=== PATIENT | female | born 1955 | race Caucasian/White ===

== ENCOUNTER 2017-04-30 12:33 | Day surgery (SDC) | payer OTHER ==
[~2017-04-30] VITALS: Ht 160 cm; Wt 57.6 kg
[~2017-04-30 12:33] MED LIST: ABAT250V; ACET325 PO; ALBU.083IS IH; ALBU90OI INH; ALBU90OI6 INH; ALBU90OI61; ALBU90OI61 INH; ALLO100; ALLO100 PO; ASPIRIN-ACETAM1 EACH PO; AZIT250 PO; B-1100 MG PO; BENZ100A PO; CHLO25 PO; CHOLESTEROL MED; CLON.1 PO; COLC.6 PO; CYAN100 PO; CYCL10; CYCL10 PO; Colace100 MG PO; Crutch1 EACH UD; DIPATR PO; ESTR2; ESTR2 PO; Estradiol0.5 MG PO; FENO160 PO; FERR325 PO; FLUSAL2505; FLUSAL2505 INH; FLUSAL5005 IH; FOLI1 PO; GABA300; GABA300 PO; HYDACE5 PO; HYDCHL25; HYDCHL25 PO; HYDR-86 PO; HYDROXYZINE PO; Hydrochlorothia25 MG PO; Hydroxyzine HCl50 MG; LEVO750 PO; LISI20; LISI20 PO; LISI5 PO; LITH300C PO; LORA1 PO; LOVA40 PO; LOVAZA; Lovastatin20 MG; METO25ER PO; METO50 PO; METR500 PO; NICO14TP TOP; NICO7; Norco 5-325 Ta1 EACH PO; OMEP20ER; OMEP20ER PO; OXYACE5T PO; PANT20 PO; PRED10 PO; PRED20 PO; PROM25 PO; Prednisone20 MG PO; Prilosec Otc20 MG PO; QUET100 PO; QUET200 PO; QUET300 PO; SENN187 PO; SULTRIDS PO; Seroquel Xr400 MG; Seroquel400 MG PO; THIA100 PO; TIOT18; TIOT18 INH; TRIA80TC; Therapeutic M1 EAC4 PO; VENL150ER PO; VENL25 PO; VENL75ER; VENL75ER PO; Ventolin Soln3 ML INH; Zithromax250 MG PO; Zofran Odt4 MG SL; Zofran8 MG PO; [UNRECOGNIZED DRUG - OTHER] PO; [UNRECOGNIZED DRUG - REMARK]
[2017-11-09] MEDS ORDERED: SPIRIVA RESPIMAT4 G1 INH (11:55)
[2017-11-09] MEDS ORDERED: Flovent 110 MCG12 GM INH (11:55)
[2017-11-09] MEDS ORDERED: ALBU90OI6 INH (11:55)
[2017-11-09] MEDS ORDERED: CHLO25B PO (11:55)
[2018-01-02] MEDS ORDERED: Ventolin5 MG/1 ML NEB (10:22)
[2018-01-02] MEDS ORDERED: Hydrocodone-Ap1 EA23 PO (10:22)
[2018-01-02] MEDS ORDERED: Roxicodone5 MG PO (10:23)
[2018-02-05] MEDS ORDERED: BISA10S PR (12:29)
[2018-02-05] MEDS ORDERED: DOCU100 PO (12:29)
[2018-02-05] MEDS ORDERED: FENT50TP TOP (12:30)
[2018-02-05] MEDS ORDERED: Omeprazole20 M1 PO (12:30)
== END 2017-04-30 22:58 | disposition home or self-care (01) ==
LOC: ORSCMMR 12:33 → ORD 15:30 → ORSCMMR 22:58
PROVIDERS: Orthopaedic Surgery
PROC: 0SPF04Z Removal of Internal Fixation Device from Right Ankle Joint, Open Approach (ICD-10-PCS; principal; 2017-04-30 15:30)
DX: T84.9XXA Unspecified complication of internal orthopedic prosthetic device, implant and graft, initial encounter (principal); I10 Essential (primary) hypertension; Z86.73 Personal history of transient ischemic attack (TIA), and cerebral infarction without residual deficits; F17.210 Nicotine dependence, cigarettes, uncomplicated; Z79.899 Other long term (current) drug therapy
CPT/HCPCS: 82947; J0171; J0690; J1100; J1885; J2250; J2405; J3010; J7120

== ENCOUNTER 2017-06-16 16:26 | Inpatient (IN) | payer OTHER ==
[~2017-06-16] VITALS: Ht 160 cm; Wt 69.1 kg
[2017-06-16 17:17] LABS: BASOPHILS ABSOLUTE AUTO 0.04 K/mm3 (0.00-0.23); BASOPHILS PERCENT AUTO 1 % (0-2); EOSINOPHILS ABSOLUTE AUTO 0.06 K/mm3 (0.00-0.68); EOSINOPHILS PERCENT AUTO 1 % (0-6); Hematocrit 39.7 % (33.0-51.0); Hemoglobin 14.2 g/dL (11.5-16.0); IMMATURE GRAN ABSOLUTE AUTO 0.05 K/mm3 (0.00-0.10); IMMATURE GRAN PERCENT AUTO 1 % (0-1); LYMPHOCYTES ABSOLUTE AUTO 1.67 K/mm3 (0.84-5.20); LYMPHOCYTES PERCENT AUTO 20 % (21-46); MONOCYTES ABSOLUTE AUTO 0.96 K/mm3 (0.16-1.47); MONOCYTES PERCENT AUTO 12 % (4-13); Mean Corpuscular HGB 32.7 pg (26.0-34.0); Mean Corpuscular HGB Conc 35.8 g/dL (31.5-36.5); Mean Corpuscular Volume 92 fL (80-100); Mean Platelet Volume 9.2 fL (9.1-12.4); NEUTROPHILS ABSOLUTE AUTO 5.52 K/mm3 (1.96-9.15); NEUTROPHILS PERCENT AUTO 67 % (41-73); Platelet Count 273 K/mm3 (150-400); RDW Coefficient Variation 12.8 % (11.7-14.2); RDW Standard Deviation 42.9 fL (35.1-46.3); Red Blood Cell Count 4.34 M/mm3 (3.80-5.20)
[2017-06-16 17:39] LABS: Alanine Aminotransfer (ALT/SGP 35 U/L (12-78); Albumin, Blood 4.1 g/dL (3.4-5.0); Albumin/Globulin Ratio 0.9 (0.8-1.8); Alk Phos 170 U/L (50-136); Anion Gap 10 mmol/L (6-16); Aspartate Aminotrans (AST/SGOT 49 U/L (12-37); Bilirubin, Total 0.7 mg/dL (0.1-1.0); Blood Urea Nitrogen 9 mg/dL (8-24); Bun/Creatinine Ratio 14.2 (12.0-20.0); CO2, Blood 27 mmol/L (21-32); Calcium, Blood 9.2 mg/dL (8.5-10.1); Chloride, Blood 79 mmol/L (98-108); Creatinine, Blood 0.63 mg/dL (0.40-1.00); Globulin, Blood 4.7 g/dL (2.2-4.0); Glomerular Filtration Rate >60 (60-); Glucose, Blood 102 mg/dL (70-99); Potassium, Blood 3.7 mmol/L (3.5-5.5); Sodium, Blood 116 mmol/L (136-145); Total Protein, Blood 8.8 g/dL (6.4-8.2)
[2017-06-17 00:02] LABS: Anion Gap 10 mmol/L (6-16); Blood Urea Nitrogen 7 mg/dL (8-24); Bun/Creatinine Ratio 11.9 (12.0-20.0); CO2, Blood 27 mmol/L (21-32); Calcium, Blood 8.2 mg/dL (8.5-10.1); Chloride, Blood 90 mmol/L (98-108); Creatinine, Blood 0.59 mg/dL (0.40-1.00); Glomerular Filtration Rate >60 (60-); Glucose, Blood 93 mg/dL (70-99); Potassium, Blood 2.7 mmol/L (3.5-5.5)
[2017-06-17 00:04] LABS: Sodium, Blood 127 mmol/L (136-145)
[2017-06-17 05:45] LABS: Anion Gap 8 mmol/L (6-16); Blood Urea Nitrogen 8 mg/dL (8-24); Bun/Creatinine Ratio 11.3 (12.0-20.0); CO2, Blood 26 mmol/L (21-32); Calcium, Blood 8.4 mg/dL (8.5-10.1); Chloride, Blood 95 mmol/L (98-108); Creatinine, Blood 0.71 mg/dL (0.40-1.00); Glomerular Filtration Rate >60 (60-); Glucose, Blood 84 mg/dL (70-99); Potassium, Blood 3.5 mmol/L (3.5-5.5); Sodium, Blood 129 mmol/L (136-145)
[2017-06-17] MEDS ORDERED: VENL75ER PO (10:54)
[2017-06-17 16:21] LABS: Anion Gap 5 mmol/L (6-16); Blood Urea Nitrogen 10 mg/dL (8-24); Bun/Creatinine Ratio 16.5 (12.0-20.0); CO2, Blood 24 mmol/L (21-32); Calcium, Blood 8.4 mg/dL (8.5-10.1); Chloride, Blood 105 mmol/L (98-108); Creatinine, Blood 0.61 mg/dL (0.40-1.00); Glomerular Filtration Rate >60 (60-); Glucose, Blood 101 mg/dL (70-99); Potassium, Blood 4.8 mmol/L (3.5-5.5); Sodium, Blood 134 mmol/L (136-145)
[2017-06-18 05:55] LABS: Anion Gap 5 mmol/L (6-16); Blood Urea Nitrogen 11 mg/dL (8-24); Bun/Creatinine Ratio 21.4 (12.0-20.0); CO2, Blood 27 mmol/L (21-32); Chloride, Blood 108 mmol/L (98-108); Creatinine, Blood 0.51 mg/dL (0.40-1.00); Glomerular Filtration Rate >60 (60-); Glucose, Blood 105 mg/dL (70-99); Potassium, Blood 4.5 mmol/L (3.5-5.5); Sodium, Blood 140 mmol/L (136-145)
== END 2017-06-18 13:47 | disposition home or self-care (01) | DRG 641 ==
LOC: ER 16:26 → MEDS 19:12
PROVIDERS: Emergency Medicine; Internal Medicine
DX: E87.1 Hypo-osmolality and hyponatremia (principal); I10 Essential (primary) hypertension; K52.89 Other specified noninfective gastroenteritis and colitis; F32.9 Major depressive disorder, single episode, unspecified; G89.4 Chronic pain syndrome; M10.9 Gout, unspecified; F17.210 Nicotine dependence, cigarettes, uncomplicated; Z88.0 Allergy status to penicillin; Z91.040 Latex allergy status; Z87.11 Personal history of peptic ulcer disease; Z86.010 Personal history of colon polyps
CPT/HCPCS: 36415; 80048; 80053; 82947; 83690; 83935; 84300; 85025; 96361; 96374; 96375; 99285; G0480; J0780; J1200; J1650; J2405; J3480; J7030

== ENCOUNTER 2017-09-08 16:29 | Emergency (ER) | payer OTHER ==
[~2017-09-08] VITALS: Ht 160 cm; Wt 59.0 kg
[2017-09-08 16:41] LABS: BASOPHILS ABSOLUTE AUTO 0.09 K/mm3 (0.00-0.23); BASOPHILS PERCENT AUTO 2 % (0-2); EOSINOPHILS ABSOLUTE AUTO 0.21 K/mm3 (0.00-0.68); EOSINOPHILS PERCENT AUTO 4 % (0-6); Hematocrit 39.2 % (33.0-51.0); Hemoglobin 13.4 g/dL (11.5-16.0); IMMATURE GRAN ABSOLUTE AUTO 0.04 K/mm3 (0.00-0.10); IMMATURE GRAN PERCENT AUTO 1 % (0-1); LYMPHOCYTES ABSOLUTE AUTO 2.36 K/mm3 (0.84-5.20); LYMPHOCYTES PERCENT AUTO 43 % (21-46); MONOCYTES ABSOLUTE AUTO 0.72 K/mm3 (0.16-1.47); MONOCYTES PERCENT AUTO 13 % (4-13); Mean Corpuscular HGB 32.7 pg (26.0-34.0); Mean Corpuscular HGB Conc 34.2 g/dL (31.5-36.5); Mean Corpuscular Volume 96 fL (80-100); Mean Platelet Volume 8.5 fL (9.1-12.4); NEUTROPHILS ABSOLUTE AUTO 2.03 K/mm3 (1.96-9.15); NEUTROPHILS PERCENT AUTO 37 % (41-73); Platelet Count 230 K/mm3 (150-400); RDW Coefficient Variation 14.5 % (11.7-14.2); RDW Standard Deviation 50.3 fL (35.1-46.3); White Blood Cell Count 5.45 K/mm3 (4.00-11.30)
[2017-09-08 17:05] LABS: Alanine Aminotransfer (ALT/SGP 87 U/L (12-78); Albumin/Globulin Ratio 0.9 (0.8-1.8); Alk Phos 156 U/L (50-136); Anion Gap 12 mmol/L (6-16); Aspartate Aminotrans (AST/SGOT 98 U/L (12-37); Bilirubin, Total 0.4 mg/dL (0.1-1.0); Blood Urea Nitrogen 8 mg/dL (8-24); Bun/Creatinine Ratio 16.3 (12.0-20.0); CO2, Blood 24 mmol/L (21-32); Calcium, Blood 8.7 mg/dL (8.5-10.1); Chloride, Blood 93 mmol/L (98-108); Creatinine, Blood 0.49 mg/dL (0.40-1.00); Globulin, Blood 4.3 g/dL (2.2-4.0); Glomerular Filtration Rate >60 (60-); Glucose, Blood 108 mg/dL (70-99); Potassium, Blood 4.2 mmol/L (3.5-5.5); Sodium, Blood 129 mmol/L (136-145); Total Protein, Blood 8.3 g/dL (6.4-8.2)
[2017-09-08 17:49] LABS: Source, Urine Clean Catch
[2017-09-08 17:53] LABS: Appearance, Urine Clear (Clear); Bilirubin, Urine Neg (Neg); Blood, Urine Neg (Neg); Color, Urine Yellow (P-Yellow); Glucose Qualitative, Urine Neg (Neg); Ketones, Urine Neg (Neg); Leukocyte Esterase, Urine Neg (Neg); Nitrite, Urine Neg (Neg); Protein, Urine Neg (Neg); Urobilinogen, Urine NORM (Normal)
[2017-09-08] MEDS ORDERED: METO10 PO (21:58)
== END 2017-09-08 22:02 | disposition home or self-care (01) ==
LOC: ER 16:29
DX: K91.1 Postgastric surgery syndromes (principal); F31.9 Bipolar disorder, unspecified; J44.9 Chronic obstructive pulmonary disease, unspecified; F17.210 Nicotine dependence, cigarettes, uncomplicated; I10 Essential (primary) hypertension; Z88.0 Allergy status to penicillin; Z91.040 Latex allergy status; Z79.899 Other long term (current) drug therapy
CPT/HCPCS: 74177; 76705; 80053; 81003; 85025; 93005; 93010; 96361; 96374; 96375; 99284-25; J1885; J2765; J7030; Q9967

== ENCOUNTER → 2017-10-31 | Outpatient (CLI) | payer OTHER ==
[~2017-10-31] MED LIST changes: +METO10 PO
== END | disposition home or self-care (01) ==
LOC: LAB EV 16:23 → LAB SHORT 16:23
DX: M25.571 Pain in right ankle and joints of right foot (principal)
CPT/HCPCS: 87070; 87205

== ENCOUNTER 2017-11-09 11:29 | Day surgery (SDC) | payer OTHER ==
[~2017-11-09] VITALS: Ht 160 cm; Wt 57.8 kg
[2017-11-09] MEDS ORDERED: CHLO25B (11:55)
[2017-11-09] MEDS ORDERED: Flovent 110 MCG12 GM (11:55)
[2017-11-09] MEDS ORDERED: ALBU90OI6 (11:55)
[2017-11-09] MEDS ORDERED: SPIRIVA RESPIMAT4 G1 (11:55)
== END 2017-11-09 17:18 | disposition home or self-care (01) ==
LOC: ORSCSDS 11:29
PROVIDERS: Podiatrist Foot & Ankle Surgery
PROC: 0QBJ0ZZ Excision of Right Fibula, Open Approach (ICD-10-PCS; principal; 2017-11-09 13:00)
PROC: 0QBG0ZZ Excision of Right Tibia, Open Approach (ICD-10-PCS; principal; 2017-11-09 13:00)
PROC: 0QPG04Z Removal of Internal Fixation Device from Right Tibia, Open Approach (ICD-10-PCS; principal; 2017-11-09 13:00)
PROC: 0QBN0ZZ Excision of Right Metatarsal, Open Approach (ICD-10-PCS; principal; 2017-11-09 13:00)
DX: M86.171 Other acute osteomyelitis, right ankle and foot (principal); I10 Essential (primary) hypertension; J44.9 Chronic obstructive pulmonary disease, unspecified; F17.210 Nicotine dependence, cigarettes, uncomplicated; K21.9 Gastro-esophageal reflux disease without esophagitis; E11.9 Type 2 diabetes mellitus without complications; Z86.73 Personal history of transient ischemic attack (TIA), and cerebral infarction without residual deficits; Z79.899 Other long term (current) drug therapy
CPT/HCPCS: 87071; 87075; 87205; C1713; J1100; J2250; J2405; J3010; J3370; J7120

== ENCOUNTER 2017-11-15 19:55 | Emergency (ER) | payer OTHER ==
[~2017-11-15] VITALS: Ht 160 cm; Wt 59.0 kg
[~2017-11-15 19:55] MED LIST changes: +ALBU90OI6; +CHLO25B; +Flovent 110 MCG12 GM; +SPIRIVA RESPIMAT4 G1
[2017-11-15 21:00] LABS: BASOPHILS ABSOLUTE AUTO 0.03 K/mm3 (0.00-0.23); BASOPHILS PERCENT AUTO 0 % (0-2); EOSINOPHILS ABSOLUTE AUTO 0.09 K/mm3 (0.00-0.68); EOSINOPHILS PERCENT AUTO 1 % (0-6); Hematocrit 44.6 % (33.0-51.0); IMMATURE GRAN ABSOLUTE AUTO 0.02 K/mm3 (0.00-0.10); IMMATURE GRAN PERCENT AUTO 0 % (0-1); LYMPHOCYTES PERCENT AUTO 19 % (21-46); MONOCYTES ABSOLUTE AUTO 0.69 K/mm3 (0.16-1.47); MONOCYTES PERCENT AUTO 9 % (4-13); Mean Corpuscular HGB Conc 33.6 g/dL (31.5-36.5); Mean Platelet Volume 8.7 fL (9.1-12.4); NEUTROPHILS ABSOLUTE AUTO 5.54 K/mm3 (1.96-9.15); NEUTROPHILS PERCENT AUTO 70 % (41-73); Platelet Count 510 K/mm3 (150-400); RDW Coefficient Variation 13.8 % (11.7-14.2); RDW Standard Deviation 50.1 fL (35.1-46.3); Red Blood Cell Count 4.55 M/mm3 (3.80-5.20); White Blood Cell Count 7.87 K/mm3 (4.00-11.30)
[2017-11-15 21:01] LABS: Mean Corpuscular Volume 98 fL (80-100)
[2017-11-15 21:25] LABS: Alanine Aminotransfer (ALT/SGP 32 U/L (12-78); Albumin, Blood 4.5 g/dL (3.4-5.0); Albumin/Globulin Ratio 0.8 (0.8-1.8); Alk Phos 162 U/L (50-136); Anion Gap 9 mmol/L (6-16); Aspartate Aminotrans (AST/SGOT 22 U/L (12-37); Bilirubin, Total 0.6 mg/dL (0.1-1.0); Blood Urea Nitrogen 12 mg/dL (8-24); CO2, Blood 28 mmol/L (21-32); Calcium, Blood 10.3 mg/dL (8.5-10.1); Chloride, Blood 94 mmol/L (98-108); Creatinine, Blood 0.52 mg/dL (0.40-1.00); Globulin, Blood 5.3 g/dL (2.2-4.0); Glomerular Filtration Rate >60 (60-); Glucose, Blood 137 mg/dL (70-99); Potassium, Blood 3.4 mmol/L (3.5-5.5); Sodium, Blood 131 mmol/L (136-145); Total Protein, Blood 9.8 g/dL (6.4-8.2)
[2017-11-15 22:33] LABS: Source, Urine Clean Catch
[2017-11-15 22:42] LABS: Blood, Urine 1+ (Neg); Glucose Qualitative, Urine Neg (Neg); Ketones, Urine 2+ (Neg); Leukocyte Esterase, Urine 1+ (Neg); Nitrite, Urine Neg (Neg); Protein, Urine 2+ (Neg); Urobilinogen, Urine 1+ (Normal)
[2017-11-15 22:56] LABS: Appearance, Urine Clear (Clear); Bilirubin, Urine 1+ (Neg); Color, Urine Yellow (P-Yellow)
[2017-11-15 22:57] LABS: Red Blood Cells, Urine 0-2 /hpf (0-2); White Blood Cells, Urine 0-2 /hpf (0-5)
[2017-11-15 22:58] LABS: Mucus Mod (0-Heavy)
[2017-11-15 22:59] LABS: Bacteria Few /hpf; Squamous Epithelial Cells Mod /hpf (Few)
== END 2017-11-15 23:22 | disposition home or self-care (01) ==
LOC: ER 19:55
PROVIDERS: Emergency Medicine
DX: K52.9 Noninfective gastroenteritis and colitis, unspecified (principal); F31.9 Bipolar disorder, unspecified; I10 Essential (primary) hypertension; E78.5 Hyperlipidemia, unspecified; J44.9 Chronic obstructive pulmonary disease, unspecified; F17.210 Nicotine dependence, cigarettes, uncomplicated; Z88.0 Allergy status to penicillin; Z91.040 Latex allergy status; Z79.899 Other long term (current) drug therapy
CPT/HCPCS: 36415; 80053; 81001; 83690; 85025; 96361; 96374; 99284-25; J1885; J7030

== ENCOUNTER 2017-12-28 00:51 | Day surgery (SDC) | payer OTHER ==
[~2017-12-28 00:51] MED LIST changes: -ALBU90OI6; -CHLO25B; +CHLO25B PO; -Flovent 110 MCG12 GM; +Flovent 110 MCG12 GM INH; -SPIRIVA RESPIMAT4 G1; +SPIRIVA RESPIMAT4 G1 INH
[2018-01-02] MEDS ORDERED: Hydrocodone-Ap1 EA23 PO (10:22)
[2018-01-02] MEDS ORDERED: Ventolin5 MG/1 ML NEB (10:22)
[2018-01-02] MEDS ORDERED: Roxicodone5 MG PO (10:23)
== END 2017-12-28 23:05 | disposition home or self-care (01) ==
LOC: WOUND 00:51
DX: Z48.00 Encounter for change or removal of nonsurgical wound dressing (principal); L97.318 Non-pressure chronic ulcer of right ankle with other specified severity; M86.9 Osteomyelitis, unspecified; Z72.0 Tobacco use
CPT/HCPCS: G0463

== ENCOUNTER 2018-02-13 11:04 | Inpatient (IN) | payer OTHER ==
[~2018-02-13] VITALS: Ht 160 cm; Wt 59.0 kg
[~2018-02-13 11:04] MED LIST changes: +BISA10S PR; +DOCU100 PO; +FENT50TP TOP; +Hydrocodone-Ap1 EA23 PO; +Omeprazole20 M1 PO; +Roxicodone5 MG PO; +Ventolin5 MG/1 ML NEB
[2018-02-13 11:36] LABS: BASOPHILS ABSOLUTE AUTO 0.06 K/mm3 (0.00-0.23); BASOPHILS PERCENT AUTO 1 % (0-2); EOSINOPHILS ABSOLUTE AUTO 0.32 K/mm3 (0.00-0.68); EOSINOPHILS PERCENT AUTO 3 % (0-6); Hematocrit 29.9 % (33.0-51.0); IMMATURE GRAN ABSOLUTE AUTO 0.03 K/mm3 (0.00-0.10); IMMATURE GRAN PERCENT AUTO 0 % (0-1); LYMPHOCYTES ABSOLUTE AUTO 1.28 K/mm3 (0.84-5.20); LYMPHOCYTES PERCENT AUTO 14 % (21-46); MONOCYTES ABSOLUTE AUTO 0.64 K/mm3 (0.16-1.47); MONOCYTES PERCENT AUTO 7 % (4-13); Mean Corpuscular HGB 29.1 pg (26.0-34.0); Mean Corpuscular HGB Conc 30.1 g/dL (31.5-36.5); Mean Corpuscular Volume 97 fL (80-100); Mean Platelet Volume 8.6 fL (9.1-12.4); NEUTROPHILS ABSOLUTE AUTO 7.13 K/mm3 (1.96-9.15); NEUTROPHILS PERCENT AUTO 75 % (41-73); Platelet Count 691 K/mm3 (150-400); RDW Coefficient Variation 15.4 % (11.7-14.2); RDW Standard Deviation 54.4 fL (35.1-46.3); Red Blood Cell Count 3.09 M/mm3 (3.80-5.20); White Blood Cell Count 9.46 K/mm3 (4.00-11.30)
[2018-02-13 11:55] LABS: Alanine Aminotransfer (ALT/SGP 18 U/L (12-78); Albumin, Blood 2.8 g/dL (3.4-5.0); Albumin/Globulin Ratio 0.6 (0.8-1.8); Alk Phos 128 U/L (50-136); Anion Gap 9 mmol/L (6-16); Aspartate Aminotrans (AST/SGOT 12 U/L (12-37); Bilirubin, Total 0.2 mg/dL (0.1-1.0); Blood Urea Nitrogen 13 mg/dL (8-24); Bun/Creatinine Ratio 25.8 (12.0-20.0); CO2, Blood 23 mmol/L (21-32); Calcium, Blood 8.6 mg/dL (8.5-10.1); Chloride, Blood 101 mmol/L (98-108); Globulin, Blood 4.5 g/dL (2.2-4.0); Glomerular Filtration Rate >60 (60-); Glucose, Blood 131 mg/dL (70-99); Potassium, Blood 4.3 mmol/L (3.5-5.5); Sodium, Blood 133 mmol/L (136-145); Total Protein, Blood 7.3 g/dL (6.4-8.2)
--- NOTE | 2018-02-13 17:35 | NUR ---
PT ADMITTED TO ROOM 209 FROM ED VIA W/C APPROX 1450- VSS- R BKA WRAPPED IN KERLEX DRESSING- NO SHADOWING. PAIN 09/04- MEDICATED. STARTED IVF AND GIVEN FLUIDS TO DRINK. DOESN'T WANT TO EAT, BUT REQ BEEF BROTH.
--- NOTE | 2018-02-13 17:37 | NUR ---
SUMMARY- DR RILEY CALLED AND WANTS TO MAKE SURE PT DOESN'T RECEIVE ABX BEFORE CX OBTAINED TOMORROW. PT'S PAIN CONTROLLED WITH 2 LORTAB AND FENT PATCH. TOLERATING PO FLUIDS ALTHOUGH DECREASED APPETITE. STATES LAST BM 3 DAYS AGO, PT STATES SHE TOOK A LAXATIVE THIS AM. VSS. WILL REPORT TO SERENE SPANN.
--- NOTE | 2018-02-13 18:39 | NUR ---
R BKA DRESSING FELL OFF, MOD AMOUNT OF SERO-SANG DRAINAGE. GENNARO INTACT, INC WELL APPROX. AREA WARM TO TOUCH, SIGNAL MECHANIC 3 SEC. MOD SWELLING. APPLIED VASALINE GAUZE AND 4X4'S, ABD PAD AND KERLEX. PT UP TO BSC SBA, VOIDING. TOLERATED ALL OF DINNER.
--- NOTE | 2018-02-14 04:34 | NUR ---
PT HAD NO ACUTE CHANGES T/O NIGHT; VSS. DRESSING TO LLE INTACT W/NO SIG DRNG NOTED. PAIN MGD PER EMAR W/REP RELIEF. PT NEEDING EDUCATION R/T FENTANYL PATCH; PT REQ TO HAVE NEW PATCH PLACED X2 THIS SHIFT. PT RECEPTIVE TO INFO, ALTHOUGH DOES ASK AGAIN LATER. PT NPO POST MIDNIGHT FOR PLAN FOR OR TODAY. PT UP OOB W/1 ASSIST, PT IS USING CALL LIGHT FOR ASSISTANCE, BED ALARM ON FOR SAFETY. WILL CONT TO MONITOR UNTIL REP GIVEN TO ONCOMING RN.
[2018-02-14 05:49] LABS: BASOPHILS ABSOLUTE AUTO 0.04 K/mm3 (0.00-0.23); BASOPHILS PERCENT AUTO 1 % (0-2); EOSINOPHILS ABSOLUTE AUTO 0.33 K/mm3 (0.00-0.68); EOSINOPHILS PERCENT AUTO 6 % (0-6); Hematocrit 27.2 % (33.0-51.0); Hemoglobin 8.6 g/dL (11.5-16.0); IMMATURE GRAN ABSOLUTE AUTO 0.04 K/mm3 (0.00-0.10); IMMATURE GRAN PERCENT AUTO 1 % (0-1); LYMPHOCYTES ABSOLUTE AUTO 1.84 K/mm3 (0.84-5.20); LYMPHOCYTES PERCENT AUTO 35 % (21-46); MONOCYTES ABSOLUTE AUTO 0.49 K/mm3 (0.16-1.47); MONOCYTES PERCENT AUTO 9 % (4-13); Mean Corpuscular HGB 29.7 pg (26.0-34.0); Mean Corpuscular HGB Conc 31.6 g/dL (31.5-36.5); Mean Corpuscular Volume 94 fL (80-100); Mean Platelet Volume 8.6 fL (9.1-12.4); NEUTROPHILS ABSOLUTE AUTO 2.56 K/mm3 (1.96-9.15); NEUTROPHILS PERCENT AUTO 48 % (41-73); Platelet Count 585 K/mm3 (150-400); RDW Coefficient Variation 15.1 % (11.7-14.2); RDW Standard Deviation 51.9 fL (35.1-46.3)
[2018-02-14 06:03] LABS: Anion Gap 8 mmol/L (6-16); Blood Urea Nitrogen 11 mg/dL (8-24); Bun/Creatinine Ratio 21.2 (12.0-20.0); CO2, Blood 28 mmol/L (21-32); Calcium, Blood 8.8 mg/dL (8.5-10.1); Chloride, Blood 103 mmol/L (98-108); Creatinine, Blood 0.52 mg/dL (0.40-1.00); Glomerular Filtration Rate >60 (60-); Glucose, Blood 124 mg/dL (70-99); Sodium, Blood 139 mmol/L (136-145)
--- NOTE | 2018-02-14 07:15 | NUR ---
REPORT AND WALKING ROUNDS WITH RN. ASSUMED PT CARE. PT APPEARS TO BE SLEEPING. NADN. RESP EVEN AND NON LABORED. PLAN FOR PT TO HAVE I&D OF WOUND TODAY.
--- NOTE | 2018-02-14 07:30 | NUR ---
pt has 18g to right ac not right wrist. flushes well. dressing intact.
--- NOTE | 2018-02-14 08:53 | NUR ---
PT MEDICATED FOR C/O PAIN. PT HAS NO OTHER COMPLAINTS.
--- NOTE | 2018-02-14 10:50 | NUR ---
DR DYER TO ROOM FOR EVAL. PT SLEEPING. CHAPO.
--- NOTE | 2018-02-14 12:22 | NUR ---
PT SITTING IN BED. FAMILY AT BEDSIDE. AWAITING OR TEAM.
--- NOTE | 2018-02-14 13:58 | NUR ---
SURGICAL STAFF TO ROOM TO UPDATE PT. PLAN TO GO TO OR AROUND 1930. PT IRRITATED. PLAN TO DRESS PT DOWN.
--- NOTE | 2018-02-14 15:49 | NUR ---
pt showered with assistance from family. gown changed. pt back to bed. dressing to iv changed. pt brushing hair.
--- NOTE | 2018-02-14 16:15 | NUR ---
dr mast to room.
--- NOTE | 2018-02-14 16:20 | NUR ---
new dressing placed to right bka.
--- NOTE | 2018-02-14 21:41 | NUR ---
PT TURNED BED ALARM OFF AND TOOK SELF TO BEDSIDE COMODE. THIS REMNANT SORTER REMINDED PT TO USE CALL LIGHT AND WAIT FOR STAFF TO PREVENT FALLS.
--- NOTE | 2018-02-15 07:45 | NUR ---
SUMMARY PT PENDING OR TODAY. NPO SLEEPING AT SHIFT CHANGE.
--- NOTE | 2018-02-15 10:49 | NUR ---
CLAIRIFIED IMPLANT TO L CHEST WALL WITH [facility] IS A "LINQ" LOOP RECORDER.
--- NOTE | 2018-02-15 11:31 | NUR ---
BROUGHT TO UNIT FROM SURGICAL FLOOR ADMISSION TO UNIT STARTED. VSS
--- NOTE | 2018-02-15 11:31 | NUR ---
PT SELF TRANSFERED FROM BED TO [facility] FOR DAY SURGERY. PT VOIDED 15 MIN PRIOR TO TRANSFER. SURG CHECKLIST COMPLETED.
--- NOTE | 2018-02-15 12:40 | NUR ---
PT RETURNED TO ROOM VIA [facility] W/O SURGERY. DAY ACID MIXER REPORTS A DELAY IN THE O.R. PT IS R/S TO THIS AFTERNOON.
--- NOTE | 2018-02-15 13:09 | NUR ---
TO ROOM; HE CHANGED DRESSING. SILVANA FROM DAY SURG IS HERE TO PICKUP PT FOR THE OR.
--- NOTE | 2018-02-15 13:17 | NUR ---
BETTINA HAD BEEN TAKEN BACK TO ROOM NOW BACK IN SDS PREPPING FOR SURGERY. VSS
--- NOTE | 2018-02-15 14:56 | NUR ---
FROM OR TO PACU VSS PATIENT WAKING UP FEELING GROGGY. PLACED ON 02 2 LITERS TO MAINTAIN SAT OVER 90%
--- NOTE | 2018-02-15 18:45 | NUR ---
SHIFT SUMMARY: PT IS A&O X 4. VSS. SHE WAS ON 2L O2 VIA NC TO MAINTAIN SATS >90 POST OP. SHE IS NOW ON 0.5L O2. DENIES SOB. PT REPORTS PAIN IN MANANGED WITH 2 PO NORCO. WOUND VAC HAS GOOD SEAL WITH LESS THAN 20CC OF SANGUINEOUS DRAINAGE IN CANISTER. SHE IS EATING, DRINKING AND VOIDING WELL. SHE IS ABLE TO SELF TRANSFER WITH SBA FROM BED TO BSC. NS WITH KCL NOT STARTED; WAITING FOR MED FROM PHARMACY. WILL PASS TO NEXT RN AND CTM UNTIL REPORT GIVEN.
[2018-02-16 04:32] LABS: BASOPHILS ABSOLUTE AUTO 0.04 K/mm3 (0.00-0.23); BASOPHILS PERCENT AUTO 1 % (0-2); EOSINOPHILS ABSOLUTE AUTO 0.04 K/mm3 (0.00-0.68); EOSINOPHILS PERCENT AUTO 1 % (0-6); Hematocrit 25.4 % (33.0-51.0); Hemoglobin 7.6 g/dL (11.5-16.0); IMMATURE GRAN ABSOLUTE AUTO 0.03 K/mm3 (0.00-0.10); IMMATURE GRAN PERCENT AUTO 1 % (0-1); LYMPHOCYTES ABSOLUTE AUTO 1.45 K/mm3 (0.84-5.20); LYMPHOCYTES PERCENT AUTO 27 % (21-46); MONOCYTES ABSOLUTE AUTO 0.32 K/mm3 (0.16-1.47); MONOCYTES PERCENT AUTO 6 % (4-13); Mean Corpuscular HGB 28.9 pg (26.0-34.0); Mean Corpuscular HGB Conc 29.9 g/dL (31.5-36.5); Mean Platelet Volume 8.7 fL (9.1-12.4); NEUTROPHILS PERCENT AUTO 66 % (41-73); Platelet Count 542 K/mm3 (150-400); RDW Standard Deviation 52.9 fL (35.1-46.3); Red Blood Cell Count 2.63 M/mm3 (3.80-5.20); White Blood Cell Count 5.48 K/mm3 (4.00-11.30)
[2018-02-16 04:40] LABS: Mean Corpuscular Volume 97 fL (80-100)
[2018-02-16 04:52] LABS: Anion Gap 9 mmol/L (6-16); Blood Urea Nitrogen 18 mg/dL (8-24); Bun/Creatinine Ratio 31.5 (12.0-20.0); CO2, Blood 25 mmol/L (21-32); Calcium, Blood 8.4 mg/dL (8.5-10.1); Chloride, Blood 103 mmol/L (98-108); Creatinine, Blood 0.57 mg/dL (0.40-1.00); Glomerular Filtration Rate >60 (60-); Glucose, Blood 152 mg/dL (70-99); Potassium, Blood 3.6 mmol/L (3.5-5.5); Sodium, Blood 137 mmol/L (136-145)
--- NOTE | 2018-02-16 08:29 | NUR ---
SUMMARY PT WITH NEW IV SITE X 2. PAIN MEDS EFFECTIVE. NO ACUTE CHANGES.
--- NOTE | 2018-02-16 10:39 | NUR ---
The pt has been cheerful, pleasantly conversant this morning. States that her abdomen is hurting now after bearing down so hard to have a bowel movement this morning. States she had a firm stool followed by diarrhea after taking some prune juice mixed with butter. She states that the right stump has been painful, as well, since having the debridement done yesterday with what she described as a "water pic" tool. It is connected to the wound vac, and has an moriah wrap ove that as well. Fentanyl patch which was scheduled for 2 pm this afternoon was given 4 hours early as she said that her pain was worse. Also gave her neurontin, as scheduled, which for her NPO status yesterday had not been administered in the morning nor early afternoon. at this time she is sitting up in the large recliner, and appears to be fairly comfortable.
--- NOTE | 2018-02-16 10:44 | NUR ---
Lisinopril was held due to her low blood pressure, which is despite the fact that lisinopril was not administered yesterday when the pt was NPO.
--- NOTE | 2018-02-16 15:07 | NUR ---
IV SITE VERIFIED.
--- NOTE | 2018-02-16 18:17 | NUR ---
SUMMARY The pt states she has better pain control this evening, and that she is happy with how she is feeling. Good appetite, bowel movements loose but slowing down in frequency. Voiding without difficulty. Wound vac to right stump, covered in moriah bandage. 125 mm suction, with black foam visible on the medial side of the wound. Incision to the lateral side of the foam is visible under the wound vac dressing. This was applied yesterday, and orders are to change the dressing MW.
[2018-02-17 02:17] LABS: BASOPHILS ABSOLUTE AUTO 0.05 K/mm3 (0.00-0.23); BASOPHILS PERCENT AUTO 1 % (0-2); EOSINOPHILS ABSOLUTE AUTO 0.35 K/mm3 (0.00-0.68); EOSINOPHILS PERCENT AUTO 6 % (0-6); Hematocrit 25.4 % (33.0-51.0); Hemoglobin 7.6 g/dL (11.5-16.0); IMMATURE GRAN PERCENT AUTO 0 % (0-1); LYMPHOCYTES ABSOLUTE AUTO 2.17 K/mm3 (0.84-5.20); LYMPHOCYTES PERCENT AUTO 39 % (21-46); MONOCYTES ABSOLUTE AUTO 0.47 K/mm3 (0.16-1.47); MONOCYTES PERCENT AUTO 8 % (4-13); Mean Corpuscular HGB 29.1 pg (26.0-34.0); Mean Corpuscular HGB Conc 29.9 g/dL (31.5-36.5); Mean Corpuscular Volume 97 fL (80-100); Mean Platelet Volume 8.7 fL (9.1-12.4); NEUTROPHILS ABSOLUTE AUTO 2.54 K/mm3 (1.96-9.15); NEUTROPHILS PERCENT AUTO 46 % (41-73); Platelet Count 479 K/mm3 (150-400); RDW Standard Deviation 53.9 fL (35.1-46.3); Red Blood Cell Count 2.61 M/mm3 (3.80-5.20); White Blood Cell Count 5.58 K/mm3 (4.00-11.30)
[2018-02-17 02:33] LABS: Vancomycin, Trough 14.3 ug/mL (5.0-10.0)
--- NOTE | 2018-02-17 05:14 | NUR ---
SHIFT SUMMARY: PT APPEARS TO BE RESTING COMFORTABLY THROUGHOUT SHIFT. PAIN MANAGED WITH NORCO PER EMAR. SBA TO BEDSIDE COMMODE. VOIDING WELL. PASSING GAS AND STOOL. FLUIDS AND ABX RUNNING. VANCO TROUGH REVIEWED. PLAN TO CONTINUE SAME VANCO DOSE. BOYFRIEND AT BEDSIDE. NO CONCERNS AT THIS TIME.
--- NOTE | 2018-02-17 19:48 | NUR ---
SUMMARY NO ACUTE CHANGES THROUGH THE DAY. PAIN MANAGED WITH PO NORCO. PT IS TOLERATING REGULAR DIET. PT HAD A SHOWER, LINEN CHANGED. WOUND VAC DRSG REPLACED BY CHARGE NURSE. REPORT GIVEN TO NIGHT RN
--- NOTE | 2018-02-18 04:41 | NUR ---
SHIFT SUMMARY: NO ACUTE CHANGES THIS SHIFT. PAIN MANAGED WITH NORCO Q4. UP TO BSC INDEPENDENTLY. FLUIDS RUNNING. TREASURE PO DIET. VOIDING WELL. PLAN IS TO CONTINUE ABX THERAPY. NO CONCERNS AT THIS TIME. CALL LIGHT WITHIN REACH.
--- NOTE | 2018-02-18 08:00 | NUR ---
pt sleeping wakes to verbal stimuli pt moriah wrap off placed a large stump sock over her amp instead loose vs tight pt tired wants to go back to sleep
[2018-02-18 14:54] LABS: Creatinine, Blood 0.74 mg/dL (0.40-1.00); Vancomycin, Trough 18.5 ug/mL (5.0-10.0)
--- NOTE | 2018-02-18 14:58 | NUR ---
pt unhooked her wound vac to go for a walk told pt she cannot unhook her wound vac hooked it back up to sx pt has to walk with staff also talked with dr jose luis brown re discharge and she stated pt needs to go to snf with 2 weeks iv abx therapy called for powerglide placement also discussed with pt
--- NOTE | 2018-02-18 17:07 | NUR ---
ASSUMED CARE OF PATIENT AT 1530. PATIENT W/O C/O. IV ABX INFUSING PER ORDER. NO ACUTE CHANGES.
--- NOTE | 2018-02-19 06:32 | NUR ---
SHIFT SUMMARY PT IS POD 4 I&D W/ WOUND VAC PLACEMENT TO RIGHT BKA STUMP. PT RUNNING IV ABX PER ORDERS. POWERGLIDE PLACED LAST NIGHT FOR FREQUENT BLOWING IVS, FLUSHES EASILY, NO COMPLAINTS OF SITE PAIN. PT IS UP TO BSC W/ FWW AND SBA. MEDICATING FOR PAIN PER EMAR. NO LEAKS NOTED FROM WOUND VAC. PLAN IS FOR SNF FOR WOUND CARE AND AX WHEN BED AVAILABLE. WILL CTM UNTIL PASS TO NEXT SHIFT.
--- NOTE | 2018-02-19 07:55 | NUR ---
pt awake sitting up in bed s/o at bedside pt stated that she had a bm yesterday req i hold the colace again today will also hold the b/p med pt denies dizziness
--- NOTE | 2018-02-19 10:16 | NUR ---
PO PAIN MEDS GIVEN WITH CRACKERS
--- NOTE | 2018-02-19 11:16 | NUR ---
PT OOB IN WITH WOUND VAC WITH S/O IN [facility]
--- NOTE | 2018-02-19 11:54 | NUR ---
PT BACK TO ROOM REQ SOME TEA AND ICE WATER
--- NOTE | 2018-02-19 13:54 | NUR ---
pain meds given pt stated her shoulders have also been hurting also placed a new fent patch
--- NOTE | 2018-02-19 15:54 | NUR ---
PT VISITING WITH FRIENDS MEDS GIVEN SCHED
--- NOTE | 2018-02-19 17:42 | NUR ---
PT EATING DINNER EARLIER WENT OUT INTO HALLWAY GOT SWEATY PARTIAL BED BATH
--- NOTE | 2018-02-20 06:26 | NUR ---
SUMMARY NO ACUTE CHANGES THROUGH THE NIGHT. PT HAS SLEPT WITH NO PROBLEMS. WOUND VAC REMAINS IN IN PLACE, SUCTION INTACT. PAIN MANAGED WITH PO MEDICATION. SIGNIFICANT OTHER AT BEDSIDE. BREATHING TXT PRN. CALL LIGHT IN REACH
[2018-02-20 14:41] LABS: Vancomycin, Trough 17.6 ug/mL (5.0-10.0)
== END 2018-02-20 17:45 | DRG 502 ==
LOC: ER 11:04 → SURS 11:05
PROVIDERS: Emergency Medicine; Internal Medicine; Orthopaedic Surgery; ADMIT Internal Medicine
PROC: 0QDG0ZZ Extraction of Right Tibia, Open Approach (ICD-10-PCS; principal; 2018-02-15 12:30)
DX: T87.81 Dehiscence of amputation stump (principal); T87.43 Infection of amputation stump, right lower extremity; B95.2 Enterococcus as the cause of diseases classified elsewhere; B95.7 Other staphylococcus as the cause of diseases classified elsewhere; J44.9 Chronic obstructive pulmonary disease, unspecified; D63.8 Anemia in other chronic diseases classified elsewhere; I10 Essential (primary) hypertension; F32.9 Major depressive disorder, single episode, unspecified; F10.10 Alcohol abuse, uncomplicated; R29.6 Repeated falls; Z89.511 Acquired absence of right leg below knee; Z91.81 History of falling; W19.XXXA Unspecified fall, initial encounter; Y93.9 Activity, unspecified; Y92.9 Unspecified place or not applicable; Z88.0 Allergy status to penicillin; Z88.5 Allergy status to narcotic agent; Z91.040 Latex allergy status; Z79.899 Other long term (current) drug therapy; Z28.20 Immunization not carried out because of patient decision for unspecified reason
CPT/HCPCS: 36415; 80048; 80053; 80202; 82565; 85025; 87070; 87075; 87077; 87186; 87205; 94640; 94760; 96361; 97116; 97161; 97165; 99284; C1751; G0378; G8978; G8979; G8980; G8987; G8988; G8989; J0690; J1100; J1650; J1885; J2405; J3010; J3370; J3480; J7120

== ENCOUNTER 2018-03-08 00:05 | Inpatient (IN) | payer OTHER ==
[~2018-03-08] VITALS: Ht 160 cm; Wt 56.2 kg
[2018-03-08 00:31] LABS: BASOPHILS ABSOLUTE AUTO 0.03 K/mm3 (0.00-0.23); BASOPHILS PERCENT AUTO 0 % (0-2); EOSINOPHILS ABSOLUTE AUTO 1.04 K/mm3 (0.00-0.68); EOSINOPHILS PERCENT AUTO 10 % (0-6); Hematocrit 23.3 % (33.0-51.0); Hemoglobin 6.9 g/dL (11.5-16.0); IMMATURE GRAN ABSOLUTE AUTO 0.04 K/mm3 (0.00-0.10); IMMATURE GRAN PERCENT AUTO 0 % (0-1); LYMPHOCYTES ABSOLUTE AUTO 1.89 K/mm3 (0.84-5.20); LYMPHOCYTES PERCENT AUTO 18 % (21-46); MONOCYTES ABSOLUTE AUTO 0.73 K/mm3 (0.16-1.47); MONOCYTES PERCENT AUTO 7 % (4-13); Mean Corpuscular HGB 26.4 pg (26.0-34.0); Mean Corpuscular HGB Conc 29.6 g/dL (31.5-36.5); Mean Corpuscular Volume 89 fL (80-100); Mean Platelet Volume 9.1 fL (9.1-12.4); NEUTROPHILS ABSOLUTE AUTO 6.85 K/mm3 (1.96-9.15); NEUTROPHILS PERCENT AUTO 65 % (41-73); Platelet Count 453 K/mm3 (150-400); RDW Coefficient Variation 16.5 % (11.7-14.2); RDW Standard Deviation 54.3 fL (35.1-46.3); Red Blood Cell Count 2.61 M/mm3 (3.80-5.20); White Blood Cell Count 10.58 K/mm3 (4.00-11.30)
[2018-03-08 00:49] LABS: Alanine Aminotransfer (ALT/SGP 80 U/L (12-78); Albumin, Blood 3.5 g/dL (3.4-5.0); Albumin/Globulin Ratio 0.8 (0.8-1.8); Alk Phos 314 U/L (50-136); Anion Gap 6 mmol/L (6-16); Aspartate Aminotrans (AST/SGOT 78 U/L (12-37); Bilirubin, Total 0.2 mg/dL (0.1-1.0); Blood Urea Nitrogen 25 mg/dL (8-24); Bun/Creatinine Ratio 25.8 (12.0-20.0); CO2, Blood 24 mmol/L (21-32); Calcium, Blood 8.3 mg/dL (8.5-10.1); Chloride, Blood 99 mmol/L (98-108); Creatinine, Blood 0.97 mg/dL (0.40-1.00); Globulin, Blood 4.2 g/dL (2.2-4.0); Glomerular Filtration Rate >60 (60-); Glucose, Blood 109 mg/dL (70-99); Potassium, Blood 4.6 mmol/L (3.5-5.5); Sodium, Blood 129 mmol/L (136-145); Total Protein, Blood 7.7 g/dL (6.4-8.2)
[2018-03-08 00:50] LABS: Ethanol (Alcohol), Blood, Med <3 mg/dL
--- NOTE | 2018-03-08 05:15 | NUR ---
SHIFT SUMMARY: PT IS ALERT AND ORIENTED WITH MINOR CONFUSION. PT IS CALM AND COOPERATIVE WITH CARE. PT CALLS APPROPRIATELY. PT IS A ONE PERSON ASSIST TO THE BSC. MESSAGE LEFT FOR DR. WILLIAM ON OFFICE ANSWERING MACHINE FOR SURGERY CONSULTATION. PT REPORTS RLE PAIN, GAVE PRN FENTANYL. WOUND CULTURED AND SENT TO LAB. 1ST UNIT OF BLOOD TRANSFUSING, PT TOLERATING WELL. PT RESTING IN BED. WILL REPORT TO DAY NURSE.
[2018-03-08 06:34] LABS: U Amphetamine Screen Not Detected; U Barbituate Screen Not Detected; U Benzodiazapine Screen Not Detected; U Buprenorphine Screen Not Detected; U Cannabinoids Screen Not Detected; U Cocaine Screen Not Detected; U Methadone Screen Not Detected; U Methamphetamine Screen Not Detected; U Opiates Screen DETECTED; U Oxycodone Screen Not Detected; U Phencyclidine Screen Not Detected; U Propoxyphene Screen Not Detected
[2018-03-08 09:02] LABS: Percent Saturation 33.7 % (15.0-50.0)
[2018-03-08 14:31] LABS: BASOPHILS ABSOLUTE AUTO 0.03 K/mm3 (0.00-0.23); BASOPHILS PERCENT AUTO 0 % (0-2); EOSINOPHILS PERCENT AUTO 7 % (0-6); Hematocrit 35.3 % (33.0-51.0); Hemoglobin 11.1 g/dL (11.5-16.0); IMMATURE GRAN ABSOLUTE AUTO 0.02 K/mm3 (0.00-0.10); IMMATURE GRAN PERCENT AUTO 0 % (0-1); LYMPHOCYTES ABSOLUTE AUTO 0.91 K/mm3 (0.84-5.20); LYMPHOCYTES PERCENT AUTO 10 % (21-46); MONOCYTES ABSOLUTE AUTO 0.64 K/mm3 (0.16-1.47); MONOCYTES PERCENT AUTO 7 % (4-13); Mean Corpuscular HGB 27.7 pg (26.0-34.0); Mean Corpuscular HGB Conc 31.4 g/dL (31.5-36.5); Mean Corpuscular Volume 88 fL (80-100); Mean Platelet Volume 9.1 fL (9.1-12.4); NEUTROPHILS ABSOLUTE AUTO 7.12 K/mm3 (1.96-9.15); NEUTROPHILS PERCENT AUTO 76 % (41-73); Platelet Count 393 K/mm3 (150-400); RDW Coefficient Variation 15.5 % (11.7-14.2); RDW Standard Deviation 50.1 fL (35.1-46.3); Red Blood Cell Count 4.01 M/mm3 (3.80-5.20); White Blood Cell Count 9.42 K/mm3 (4.00-11.30)
--- NOTE | 2018-03-08 14:50 | NUR ---
History, Chart, Medications and Allergies reviewed before start of procedure. Lungs clear T/O to Auscultation. Patient confirms NPO status and agrees with scheduled surgery.
--- NOTE | 2018-03-08 14:52 | NUR ---
LEFT WRIST IV DC'D INACT DUE TO INFILTATED WHILE ASSESSING PATENCY.
[2018-03-08 15:02] LABS: Alanine Aminotransfer (ALT/SGP 63 U/L (12-78); Albumin, Blood 3.4 g/dL (3.4-5.0); Albumin/Globulin Ratio 0.8 (0.8-1.8); Alk Phos 312 U/L (50-136); Anion Gap 6 mmol/L (6-16); Aspartate Aminotrans (AST/SGOT 52 U/L (12-37); Blood Urea Nitrogen 12 mg/dL (8-24); Bun/Creatinine Ratio 25.8 (12.0-20.0); CO2, Blood 26 mmol/L (21-32); Calcium, Blood 8.7 mg/dL (8.5-10.1); Chloride, Blood 103 mmol/L (98-108); Creatinine, Blood 0.47 mg/dL (0.40-1.00); Globulin, Blood 4.1 g/dL (2.2-4.0); Glomerular Filtration Rate >60 (60-); Glucose, Blood 124 mg/dL (70-99); Potassium, Blood 4.3 mmol/L (3.5-5.5); Sodium, Blood 135 mmol/L (136-145); Total Protein, Blood 7.5 g/dL (6.4-8.2)
--- NOTE | 2018-03-08 15:39 | NUR ---
PT OUT TO DAY SURG. BED CHANGE PERFORMED. NEW SHEETS, BLANKET, ROOM STRAIGHTENED ETC,
--- NOTE | 2018-03-08 16:27 | NUR ---
SHIFT SUMMARY PATIENT PLEASANT. AWAITING SURGERY, PATIENT TAKEN TO SURGERY AT [address] RILEY TO DO DEBRIDEMENT OF WOUND VAC SITE THAT DEHISCED. PATIENT WOUND WAS WRAPPED THIS AM, THE DRESSING CAME OFF. WOUND WAS REWRAPPED TO AVOID INFECTION. PATIENT PULLED THE OLD WOUND VAC OFF. SHE WAS STANDBY ASSIST TO THE BEDSIDE COMMODE. PAIN MANAGED WITH TYLENOL FOR HER HEADACHE AND SLEEP. SHE DENIED ANY SHORTNESS OF BREATH. DID DESAT WITHOUT OXYGEN. PATIENT WAS ON 2.5L TODAY VIA NC TO KEEP SATS ABOVE 95%
--- NOTE | 2018-03-08 18:05 | NUR ---
PT OUT SINCE 1440 TO PROCEDURE. STILL NOT IN ROOM
[2018-03-09 05:20] LABS: BASOPHILS ABSOLUTE AUTO 0.03 K/mm3 (0.00-0.23); BASOPHILS PERCENT AUTO 0 % (0-2); EOSINOPHILS ABSOLUTE AUTO 0.06 K/mm3 (0.00-0.68); EOSINOPHILS PERCENT AUTO 1 % (0-6); Hematocrit 28.8 % (33.0-51.0); Hemoglobin 8.7 g/dL (11.5-16.0); IMMATURE GRAN ABSOLUTE AUTO 0.03 K/mm3 (0.00-0.10); IMMATURE GRAN PERCENT AUTO 0 % (0-1); LYMPHOCYTES ABSOLUTE AUTO 1.27 K/mm3 (0.84-5.20); LYMPHOCYTES PERCENT AUTO 18 % (21-46); MONOCYTES ABSOLUTE AUTO 0.62 K/mm3 (0.16-1.47); MONOCYTES PERCENT AUTO 9 % (4-13); Mean Corpuscular HGB 27.3 pg (26.0-34.0); Mean Corpuscular HGB Conc 30.2 g/dL (31.5-36.5); Mean Corpuscular Volume 90 fL (80-100); Mean Platelet Volume 9.3 fL (9.1-12.4); NEUTROPHILS ABSOLUTE AUTO 4.88 K/mm3 (1.96-9.15); NEUTROPHILS PERCENT AUTO 71 % (41-73); Platelet Count 365 K/mm3 (150-400); RDW Coefficient Variation 15.8 % (11.7-14.2); RDW Standard Deviation 52.3 fL (35.1-46.3); Red Blood Cell Count 3.19 M/mm3 (3.80-5.20); White Blood Cell Count 6.89 K/mm3 (4.00-11.30)
[2018-03-09 05:47] LABS: Anion Gap 7 mmol/L (6-16); Blood Urea Nitrogen 10 mg/dL (8-24); Bun/Creatinine Ratio 18.9 (12.0-20.0); CO2, Blood 26 mmol/L (21-32); Calcium, Blood 8.6 mg/dL (8.5-10.1); Chloride, Blood 105 mmol/L (98-108); Creatinine, Blood 0.53 mg/dL (0.40-1.00); Glomerular Filtration Rate >60 (60-); Glucose, Blood 110 mg/dL (70-99); Potassium, Blood 4.2 mmol/L (3.5-5.5); Sodium, Blood 138 mmol/L (136-145)
[2018-03-09 05:48] LABS: Vancomycin, Trough 10.6 ug/mL (5.0-10.0)
--- NOTE | 2018-03-09 06:24 | NUR ---
SHIFT SUMMARY NO ACUTE CHANGES. PATIENT MEDICATED SEVERAL TIMES DURING SHIFT FOR PAIN IN RIGHT STUMP. WOUND VAC IN PLACE. BOYFRIEND STAYED WITH PATIENT. PATIENT ABLE TO SLEEP FOR MOST OF SHIFT. CALL LIGHT IN REACH, WILL CONTINUE TO MONITOR.
[2018-03-09] MEDS ORDERED: Keflex250 MG PO (15:46)
--- NOTE | 2018-03-09 17:06 | NUR ---
SPOKE WITH DR. GONZALES WHO FEELS THAT PATIENT IS SAFE TO GO HOME FROM MEDICAL STANDPOINT. WAS WAITING FOR ORTHO TO ROUND ON THE PATIENT. ORTHO HAD NOT SEEN THE PATIENT SINCE THEIR SURGERY YESTERDAY. PATIENT ACCORDING TO CHRISTIAN WAS READY AND WILLING TO GO HOME. PATIENT WHEN SPOKEN TO WAS WANTING TO GO HOME. PHYSICAL THERAPY HAD ASSESSED THE PATIENT TODAY. UNDER PHYSICAL THERAPY THE RECOMMENDATION WAS FOR THE PATIENT TO GO HOME AND RESUME HOME HEALTH WITH A FRONT WHEEL WALKER AND WOUND VAC CHANGES. PATIENT HAD A WOUND VAC PORTABLE AT HOME. PATIENT IS PLEASANT AND KNOWS THAT SHE NEEDS TO SLOW DOWN. PATIENT HAS APPOINTMENT WITH DR. APARICIO OFFICE ON SUNDAY AT 1000. PATIENT IS AWAITING FRIEND TO COME GET HER SO SHE CAN GO HOME. PATIENTS FRIEND HAS A RIDE HOME FOR THEM. DR. GONZALES HAS GIVEN THE PATIENT A PAPER SCRIPT FOR A FRONT WHEEL WALKER, SHE HAS A PAPER SCRIPT FOR PAIN MEDICATIONS, AND A PAPER SCRIPT FOR A BEDSIDE COMMODE ALL THE EQUIPMENT THE PATIENT EXPRESSED THAT SHE FELT SHE NEEDED TO BE SAFE AT HOME. NO ACUTE CONCERNS FROM THE PATIENT. SPOKE WITH DR. RILEY IN THE 1400 HOUR WHO DISAGREED WITH THE PATIENT GOING HOME. DR. RILEY IS WORRIED THAT THE PATIENT MAY FALL AT HOME AGAIN, ALTHOUGH THE PATIENT HAS BEEN STANDBY ASSIST SINCE SHE HAS BEEN IN THE HOSPITAL. HE STATES THIS IS NOT THE FIRST FALL THAT SHE HAS HAD SINCE IT HAPPENED. SPOKE WITH NURSING TOOL DESIGN DRAFTSPERSON GENNARO ESPINAL WHO HAS PONDERED THE SITUATION. THE PATIENT IS ADMITTED TO THE HOSPITALIST. THE PATIENT IS SAFE TO GO HOME PER DR. GONZALES'S STANDARDS AND HAS BEEN DISHARGED.
== END 2018-03-09 16:58 | disposition home or self-care (01) | DRG 475 ==
LOC: ER 00:05 → MEDS 01:43 → ENPENDDIS 03-09 12:00 → MEDS 03-09 16:58
PROVIDERS: Anesthesiology; Emergency Medicine; Orthopaedic Surgery; ADMIT Family Medicine
PROC: 0Y6H0Z1 Detachment at Right Lower Leg, High, Open Approach (ICD-10-PCS; principal; 2018-03-08 15:30)
DX: T87.81 Dehiscence of amputation stump (principal); E87.1 Hypo-osmolality and hyponatremia; D64.9 Anemia, unspecified; J44.9 Chronic obstructive pulmonary disease, unspecified; R79.89 Other specified abnormal findings of blood chemistry; I10 Essential (primary) hypertension; F17.210 Nicotine dependence, cigarettes, uncomplicated; M10.9 Gout, unspecified; D47.3 Essential (hemorrhagic) thrombocythemia; W18.11XA Fall from or off toilet without subsequent striking against object, initial encounter; Z28.20 Immunization not carried out because of patient decision for unspecified reason; Z88.0 Allergy status to penicillin; Z88.5 Allergy status to narcotic agent; Z88.6 Allergy status to analgesic agent; Z91.040 Latex allergy status; Z79.899 Other long term (current) drug therapy; Z91.81 History of falling; Y93.89 Activity, other specified; Y92.003 Bedroom of unspecified non-institutional (private) residence as the place of occurrence of the external cause
CPT/HCPCS: 36415; 36430; 73560-RT; 80048; 80053; 80202; 82607; 82728; 82746; 83540; 83550; 85025; 86850; 86900; 86901; 86923; 87070; 87071; 87075; 87077; 87186; 87205; 88305; 88311; 93005; 93010; 96365; 96375; 97110; 97116; 97162; 99284-25; G0480; J0690; J1100; J1650; J1885; J2270; J2405; J3010; J3370; J7030; J7120; P9016

== ENCOUNTER 2018-03-15 10:01 | Inpatient (IN) | payer OTHER ==
[~2018-03-15] VITALS: Ht 160 cm; Wt 56.7 kg
[~2018-03-15 10:01] MED LIST changes: +Keflex250 MG PO
[2018-03-15 11:09] LABS: BASOPHILS ABSOLUTE AUTO 0.07 K/mm3 (0.00-0.23); BASOPHILS PERCENT AUTO 1 % (0-2); EOSINOPHILS ABSOLUTE AUTO 0.78 K/mm3 (0.00-0.68); EOSINOPHILS PERCENT AUTO 10 % (0-6); Hematocrit 32.1 % (33.0-51.0); Hemoglobin 9.6 g/dL (11.5-16.0); IMMATURE GRAN ABSOLUTE AUTO 0.04 K/mm3 (0.00-0.10); IMMATURE GRAN PERCENT AUTO 1 % (0-1); LYMPHOCYTES ABSOLUTE AUTO 1.62 K/mm3 (0.84-5.20); LYMPHOCYTES PERCENT AUTO 21 % (21-46); MONOCYTES ABSOLUTE AUTO 0.52 K/mm3 (0.16-1.47); MONOCYTES PERCENT AUTO 7 % (4-13); Mean Corpuscular HGB Conc 29.9 g/dL (31.5-36.5); Mean Corpuscular Volume 90 fL (80-100); Mean Platelet Volume 9.1 fL (9.1-12.4); NEUTROPHILS ABSOLUTE AUTO 4.65 K/mm3 (1.96-9.15); NEUTROPHILS PERCENT AUTO 61 % (41-73); Platelet Count 459 K/mm3 (150-400); RDW Coefficient Variation 16.9 % (11.7-14.2); RDW Standard Deviation 56.1 fL (35.1-46.3); Red Blood Cell Count 3.56 M/mm3 (3.80-5.20); White Blood Cell Count 7.68 K/mm3 (4.00-11.30)
[2018-03-15 11:31] LABS: Alanine Aminotransfer (ALT/SGP 385 U/L (12-78); Albumin, Blood 3.3 g/dL (3.4-5.0); Albumin/Globulin Ratio 0.8 (0.8-1.8); Alk Phos 572 U/L (50-136); Anion Gap 8 mmol/L (6-16); Aspartate Aminotrans (AST/SGOT 257 U/L (12-37); Bilirubin, Total 0.8 mg/dL (0.1-1.0); Blood Urea Nitrogen 7 mg/dL (8-24); Bun/Creatinine Ratio 13.2 (12.0-20.0); CO2, Blood 24 mmol/L (21-32); Calcium, Blood 8.4 mg/dL (8.5-10.1); Chloride, Blood 100 mmol/L (98-108); Creatinine, Blood 0.53 mg/dL (0.40-1.00); Globulin, Blood 4.1 g/dL (2.2-4.0); Glomerular Filtration Rate >60 (60-); Glucose, Blood 162 mg/dL (70-99); Potassium, Blood 3.8 mmol/L (3.5-5.5); Sodium, Blood 132 mmol/L (136-145); Total Protein, Blood 7.4 g/dL (6.4-8.2)
--- NOTE | 2018-03-15 19:12 | NUR ---
PT ADMITTED TO ROOM. CONSULTS CALLED IN. SPOKE TO DR RILEY, CONSULT FOR DR MARTÍNEZ GIVEN AND CALLED BY ME TO CELL PHONE. PT HERE FOR WOUND IV MEDS. WOUND TORN DOWN AND PASSED TO ROLL INSPECTOR TO REPLACE. NEW PIX TAKEN. GRZEGORZ RN TO CALL IN VAC REQUEST PAPER. BED IN LOW POSITION, CALL LITE IN REACH, CALLS APPROP
[2018-03-16 05:02] LABS: Hematocrit 29.1 % (33.0-51.0); Hemoglobin 8.8 g/dL (11.5-16.0); Mean Corpuscular HGB 27.3 pg (26.0-34.0); Mean Corpuscular HGB Conc 30.2 g/dL (31.5-36.5); Mean Corpuscular Volume 90 fL (80-100); Platelet Count 421 K/mm3 (150-400); RDW Standard Deviation 56.3 fL (35.1-46.3); Red Blood Cell Count 3.22 M/mm3 (3.80-5.20); White Blood Cell Count 5.73 K/mm3 (4.00-11.30)
[2018-03-16 05:26] LABS: Alanine Aminotransfer (ALT/SGP 280 U/L (12-78); Albumin, Blood 2.8 g/dL (3.4-5.0); Albumin/Globulin Ratio 0.8 (0.8-1.8); Alk Phos 489 U/L (50-136); Anion Gap 7 mmol/L (6-16); Aspartate Aminotrans (AST/SGOT 162 U/L (12-37); Bilirubin, Total 1.1 mg/dL (0.1-1.0); Blood Urea Nitrogen 8 mg/dL (8-24); Bun/Creatinine Ratio 11.6 (12.0-20.0); CO2, Blood 26 mmol/L (21-32); Calcium, Blood 8.2 mg/dL (8.5-10.1); Chloride, Blood 104 mmol/L (98-108); Creatinine, Blood 0.69 mg/dL (0.40-1.00); Globulin, Blood 3.6 g/dL (2.2-4.0); Glomerular Filtration Rate >60 (60-); Glucose, Blood 85 mg/dL (70-99); Potassium, Blood 4.5 mmol/L (3.5-5.5); Sodium, Blood 137 mmol/L (136-145); Total Protein, Blood 6.4 g/dL (6.4-8.2)
--- NOTE | 2018-03-16 06:11 | NUR ---
SHIFT SUMMARY: WOUND VAC PLACED EARLIER IN SHIFT BY DIRECTOR SOCIAL SERVICE. PATENT, SEAL TIGHT. SMALL AMOUNT OF SS DRAINAGE. PT C/O PAIN TO R STUMP, NOT WELL MANAGED BY PRN NORCO 5MG. CBG @ 162, NO COVERAGE INDICATED. PT A&O, COOPERATIVE AND PLEASANT c CARE. INDEPENDENT IN ROOM. ROOM AIR, NO TELE. WILL CONT TO MONITOR AND PROVIDE CARE UNTIL PRESUMED BY ONCOMING RN.
--- NOTE | 2018-03-16 09:15 | NUR ---
DR NJTRATE IN TO SEE PT.
--- NOTE | 2018-03-16 16:20 | NUR ---
PT AFTERNOON BP OF 86/51, PT DOES REPORT MILD LIGHTHEADEDNESS WITH GETTING UP. PT DID RECEIVE LISINOPRIL 20MG THIS AM WHICH IS A HOME DOSE BUT PT REPORTS SHE DOES NOT TYPICALLY TAKE ALL THE TIME. DR NJTRATE NOTIFIED, ORDERS RECEIVED FOR 1L BOLUS, STAT CBC AND LACTIC AND DECREASE LISINOPRIL TO 2.5MG DAILY. WILL CONT TO MONITOR.
[2018-03-16 16:50] LABS: BASOPHILS ABSOLUTE AUTO 0.06 K/mm3 (0.00-0.23); BASOPHILS PERCENT AUTO 1 % (0-2); EOSINOPHILS ABSOLUTE AUTO 0.92 K/mm3 (0.00-0.68); EOSINOPHILS PERCENT AUTO 12 % (0-6); Hematocrit 32.5 % (33.0-51.0); Hemoglobin 9.6 g/dL (11.5-16.0); IMMATURE GRAN ABSOLUTE AUTO 0.07 K/mm3 (0.00-0.10); IMMATURE GRAN PERCENT AUTO 1 % (0-1); LYMPHOCYTES ABSOLUTE AUTO 2.13 K/mm3 (0.84-5.20); LYMPHOCYTES PERCENT AUTO 27 % (21-46); MONOCYTES ABSOLUTE AUTO 0.56 K/mm3 (0.16-1.47); MONOCYTES PERCENT AUTO 7 % (4-13); Mean Corpuscular HGB 27.4 pg (26.0-34.0); Mean Corpuscular HGB Conc 29.5 g/dL (31.5-36.5); Mean Platelet Volume 9.4 fL (9.1-12.4); NEUTROPHILS ABSOLUTE AUTO 4.16 K/mm3 (1.96-9.15); NEUTROPHILS PERCENT AUTO 53 % (41-73); Platelet Count 391 K/mm3 (150-400); RDW Standard Deviation 57.4 fL (35.1-46.3); Red Blood Cell Count 3.51 M/mm3 (3.80-5.20)
[2018-03-16 16:51] LABS: Mean Corpuscular Volume 93 fL (80-100)
--- NOTE | 2018-03-16 17:02 | NUR ---
SHIFT SUMMARY- PT A/OX4, INDEP UP TO BSC. PT SLEEPY THIS AM BUT WOULD WAKE UP FOR STAFF, MUCH MORE AWAKE THIS AFTERNOON, PT STATES SHE DID NOT SLEEP WELL LAST NIGHT. PT MEDICATED X1 FOR PAIN TO RIGHT STUMP, FENTANYL PATCH IN PLACE. RIGHT BKA WITH WOUND VAC IN PLACE. BP 89/48 THIS AFTERNOON, 1L NS BOLUS GIVEN AND LISINOPRIL DECREASED TO 2.5MG DAILY. NO OTHER ACUTE CHANGES THIS SHIFT.
--- NOTE | 2018-03-17 04:19 | NUR ---
SHIFT SUMMARY PT IS A 62 Y/O F, ADMITTED FOR A WOUND IN HER AMPUTATION SITE. SHE IS A&O X 4. SHE HAS A WOUND VAC ON HER R BKA SITE. SHE REPORTED PAIN IN THAT SITE, AND WAS MEDICATED BY DAY SHIFT AT THE BEGINNING OF THE SHIFT. SHE DENIED ANY ACUTE NAUSEA OR SOB. PT'S BP WAS LOW DURING EVENING VITALS, AT 98/58. ALL OTHER VITALS STABLE. NO OTHER ACUTE CHANGES IN PT CONDITION NOTED DURING THE NIGHT. REPORT GIVEN TO ZANA SCHUMACHER.
--- NOTE | 2018-03-17 07:10 | NUR ---
ASSUMED CARE OF PT TOOK OVER CARE OF PT AROUND 0445 FROM GUS Garza RN. PT REPORTED 8/10 PAIN IN R. BKA, MEDICATED 1X W/NORCO PER ORDERS. NO FURTHER CHANGES SINCE ASSUMING CARE.
[2018-03-17 08:03] LABS: Hematocrit 30.7 % (33.0-51.0); Hemoglobin 8.9 g/dL (11.5-16.0); Mean Corpuscular HGB 27.2 pg (26.0-34.0); Mean Corpuscular Volume 94 fL (80-100); Mean Platelet Volume 8.9 fL (9.1-12.4); Platelet Count 425 K/mm3 (150-400); RDW Coefficient Variation 17.1 % (11.7-14.2); RDW Standard Deviation 59.1 fL (35.1-46.3); Red Blood Cell Count 3.27 M/mm3 (3.80-5.20); White Blood Cell Count 6.35 K/mm3 (4.00-11.30)
[2018-03-17 08:23] LABS: Alanine Aminotransfer (ALT/SGP 210 U/L (12-78); Albumin/Globulin Ratio 0.8 (0.8-1.8); Alk Phos 484 U/L (50-136); Anion Gap 7 mmol/L (6-16); Aspartate Aminotrans (AST/SGOT 66 U/L (12-37); Bilirubin, Total 0.5 mg/dL (0.1-1.0); Blood Urea Nitrogen 10 mg/dL (8-24); CO2, Blood 26 mmol/L (21-32); Calcium, Blood 8.4 mg/dL (8.5-10.1); Chloride, Blood 105 mmol/L (98-108); Creatinine, Blood 0.59 mg/dL (0.40-1.00); Glomerular Filtration Rate >60 (60-); Glucose, Blood 105 mg/dL (70-99); Potassium, Blood 4.7 mmol/L (3.5-5.5); Sodium, Blood 138 mmol/L (136-145); Tobramycin, Random 0.4 ug/mL
--- NOTE | 2018-03-17 18:27 | NUR ---
SHIFT SUMMARY DISCUSSED WITH PT SHE IS NOT TO SMOKE WHILE WEARING A NICOTINE PATCH. PATCH REMOVED AFTER RETURNING FROM OUTSIDE AND FINDING OUT PT HAD BEEN OUT TO SMOKE. WOUND VAC ON R STUMP INTACT AND FUNCTIONING WNL TODAY. SHOWER TAKEN.
[2018-03-18 05:13] LABS: Hematocrit 30.1 % (33.0-51.0); Hemoglobin 9.1 g/dL (11.5-16.0); Mean Corpuscular HGB 27.2 pg (26.0-34.0); Mean Corpuscular HGB Conc 30.2 g/dL (31.5-36.5); Mean Platelet Volume 9.4 fL (9.1-12.4); Platelet Count 430 K/mm3 (150-400); RDW Coefficient Variation 17.3 % (11.7-14.2); RDW Standard Deviation 57.7 fL (35.1-46.3); Red Blood Cell Count 3.34 M/mm3 (3.80-5.20); White Blood Cell Count 7.17 K/mm3 (4.00-11.30)
[2018-03-18 05:16] LABS: Mean Corpuscular Volume 90 fL (80-100)
[2018-03-18 05:50] LABS: Anion Gap 9 mmol/L (6-16); Blood Urea Nitrogen 8 mg/dL (8-24); Bun/Creatinine Ratio 14.5 (12.0-20.0); CO2, Blood 26 mmol/L (21-32); Calcium, Blood 8.8 mg/dL (8.5-10.1); Chloride, Blood 105 mmol/L (98-108); Creatinine, Blood 0.55 mg/dL (0.40-1.00); Glomerular Filtration Rate >60 (60-); Glucose, Blood 102 mg/dL (70-99); Potassium, Blood 4.2 mmol/L (3.5-5.5); Sodium, Blood 140 mmol/L (136-145)
--- NOTE | 2018-03-18 06:35 | NUR ---
SHIFT SUMMARY PT IS 62 Y/O F, ADMITTED FOR AN INFECTION IN HER RLE AMPUTATION SITE. SHE HAS A WOUND VAC ON THAT RLE. SHE REPORTED PAIN, BTWEEN A 7-10, AND WAS MEDICATED X 1 WITH PRN NORCO. SHE DENIED ANY ACUTE NAUSEA OR SOB. PT WENT OUTSIDE SEVERAL TIMES TO SMOKE. VITAL SIGNS REMAINED STABLE DURING THE NIGHT. NO OTHER ACUTE CHANGES IN PT CONDITION NOTED. WILL CONTINUE TO MONITOR AND TREAT PER EMAR.
--- NOTE | 2018-03-18 10:50 | NUR ---
DR. ROSEMARY RILEY CALLED TO CHECK IN ON PT. REQUESTED THAT PT HAVE WOUND VAC DRESSING CHANGE. STATED HE WAS OKAY WITH SENDING PT HOME IF DR. MARTÍNEZ FELT THE SAME. WILL CONTINUE TO MONITOR.
--- NOTE | 2018-03-18 17:17 | NUR ---
SHIFT SUMMARY WOUND VAC CHANGED THIS SHIFT. NEW MEASUREMENTS THE SAME BEFORE. DR. MARTÍNEZ SAW PT THIS AFTERNOON. PICC LINE ORDERED AND BEING PLACED NOW. PT POSSIBLY DISCHARGING TO SNF FOR IV ANTIOBIOTIC TREATMENT. DR. NJTRATE AWARE OF L ANKLE SWELLING & PAIN. GOUT SUSPECTED IN THE ANKLE. NO OTHER CHANGES TO ASSESSMENT AT THIS TIME. VSS. PT ALERT & AWARE OF PLAN OF CARE. WILL CONTINUE TO MONITOR UNTIL TURNOVER IS COMPLETE. PT HAS NEEDED PAIN MEDS 2X THIS SHIFT AND HAS BEEN OUTSIDE TO SMOKE SEVERAL TIMES.
--- NOTE | 2018-03-19 07:23 | NUR ---
a+o, out to smoke frequently, self transfers to , room air, saline locked, requesting pain medication as allowed, walking rounds completed with day shift, call light in reach
[2018-03-19 08:43] LABS: BASOPHILS ABSOLUTE AUTO 0.03 K/mm3 (0.00-0.23); BASOPHILS PERCENT AUTO 1 % (0-2); EOSINOPHILS ABSOLUTE AUTO 0.46 K/mm3 (0.00-0.68); EOSINOPHILS PERCENT AUTO 7 % (0-6); Hematocrit 28.7 % (33.0-51.0); Hemoglobin 8.3 g/dL (11.5-16.0); IMMATURE GRAN ABSOLUTE AUTO 0.02 K/mm3 (0.00-0.10); IMMATURE GRAN PERCENT AUTO 0 % (0-1); LYMPHOCYTES PERCENT AUTO 28 % (21-46); MONOCYTES ABSOLUTE AUTO 0.36 K/mm3 (0.16-1.47); MONOCYTES PERCENT AUTO 6 % (4-13); Mean Corpuscular HGB 27.7 pg (26.0-34.0); Mean Corpuscular HGB Conc 28.9 g/dL (31.5-36.5); Mean Platelet Volume 9.4 fL (9.1-12.4); NEUTROPHILS ABSOLUTE AUTO 3.85 K/mm3 (1.96-9.15); NEUTROPHILS PERCENT AUTO 59 % (41-73); Platelet Count 360 K/mm3 (150-400); RDW Coefficient Variation 17.4 % (11.7-14.2); RDW Standard Deviation 61.5 fL (35.1-46.3); White Blood Cell Count 6.52 K/mm3 (4.00-11.30)
[2018-03-19 08:44] LABS: Mean Corpuscular Volume 96 fL (80-100)
--- NOTE | 2018-03-19 14:20 | NUR ---
This student nurse was given verbal permission by the patient to care for them on 03/20/18.
--- NOTE | 2018-03-19 19:35 | NUR ---
PT. HAS BEEN OUT TO SMOKE SEVERAL TIMES TODAY. DR. HARRELL WAS TO ROOM 5 TIMES AND PT. WAS GONE OUTSIDE EACH TIME. PT. JUST RETURNED TO ROOM SAID SHE WASN'T SMOKING JUST GETTING SOME FRESH AIR. PT. REEKED OF KEVIN. RASH AND ITCHING ON ARMS AND LLE IS NOT QUELLED WITH THE BENADRYL PER PT. SOME ANTIBIOTICS WERE DC'D AND NEW ONE STARTED.
--- NOTE | 2018-03-20 07:23 | NUR ---
wound vac retaped, call light in reach, room air, saline locked, walking rounds completed with day staff
[2018-03-20 08:38] LABS: BASOPHILS PERCENT AUTO 0 % (0-2); EOSINOPHILS ABSOLUTE AUTO 0.29 K/mm3 (0.00-0.68); EOSINOPHILS PERCENT AUTO 4 % (0-6); Hematocrit 27.7 % (33.0-51.0); Hemoglobin 8.3 g/dL (11.5-16.0); IMMATURE GRAN ABSOLUTE AUTO 0.03 K/mm3 (0.00-0.10); IMMATURE GRAN PERCENT AUTO 0 % (0-1); LYMPHOCYTES ABSOLUTE AUTO 1.18 K/mm3 (0.84-5.20); LYMPHOCYTES PERCENT AUTO 16 % (21-46); MONOCYTES ABSOLUTE AUTO 0.18 K/mm3 (0.16-1.47); MONOCYTES PERCENT AUTO 2 % (4-13); Mean Corpuscular HGB 27.4 pg (26.0-34.0); Mean Platelet Volume 9.2 fL (9.1-12.4); NEUTROPHILS ABSOLUTE AUTO 5.85 K/mm3 (1.96-9.15); NEUTROPHILS PERCENT AUTO 78 % (41-73); Platelet Count 369 K/mm3 (150-400); RDW Coefficient Variation 17.6 % (11.7-14.2); RDW Standard Deviation 59.2 fL (35.1-46.3); Red Blood Cell Count 3.03 M/mm3 (3.80-5.20); White Blood Cell Count 7.53 K/mm3 (4.00-11.30)
[2018-03-20 08:41] LABS: Mean Corpuscular Volume 91 fL (80-100)
[2018-03-20 09:09] LABS: Tobramycin, Trough 0.7 ug/mL (0.0-1.9)
[2018-03-20 09:11] LABS: Albumin, Blood 2.4 g/dL (3.4-5.0); Anion Gap 6 mmol/L (6-16); Blood Urea Nitrogen 14 mg/dL (8-24); Bun/Creatinine Ratio 22.2 (12.0-20.0); CO2, Blood 24 mmol/L (21-32); Calcium, Blood 8.2 mg/dL (8.5-10.1); Chloride, Blood 107 mmol/L (98-108); Creatinine, Blood 0.63 mg/dL (0.40-1.00); Glomerular Filtration Rate >60 (60-); Glucose, Blood 111 mg/dL (70-99); Phosphorus, Blood 5.2 mg/dL (2.5-4.9); Potassium, Blood 4.6 mmol/L (3.5-5.5); Sodium, Blood 137 mmol/L (136-145)
[2018-03-20 12:41] LABS: Alanine Aminotransfer (ALT/SGP 64 U/L (12-78); Albumin, Blood 2.5 g/dL (3.4-5.0); Albumin/Globulin Ratio 0.7 (0.8-1.8); Alk Phos 258 U/L (50-136); Anion Gap 7 mmol/L (6-16); Aspartate Aminotrans (AST/SGOT 28 U/L (12-37); Bilirubin, Total 0.5 mg/dL (0.1-1.0); Blood Urea Nitrogen 14 mg/dL (8-24); Bun/Creatinine Ratio 21.6 (12.0-20.0); CO2, Blood 23 mmol/L (21-32); Calcium, Blood 8.1 mg/dL (8.5-10.1); Chloride, Blood 110 mmol/L (98-108); Creatinine, Blood 0.65 mg/dL (0.40-1.00); Globulin, Blood 3.5 g/dL (2.2-4.0); Glomerular Filtration Rate >60 (60-); Glucose, Blood 111 mg/dL (70-99); Potassium, Blood 4.8 mmol/L (3.5-5.5); Sodium, Blood 140 mmol/L (136-145)
--- NOTE | 2018-03-20 18:49 | NUR ---
PT. VERY LETHARGIC TODAY AND CONFUSED AT TIMES. VERY UNSTABLE ON FEET SO LET PT. KNOW SHE COULD NOT GO OUT TO SMOKE DUE TO HER LETHARGY AND UNSTEADINESS ON FEET. PT. WOULD ALSO FALL ASLEEP WHILE SITTING UP, ALMOST FELL OFF BED ONCE. WAS NOTIFIED AND ALL PAIN MEDS AND BENADRYL TO BE HELD R/T LETHARGY. CMP AND TOX SCREEN ORDERED PER PHYSICIAN. BOTH HAVE BEEN COMPLETED AT THIS TIME. PT. STARTED BECOMING MORE ALERT THIS EVENING AFTER FENTANYL PATCH REMOVED PER DR. HARRELL.
[2018-03-20 19:24] LABS: U Amphetamine Screen Not Detected; U Barbituate Screen Not Detected; U Benzodiazapine Screen Not Detected; U Buprenorphine Screen Not Detected; U Cannabinoids Screen Not Detected; U Cocaine Screen Not Detected; U Methadone Screen Not Detected; U Methamphetamine Screen Not Detected; U Opiates Screen DETECTED; U Oxycodone Screen Not Detected; U Phencyclidine Screen Not Detected; U Propoxyphene Screen Not Detected
[2018-03-21 05:14] LABS: BASOPHILS PERCENT AUTO 0 % (0-2); EOSINOPHILS ABSOLUTE AUTO 0.04 K/mm3 (0.00-0.68); EOSINOPHILS PERCENT AUTO 1 % (0-6); Hematocrit 24.8 % (33.0-51.0); Hemoglobin 7.2 g/dL (11.5-16.0); Mean Corpuscular HGB 26.6 pg (26.0-34.0); Mean Corpuscular Volume 92 fL (80-100); Mean Platelet Volume 9.1 fL (9.1-12.4); Platelet Count 306 K/mm3 (150-400); RDW Standard Deviation 59.6 fL (35.1-46.3); Red Blood Cell Count 2.71 M/mm3 (3.80-5.20); White Blood Cell Count 8.33 K/mm3 (4.00-11.30)
[2018-03-21 05:15] LABS: IMMATURE GRAN ABSOLUTE AUTO 0.03 K/mm3 (0.00-0.10); IMMATURE GRAN PERCENT AUTO 0 % (0-1); LYMPHOCYTES ABSOLUTE AUTO 1.55 K/mm3 (0.84-5.20); LYMPHOCYTES PERCENT AUTO 19 % (21-46); MONOCYTES ABSOLUTE AUTO 0.18 K/mm3 (0.16-1.47); MONOCYTES PERCENT AUTO 2 % (4-13); NEUTROPHILS ABSOLUTE AUTO 6.53 K/mm3 (1.96-9.15); NEUTROPHILS PERCENT AUTO 78 % (41-73)
--- NOTE | 2018-03-21 05:23 | NUR ---
Rn summary: Patient is alert and oriented. Seemed very animated and moving around in bed at beginning of shift. After evening meds has slept most of the night. Wound vac is intact to right BKA. Pt has been medicated x1 for pain with good relief. Powerglide to left upper arm draws blood well. Pt continues to have significant swelling to [place] upper arms and hands, 3-4 plus in her hands. No edema noted in lower extremities. Pt has had no c/o itching. Plan is to DC to SNF for 4 wks of antibiotic therapy. Pt with call light at bedside. Continues to sleep but arouses easily.
[2018-03-21 05:39] LABS: Alanine Aminotransfer (ALT/SGP 44 U/L (12-78); Albumin, Blood 2.4 g/dL (3.4-5.0); Albumin/Globulin Ratio 0.6 (0.8-1.8); Alk Phos 210 U/L (50-136); Anion Gap 8 mmol/L (6-16); Aspartate Aminotrans (AST/SGOT 10 U/L (12-37); Bilirubin, Total 0.3 mg/dL (0.1-1.0); Blood Urea Nitrogen 14 mg/dL (8-24); Bun/Creatinine Ratio 25.4 (12.0-20.0); CO2, Blood 23 mmol/L (21-32); Chloride, Blood 113 mmol/L (98-108); Creatinine, Blood 0.55 mg/dL (0.40-1.00); Globulin, Blood 3.7 g/dL (2.2-4.0); Glomerular Filtration Rate >60 (60-); Glucose, Blood 166 mg/dL (70-99); Potassium, Blood 3.9 mmol/L (3.5-5.5); Sodium, Blood 144 mmol/L (136-145); Total Protein, Blood 6.1 g/dL (6.4-8.2)
[2018-03-21 05:43] LABS: BAND PERCENT MAN 4 % (0-8); BASOPHILS PERCENT MAN 0 % (0-2); EOSINOPHILS ABSOLUTE MAN 0.08 K/mm3 (0.00-0.68); EOSINOPHILS PERCENT MAN 1 % (0-6); LYMPHOCYTES ABSOLUTE MAN 1.24 K/mm3 (0.84-5.20); LYMPHOCYTES PERCENT MAN 15 % (21-46); MONOCYTES PERCENT MAN 0 % (4-13); NEUTROPHILS ABSOLUTE MAN 6.99 K/mm3 (1.96-9.15); SEG NEUTROPHILS PERCENT MAN 80 % (41-73); TOTAL CELLS COUNTED 100
[2018-03-21] MEDS ORDERED: Lisinopril2.5 MG (15:19)
[2018-03-21] MEDS ORDERED: HYDR1TAB94 (15:19)
[2018-03-21] MEDS ORDERED: Omeprazole20 M1 (15:21)
[2018-03-21] MEDS ORDERED: ALBU90OI INH (15:22)
[2018-03-21] MEDS ORDERED: ACET325 (15:26)
[2018-03-21] MEDS ORDERED: Vitamin C100 M1 (15:27)
[2018-03-21] MEDS ORDERED: Ferrous Sulfat325 M2 (15:31)
[2018-03-21] MEDS ORDERED: FENT50TP (15:35)
[2018-03-21] MEDS ORDERED: LINE600 PO (15:36)
[2018-03-21] MEDS ORDERED: Humalog100 UNIT/1 (15:37)
[2018-03-21] MEDS ORDERED: METO10SY (15:40)
[2018-03-21] MEDS ORDERED: ONDA4ODT (15:41)
[2018-03-21] MEDS ORDERED: NICO21TP (15:41)
[2018-03-21] MEDS ORDERED: AZTREONAM2 GM (15:43)
[2018-03-21] MEDS ORDERED: PRED10 (15:46)
[2018-03-21] MEDS ORDERED: Nebcin40 MG/ML IV (15:48)
[2018-03-21] MEDS ORDERED: TRAZ50 (15:50)
--- NOTE | 2018-03-21 16:59 | NUR ---
DISCHARGE SUMMARY PATIENT A&O X4. DISCHARGED TO [facility]. WOUND VAC TO R BKA REMOVED AND A WET TO DRY DRESSING WAS PLACED. ALL BELONGINGS SENT WITH PATIENT. POWERGLIDE IN LEFT UPPER ARM IN PLACE. ESCORTED OUT BY WHEELCHAIR WITH [facility].
--- NOTE | 2018-03-21 17:20 | NUR ---
1400 MEDICATIONS CHARTED ON LATE BECAUSE I WAS KICKED OUT OF THE COMPUTER AND HAD TO WAIT FOR IT TO UNLOCK ME. ORIGINALLY HAD SCANNED AND CHARTED THE MEDICATIONS AND THEY DID NOT DOCUMENT AND THE COMPUTER WOULD NOT LET ME BACK IN.
[2018-03-29 07:51] LABS: 6-ACETYLMORPHINE Negative (.); CODEINE Negative (.); DIHYDROCODEINE Negative (.); HYDROCODONE 2.3 ng/mL (.); HYDROMORPHONE Negative (.); MORPHINE Negative (.); OPIATE CONFIRMATION Positive (.); OXYCODONE Negative (.); OXYCODONES CONFIRMATION Negative (.); OXYMORPHONE Negative (.)
== END 2018-03-21 15:56 | DRG 540 ==
LOC: ER 10:01 → MEDS 15:00 → ENPENDDIS 03-21 14:33 → MEDS 03-21 15:56
PROVIDERS: Emergency Medicine; ADMIT Family Medicine
PROC: 05HY33Z Insertion of Infusion Device into Upper Vein, Percutaneous Approach (ICD-10-PCS; principal; 2018-03-18)
DX: M86.8X6 Other osteomyelitis, lower leg (principal); T87.43 Infection of amputation stump, right lower extremity; E87.1 Hypo-osmolality and hyponatremia; B96.5 Pseudomonas (aeruginosa) (mallei) (pseudomallei) as the cause of diseases classified elsewhere; B95.2 Enterococcus as the cause of diseases classified elsewhere; Z16.21 Resistance to vancomycin; I10 Essential (primary) hypertension; J44.9 Chronic obstructive pulmonary disease, unspecified; F17.210 Nicotine dependence, cigarettes, uncomplicated; D63.8 Anemia in other chronic diseases classified elsewhere; R79.89 Other specified abnormal findings of blood chemistry; M1A.9XX0 Chronic gout, unspecified, without tophus (tophi); L27.1 Localized skin eruption due to drugs and medicaments taken internally; T36.1X5A Adverse effect of cephalosporins and other beta-lactam antibiotics, initial encounter; Y92.239 Unspecified place in hospital as the place of occurrence of the external cause; F32.9 Major depressive disorder, single episode, unspecified; Z88.0 Allergy status to penicillin; Z98.1 Arthrodesis status; Z90.49 Acquired absence of other specified parts of digestive tract; Z79.899 Other long term (current) drug therapy; Z28.20 Immunization not carried out because of patient decision for unspecified reason
CPT/HCPCS: 36415; 36569; 73700; 80048; 80053; 80069; 80200; 82947; 83036; 83605; 84550; 85025; 85027; 85651; 86140; 87040; 94640; 94760; 96365; 97110; 97161; 97165; 97530; 97535; 99285-25; C1751; J0713; J1580; J1650; J3260; J7030; J7050

== ENCOUNTER 2018-04-04 22:14 | Emergency (ER) | payer OTHER ==
[~2018-04-04] VITALS: Ht 160 cm; Wt 57.1 kg
[~2018-04-04 22:14] MED LIST changes: +ACET325; +AZTREONAM2 GM; +FENT50TP; +Ferrous Sulfat325 M2; +HYDR1TAB94; +Humalog100 UNIT/1; +LINE600 PO; +Lisinopril2.5 MG; +METO10SY; +NICO21TP; +Nebcin40 MG/ML IV; +ONDA4ODT; +Omeprazole20 M1; +PRED10; +TRAZ50; +Vitamin C100 M1
[2018-04-04] MEDS ORDERED: METF500C PO (22:54)
[2018-04-04] MEDS ORDERED: IBUP600 PO (23:57)
== END 2018-04-05 02:00 | disposition home or self-care (01) ==
LOC: ER 22:14
DX: S60.221A Contusion of right hand, initial encounter (principal); S70.01XA Contusion of right hip, initial encounter; F31.9 Bipolar disorder, unspecified; I10 Essential (primary) hypertension; E78.5 Hyperlipidemia, unspecified; J44.9 Chronic obstructive pulmonary disease, unspecified; E11.9 Type 2 diabetes mellitus without complications; F17.210 Nicotine dependence, cigarettes, uncomplicated; Z88.0 Allergy status to penicillin; Z91.040 Latex allergy status; Z88.5 Allergy status to narcotic agent; Z79.899 Other long term (current) drug therapy; Z79.4 Long term (current) use of insulin; Z79.52 Long term (current) use of systemic steroids; Z79.51 Long term (current) use of inhaled steroids; W18.30XA Fall on same level, unspecified, initial encounter
CPT/HCPCS: 72170; 73130; 96374; 99283-25; J1885

== ENCOUNTER 2018-04-26 12:33 | Emergency (ER) | payer OTHER ==
[~2018-04-26] VITALS: Ht 160 cm; Wt 59.0 kg
[~2018-04-26 12:33] MED LIST changes: +IBUP600 PO; +METF500C PO
== END 2018-04-26 14:40 | disposition home or self-care (01) ==
LOC: ER 12:33
DX: Z48.01 Encounter for change or removal of surgical wound dressing (principal); Z88.0 Allergy status to penicillin; Z91.040 Latex allergy status; Z88.5 Allergy status to narcotic agent; Z79.899 Other long term (current) drug therapy; Z79.84 Long term (current) use of oral hypoglycemic drugs; Z79.4 Long term (current) use of insulin; F31.9 Bipolar disorder, unspecified; I10 Essential (primary) hypertension; E78.5 Hyperlipidemia, unspecified; J44.9 Chronic obstructive pulmonary disease, unspecified; E11.9 Type 2 diabetes mellitus without complications; F17.210 Nicotine dependence, cigarettes, uncomplicated
CPT/HCPCS: 99282

== ENCOUNTER 2018-05-22 13:04 | Emergency (ER) | payer OTHER ==
[~2018-05-22] VITALS: Ht 160 cm; Wt 52.2 kg
== END 2018-05-22 16:42 | disposition home or self-care (01) ==
LOC: ER 13:04
DX: T87.81 Dehiscence of amputation stump (principal); E11.69 Type 2 diabetes mellitus with other specified complication; F31.9 Bipolar disorder, unspecified; E78.5 Hyperlipidemia, unspecified; I10 Essential (primary) hypertension; J44.9 Chronic obstructive pulmonary disease, unspecified; M10.9 Gout, unspecified; M86.9 Osteomyelitis, unspecified; K91.1 Postgastric surgery syndromes; F17.210 Nicotine dependence, cigarettes, uncomplicated; Z88.0 Allergy status to penicillin; Z88.5 Allergy status to narcotic agent; Z91.040 Latex allergy status; Z79.84 Long term (current) use of oral hypoglycemic drugs; Z79.899 Other long term (current) drug therapy; Z79.4 Long term (current) use of insulin
CPT/HCPCS: 73562-RT; 99283-25; A9270-GY

== ENCOUNTER 2018-05-24 23:01 | Observation (INO) | payer OTHER ==
[~2018-05-24] VITALS: Ht 160 cm; Wt 52.2 kg
[2018-05-24 23:40] LABS: Chloride (POC) 95 mmol/L (98-108); Creatinine (POC) 1.1 mg/dL (0.6-1.0); Glucose (ISTAT POC) 103 mg/dL (70-99); Hemoglobin (POC) 13.3 g/dL (12.0-16.0); Potassium (POC) 4.7 mmol/L (3.5-5.5); Sodium (POC) 129 mmol/L (135-148); Total CO2 (POC) 23 mmol/L (21-32)
[2018-05-24 23:42] LABS: Source, Urine Catheter
[2018-05-24 23:49] LABS: Bilirubin, Urine Neg (Neg); Blood, Urine Neg (Neg); Glucose Qualitative, Urine Neg (Neg); Ketones, Urine Neg (Neg); Leukocyte Esterase, Urine Neg (Neg); Nitrite, Urine Neg (Neg); Protein, Urine Neg (Neg); Urobilinogen, Urine NORM (Normal)
[2018-05-24 23:59] LABS: BASOPHILS ABSOLUTE AUTO 0.06 K/mm3 (0.00-0.23); BASOPHILS PERCENT AUTO 1 % (0-2); EOSINOPHILS ABSOLUTE AUTO 0.26 K/mm3 (0.00-0.68); EOSINOPHILS PERCENT AUTO 4 % (0-6); Hematocrit 39.7 % (33.0-51.0); Hemoglobin 12.2 g/dL (11.5-16.0); IMMATURE GRAN ABSOLUTE AUTO 0.01 K/mm3 (0.00-0.10); IMMATURE GRAN PERCENT AUTO 0 % (0-1); LYMPHOCYTES ABSOLUTE AUTO 2.95 K/mm3 (0.84-5.20); LYMPHOCYTES PERCENT AUTO 42 % (21-46); MONOCYTES ABSOLUTE AUTO 0.42 K/mm3 (0.16-1.47); MONOCYTES PERCENT AUTO 6 % (4-13); Mean Corpuscular HGB 28.4 pg (26.0-34.0); Mean Corpuscular HGB Conc 30.7 g/dL (31.5-36.5); Mean Corpuscular Volume 93 fL (80-100); Mean Platelet Volume 8.7 fL (9.1-12.4); NEUTROPHILS ABSOLUTE AUTO 3.37 K/mm3 (1.96-9.15); NEUTROPHILS PERCENT AUTO 48 % (41-73); Platelet Count 355 K/mm3 (150-400); RDW Coefficient Variation 17.9 % (11.7-14.2); RDW Standard Deviation 61.9 fL (35.1-46.3); Red Blood Cell Count 4.29 M/mm3 (3.80-5.20); White Blood Cell Count 7.07 K/mm3 (4.00-11.30)
[2018-05-25 00:01] LABS: International Normalized Ratio 0.97; Prothrombin Time Results 10.3 Sec (9.7-11.5)
[2018-05-25 00:04] LABS: Appearance, Urine Clear (Clear); Color, Urine Yellow (P-Yellow); U Amphetamine Screen Not Detected; U Barbituate Screen Not Detected; U Benzodiazapine Screen Not Detected; U Buprenorphine Screen Not Detected; U Cannabinoids Screen Not Detected; U Cocaine Screen Not Detected; U Methadone Screen Not Detected; U Methamphetamine Screen Not Detected; U Opiates Screen DETECTED; U Oxycodone Screen Not Detected; U Phencyclidine Screen Not Detected; U Propoxyphene Screen Not Detected
[2018-05-25 00:18] LABS: Alanine Aminotransfer (ALT/SGP 12 U/L (12-78); Albumin, Blood 3.3 g/dL (3.4-5.0); Albumin/Globulin Ratio 0.8 (0.8-1.8); Alk Phos 123 U/L (50-136); Anion Gap 11 mmol/L (6-16); Aspartate Aminotrans (AST/SGOT 15 U/L (12-37); Bilirubin, Total <0.1 mg/dL (0.1-1.0); Blood Urea Nitrogen 19 mg/dL (8-24); Bun/Creatinine Ratio 26.5 (12.0-20.0); CO2, Blood 20 mmol/L (21-32); Calcium, Blood 8.2 mg/dL (8.5-10.1); Chloride, Blood 98 mmol/L (98-108); Creatinine, Blood 0.72 mg/dL (0.40-1.00); Glomerular Filtration Rate >60 (60-); Glucose, Blood 101 mg/dL (70-99); Potassium, Blood 4.9 mmol/L (3.5-5.5); Sodium, Blood 129 mmol/L (136-145); Total Protein, Blood 7.3 g/dL (6.4-8.2)
[2018-05-25 00:19] LABS: Ethanol (Alcohol), Blood, Med 290 mg/dL
== END 2018-05-25 09:03 | disposition home or self-care (01) ==
LOC: ER 23:01 → EOR 23:02
PROVIDERS: ADMIT Emergency Medicine
DX: R41.82 Altered mental status, unspecified (principal); F10.129 Alcohol abuse with intoxication, unspecified; E11.9 Type 2 diabetes mellitus without complications; F17.210 Nicotine dependence, cigarettes, uncomplicated; Z51.81 Encounter for therapeutic drug level monitoring; Z88.0 Allergy status to penicillin; Z91.040 Latex allergy status; Z88.5 Allergy status to narcotic agent; Z79.899 Other long term (current) drug therapy; Z79.4 Long term (current) use of insulin; Y90.8 Blood alcohol level of 240 mg/100 ml or more
CPT/HCPCS: 36415; 70450; 71045; 80047; 80053; 81003; 85014; 85025; 85610; 85730; 93005; 93010; G0480; J2310; J7030; P9612

== ENCOUNTER 2018-08-18 04:36 | Inpatient (IN) | payer OTHER ==
[~2018-08-18] VITALS: Ht 162.6 cm; Wt 52.8 kg
[~2018-08-18 04:36] MED LIST changes: +GABA100 PO; -Lisinopril2.5 MG; +Lisinopril2.5 MG PO; -ONDA4ODT; +ONDA4ODT SL; -Omeprazole20 M1; -TRAZ50; +TRAZ50 PO
[2018-08-18 05:16] LABS: BASOPHILS ABSOLUTE AUTO 0.01 K/mm3 (0.00-0.23); BASOPHILS PERCENT AUTO 0 % (0-2); LYMPHOCYTES ABSOLUTE AUTO 1.45 K/mm3 (0.84-5.20); LYMPHOCYTES PERCENT AUTO 10 % (21-46); MONOCYTES ABSOLUTE AUTO 1.06 K/mm3 (0.16-1.47); MONOCYTES PERCENT AUTO 8 % (4-13); Mean Corpuscular Volume 88 fL (80-100); Mean Platelet Volume 8.5 fL (9.1-12.4); Platelet Count 312 K/mm3 (150-400); RDW Standard Deviation 42.2 fL (35.1-46.3); Red Blood Cell Count 3.41 M/mm3 (3.80-5.20); White Blood Cell Count 14.08 K/mm3 (4.00-11.30)
[2018-08-18 05:26] LABS: EOSINOPHILS ABSOLUTE AUTO 0.17 K/mm3 (0.00-0.68); EOSINOPHILS PERCENT AUTO 1 % (0-6); Hemoglobin 11.5 g/dL (11.5-16.0); IMMATURE GRAN ABSOLUTE AUTO 0.14 K/mm3 (0.00-0.10); IMMATURE GRAN PERCENT AUTO 1 % (0-1); Mean Corpuscular HGB 33.7 pg (26.0-34.0); NEUTROPHILS ABSOLUTE AUTO 11.25 K/mm3 (1.96-9.15); NEUTROPHILS PERCENT AUTO 80 % (41-73)
[2018-08-18 05:47] LABS: Source, Urine Catheter
[2018-08-18 05:49] LABS: Bilirubin, Urine Neg (Neg); Blood, Urine 5+ (Neg); Glucose Qualitative, Urine Neg (Neg); Ketones, Urine Neg (Neg); Leukocyte Esterase, Urine Neg (Neg); Nitrite, Urine Neg (Neg); Protein, Urine 2+ (Neg); Specific Gravity, Urine 1.015 (1.003-1.022); Urobilinogen, Urine NORM (Normal)
[2018-08-18 06:10] LABS: Alanine Aminotransfer (ALT/SGP 37 U/L (12-78); Albumin, Blood 3.9 g/dL (3.4-5.0); Albumin/Globulin Ratio 1.2 (0.8-1.8); Alk Phos 128 U/L (50-136); Anion Gap 12 mmol/L (6-16); Aspartate Aminotrans (AST/SGOT 126 U/L (12-37); Bilirubin, Total 0.9 mg/dL (0.1-1.0); Blood Urea Nitrogen 4 mg/dL (8-24); Bun/Creatinine Ratio 11.7 (12.0-20.0); CO2, Blood 26 mmol/L (21-32); Calcium, Blood 8.3 mg/dL (8.5-10.1); Chloride, Blood 58 mmol/L (98-108); Creatinine, Blood 0.34 mg/dL (0.40-1.00); Globulin, Blood 3.3 g/dL (2.2-4.0); Glomerular Filtration Rate >60 (60-); Glucose, Blood 148 mg/dL (70-99); Potassium, Blood 2.8 mmol/L (3.5-5.5); Sodium, Blood 96 mmol/L (136-145); Total Protein, Blood 7.2 g/dL (6.4-8.2)
[2018-08-18 06:17] LABS: Appearance, Urine Clear (Clear); Color, Urine Pale Yellow (P-Yellow)
[2018-08-18 06:19] LABS: Squamous Epithelial Cells Not Seen /hpf (Few)
[2018-08-18 06:20] LABS: Bacteria Not Seen /hpf; Red Blood Cells, Urine 0-2 /hpf (0-2); White Blood Cells, Urine Not Seen /hpf (0-5)
[2018-08-18 06:26] LABS: Mean Corpuscular HGB Conc 38.3 g/dL (31.5-36.5)
[2018-08-18 06:34] LABS: U Amphetamine Screen Not Detected; U Barbituate Screen Not Detected; U Benzodiazapine Screen Not Detected; U Buprenorphine Screen Not Detected; U Cannabinoids Screen Not Detected; U Cocaine Screen Not Detected; U Methadone Screen Not Detected; U Methamphetamine Screen Not Detected; U Opiates Screen Not Detected; U Oxycodone Screen Not Detected; U Phencyclidine Screen Not Detected; U Propoxyphene Screen Not Detected
[2018-08-18 06:41] LABS: PCO2 Arterial 28.3 mmHg (35-45); PO2 Arterial 97.9 mmHg (80-100)
--- NOTE | 2018-08-18 09:00 | NUR ---
INITIAL ASSESSMENT PATIENT ARRIVED TO UNIT AT 0840 THIS AM FROM ER. PATIENT RESPONDING TO VERBAL STIMULI. LETHARGIC. CALM, WITHDRAWN. ONLY ORIENTED TO SELF AND SIGNIFICANT OTHER. PATIENT SLOW TO RESPOND AND SOMETIMES DOES NOT ANSWER QUESTIONS AT ALL. PUPILS 7+ IN SIZE. R PUPIL NONREACTIVE, L PUPIL REACTS BRISKLY TO LIGHT. FINE TREMORS NOTED IN BUES. GROSS MOVEMENTS OF ALL EXTREMITIES NOTED. PATIENT CONTINUES TO FLEX BUES, CLENCHING FISTS. PATIENT AFEBRILE. PATIENT DENIES PAIN. CNVI OF ZERO. PATIENT SATTING 90% AND GREATER ON RA. LUNGS CLEAR THROUGHOUT. PATIENT HAS OCCASIONAL, MOIST, NONPRODUCTIVE COUGH. PATIENT IN ST, HR LOW 100S. SBP IN THE 170S. ABDOMEN SOFT, NONDISTENDED, TENDER TO PALPATION, WITH HYPOACTIVE BS. SIGNIFICANT OTHER STATES THAT PATIENT LAST HAD BM YESTERDAY AND THAT IT WAS DIARRHEA. PATIENT NPO AT THIS TIME. BAE INSERTED IN ER PATIENT INCONTINENT. BAE DRAINING YELLOW COLORED URINE. SKIN DRY. NAILS CLUBBED. PERINEAL AREA REDDENED. BRUISES TO L HIP AND BUES. SCAR NOTED TO MIDLINE ABDOMEN. WOUND VAC TO R BKA. SIGNIFICANT OTHER REPORTS THAT WOUND VAC DRESSING CHANGED M, W, F BY HOME HEALTH. 3% SODIUM CHLORIDE INFUSING AT 30 MLS/ HOUR- STARTED IN ER. PATIENT GIVEN 20 MEQ IV POTASSIUM IN ER. PATIENT ORIENTED TO ROOM AND UNIT. BED LOW, CALL LIGHT IN REACH, BED ALARM ON. WILL CONTINUE TO MONITOR PATIENT FREQUENTLY THROUGHOUT SHIFT.
--- NOTE | 2018-08-18 09:30 | NUR ---
CALLED AND SPOKE TO DR. CAIN. UPDATED ON PATIENT STATUS, INFORMED OF HX OF DIABETES, HIGH BP- SBP 180S TO LOW 200S, OF LOW POTASSIUM OF 2.8 IN ER AND THAT FINISHED 20 MEQ KCL. ORDERS RECEIVED. ALSO RECEIVED ORDERS FOR BMPS Q2H TO MONITOR ELECTROLYTES.
[2018-08-18 10:39] LABS: Anion Gap 10 mmol/L (6-16); Blood Urea Nitrogen 5 mg/dL (8-24); Bun/Creatinine Ratio 13.9 (12.0-20.0); CO2, Blood 28 mmol/L (21-32); Calcium, Blood 8.3 mg/dL (8.5-10.1); Chloride, Blood 62 mmol/L (98-108); Creatinine, Blood 0.36 mg/dL (0.40-1.00); Glomerular Filtration Rate >60 (60-); Glucose, Blood 140 mg/dL (70-99); Potassium, Blood 2.8 mmol/L (3.5-5.5); Sodium, Blood 100 mmol/L (136-145)
--- NOTE | 2018-08-18 10:47 | NUR ---
DR. CAIN CALLED AND INFORMED OF POTASSIUM OF 2.8, DESPITE THE 20 MEQ OF KCL GIVEN, AND SODIUM LEVEL OF 100. ALSO INFORMED THAT PATIENT'S SIGNIFICANT OTHER REPORTED THAT HOME HEALTH WAS SUPPOSED TO CHANGE PATIENT'S WOUND VAC TODAY. ORDERS RECEIVED.
--- NOTE | 2018-08-18 11:50 | NUR ---
PATIENT HAS BEEN RESTING IN BED, SLEEPING ON AND OFF. NO SIGNS OF PAIN. PATIENT AFEBRILE. PATIENT REMAINS SATTING WELL ON RA. PATIENT REMAINS IN ST, HR IN THE LOW 100S. SBP IN THE 170S. DR. CAIN INFORMED AND SAID HE WILL BE IN SHORTLY TO SEE PATIENT. PATIENT NOW ORIENTED TO SELF, SIGNIFICANT OTHER AND THAT SHE IS IN THE HOSPITAL. PUPILS 7+ BILATERALLY AND BOTH NOW BRISKLY REACT TO LIGHT. COUGH, SWALLOW, AND GAG INTACT. BLOOD SUGAR OF 152. NO OTHER ACUTE CHANGES TO NOTE ON AT THIS TIME. WILL CONTINUE TO MONITOR.
--- NOTE | 2018-08-18 12:31 | NUR ---
DR. CAIN HERE TO SEE PATIENT AT THIS TIME.
--- NOTE | 2018-08-18 12:35 | NUR ---
DR. CAIN FINISHED SEEING PATIENT. STATED THAT BPS ARE OKAY FOR NOW. STATED TO INFORM HIM IF SBP OVER 180 X 3. WILL CONTINUE TO MONITOR.
[2018-08-18 13:07] LABS: Anion Gap 10 mmol/L (6-16); Blood Urea Nitrogen 4 mg/dL (8-24); Bun/Creatinine Ratio 10.2 (12.0-20.0); CO2, Blood 28 mmol/L (21-32); Calcium, Blood 8.5 mg/dL (8.5-10.1); Chloride, Blood 65 mmol/L (98-108); Creatinine, Blood 0.39 mg/dL (0.40-1.00); Glomerular Filtration Rate >60 (60-); Glucose, Blood 124 mg/dL (70-99); Potassium, Blood 3.3 mmol/L (3.5-5.5); Sodium, Blood 103 mmol/L (136-145)
[2018-08-18 16:37] LABS: Anion Gap 10 mmol/L (6-16); Blood Urea Nitrogen 3 mg/dL (8-24); Bun/Creatinine Ratio 7.9 (12.0-20.0); CO2, Blood 27 mmol/L (21-32); Calcium, Blood 8.5 mg/dL (8.5-10.1); Chloride, Blood 70 mmol/L (98-108); Creatinine, Blood 0.38 mg/dL (0.40-1.00); Glomerular Filtration Rate >60 (60-); Glucose, Blood 113 mg/dL (70-99); Potassium, Blood 3.3 mmol/L (3.5-5.5); Sodium, Blood 107 mmol/L (136-145)
--- NOTE | 2018-08-18 16:53 | NUR ---
CALLED AND SPOKE TO DR. CAIN CONCERNING PATIENT'S SODIUM LEVEL. INFORMED THAT SODIUM HAS INCREASED BY 11 MMOL THUS FAR. ORDERS RECEIVED TO STOP 3% SODIUM CHLORIDE AND BEGIN NS AT 75 MLS/ HOUR AT THIS TIME. WILL CONTINUE TO MONITOR.
[2018-08-18] MEDS ORDERED: CHLO25B PO (17:52)
[2018-08-18] MEDS ORDERED: IBUP800 PO (17:56)
[2018-08-18] MEDS ORDERED: ZINC220 PO (17:59)
[2018-08-18] MEDS ORDERED: ONE DAILY WOME1 EAC2 PO (17:59)
--- NOTE | 2018-08-18 18:28 | NUR ---
SHIFT SUMMARY PATIENT REMAINS SLEEPING ON AND OFF. PATIENT REMAINS LETHARGIC. PATIENT REMAINS RESPONDING TO VERBAL STIMULI. PATIENT ALERT TO SELF AND FAMILY AT BEGINNING OF SHIFT. PATIENT BECAME AWARE OF PLACE THROUGHOUT SHIFT. PATIENT REMAINS SLOW TO RESPOND. PATIENT HAS REMAINED AFEBRILE. PATIENT HAS HAD NO COMPLAINTS OR SIGNS OF PAIN. PATIENT HAS REMAINED SATTING 90% AND GREATER ON RA. PATIENT CONTINUES TO HAVE OCCASIONAL, MOIST, NONPRODUCTIVE COUGH. PATIENT HAS BEEN SR TO ST, HR 80S TO LOW 100S. SBP 130S TO LOW 200S. PRN ENALAPRIL GIVEN X 3. DR. CAIN STATED TO CONTINUE GIVING PRN ENALAPRIL FOR SBP OVER 160 BUT HIGH IS OKAY UNLESS OVER 180 X 3 TIMES. PATIENT DID NOT HAVE BM THIS SHIFT. SIGNIFICANT OTHER REPORTED THAT PATIENT HAD BEEN HAVING DIARRHEA YESTERDAY. PATIENT HAS REMAINED NPO. PATIENT GIVEN PRN ZOFRAN OT FOR NAUSEA AND DRY HEAVING. BAE HAS BEEN DRAINING ADEQUATE AMOUNT OF YELLOW URINE. NO CHANGE TO SKIN. 3% SODIUM CHLORIDE STOPPED AROUND 1700 AND NS STARTED AT 75 MLS/ HOUR SODIUM HAD INCREASED 11 MMOL SINCE 3% SODIUM CHLORIDE INFUSION STARTED. 40 MEQ KCL INFUSED SINCE CAME TO HOSPITAL FOR LOW POTASSIUM LEVELS. PATIENT RECEIVED COMPLETE BED BATH THIS SHIFT. ADMISSION DATA REMAINS INCOMPLETE PER PATIENT'S CONFUSION. SOME MEDS WERE RECONCILED FROM WHAT SIGNIFICANT OTHER BROUGHT IN- ALL OTHERS WILL HAVE TO BE RECONCILED WHEN PHARMACY OPEN SUNDAY. PATIENT HAS NO SIGNS OF PAIN OR DISCOMFORT AT THIS TIME. BED LOW, CALL LIGHT IN REACH, BED ALARM ON. WILL BE GIVING REPORT TO ONCOMING CHILLER TENDER NURSE SHORTLY.
--- NOTE | 2018-08-18 19:15 | NUR ---
PATIENT AWAKE ATTEMPTING TO GET OUT OF BED TO GO TO THE BATHROOM, DENIES NEED FOR BM. PATIENT ABLE TO REMEMBER BEING IN THE HOSPITAL, MONTH AND YEAR. MAEW BUT WEAK. BAE REMAINS IN PLACE DRAINING CLEAR YELLOW URINE. LUNG SOUND WITH EXPIRATORY WHEEZES, STRONG MOIST COUGH. 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 BED ALARM REMAINS ON DUE TO PATIENT FORGETFULNESS AND FALL RISK
[2018-08-18 19:35] LABS: Anion Gap 12 mmol/L (6-16); Blood Urea Nitrogen 3 mg/dL (8-24); Bun/Creatinine Ratio 8.3 (12.0-20.0); CO2, Blood 25 mmol/L (21-32); Calcium, Blood 8.5 mg/dL (8.5-10.1); Chloride, Blood 72 mmol/L (98-108); Creatinine, Blood 0.36 mg/dL (0.40-1.00); Glomerular Filtration Rate >60 (60-); Glucose, Blood 114 mg/dL (70-99); Potassium, Blood 2.9 mmol/L (3.5-5.5); Sodium, Blood 109 mmol/L (136-145)
--- NOTE | 2018-08-18 19:52 | NUR ---
SPOKE WITH DOCTOR CAIN REGARDING LABS AND UPDATE ON PATIENT. CONTINUE NS AT 75/HR, KCL 40MEQ IV, AND CONTINUE Q2HR BMP'S
[2018-08-18 20:48] LABS: Anion Gap 9 mmol/L (6-16); Blood Urea Nitrogen 4 mg/dL (8-24); Bun/Creatinine Ratio 9.5 (12.0-20.0); CO2, Blood 27 mmol/L (21-32); Calcium, Blood 8.4 mg/dL (8.5-10.1); Chloride, Blood 74 mmol/L (98-108); Creatinine, Blood 0.42 mg/dL (0.40-1.00); Glomerular Filtration Rate >60 (60-); Glucose, Blood 110 mg/dL (70-99); Potassium, Blood 2.7 mmol/L (3.5-5.5); Sodium, Blood 110 mmol/L (136-145)
[2018-08-18 22:36] LABS: Anion Gap 8 mmol/L (6-16); Blood Urea Nitrogen 4 mg/dL (8-24); Bun/Creatinine Ratio 9.3 (12.0-20.0); CO2, Blood 27 mmol/L (21-32); Calcium, Blood 8.4 mg/dL (8.5-10.1); Chloride, Blood 78 mmol/L (98-108); Creatinine, Blood 0.43 mg/dL (0.40-1.00); Glomerular Filtration Rate >60 (60-); Glucose, Blood 106 mg/dL (70-99); Potassium, Blood 3.3 mmol/L (3.5-5.5); Sodium, Blood 113 mmol/L (136-145)
[2018-08-19 00:44] LABS: Anion Gap 7 mmol/L (6-16); Blood Urea Nitrogen 4 mg/dL (8-24); Bun/Creatinine Ratio 9.2 (12.0-20.0); CO2, Blood 26 mmol/L (21-32); Calcium, Blood 8.4 mg/dL (8.5-10.1); Chloride, Blood 81 mmol/L (98-108); Creatinine, Blood 0.43 mg/dL (0.40-1.00); Glomerular Filtration Rate >60 (60-); Glucose, Blood 108 mg/dL (70-99); Potassium, Blood 3.8 mmol/L (3.5-5.5); Sodium, Blood 114 mmol/L (136-145)
[2018-08-19 02:42] LABS: Anion Gap 7 mmol/L (6-16); Blood Urea Nitrogen 4 mg/dL (8-24); Bun/Creatinine Ratio 9.1 (12.0-20.0); CO2, Blood 26 mmol/L (21-32); Calcium, Blood 8.6 mg/dL (8.5-10.1); Chloride, Blood 84 mmol/L (98-108); Creatinine, Blood 0.44 mg/dL (0.40-1.00); Glomerular Filtration Rate >60 (60-); Glucose, Blood 109 mg/dL (70-99); Potassium, Blood 3.5 mmol/L (3.5-5.5); Sodium, Blood 117 mmol/L (136-145)
[2018-08-19 04:17] LABS: BASOPHILS ABSOLUTE AUTO 0.02 K/mm3 (0.00-0.23); BASOPHILS PERCENT AUTO 0 % (0-2); EOSINOPHILS ABSOLUTE AUTO 0.02 K/mm3 (0.00-0.68); EOSINOPHILS PERCENT AUTO 0 % (0-6); Hematocrit 30.8 % (33.0-51.0); Hemoglobin 11.4 g/dL (11.5-16.0); IMMATURE GRAN ABSOLUTE AUTO 0.05 K/mm3 (0.00-0.10); IMMATURE GRAN PERCENT AUTO 1 % (0-1); LYMPHOCYTES ABSOLUTE AUTO 1.19 K/mm3 (0.84-5.20); LYMPHOCYTES PERCENT AUTO 15 % (21-46); MONOCYTES ABSOLUTE AUTO 0.81 K/mm3 (0.16-1.47); MONOCYTES PERCENT AUTO 11 % (4-13); Mean Corpuscular HGB 33.8 pg (26.0-34.0); Mean Platelet Volume 8.9 fL (9.1-12.4); NEUTROPHILS ABSOLUTE AUTO 5.62 K/mm3 (1.96-9.15); NEUTROPHILS PERCENT AUTO 73 % (41-73); Platelet Count 302 K/mm3 (150-400); RDW Coefficient Variation 13.4 % (11.7-14.2); RDW Standard Deviation 44.4 fL (35.1-46.3); Red Blood Cell Count 3.37 M/mm3 (3.80-5.20); White Blood Cell Count 7.71 K/mm3 (4.00-11.30)
[2018-08-19 04:21] LABS: Mean Corpuscular Volume 91 fL (80-100)
[2018-08-19 04:37] LABS: Magnesium, Blood 1.8 mg/dL (1.6-2.4)
[2018-08-19 04:39] LABS: Anion Gap 7 mmol/L (6-16); Blood Urea Nitrogen 4 mg/dL (8-24); Bun/Creatinine Ratio 8.7 (12.0-20.0); CO2, Blood 26 mmol/L (21-32); Calcium, Blood 9.1 mg/dL (8.5-10.1); Chloride, Blood 84 mmol/L (98-108); Creatinine, Blood 0.46 mg/dL (0.40-1.00); Glomerular Filtration Rate >60 (60-); Glucose, Blood 113 mg/dL (70-99); Potassium, Blood 3.4 mmol/L (3.5-5.5); Sodium, Blood 117 mmol/L (136-145)
--- NOTE | 2018-08-19 05:34 | NUR ---
SUMMARY PATIENT SLEEPING OFF AND ON T/O THE NIGHT, AWAKENS EASILY TO SLIGHT STIMULI. SPEECH IS NOW CLEAR AND PATIENT A&O X3. ASSISTING WITH REPOSITIONING IN BED AND AT TIMES REPOSITIONING SELF IN BED FOR COMFORT. CONTINUING TO MONITOR BMP Q2HR TO MONITOR LOW NA+ LEVELS. WOUND VAC REMAINS INTACT TO RIGHT BKA WOUND, PLAN FOR DRESSING CHANGE TODAY WITH ATC. NO C/O NAUSEA T/O NIGHT AND NO STOOLS DURING THE NIGHT.
[2018-08-19 06:19] LABS: Blood Urea Nitrogen 4 mg/dL (8-24); Bun/Creatinine Ratio 8.3 (12.0-20.0); CO2, Blood 25 mmol/L (21-32); Chloride, Blood 86 mmol/L (98-108); Creatinine, Blood 0.48 mg/dL (0.40-1.00); Glomerular Filtration Rate >60 (60-); Glucose, Blood 115 mg/dL (70-99); Potassium, Blood 3.4 mmol/L (3.5-5.5)
[2018-08-19 06:20] LABS: Anion Gap 7 mmol/L (6-16); Sodium, Blood 118 mmol/L (136-145)
[2018-08-19 08:22] LABS: Anion Gap 8 mmol/L (6-16); Blood Urea Nitrogen 5 mg/dL (8-24); Bun/Creatinine Ratio 11.4 (12.0-20.0); CO2, Blood 26 mmol/L (21-32); Calcium, Blood 8.7 mg/dL (8.5-10.1); Chloride, Blood 87 mmol/L (98-108); Creatinine, Blood 0.44 mg/dL (0.40-1.00); Glomerular Filtration Rate >60 (60-); Glucose, Blood 117 mg/dL (70-99); Potassium, Blood 3.2 mmol/L (3.5-5.5); Sodium, Blood 121 mmol/L (136-145)
--- NOTE | 2018-08-19 11:03 | NUR ---
0730: CARE ASSUMED, ASSESSMENT COMPLETE. PT DROWSY, WAKES AND IS ORIENTED AND APPROPRIATE, THEN QUICKLY GOES BACK TO SLEEP. VSS, WOUND VAC TO RIGHT BKA IN PLACE WITH GOOD SUCTION, NO AIR LEAK NOTED, NO DRAINAGE NOTED IN WOUND VAC CHAMBER. NO EDEMA TO LE'S, NO S/SX INFECTION NOTED TO R BKA STUMP. DR. CAIN AT BEDSIDE TO ASSESS, AWARE OF LAB RESULTS. NEW ORDERS RECEIVED. 0800: BLOOD SPECIMEN SENT TO LAB. PT SLEEPING. 0930: PT MEDICATED WITH TYLENOL FOR RIGHT BKA PAIN, PT FALLS BACK ASLEEP QUICKLY AFTER CARES ARE COMPLETE. 1100: PT SITTING UP IN BED AWAKE, STATES SHE IS HUNGRY. SNACK GIVEN AT THIS TIME, PT INFORMED LUNCH IS COMING SOON. 300ML WATER AT BEDSIDE, FLUID RESTRICTION EXPLAINED TO PT. VSS, PT DENIES OTHER NEEDS.
[2018-08-19 11:58] LABS: Anion Gap 7 mmol/L (6-16); Blood Urea Nitrogen 6 mg/dL (8-24); Bun/Creatinine Ratio 11.8 (12.0-20.0); CO2, Blood 27 mmol/L (21-32); Calcium, Blood 8.9 mg/dL (8.5-10.1); Chloride, Blood 87 mmol/L (98-108); Creatinine, Blood 0.51 mg/dL (0.40-1.00); Glomerular Filtration Rate >60 (60-); Glucose, Blood 186 mg/dL (70-99); Sodium, Blood 121 mmol/L (136-145)
--- NOTE | 2018-08-19 12:30 | NUR ---
1200: REASSESSMENT COMPLETED, VSS, NO CHANGES NOTED. PT REMAINS DROWSY, WAKES EASILY WHEN SPOKEN TO, THEN FALLS BACK ASLEEP. PT REPOSITIONED SELF WITH VERBAL CUES, ANSWERS QUESTIONS APPROPRIATELY AND FOLLOWS DIRECTIONS BUT IS IRRITABLE. QUICKLY FALLS BACK ASLEEP AFTER CARES COMPLETED. SCDS ON, ATTENDS DRY.
--- NOTE | 2018-08-19 12:39 | NUR ---
PT SITTING UP IN BED WATCHING TV, VSS, LS DIM BUT CLEAR, NO WHEEZES NOTED, OCCASIONAL LOOSE COUGH, PT SWALLOWS SPUTUM. A&O, AK[place], FORGETFUL AT TIMES BUT APPROPRIATE. WOUND VAC IN PLACE, DRSG REMAINS INTACT WITH GOOD SEAL, NO DRAINAGE NOTED IN VAC CANISTER. WOUND VAC SETTINGS CHECKED, CONTINUOUS VAC ON. PT REFUSING ORAL AND AM CARES, LUNCH TRAY GIVEN.
--- NOTE | 2018-08-19 14:18 | NUR ---
PT SITTING IN BED WATCHING TV, ALERT AND ORIENTED, DENIES C/O. POTASSIUM ADMINISTERED PER ORDERS, PT TOLERATED LUNCH WITHOUT DIFFIUCLTY, DENIES N/V AT THIS TIME. VSS.
[2018-08-19 16:19] LABS: Anion Gap 9 mmol/L (6-16); Blood Urea Nitrogen 8 mg/dL (8-24); Bun/Creatinine Ratio 9.7 (12.0-20.0); CO2, Blood 23 mmol/L (21-32); Calcium, Blood 7.9 mg/dL (8.5-10.1); Chloride, Blood 96 mmol/L (98-108); Creatinine, Blood 0.83 mg/dL (0.40-1.00); Glomerular Filtration Rate >60 (60-); Glucose, Blood 100 mg/dL (70-99); Sodium, Blood 128 mmol/L (136-145)
--- NOTE | 2018-08-19 16:19 | NUR ---
[facility] initial visit: Tavia feels like she is getting better and was very open to prayer/spiritual support. She was not super talkative, but verbalized appreciaiton for visit. No family/friends present. I will remain available.
--- NOTE | 2018-08-19 16:44 | NUR ---
1600: PT ASSISTED WITH BED BATH, CATH CARE AND ORAL CARE COMPLETED, PT TOLERATED ACTIVITY WELL BUT STATES SHE IS TIRED AFTER. VSS, LS CLEAR, PT ORIENTED X4, APPROPRIATE. LINENS CHANGED, PT NOW WATCHING TV AND RESTING QUIETLY WITH NO C/O.
--- NOTE | 2018-08-19 17:17 | NUR ---
WOUND VAC DRESSING CHANGED AT THIS TIME. WOUND TO END OF RIGHT BKA MEASURES 3CM WIDTH X 0.5CM HEIGHT, NO DRAINAGE OR FOUL ODOR NOTED. CULTURE OBTAINED, WOUND VAC SUCTION ON. PT TOLERATED PROCEDURE WELL, DENIES NEEDS AT THIS TIME.
--- NOTE | 2018-08-19 17:40 | NUR ---
REPORT GIVEN TO RAMYA RN IN PCU. PT SITTING UP IN BED EATING DINNER, DENIES C/O. VSS, SAFESET REMOVED AT THIS TIME.
--- NOTE | 2018-08-19 18:21 | NUR ---
PT TOLERATED DINNER WELL, NO C/O PAIN OR NAUSEA AT THIS TIME, REMAINS ALERT AND ORIENTED, VSS. TOTAL FLUID INTAKE 475 SO FAR THIS SHIFT. PT TO PCU 3 AT THIS TIME VIA WC WITH PERSONAL BELONGINGS AND MEDICATIONS, TRANSFERRED FROM BED TO WC WITH SBA WITHOUT DIFFICULTY.
--- NOTE | 2018-08-19 18:25 | NUR ---
ASSUMED CARE. ASSUMED CARE OF PT APROX 1820. PT WAS TRANSFER FROM ICU. PT WAS ABLE TO SELF TRANSFER FROM W/C TO HER BED. PT'S WOUND VAC IN IN PLACE, WITH GOOD SUCTION. PT IS ABLE TO MAKE NEEDS KNOWN, IS A&O AND USE CALL LIGHT APROPPRIATELY. CALL LIGHT IN REACH, WILL CONTINUE TO MONITOR UNTIL REPORT IS GIVEN TO ONCOMING RN.
[2018-08-19 21:05] LABS: Anion Gap 7 mmol/L (6-16); Blood Urea Nitrogen 12 mg/dL (8-24); Bun/Creatinine Ratio 12.2 (12.0-20.0); CO2, Blood 24 mmol/L (21-32); Calcium, Blood 8.9 mg/dL (8.5-10.1); Chloride, Blood 95 mmol/L (98-108); Creatinine, Blood 0.98 mg/dL (0.40-1.00); Glomerular Filtration Rate >60 (60-); Glucose, Blood 96 mg/dL (70-99); Potassium, Blood 3.2 mmol/L (3.5-5.5); Sodium, Blood 126 mmol/L (136-145)
[2018-08-20 00:01] LABS: Anion Gap 9 mmol/L (6-16); Blood Urea Nitrogen 13 mg/dL (8-24); Bun/Creatinine Ratio 16.1 (12.0-20.0); CO2, Blood 23 mmol/L (21-32); Calcium, Blood 8.8 mg/dL (8.5-10.1); Chloride, Blood 94 mmol/L (98-108); Creatinine, Blood 0.81 mg/dL (0.40-1.00); Glomerular Filtration Rate >60 (60-); Glucose, Blood 126 mg/dL (70-99); Potassium, Blood 3.4 mmol/L (3.5-5.5); Sodium, Blood 126 mmol/L (136-145)
[2018-08-20 04:36] LABS: Anion Gap 7 mmol/L (6-16); Blood Urea Nitrogen 19 mg/dL (8-24); Bun/Creatinine Ratio 21.9 (12.0-20.0); CO2, Blood 23 mmol/L (21-32); Calcium, Blood 8.6 mg/dL (8.5-10.1); Chloride, Blood 99 mmol/L (98-108); Creatinine, Blood 0.87 mg/dL (0.40-1.00); Glomerular Filtration Rate >60 (60-); Glucose, Blood 148 mg/dL (70-99); Sodium, Blood 129 mmol/L (136-145)
--- NOTE | 2018-08-20 05:59 | NUR ---
SHIFT SUMMARY PT HAS REMAINED AOX4 THROUGHOUT SHIFT. PLEASANT AND COOPERATIVE WITH CARE. PT WITH ONE EPISODE OF HYPOTENSION THIS AM THAT WAS ASYMPTOMATIC, ALL OTHER VSS. O2 SATS >90% THROUGHOUT THE NIGHT ON RA. PT AMBULATES WITH STANDBY ASSIST TO BEDSIDE COMMODE WITH PIVOT TURN WITH MINIMAL DIFFICULTY. PT REPORTING PAIN TO AMPUTATION SITE AND TO R ELBOW THAT DECREASES SLIGHTLY WITH ORDERED MEDICATIONS. BAE CATHETER DISCONTINUED THIS AM, PT UTILIZING BEDSIDE COMMODE FOR URINATION. PT RESTED VERY LITTLE THROUGHOUT THE NIGHT WITH NOTED RESTLESSNESS AND REPORTED ANXIETY. NO OTHER CHANGES NOTED FROM INITIAL ASSESSMENT. WILL CONTINUE TO MONITOR AND REPORT TO ONCOMING SHIFT RN. BED IN LOW POSITION, CALL LIGHT IN REACH.
[2018-08-20] MEDS ORDERED: Micro-K10 MEQ PO (14:57)
== END 2018-08-20 16:20 | disposition home or self-care (01) | DRG 643 ==
LOC: ER 04:36 → ICUW 07:23 → PCU 07:23 → ICUE 08:35 → PCU 08-19 18:20
PROVIDERS: Emergency Medicine; ADMIT Internal Medicine
DX: E22.2 Syndrome of inappropriate secretion of antidiuretic hormone (principal); G92 Toxic encephalopathy; E11.9 Type 2 diabetes mellitus without complications; J44.9 Chronic obstructive pulmonary disease, unspecified; M10.9 Gout, unspecified; F31.9 Bipolar disorder, unspecified; E78.5 Hyperlipidemia, unspecified; F17.210 Nicotine dependence, cigarettes, uncomplicated; E87.6 Hypokalemia; E86.0 Dehydration; Z89.511 Acquired absence of right leg below knee; E87.8 Other disorders of electrolyte and fluid balance, not elsewhere classified; Z79.4 Long term (current) use of insulin
CPT/HCPCS: 36415; 36556; 36600; 51702; 70450; 71045; 80048; 80053; 81001; 82803; 82947; 83605; 83735; 83930; 83935; 84300; 85025; 87040; 87081; 93005; 93010; 93291; 99285-25; A9270; A9270-GY; C1751; G0480; J1650; J1815; J2405; J3480; J7030; P9612

== ENCOUNTER 2018-08-29 22:51 | Emergency (ER) | payer OTHER ==
[~2018-08-29] VITALS: Ht 160 cm; Wt 54.0 kg
[~2018-08-29 22:51] MED LIST changes: +IBUP800 PO; +Micro-K10 MEQ PO; +ONE DAILY WOME1 EAC2 PO; +ZINC220 PO
[2018-08-30 01:28] LABS: BASOPHILS ABSOLUTE AUTO 0.05 K/mm3 (0.00-0.23); BASOPHILS PERCENT AUTO 1 % (0-2); EOSINOPHILS ABSOLUTE AUTO 0.18 K/mm3 (0.00-0.68); EOSINOPHILS PERCENT AUTO 2 % (0-6); Hematocrit 36.2 % (33.0-51.0); Hemoglobin 11.5 g/dL (11.5-16.0); IMMATURE GRAN ABSOLUTE AUTO 0.05 K/mm3 (0.00-0.10); IMMATURE GRAN PERCENT AUTO 1 % (0-1); LYMPHOCYTES ABSOLUTE AUTO 1.53 K/mm3 (0.84-5.20); LYMPHOCYTES PERCENT AUTO 16 % (21-46); MONOCYTES ABSOLUTE AUTO 0.45 K/mm3 (0.16-1.47); MONOCYTES PERCENT AUTO 5 % (4-13); Mean Corpuscular HGB 34.5 pg (26.0-34.0); Mean Corpuscular HGB Conc 31.8 g/dL (31.5-36.5); Mean Platelet Volume 8.2 fL (9.1-12.4); NEUTROPHILS ABSOLUTE AUTO 7.11 K/mm3 (1.96-9.15); NEUTROPHILS PERCENT AUTO 76 % (41-73); Platelet Count 430 K/mm3 (150-400); RDW Coefficient Variation 15.1 % (11.7-14.2); RDW Standard Deviation 60.7 fL (35.1-46.3); Red Blood Cell Count 3.33 M/mm3 (3.80-5.20); White Blood Cell Count 9.37 K/mm3 (4.00-11.30)
[2018-08-30 01:29] LABS: Mean Corpuscular Volume 109 fL (80-100)
[2018-08-30 01:44] LABS: Alanine Aminotransfer (ALT/SGP 23 U/L (12-78); Albumin, Blood 4.1 g/dL (3.4-5.0); Alk Phos 111 U/L (50-136); Anion Gap 4 mmol/L (6-16); Aspartate Aminotrans (AST/SGOT 12 U/L (12-37); Bilirubin, Total 0.2 mg/dL (0.1-1.0); Blood Urea Nitrogen 16 mg/dL (8-24); Bun/Creatinine Ratio 21.8 (12.0-20.0); CO2, Blood 25 mmol/L (21-32); Calcium, Blood 9.4 mg/dL (8.5-10.1); Chloride, Blood 106 mmol/L (98-108); Creatinine, Blood 0.73 mg/dL (0.40-1.00); Globulin, Blood 4.3 g/dL (2.2-4.0); Glomerular Filtration Rate >60 (60-); Glucose, Blood 127 mg/dL (70-99); Potassium, Blood 4.6 mmol/L (3.5-5.5); Sodium, Blood 135 mmol/L (136-145); Total Protein, Blood 8.4 g/dL (6.4-8.2)
== END 2018-08-30 03:31 | disposition home or self-care (01) ==
LOC: ER 22:51
PROVIDERS: Physician Assistant
DX: R53.81 Other malaise (principal); E11.9 Type 2 diabetes mellitus without complications; J44.9 Chronic obstructive pulmonary disease, unspecified; I10 Essential (primary) hypertension; D64.9 Anemia, unspecified; M10.9 Gout, unspecified; M19.90 Unspecified osteoarthritis, unspecified site; F31.9 Bipolar disorder, unspecified; F17.210 Nicotine dependence, cigarettes, uncomplicated; Z88.0 Allergy status to penicillin; Z91.040 Latex allergy status; Z88.5 Allergy status to narcotic agent; Z88.8 Allergy status to other drugs, medicaments and biological substances; Z88.6 Allergy status to analgesic agent; Z79.899 Other long term (current) drug therapy; Z79.84 Long term (current) use of oral hypoglycemic drugs
CPT/HCPCS: 36415; 80053; 82947; 85025; 93005; 93010; 99283-25

== ENCOUNTER 2018-11-22 07:44 | Day surgery (SDC) | payer OTHER | END 2018-11-22 23:10 | disposition home or self-care (01) | LOC: WOUND 07:44 | DX: E11.622 Type 2 diabetes mellitus with other skin ulcer (principal); L97.811 Non-pressure chronic ulcer of other part of right lower leg limited to breakdown of skin; E78.5 Hyperlipidemia, unspecified; I10 Essential (primary) hypertension; J44.9 Chronic obstructive pulmonary disease, unspecified; Z88.5 Allergy status to narcotic agent; Z91.040 Latex allergy status; Z72.0 Tobacco use; Z89.511 Acquired absence of right leg below knee | CPT/HCPCS: G0463 ==

== ENCOUNTER 2018-12-06 00:15 | Day surgery (SDC) | payer OTHER | END 2018-12-06 23:51 | disposition home or self-care (01) | LOC: WOUND | DX: S81.801A Unspecified open wound, right lower leg, initial encounter (principal); I10 Essential (primary) hypertension; E11.9 Type 2 diabetes mellitus without complications; F17.200 Nicotine dependence, unspecified, uncomplicated; Z89.511 Acquired absence of right leg below knee; W19.XXXA Unspecified fall, initial encounter; Y92.009 Unspecified place in unspecified non-institutional (private) residence as the place of occurrence of the external cause | CPT/HCPCS: G0463 ==

== ENCOUNTER 2018-12-12 08:15 | Day surgery (SDC) | payer OTHER | END 2018-12-12 23:39 | disposition home or self-care (01) | LOC: WOUND 08:15 | DX: S81.801D Unspecified open wound, right lower leg, subsequent encounter (principal); I10 Essential (primary) hypertension; E11.9 Type 2 diabetes mellitus without complications; F17.200 Nicotine dependence, unspecified, uncomplicated; Z89.511 Acquired absence of right leg below knee; W19.XXXD Unspecified fall, subsequent encounter | CPT/HCPCS: G0463 ==

== ENCOUNTER 2019-07-08 23:12 | Emergency (ER) | payer OTHER ==
[~2019-07-08] VITALS: Ht 160 cm; Wt 52.2 kg
[2019-07-08 23:36] LABS: BASOPHILS ABSOLUTE AUTO 0.09 K/mm3 (0.00-0.23); BASOPHILS PERCENT AUTO 1 % (0-2); EOSINOPHILS PERCENT AUTO 1 % (0-6); Hematocrit 38.9 % (33.0-51.0); IMMATURE GRAN ABSOLUTE AUTO 0.03 K/mm3 (0.00-0.10); IMMATURE GRAN PERCENT AUTO 0 % (0-1); LYMPHOCYTES ABSOLUTE AUTO 3.85 K/mm3 (0.84-5.20); LYMPHOCYTES PERCENT AUTO 53 % (21-46); MONOCYTES ABSOLUTE AUTO 0.58 K/mm3 (0.16-1.47); MONOCYTES PERCENT AUTO 8 % (4-13); Mean Corpuscular HGB 33.2 pg (26.0-34.0); Mean Corpuscular HGB Conc 33.4 g/dL (31.5-36.5); Mean Corpuscular Volume 100 fL (80-100); Mean Platelet Volume 9.3 fL (9.1-12.4); NEUTROPHILS ABSOLUTE AUTO 2.58 K/mm3 (1.96-9.15); NEUTROPHILS PERCENT AUTO 36 % (41-73); Platelet Count 222 K/mm3 (150-400); RDW Coefficient Variation 13.3 % (11.7-14.2); RDW Standard Deviation 48.2 fL (35.1-46.3); Red Blood Cell Count 3.91 M/mm3 (3.80-5.20); White Blood Cell Count 7.23 K/mm3 (4.00-11.30)
[2019-07-08 23:46] LABS: PCO2 Arterial 37.6 mmHg (35-45); PO2 Arterial 80.8 mmHg (80-100); pH Blood Arterial 7.34 (7.35-7.45)
[2019-07-08 23:55] LABS: Alanine Aminotransfer (ALT/SGP 36 U/L (12-78); Albumin, Blood 4.1 g/dL (3.4-5.0); Alk Phos 149 U/L (50-136); Anion Gap 15 mmol/L (6-16); Aspartate Aminotrans (AST/SGOT 56 U/L (12-37); Bilirubin, Total 0.3 mg/dL (0.1-1.0); Blood Urea Nitrogen 5 mg/dL (8-24); Bun/Creatinine Ratio 10.1 (12.0-20.0); CO2, Blood 17 mmol/L (21-32); Calcium, Blood 8.4 mg/dL (8.5-10.1); Chloride, Blood 104 mmol/L (98-108); Globulin, Blood 4.2 g/dL (2.2-4.0); Glomerular Filtration Rate >60 (60-); Glucose, Blood 107 mg/dL (70-99); Potassium, Blood 3.5 mmol/L (3.5-5.5); Sodium, Blood 136 mmol/L (136-145); Total Protein, Blood 8.3 g/dL (6.4-8.2); Troponin I <0.015 ng/mL (0.000-0.040)
[2019-07-09] MEDS ORDERED: Prednisone20 MG PO (00:29)
== END 2019-07-09 00:52 | disposition home or self-care (01) ==
LOC: ER 23:12
PROVIDERS: Emergency Medicine
DX: J44.1 Chronic obstructive pulmonary disease with (acute) exacerbation (principal); D64.9 Anemia, unspecified; I10 Essential (primary) hypertension; E11.9 Type 2 diabetes mellitus without complications; F31.9 Bipolar disorder, unspecified; E78.5 Hyperlipidemia, unspecified; F17.210 Nicotine dependence, cigarettes, uncomplicated; Z88.0 Allergy status to penicillin; Z91.040 Latex allergy status; Z88.6 Allergy status to analgesic agent; Z88.5 Allergy status to narcotic agent; Z88.8 Allergy status to other drugs, medicaments and biological substances; Z79.899 Other long term (current) drug therapy; Z79.51 Long term (current) use of inhaled steroids
CPT/HCPCS: 36600; 71045; 80053; 82803; 84484; 85025; 93005; 93010; 94644; 99285-25

== ENCOUNTER 2019-12-25 19:17 | Emergency (ER) | payer OTHER ==
[~2019-12-25] VITALS: Ht 160 cm; Wt 54.4 kg
== END 2019-12-26 00:40 | disposition home or self-care (01) ==
LOC: ER 19:17
DX: S62.324A Displaced fracture of shaft of fourth metacarpal bone, right hand, initial encounter for closed fracture (principal); I10 Essential (primary) hypertension; J44.9 Chronic obstructive pulmonary disease, unspecified; E11.9 Type 2 diabetes mellitus without complications; Z88.0 Allergy status to penicillin; Z88.6 Allergy status to analgesic agent; Z88.5 Allergy status to narcotic agent; Z79.52 Long term (current) use of systemic steroids; Z86.73 Personal history of transient ischemic attack (TIA), and cerebral infarction without residual deficits; Z91.040 Latex allergy status; Z79.899 Other long term (current) drug therapy; W01.0XXA Fall on same level from slipping, tripping and stumbling without subsequent striking against object, initial encounter
CPT/HCPCS: 29125; 73130; 96372-59; 99283-25; J3010

== ENCOUNTER 2019-12-29 11:53 | Emergency (ER) | payer OTHER ==
[~2019-12-29] VITALS: Ht 160 cm; Wt 54.4 kg
[2019-12-29] MEDS ORDERED: TRAM50 PO (16:06)
== END 2019-12-29 16:37 | disposition home or self-care (01) ==
LOC: ER 11:53
DX: S62.305A Unspecified fracture of fourth metacarpal bone, left hand, initial encounter for closed fracture (principal); I10 Essential (primary) hypertension; J44.9 Chronic obstructive pulmonary disease, unspecified; E11.9 Type 2 diabetes mellitus without complications; F31.9 Bipolar disorder, unspecified; E78.5 Hyperlipidemia, unspecified; F17.210 Nicotine dependence, cigarettes, uncomplicated; Z88.0 Allergy status to penicillin; Z88.5 Allergy status to narcotic agent; Z88.6 Allergy status to analgesic agent; Z79.899 Other long term (current) drug therapy; Z91.040 Latex allergy status; Z86.73 Personal history of transient ischemic attack (TIA), and cerebral infarction without residual deficits; X58.XXXA Exposure to other specified factors, initial encounter
CPT/HCPCS: 99282

== ENCOUNTER 2020-01-05 21:35 | Emergency (ER) | payer OTHER ==
[~2020-01-05] VITALS: Ht 160 cm; Wt 54.4 kg
[~2020-01-05 21:35] MED LIST changes: +TRAM50 PO
[2020-01-05] MEDS ORDERED: METF500 PO (21:50)
[2020-01-05 22:30] LABS: BASOPHILS ABSOLUTE AUTO 0.07 K/mm3 (0.00-0.23); BASOPHILS PERCENT AUTO 2 % (0-2); EOSINOPHILS ABSOLUTE AUTO 0.18 K/mm3 (0.00-0.68); EOSINOPHILS PERCENT AUTO 4 % (0-6); Hematocrit 34.2 % (33.0-51.0); IMMATURE GRAN ABSOLUTE AUTO 0.02 K/mm3 (0.00-0.10); IMMATURE GRAN PERCENT AUTO 1 % (0-1); LYMPHOCYTES ABSOLUTE AUTO 1.74 K/mm3 (0.84-5.20); LYMPHOCYTES PERCENT AUTO 39 % (21-46); MONOCYTES ABSOLUTE AUTO 0.34 K/mm3 (0.16-1.47); MONOCYTES PERCENT AUTO 8 % (4-13); Mean Corpuscular HGB 33.2 pg (26.0-34.0); Mean Corpuscular HGB Conc 32.2 g/dL (31.5-36.5); Mean Corpuscular Volume 103 fL (80-100); Mean Platelet Volume 8.9 fL (9.1-12.4); NEUTROPHILS ABSOLUTE AUTO 2.09 K/mm3 (1.96-9.15); NEUTROPHILS PERCENT AUTO 47 % (41-73); Platelet Count 190 K/mm3 (150-400); RDW Coefficient Variation 14.3 % (11.7-14.2); RDW Standard Deviation 54.6 fL (35.1-46.3); Red Blood Cell Count 3.31 M/mm3 (3.80-5.20); White Blood Cell Count 4.44 K/mm3 (4.00-11.30)
[2020-01-05 22:48] LABS: Alanine Aminotransfer (ALT/SGP 19 U/L (12-78); Albumin, Blood 3.2 g/dL (3.4-5.0); Alk Phos 100 U/L (50-136); Anion Gap 11 mmol/L (6-16); Aspartate Aminotrans (AST/SGOT 21 U/L (12-37); Bilirubin, Total 0.2 mg/dL (0.1-1.0); Blood Urea Nitrogen 8 mg/dL (8-24); Bun/Creatinine Ratio 11.5 (12.0-20.0); CO2, Blood 21 mmol/L (21-32); Chloride, Blood 112 mmol/L (98-108); Ethanol (Alcohol), Blood, Med 231 mg/dL; Globulin, Blood 3.2 g/dL (2.2-4.0); Glomerular Filtration Rate >60 (60-); Glucose, Blood 94 mg/dL (70-99); Sodium, Blood 144 mmol/L (136-145); Total Protein, Blood 6.4 g/dL (6.4-8.2)
[2020-01-05 23:19] LABS: Source, Urine Clean Catch
[2020-01-05 23:25] LABS: Appearance, Urine Clear (Clear); Bilirubin, Urine Neg (Neg); Blood, Urine Neg (Neg); Color, Urine Yellow (P-Yellow); Glucose Qualitative, Urine Neg (Neg); Ketones, Urine Neg (Neg); Leukocyte Esterase, Urine Neg (Neg); Nitrite, Urine Neg (Neg); Protein, Urine Neg (Neg); Urobilinogen, Urine NORM (Normal)
[2020-01-05 23:36] LABS: U Amphetamine Screen Not Detected; U Barbituate Screen Not Detected; U Benzodiazapine Screen Not Detected; U Buprenorphine Screen Not Detected; U Cannabinoids Screen Not Detected; U Cocaine Screen Not Detected; U Methadone Screen Not Detected; U Methamphetamine Screen Not Detected; U Opiates Screen Not Detected; U Oxycodone Screen Not Detected; U Phencyclidine Screen Not Detected; U Propoxyphene Screen Not Detected
== END 2020-01-06 00:20 | disposition home or self-care (01) ==
LOC: ER 21:35
PROVIDERS: Emergency Medicine
DX: F10.129 Alcohol abuse with intoxication, unspecified (principal); I10 Essential (primary) hypertension; J44.9 Chronic obstructive pulmonary disease, unspecified; E11.9 Type 2 diabetes mellitus without complications; F31.9 Bipolar disorder, unspecified; E78.5 Hyperlipidemia, unspecified; F17.210 Nicotine dependence, cigarettes, uncomplicated; Z88.0 Allergy status to penicillin; Z91.040 Latex allergy status; Z88.6 Allergy status to analgesic agent; Z88.5 Allergy status to narcotic agent; Z79.52 Long term (current) use of systemic steroids; Z79.899 Other long term (current) drug therapy; Z86.73 Personal history of transient ischemic attack (TIA), and cerebral infarction without residual deficits
CPT/HCPCS: 36415; 71045; 80053; 81003; 82140; 85025; 96360; 96361; 99284-25; G0480; J7030

== ENCOUNTER 2020-03-13 00:15 | Emergency (ER) | payer OTHER ==
[~2020-03-13] VITALS: Ht 162.6 cm; Wt 54.4 kg
[~2020-03-13 00:15] MED LIST changes: -Lisinopril2.5 MG PO; +METF500 PO
[2020-03-14] MEDS ORDERED: ONDA4ODT MM (13:09)
== END 2020-03-13 03:30 | disposition home or self-care (01) ==
LOC: ER 00:15
DX: R51.9 Headache, unspecified (principal); J44.9 Chronic obstructive pulmonary disease, unspecified; I10 Essential (primary) hypertension; E11.9 Type 2 diabetes mellitus without complications; E78.5 Hyperlipidemia, unspecified; F17.210 Nicotine dependence, cigarettes, uncomplicated; Z79.899 Other long term (current) drug therapy; Z79.84 Long term (current) use of oral hypoglycemic drugs; Z88.0 Allergy status to penicillin; Z91.040 Latex allergy status; Z88.6 Allergy status to analgesic agent; Z88.5 Allergy status to narcotic agent; Z86.73 Personal history of transient ischemic attack (TIA), and cerebral infarction without residual deficits
CPT/HCPCS: 96374; 96375; 99285-25; J0780; J1200; J1885

== ENCOUNTER 2020-03-14 09:19 | Emergency (ER) | payer OTHER ==
[~2020-03-14] VITALS: Ht 160 cm; Wt 52.2 kg
[2020-03-14 09:57] LABS: BASOPHILS ABSOLUTE AUTO 0.02 K/mm3 (0.00-0.23); BASOPHILS PERCENT AUTO 0 % (0-2); EOSINOPHILS PERCENT AUTO 0 % (0-6); Hematocrit 46.7 % (33.0-51.0); Hemoglobin 15.4 g/dL (11.5-16.0); IMMATURE GRAN ABSOLUTE AUTO 0.01 K/mm3 (0.00-0.10); IMMATURE GRAN PERCENT AUTO 0 % (0-1); LYMPHOCYTES ABSOLUTE AUTO 0.61 K/mm3 (0.84-5.20); LYMPHOCYTES PERCENT AUTO 11 % (21-46); MONOCYTES ABSOLUTE AUTO 0.71 K/mm3 (0.16-1.47); MONOCYTES PERCENT AUTO 13 % (4-13); Mean Corpuscular HGB 34.6 pg (26.0-34.0); Mean Corpuscular Volume 105 fL (80-100); Mean Platelet Volume 9.4 fL (9.1-12.4); NEUTROPHILS ABSOLUTE AUTO 4.03 K/mm3 (1.96-9.15); NEUTROPHILS PERCENT AUTO 75 % (41-73); Platelet Count 167 K/mm3 (150-400); RDW Coefficient Variation 13.4 % (11.7-14.2); Red Blood Cell Count 4.45 M/mm3 (3.80-5.20); White Blood Cell Count 5.38 K/mm3 (4.00-11.30)
[2020-03-14 10:07] LABS: Alanine Aminotransfer (ALT/SGP 46 U/L (12-78); Albumin, Blood 4.3 g/dL (3.4-5.0); Albumin/Globulin Ratio 0.9 (0.8-1.8); Alk Phos 143 U/L (50-136); Anion Gap 16 mmol/L (6-16); Aspartate Aminotrans (AST/SGOT 36 U/L (12-37); Bilirubin, Total 0.9 mg/dL (0.1-1.0); Blood Urea Nitrogen 10 mg/dL (8-24); CO2, Blood 17 mmol/L (21-32); Calcium, Blood 9.7 mg/dL (8.5-10.1); Chloride, Blood 95 mmol/L (98-108); Creatinine, Blood 0.48 mg/dL (0.40-1.00); Globulin, Blood 4.8 g/dL (2.2-4.0); Glomerular Filtration Rate >60 (60-); Glucose, Blood 204 mg/dL (70-99); Potassium, Blood 3.3 mmol/L (3.5-5.5); Sodium, Blood 128 mmol/L (136-145); Total Protein, Blood 9.1 g/dL (6.4-8.2)
[2020-03-14 11:39] LABS: Influenza A, PCR Negative (NEGATIVE); Influenza B, PCR Negative (NEGATIVE); Resp Syncytial Virus, PCR Negative (NEGATIVE); SARS-Cov-2 (COVID-19) PCR, MMC Negative (NEGATIVE)
[2020-03-14] MEDS ORDERED: ONDA4ODT MM (13:09)
[2020-03-14 13:42] LABS: Source, Urine Clean Catch
[2020-03-14 13:47] LABS: Appearance, Urine Clear (Clear); Bilirubin, Urine Neg (Neg); Blood, Urine 2+ (Neg); Color, Urine Yellow (P-Yellow); Glucose Qualitative, Urine Neg (Neg); Ketones, Urine 2+ (Neg); Leukocyte Esterase, Urine Neg (Neg); Nitrite, Urine Neg (Neg); Protein, Urine 3+ (Neg); Urobilinogen, Urine NORM (Normal)
[2020-03-14 14:20] LABS: Bacteria Not Seen /hpf; Red Blood Cells, Urine Not Seen /hpf (0-2); Squamous Epithelial Cells Mod /hpf (Few); White Blood Cells, Urine Not Seen /hpf (0-5)
== END 2020-03-14 13:52 | disposition home or self-care (01) ==
LOC: ER 09:19
PROVIDERS: Emergency Medicine
DX: G43.909 Migraine, unspecified, not intractable, without status migrainosus (principal); E87.6 Hypokalemia; E87.1 Hypo-osmolality and hyponatremia; J44.9 Chronic obstructive pulmonary disease, unspecified; E11.9 Type 2 diabetes mellitus without complications; F17.210 Nicotine dependence, cigarettes, uncomplicated; Z20.822 Contact with and (suspected) exposure to COVID-19; Z79.84 Long term (current) use of oral hypoglycemic drugs; Z79.899 Other long term (current) drug therapy; Z88.0 Allergy status to penicillin; Z91.040 Latex allergy status; Z88.6 Allergy status to analgesic agent; Z88.5 Allergy status to narcotic agent; Z86.73 Personal history of transient ischemic attack (TIA), and cerebral infarction without residual deficits
CPT/HCPCS: 0241U; 36415; 70450; 80053; 81001; 83690; 83735; 85025; 96361; 96374; 96375; 99285-25; A9270; J0780; J1200; J1885; J2765; J3010; J7030

== ENCOUNTER 2020-06-08 10:56 | Inpatient (IN) | payer OTHER ==
[~2020-06-08] VITALS: Ht 160 cm; Wt 52.2 kg
[~2020-06-08 10:56] MED LIST changes: +ONDA4ODT MM
[2020-06-08 11:26] LABS: BASOPHILS ABSOLUTE AUTO 0.06 K/mm3 (0.00-0.23); BASOPHILS PERCENT AUTO 1 % (0-2); EOSINOPHILS ABSOLUTE AUTO 0.01 K/mm3 (0.00-0.68); EOSINOPHILS PERCENT AUTO 0 % (0-6); Hematocrit 42.5 % (33.0-51.0); Hemoglobin 15.2 g/dL (11.5-16.0); IMMATURE GRAN ABSOLUTE AUTO 0.05 K/mm3 (0.00-0.10); IMMATURE GRAN PERCENT AUTO 1 % (0-1); LYMPHOCYTES PERCENT AUTO 5 % (21-46); MONOCYTES ABSOLUTE AUTO 0.37 K/mm3 (0.16-1.47); MONOCYTES PERCENT AUTO 4 % (4-13); Mean Corpuscular HGB 35.1 pg (26.0-34.0); Mean Corpuscular HGB Conc 35.8 g/dL (31.5-36.5); Mean Corpuscular Volume 98 fL (80-100); Mean Platelet Volume 9.5 fL (9.1-12.4); NEUTROPHILS ABSOLUTE AUTO 7.87 K/mm3 (1.96-9.15); NEUTROPHILS PERCENT AUTO 90 % (41-73); Platelet Count 176 K/mm3 (150-400); RDW Coefficient Variation 12.7 % (11.7-14.2); RDW Standard Deviation 46.1 fL (35.1-46.3); Red Blood Cell Count 4.33 M/mm3 (3.80-5.20); White Blood Cell Count 8.76 K/mm3 (4.00-11.30)
[2020-06-08 11:59] LABS: Alanine Aminotransfer (ALT/SGP 68 U/L (12-78); Albumin, Blood 4.2 g/dL (3.4-5.0); Albumin/Globulin Ratio 0.9 (0.8-1.8); Alk Phos 178 U/L (50-136); Anion Gap 12 mmol/L (6-16); Aspartate Aminotrans (AST/SGOT 94 U/L (12-37); Blood Urea Nitrogen 5 mg/dL (8-24); Bun/Creatinine Ratio 10.8 (12.0-20.0); CO2, Blood 24 mmol/L (21-32); Calcium, Blood 9.2 mg/dL (8.5-10.1); Chloride, Blood 88 mmol/L (98-108); Creatinine, Blood 0.46 mg/dL (0.40-1.00); Globulin, Blood 4.8 g/dL (2.2-4.0); Glomerular Filtration Rate >60 (60-); Glucose, Blood 191 mg/dL (70-99); Potassium, Blood 3.9 mmol/L (3.5-5.5); Sodium, Blood 124 mmol/L (136-145); Troponin I <0.015 ng/mL (0.000-0.040)
[2020-06-08 14:53] LABS: Influenza A, PCR NEGATIVE (NEGATIVE); Influenza B, PCR NEGATIVE (NEGATIVE); Resp Syncytial Virus, PCR NEGATIVE (NEGATIVE); SARS-Cov-2 (COVID-19) PCR, MMC NEGATIVE (NEGATIVE)
[2020-06-08 15:29] LABS: Triglycerides 89 mg/dL (30-160)
--- NOTE | 2020-06-08 17:06 | NUR ---
PT ARRIVED TO ROOM 358 FROM ER VIA W/C. SHE IS ABLE TO STAND AND PIVOT TRANSFER TO BED. ORIENTED TO ROOM AND CALL SYSTEM. SHE IS ASKING FOR CRACKERS AT THIS TIME, BUT IS NPO X ICE CHIPS AND SIPS. BED IN LOWEST POSITION AND CALL DANIEL IN REACH. WILL MONITOR
[2020-06-08 19:19] LABS: Source, Urine Clean Catch
[2020-06-08 19:26] LABS: Appearance, Urine Clear (Clear); Bilirubin, Urine Neg (Neg); Blood, Urine 1+ (Neg); Color, Urine Yellow (P-Yellow); Glucose Qualitative, Urine Neg (Neg); Ketones, Urine Neg (Neg); Leukocyte Esterase, Urine Neg (Neg); Nitrite, Urine Neg (Neg); Protein, Urine Neg (Neg); Urobilinogen, Urine NORM (Normal); pH, Urine 6.5 (5.0-8.0)
[2020-06-08 19:38] LABS: Bacteria Rare /hpf; Squamous Epithelial Cells Few /hpf (Few); White Blood Cells, Urine 0-2 /hpf (0-5)
[2020-06-09 05:19] LABS: BASOPHILS ABSOLUTE AUTO 0.04 K/mm3 (0.00-0.23); BASOPHILS PERCENT AUTO 1 % (0-2); EOSINOPHILS ABSOLUTE AUTO 0.08 K/mm3 (0.00-0.68); EOSINOPHILS PERCENT AUTO 1 % (0-6); Hematocrit 37.9 % (33.0-51.0); IMMATURE GRAN ABSOLUTE AUTO 0.03 K/mm3 (0.00-0.10); IMMATURE GRAN PERCENT AUTO 1 % (0-1); LYMPHOCYTES ABSOLUTE AUTO 1.03 K/mm3 (0.84-5.20); LYMPHOCYTES PERCENT AUTO 18 % (21-46); MONOCYTES ABSOLUTE AUTO 0.64 K/mm3 (0.16-1.47); MONOCYTES PERCENT AUTO 11 % (4-13); Mean Corpuscular HGB 34.3 pg (26.0-34.0); Mean Corpuscular HGB Conc 34.3 g/dL (31.5-36.5); Mean Corpuscular Volume 100 fL (80-100); Mean Platelet Volume 9.7 fL (9.1-12.4); NEUTROPHILS ABSOLUTE AUTO 3.98 K/mm3 (1.96-9.15); NEUTROPHILS PERCENT AUTO 69 % (41-73); Platelet Count 145 K/mm3 (150-400); RDW Coefficient Variation 12.7 % (11.7-14.2); RDW Standard Deviation 47.5 fL (35.1-46.3); Red Blood Cell Count 3.79 M/mm3 (3.80-5.20)
[2020-06-09 05:41] LABS: Alanine Aminotransfer (ALT/SGP 50 U/L (12-78); Albumin, Blood 3.3 g/dL (3.4-5.0); Albumin/Globulin Ratio 0.8 (0.8-1.8); Alk Phos 133 U/L (50-136); Anion Gap 10 mmol/L (6-16); Aspartate Aminotrans (AST/SGOT 54 U/L (12-37); Bilirubin, Total 0.6 mg/dL (0.1-1.0); Blood Urea Nitrogen 6 mg/dL (8-24); Bun/Creatinine Ratio 9.2 (12.0-20.0); CO2, Blood 24 mmol/L (21-32); Calcium, Blood 8.3 mg/dL (8.5-10.1); Chloride, Blood 96 mmol/L (98-108); Creatinine, Blood 0.65 mg/dL (0.40-1.00); Globulin, Blood 3.9 g/dL (2.2-4.0); Glomerular Filtration Rate >60 (60-); Glucose, Blood 86 mg/dL (70-99); Magnesium, Blood 1.7 mg/dL (1.6-2.4); Potassium, Blood 3.1 mmol/L (3.5-5.5); Sodium, Blood 130 mmol/L (136-145); Total Protein, Blood 7.2 g/dL (6.4-8.2)
--- NOTE | 2020-06-09 07:34 | NUR ---
SHIFT SUMMARY AOX4. BP ELEVATED LAST NIGHT @168/103, GAVE HYDRALAZINE PER ORDERS & BP DECREASED TO 148/87 WHEN RECHECKED & BP WNL THIS AM. REPORTS 10/05 ABD PAIN MEDICATED 2X c 50MCG FENTANYL. ABD TENDER, FIRM. REPORTS NAUSEA, MEDICATED 1X c ZOFRAN NO EMESIS. TOLERATING WATER & ICE CHIPS. PT ASKING ABOUT ADVANCING DIET, INFORMED ONCOMING NURSE. CALL LIGHT IN REACH & PT ABLE TO MAKE NEEDS KNOWN.
--- NOTE | 2020-06-09 18:33 | NUR ---
SHIFT SUMMARY PT UP TO BSC WITH 1 PERSON ASSIST. REQUESTING FOOD THIS MORNING WITH MD IN TO SEE PT. ADVANCED TO FULL LIQUID DIET. DID RECEIVE BEEF AND CHICKEN BROTH WELL JELLO WELL. HAD INCREASED PAIN THIS AFTERNOON THAT NORCO MILDLY HELPED AND NAUSEA THAT CAME AND SELF RESOLVED. HAD SAID STOMACH FELT BETTER UNTIL SHE DRANK BEEF BROTH AND FELT SHE MAY HAVE HAD TOO MUCH. NO FURTHER ISSUES WITH PAIN/NAUSEA BUT HAS HAD DIARRHEA SEVERAL TIMES. REPORTS HAVING A HOARSE VOICE FOR 1 WEEK. DIARRHEA STARTED YESTERDAY PRIOR TO COMING TO HOSPITAL.
--- NOTE | 2020-06-10 04:34 | NUR ---
SHIFT SUMMARY: A/OX4. COMMUNICATES NEEDS. MED X 1 FOR ABD PAIN W/ GOOD RESULTS. PT FREQUENTLY REQUESTING PO LIQUIDS. TREASURE WELL. DENIES NAUSEA. IMODIUM GIVEN X 1 FOR DIARRHEA. MAINTENANCE IV FLUIDS INFUSING PER ORDERS. NO ACUTE OVERNIGHT EVENTS. WCTM.
[2020-06-10 04:38] LABS: BASOPHILS ABSOLUTE AUTO 0.05 K/mm3 (0.00-0.23); BASOPHILS PERCENT AUTO 1 % (0-2); EOSINOPHILS ABSOLUTE AUTO 0.15 K/mm3 (0.00-0.68); EOSINOPHILS PERCENT AUTO 3 % (0-6); Hematocrit 33.8 % (33.0-51.0); Hemoglobin 11.2 g/dL (11.5-16.0); IMMATURE GRAN ABSOLUTE AUTO 0.03 K/mm3 (0.00-0.10); IMMATURE GRAN PERCENT AUTO 1 % (0-1); LYMPHOCYTES ABSOLUTE AUTO 1.52 K/mm3 (0.84-5.20); LYMPHOCYTES PERCENT AUTO 33 % (21-46); MONOCYTES ABSOLUTE AUTO 0.58 K/mm3 (0.16-1.47); MONOCYTES PERCENT AUTO 13 % (4-13); Mean Corpuscular HGB 34.5 pg (26.0-34.0); Mean Corpuscular HGB Conc 33.1 g/dL (31.5-36.5); Mean Corpuscular Volume 104 fL (80-100); Mean Platelet Volume 9.7 fL (9.1-12.4); NEUTROPHILS ABSOLUTE AUTO 2.24 K/mm3 (1.96-9.15); NEUTROPHILS PERCENT AUTO 49 % (41-73); Platelet Count 137 K/mm3 (150-400); Red Blood Cell Count 3.25 M/mm3 (3.80-5.20); White Blood Cell Count 4.57 K/mm3 (4.00-11.30)
[2020-06-10 05:13] LABS: Alanine Aminotransfer (ALT/SGP 46 U/L (12-78); Albumin/Globulin Ratio 0.9 (0.8-1.8); Alk Phos 104 U/L (50-136); Anion Gap 5 mmol/L (6-16); Aspartate Aminotrans (AST/SGOT 42 U/L (12-37); Bilirubin, Total 0.3 mg/dL (0.1-1.0); Blood Urea Nitrogen 7 mg/dL (8-24); Bun/Creatinine Ratio 10.8 (12.0-20.0); CO2, Blood 20 mmol/L (21-32); Calcium, Blood 8.5 mg/dL (8.5-10.1); Chloride, Blood 110 mmol/L (98-108); Creatinine, Blood 0.65 mg/dL (0.40-1.00); Globulin, Blood 3.2 g/dL (2.2-4.0); Glomerular Filtration Rate >60 (60-); Glucose, Blood 90 mg/dL (70-99); Potassium, Blood 4.9 mmol/L (3.5-5.5); Sodium, Blood 135 mmol/L (136-145); Total Protein, Blood 6.2 g/dL (6.4-8.2)
--- NOTE | 2020-06-10 18:36 | NUR ---
SHIFT SUMMARY PT DECIDED SHE WENT TOO FAST IN ADVANCING HER DIET AND CHOSE TO ONLY TAKE WATER AND ICE CHIPS SINCE LUNCH. HAS CONTINUED TO HAVE DIARRHEA DESPITE IMODIUM. MD AWARE. IV FLUIDS CONTINUE. S.O. AT BEDSIDE THIS AFTERNOON. PT REPORTED WANTING TO GO SMOKE. EXPLAINED NEW POLICY OF NO SMOKING ON PROPERTY. OFFERED A NICOTINE PATCH WHICH SHE ACCEPTED. WILL CONTINUE TO MONITER FOR PAIN AND NAUSEA.
[2020-06-11 05:16] LABS: Hematocrit 35.5 % (33.0-51.0); Hemoglobin 11.6 g/dL (11.5-16.0); Mean Corpuscular HGB 34.3 pg (26.0-34.0); Mean Corpuscular HGB Conc 32.7 g/dL (31.5-36.5); Mean Corpuscular Volume 105 fL (80-100); Mean Platelet Volume 9.7 fL (9.1-12.4); Platelet Count 166 K/mm3 (150-400); RDW Coefficient Variation 12.9 % (11.7-14.2); RDW Standard Deviation 49.8 fL (35.1-46.3); Red Blood Cell Count 3.38 M/mm3 (3.80-5.20); White Blood Cell Count 4.34 K/mm3 (4.00-11.30)
--- NOTE | 2020-06-11 05:23 | NUR ---
SHIFT SUMMARY: PT REMAINS ON ICE CHIPS AND SIPS OF WATER ALL NIGHT DUE TO INCREASED ABD PAIN YESTERDAY. REPORTS ABD PAIN MUCH IMPROVED THIS AM AND IS REQUESTING FULL LIQUID SNACKS AT THIS TIME. INSTRUCTED PT TO WAIT UNTIL BREAKFAST TIME. IMODIUM ADMINISTERED X 2. PT REPORTS LESS FREQUENT DIARRHEA OVERNIGHT. NO NAUSEA THIS AM. WCTM.
[2020-06-11 05:48] LABS: Anion Gap 9 mmol/L (6-16); Blood Urea Nitrogen 4 mg/dL (8-24); Bun/Creatinine Ratio 6.5 (12.0-20.0); CO2, Blood 20 mmol/L (21-32); Calcium, Blood 8.6 mg/dL (8.5-10.1); Chloride, Blood 107 mmol/L (98-108); Creatinine, Blood 0.61 mg/dL (0.40-1.00); Glomerular Filtration Rate >60 (60-); Glucose, Blood 89 mg/dL (70-99); Sodium, Blood 136 mmol/L (136-145)
--- NOTE | 2020-06-11 17:11 | NUR ---
Met with 64 year old female today who was pleasant and cooperative with care. She was admitted with abdominal pain that was diagnosed as appendicitin She reports a long hx of diabetes and COPD. She made the decision to quit smoking this week, and has been using a nicotine patch since arriving at the hospital. She states she is feeling better than a long time, and she's excited to return home tomorrow. She doesn't appear to have any immediate needs to address at this time.
--- NOTE | 2020-06-11 19:40 | NUR ---
SHIFT SUMMARY NO ACUTE CHANGES THIS SHIFT. PT TOLERATED LOW FAT DIET WELL AND ONLY HAD ONE INSTANCE OF DIARRHEA. C/O OF PAIN X2 THIS SHIFT AND WAS TREATED PER EMR. MEDICATED FOR HIGH BP X1 THIS SHIFT. VS CURRENTLY STABLE. REPORT GIVEN TO SERENE SPANN.
[2020-06-12 05:23] LABS: Alanine Aminotransfer (ALT/SGP 31 U/L (12-78); Albumin, Blood 2.7 g/dL (3.4-5.0); Albumin/Globulin Ratio 0.9 (0.8-1.8); Alk Phos 82 U/L (50-136); Anion Gap 7 mmol/L (6-16); Aspartate Aminotrans (AST/SGOT 14 U/L (12-37); Bilirubin, Total 0.3 mg/dL (0.1-1.0); Blood Urea Nitrogen 11 mg/dL (8-24); Bun/Creatinine Ratio 16.1 (12.0-20.0); CO2, Blood 21 mmol/L (21-32); Calcium, Blood 8.4 mg/dL (8.5-10.1); Chloride, Blood 111 mmol/L (98-108); Creatinine, Blood 0.68 mg/dL (0.40-1.00); Globulin, Blood 3.1 g/dL (2.2-4.0); Glomerular Filtration Rate >60 (60-); Glucose, Blood 111 mg/dL (70-99); Potassium, Blood 4.2 mmol/L (3.5-5.5); Sodium, Blood 139 mmol/L (136-145); Total Protein, Blood 5.8 g/dL (6.4-8.2)
--- NOTE | 2020-06-12 05:57 | NUR ---
SHIUFT SUMMARY: NO ACUTE CHANGES. VSS, TOLERATING DIET WELL, NO NAUSEA. NO LOOSE STOOLS THIS SHIFT. ABD. PAIN IS WELL CONTROLED WITH NORCO X1. IVF INFUSING PER MAR.
[2020-06-12] MEDS ORDERED: HYDR1TAB94 PO (11:50)
[2020-06-12] MEDS ORDERED: VENL37.5ER PO (11:51)
--- NOTE | 2020-06-12 14:05 | NUR ---
PT AOX4 AND COOPERATIVE OF CARE. PT DISCHARGED AT 1345 WITH [facility] TO TRANSPORT. ALL PAPERWORK REVIEWED AND EDUCATIONAL MATERIAL SENT WITH PT. NO DISTRESS NOTED AND PERSONAL BELONINGS COLLECTED AN TAKEN WITH PT. PT ESCORTED TO N ENTRANCE IMMEDIATELY. [facility] LEFT BEFORE PT WAS ABLE TO GET THERE AND [facility] [employer] HAD TO GET ANOTHER [facility] TO COME BY.
== END 2020-06-12 13:31 | disposition home or self-care (01) | DRG 439 ==
LOC: ER 10:56 → MEDS 14:44 → ICUW 14:44 → MEDS 16:52
PROVIDERS: Emergency Medicine; Internal Medicine; Nurse Practitioner Acute Care; ADMIT Internal Medicine
DX: K85.90 Acute pancreatitis without necrosis or infection, unspecified (principal); E87.1 Hypo-osmolality and hyponatremia; Z20.822 Contact with and (suspected) exposure to COVID-19; J44.9 Chronic obstructive pulmonary disease, unspecified; I10 Essential (primary) hypertension; E11.9 Type 2 diabetes mellitus without complications; Z89.511 Acquired absence of right leg below knee; Z88.0 Allergy status to penicillin; Z88.5 Allergy status to narcotic agent; Z91.040 Latex allergy status; Z88.6 Allergy status to analgesic agent; Z79.899 Other long term (current) drug therapy; Z86.73 Personal history of transient ischemic attack (TIA), and cerebral infarction without residual deficits; Z90.49 Acquired absence of other specified parts of digestive tract; F31.9 Bipolar disorder, unspecified; Z90.710 Acquired absence of both cervix and uterus; Z90.721 Acquired absence of ovaries, unilateral; Z98.890 Other specified postprocedural states; Z98.51 Tubal ligation status; Z79.84 Long term (current) use of oral hypoglycemic drugs; F17.210 Nicotine dependence, cigarettes, uncomplicated; D64.9 Anemia, unspecified
CPT/HCPCS: 0241U; 36415; 71045; 76705; 80048; 80053; 81001; 82947; 83615; 83690; 83735; 84478; 84484; 85025; 85027; 93005; 93010; 94640; 94760; 94762; 96374; 96375; 99285-25; A9270; A9270-GY; J0360; J1200; J1650; J2270; J2405; J3010; J3480; J7030

== ENCOUNTER 2020-07-06 19:27 | Inpatient (IN) | payer OTHER ==
[~2020-07-06] VITALS: Ht 160 cm; Wt 54.1 kg
[~2020-07-06 19:27] MED LIST changes: +HYDR1TAB94 PO; +VENL37.5ER PO
[2020-07-06 20:09] LABS: BASOPHILS ABSOLUTE AUTO 0.07 K/mm3 (0.00-0.23); BASOPHILS PERCENT AUTO 1 % (0-2); EOSINOPHILS ABSOLUTE AUTO 0.03 K/mm3 (0.00-0.68); EOSINOPHILS PERCENT AUTO 0 % (0-6); Hematocrit 39.9 % (33.0-51.0); Hemoglobin 13.3 g/dL (11.5-16.0); IMMATURE GRAN ABSOLUTE AUTO 0.03 K/mm3 (0.00-0.10); IMMATURE GRAN PERCENT AUTO 0 % (0-1); LYMPHOCYTES PERCENT AUTO 8 % (21-46); MONOCYTES ABSOLUTE AUTO 0.59 K/mm3 (0.16-1.47); MONOCYTES PERCENT AUTO 7 % (4-13); Mean Corpuscular HGB 33.6 pg (26.0-34.0); Mean Corpuscular HGB Conc 33.3 g/dL (31.5-36.5); Mean Corpuscular Volume 101 fL (80-100); Mean Platelet Volume 9.5 fL (9.1-12.4); NEUTROPHILS ABSOLUTE AUTO 6.66 K/mm3 (1.96-9.15); NEUTROPHILS PERCENT AUTO 83 % (41-73); Platelet Count 160 K/mm3 (150-400); RDW Coefficient Variation 13.5 % (11.7-14.2); RDW Standard Deviation 50.5 fL (35.1-46.3); Red Blood Cell Count 3.96 M/mm3 (3.80-5.20); White Blood Cell Count 7.98 K/mm3 (4.00-11.30)
[2020-07-06 20:38] LABS: Alanine Aminotransfer (ALT/SGP 66 U/L (12-78); Albumin/Globulin Ratio 0.9 (0.8-1.8); Alk Phos 159 U/L (50-136); Anion Gap 10 mmol/L (6-16); Aspartate Aminotrans (AST/SGOT 109 U/L (12-37); Bilirubin, Total 1.1 mg/dL (0.1-1.0); Blood Urea Nitrogen 9 mg/dL (8-24); Bun/Creatinine Ratio 15.9 (12.0-20.0); CO2, Blood 22 mmol/L (21-32); Calcium, Blood 9.1 mg/dL (8.5-10.1); Chloride, Blood 98 mmol/L (98-108); Creatinine, Blood 0.57 mg/dL (0.40-1.00); Globulin, Blood 4.5 g/dL (2.2-4.0); Glomerular Filtration Rate >60 (60-); Glucose, Blood 157 mg/dL (70-99); Magnesium, Blood 1.9 mg/dL (1.6-2.4); Potassium, Blood 4.3 mmol/L (3.5-5.5); Sodium, Blood 130 mmol/L (136-145); Total Protein, Blood 8.5 g/dL (6.4-8.2)
[2020-07-07 05:39] LABS: CPK Creatine Kinase 464 U/L (26-193)
[2020-07-07 07:31] LABS: Troponin I <0.015 ng/mL (0.000-0.040)
--- NOTE | 2020-07-07 08:45 | NUR ---
RECEIVED PT FROM ER VIA [facility]. PT IS AWAKE AND ALERT, BUT UNAWARE OF THE DATE. SEEMS AWARE OF SURROUNDINGS, FOLLOWING [id number] BKA. DX-HYPERTENSIVE EMERGENCY, PANCREATITIS. PT REPORTS THAT SHE DRANK HER LAST"QUART" OF BEER FOUR DAYS AGO. PT HAS AN ABRASION ABOVE HER LEFT EYE, AND MULTIPLE BRUISED SCATTERED THROUGH OUT HER BODY. PT STATES THAT SHE HAS BEEN FALLING AT HOME. PT ASKED IF SHE FELT SAFE AT HOME AND SHE STATES "YES." PHOTO TAKEN OF ABRASION AND BRUISES. PT ANXIOUS AND ASKING FOR ICE CHIPS, THEN BEGAN VOMITING-SMALL AMOUNT OF [place] LIQUID. PT MADE NPO-DR. RAMOS UPDATED. CIWA PROTOCOL INITIATED, PT MED WITH ATIVAN 1 MG IVPX1-SEE EMAR. ABDOMEN IS DISTENDED AND SEMIFRIRM-HYPOACTIVE BT'S. PT REPORTS 9/10 ABDOMINAL PAIN. LUNGS COARSE THROUGH OUT-PT HAS HX-OF COPD-STATES THAT SHE IS NOT O2 DEPENDENT AND IS A CURRENT EVERY DAY SMOKER. MAINTAINS SATS>90% ON R/A. OCCASIONAL, MOIST, NONPRODUCTIVE COUGH NOTED. #16 FR BAE PLACED AND U/A SENT PER INSERTION PROTOCO.-PT TOLERATED WELL. URINE NOTED TO BED CLOUDY YELLOW. PROTONIX DRIP INITIATED. PT ABLE TO GIVE VERBAL CONSENT FOR BOTH BLOOD PRODUCTS AND FOR HER SPOUSE BOAZ TO HAVE HER MEDICAL INFORMATION. PT UNABLE TO ASSIST WITH ADMIT HISTORY SHE FELL ASLEEP ONCE THE ATIVAN TOOK EFFECT. WILL USE MEDICAL RECORDS TO COMPLETE.
--- NOTE | 2020-07-07 09:08 | NUR ---
UPDATE TO DR. RAMOS, ORDERS FOR ATIVAN
[2020-07-07 09:37] LABS: Source, Urine Catheter
[2020-07-07 09:44] LABS: Appearance, Urine Hazy (Clear); Bilirubin, Urine Neg (Neg); Blood, Urine 1+ (Neg); Color, Urine Yellow (P-Yellow); Glucose Qualitative, Urine Neg (Neg); Ketones, Urine 2+ (Neg); Leukocyte Esterase, Urine Neg (Neg); Nitrite, Urine Neg (Neg); Protein, Urine 2+ (Neg); Urobilinogen, Urine NORM (Normal); pH, Urine 6.5 (5.0-8.0)
[2020-07-07 10:01] LABS: Amorphous Heavy (0-Heavy); Bacteria Few /hpf; Red Blood Cells, Urine 0-2 /hpf (0-2); Squamous Epithelial Cells Many /hpf (Few); White Blood Cells, Urine 0-2 /hpf (0-5)
--- NOTE | 2020-07-07 11:18 | NUR ---
PT SLEEPS MAINLY WHEN NOT DISTURBED. CIWA 9.SBP TRENDING 160'S. HR 100'S SINUS TACHYCARDIA. SATS>90% ON RA. NPO CBG 139- NO COVERAGE REQUIRED.
--- NOTE | 2020-07-07 14:00 | NUR ---
CIWA-15 TAB ALARM SOUNDING AND PT ATTEMPTING TO GET OOB. PT REPORTS 8/10 ABDOMINAL PAIN AND INTERMITTENT NAUSEA. MED WITH FENTANYL 25 MCG IVP X1 AND ZOFRAN 4 MG IPVX1 FOR PAIN AND NAUSEA. PT ABLE TO TAKE LIBRIUM AND ATIVAN PO WITH A SIP OF WATER WITHOUT SIGNS OF ASPIRATION.-FOR CIWA 15.
--- NOTE | 2020-07-07 14:41 | NUR ---
CIWA 5. PT SLEEPING WHEN NOT DISTURBED. MAINTAINS SATS>90% ON RA.
--- NOTE | 2020-07-07 15:51 | NUR ---
DREWWA 9-PT REPORTS CONTINUED NAUSEA. MED WITH PHENERGAN 12,5 MG IVP X 1 SEE EMAR.
--- NOTE | 2020-07-07 17:43 | NUR ---
ALISHA 14-MED WITH ATIVAN 1 MG IVP X1 SEE EMAR. PT CONTINUES TO REPORT INTERMITTENT NAUSEA. REMAINS NPO. CBG 164-COVERAGE HELD DUE TO NAUSEA, NPO STATUS-SEE EMAR.
--- NOTE | 2020-07-07 18:04 | NUR ---
TAB ALARM SOUNDED. PT ATTEMPTING TO GET OOB. REPORTS NAUSEA, BUT NO EMESIS. CIWA 18. PT MED WITH ATIVAN 1 MG IVP X 1-SEE EMAR.
--- NOTE | 2020-07-07 18:34 | NUR ---
PT REPORTS 9/10 ABDOMINAL PAIN-MED WITH FENTANYL 25 MCG IVP X 1-SEE EMAR.
--- NOTE | 2020-07-07 19:00 | NUR ---
PT APPEARS TO BE SLEEPING. REPORT GIVEN TO ZANA QUINTANILLA.
--- NOTE | 2020-07-07 19:30 | NUR ---
ASSUMED CARE RECEIVED BEDSIDE REPORT FROM ZANA LEE; PT A&O X 2-3; VSS; DENIES CHEST PAIN; O2 SATS >93 ON RA; STATES SHE HAS HEADACHE, NUMBNESS & NAUSEA; TREMULOUS; PROTONIX GTT AND NS INFUSING; CALL LIGHT IN REACH; BED IN LOWEST POSITION W/ TAB ALARM FOR SAFETY.
--- NOTE | 2020-07-07 20:40 | NUR ---
ANSWERED PHONE CALL FROM BOAZ WHOM WANTED TO SPEAK W/ PT; PT STATED SHE DID NOT FEEL LIKE TALKING AT THIS TIME; BOAZ UPDATED
[2020-07-08 03:51] LABS: BASOPHILS ABSOLUTE AUTO 0.02 K/mm3 (0.00-0.23); BASOPHILS PERCENT AUTO 0 % (0-2); EOSINOPHILS ABSOLUTE AUTO 0.03 K/mm3 (0.00-0.68); EOSINOPHILS PERCENT AUTO 0 % (0-6); Hematocrit 32.2 % (33.0-51.0); Hemoglobin 10.7 g/dL (11.5-16.0); IMMATURE GRAN ABSOLUTE AUTO 0.02 K/mm3 (0.00-0.10); IMMATURE GRAN PERCENT AUTO 0 % (0-1); LYMPHOCYTES ABSOLUTE AUTO 0.56 K/mm3 (0.84-5.20); LYMPHOCYTES PERCENT AUTO 8 % (21-46); MONOCYTES ABSOLUTE AUTO 0.34 K/mm3 (0.16-1.47); MONOCYTES PERCENT AUTO 5 % (4-13); Mean Corpuscular HGB 34.1 pg (26.0-34.0); Mean Corpuscular HGB Conc 33.2 g/dL (31.5-36.5); Mean Corpuscular Volume 103 fL (80-100); Mean Platelet Volume 9.4 fL (9.1-12.4); NEUTROPHILS ABSOLUTE AUTO 6.52 K/mm3 (1.96-9.15); NEUTROPHILS PERCENT AUTO 87 % (41-73); Platelet Count 106 K/mm3 (150-400); RDW Coefficient Variation 13.8 % (11.7-14.2); RDW Standard Deviation 51.9 fL (35.1-46.3); Red Blood Cell Count 3.14 M/mm3 (3.80-5.20); White Blood Cell Count 7.49 K/mm3 (4.00-11.30)
[2020-07-08 04:13] LABS: Alanine Aminotransfer (ALT/SGP 37 U/L (12-78); Albumin, Blood 3.1 g/dL (3.4-5.0); Albumin/Globulin Ratio 0.9 (0.8-1.8); Alk Phos 107 U/L (50-136); Anion Gap 6 mmol/L (6-16); Aspartate Aminotrans (AST/SGOT 34 U/L (12-37); Bilirubin, Total 0.8 mg/dL (0.1-1.0); Blood Urea Nitrogen 5 mg/dL (8-24); Bun/Creatinine Ratio 7.2 (12.0-20.0); CO2, Blood 26 mmol/L (21-32); Calcium, Blood 8.2 mg/dL (8.5-10.1); Chloride, Blood 105 mmol/L (98-108); Creatinine, Blood 0.69 mg/dL (0.40-1.00); Globulin, Blood 3.3 g/dL (2.2-4.0); Glomerular Filtration Rate >60 (60-); Glucose, Blood 112 mg/dL (70-99); Potassium, Blood 3.3 mmol/L (3.5-5.5); Sodium, Blood 137 mmol/L (136-145); Total Protein, Blood 6.4 g/dL (6.4-8.2)
--- NOTE | 2020-07-08 05:52 | NUR ---
SHIFT SUMMARY PT A&O X 2-3; DENIES CHEST PAIN; VSS; CIWA 11-18; ABLE TO STATE BIRTHDATE, PLACE AND MONTH; UNABLE TO REPORT YEAR AND OTHER ORIENTING QUESTIONS; STATES SEVERE HEADACHE, NUMBNESS, TACTILE DISTURBANCES, NAUSEDA, HEAD "FUZZY", ETC. FIGETY IN BED, REPOSITIONS SELF FREQUENTLY; MEDICATED PER EMAR; PROTONIX GTT & NS CONTINUES PER EMAR; BAE PATENT & DRAINING DK. SPENCER; O2 SATS >93 ON RA; TAB ALARM ON FOR SAFETY; CALL LIGHT IN REACH; BED IN LOWEST POSITION; WILL CONTINUE TO MONITOR CLOSELY UNTIL HAND OFF TO DAY SHIFT RN.
--- NOTE | 2020-07-08 06:32 | NUR ---
PT BECOMING INCREASINGLY IMPULSIVE; SPO2 REPLACED X2; ATTEMPTING TO GET OOB; TAB ALARM IN PLACE; PT NEEDING REORIENTATION
--- NOTE | 2020-07-08 07:22 | NUR ---
CIWA 24-ATIVAN 2 MG IVP X 1 GIVEN WITH LITTLE EFFECT. PT ATTEMPTING TO GET OOB AND PULLING ON LINES AND TUBES. SOFT WRIST RESTRAINTS INITIATED FOR PT SAFETY. TEMP 99.2-ECG SHOWS SR TO ST WITH RATE 80-100'S. SBP TRENDING 140'S. PRECEDEX DRIP INITIATED-SEE FLOWSHEET AND EMAR. LUNGS DIMINISHED WITH FEW COARSE RHONCHI SCATTERED T/O-SATS>90% ON RA. PT CONTINUES TO REPORT NAUSEA. NO EMESIS THIS AM. WILL KEEP NPO. PT REPORTS PAIN TO BAE CATHETER-DARK, YELLOW URINE WITH A FEW CLOTS-PT HAD BEEN PULLING ON BAE TUBING.
--- NOTE | 2020-07-08 08:15 | NUR ---
PT REMAINS VERY RESTLESS AND AGITATED. PULLING ON WRIST RESTRAINTS AND LICKING HER LEG/THRASHING IN BED-WITH PRECEDEX DRIP @0.7 MCG/KG/MIN. EXTENDED DWELL IV PLACED TO RIGHT UPPER ARM IT REQUIRED PT TIGHT ARM TO BE HELD BY CAROLYNE GUEVARA SHE IS UNABLE TO FOLLOW COMMANDS.
--- NOTE | 2020-07-08 09:00 | NUR ---
PT CONTINUES TO BE RESTLESS AND AGITATED. PT CRYING OUT. PT REPORTS 8/10 ABDOMINAL PAIN AND NAUSEA. MED WITH FENTANYL 25 MCG IVP X 1 FOR PAIN AND PHENERGAN 12.5 MG IVP X 1 FOR NAUSEA. PRECEDEX DRIP CONTINUES @ 0.7 MCG/KG/MIN.
--- NOTE | 2020-07-08 09:58 | NUR ---
PT RESTING QUIETLY WHEN NOT DISTURBED. SBP 80'S, BUT MAP 64-TITRATED PRECEDEX DOWN TO 0.5 MCG/KG/MIN.
--- NOTE | 2020-07-08 10:30 | NUR ---
CIWA 32. PT RESTLESS, AGITATED, PULLING ON RESTRAINTS. PRECEDEX DRIP INCREASED TO 0.7 MCG/KG/MIN AND PT MED WITH ATIVAN 2 MG IVP X 1 BY ZANA BORDEN-SEE EMAR.
--- NOTE | 2020-07-08 11:25 | NUR ---
RESTING QUIETLY WHEN NOT DISTURBED. PT GIVEN BED BATH, SHAMPOO, AND LINEN CHANGE COMPLETED. PT VERY AGITATED, PULLING ON LINES AND TUBES-UNABLE TO REDIRECT OF REORIENT. PRECEDEX DRIP CONTINUES @ 0.7 MCG/KG/MIN. PT POSITIONED TO COMFORT ON RIGHT SIDE-WARM BLANKETS PLACED AND PT SEEMED TO DRIFT OFF TO SLEEP.
--- NOTE | 2020-07-08 14:55 | NUR ---
ALISHA 31-PT MED WITH ATIVAN 2 MG IVP X1. PT S/O ARDEN IN FOR VERY BRIEF VISIT. UPDATED TO CURRENT STATUS AND PLAN OF CARE.
--- NOTE | 2020-07-08 15:04 | NUR ---
DR. LANIER UPDATED TO CIWA, CURRENT VS, AND STATUS. ORDERS GIVEN FOR LR [address] LNAIER AND DR. RAMOS TO COME SEE PT AGAIN THIS AFTERNOON.
--- NOTE | 2020-07-08 15:45 | NUR ---
PT SLEEPING WHEN NOT DISTURBED. SPO2 DOWN TO 87% ON R/A. O2 PLACED VIA NASAL CANULA AT 2 LITERS TO KEEP SATS>90%
--- NOTE | 2020-07-08 16:45 | NUR ---
CIWA 30 WITH PRECEDEX @ 0.7 MCG/KG/MIN. PT SLEEPS INTERMITTENTLY [place] NOT DISTURBED, THEN AWAKENS VERY ABRUPTLY AND BEGINS THRASHING IN BED/PULLING ON RESTRAINTS. PT REPORTS 8/10 ABDOMINAL PAIN. MED WITH FENTANYL 25 MCG IVP X 1 FOR PAIN AND ATIVAN 2 MG IVP X 1 FOR CIWA 30. MAINTAINS SATS>90% ON 2 LITERS NASAL CANULA.
--- NOTE | 2020-07-08 18:23 | NUR ---
CIWA 31-PRECEDEX CONTINUES @ 0.7 MCG/KG/MIN. MED WITH ATIVAN 2 MG IVP X 1.
--- NOTE | 2020-07-08 19:00 | NUR ---
CIWA 6. PT APPEARS TO BE SLEEPING. NO NOTED DISTRESS AT THIS TIME-WILL REPORT TO ONCOMING SHIFT.
--- NOTE | 2020-07-08 20:00 | NUR ---
ASSUMED CARE OF PT AT 1915. REPORT RECEIVED AT BEDSIDE. PT PRESENTS IN BED - SLEEPING AT THE TIME. PT ON PRECEDEX AT 0.7 MCG'S WILL ALLOW PT TO REST SOME AND ASSESS SHORTLY. WILL REVIEW CHART AND PLAN OF CARE FOR THIS PT.
--- NOTE | 2020-07-08 23:00 | NUR ---
PT HAS BEEN MEDICATED WITH ATIVAN FOR INCREASING RESTLESSNESS AND INCREASING CIWA SCORE. THIS DOES HELP PT. LIBRIUM GIVEN PO. PT ABLE TO SWALLOW PILL WITHOUT ISSUES.
--- NOTE | 2020-07-09 06:30 | NUR ---
PT CONTINUES ON PRECEDEX UNCHANGED THROUGHOUT NIGHT. HAVE MECIATED PT WITH FENTANLY 25 MCG'S FOR VERBAL COMPLAINT OF HER BACK HURTING. HIS AFFECTIVE. PT REMAINS UNAWARE OF WHERE SHE IS AT THIS TIME. CALLS OUT FOR "BOAZ" AT TIMES. WILL CONTINUE TO MONITOR PT, AND WILL REPORT OFF TO ONCOMING RN.
[2020-07-09 07:25] LABS: Anion Gap 7 mmol/L (6-16); Blood Urea Nitrogen 3 mg/dL (8-24); Bun/Creatinine Ratio 5.3 (12.0-20.0); CO2, Blood 21 mmol/L (21-32); Calcium, Blood 7.6 mg/dL (8.5-10.1); Chloride, Blood 107 mmol/L (98-108); Creatinine, Blood 0.57 mg/dL (0.40-1.00); Glomerular Filtration Rate >60 (60-); Glucose, Blood 97 mg/dL (70-99); Potassium, Blood 2.9 mmol/L (3.5-5.5); Sodium, Blood 135 mmol/L (136-145)
--- NOTE | 2020-07-09 08:44 | NUR ---
AM NOTE.... ASSUMED CARE OF PT AT 0700. PT IS A&O TO SELF, PLACE AND FOLLOWING DIRECTIONS. CWIA CURRENTLY AT AT 6, PRECEDEX GTT RUNNING AT 0.7MCG/KG/HR. PT IS IN NSR IN THE 70'S-80'S, BP IS VERY LABILE WITH SBPS 130'S-170'S, IT WAS NOTED BY THIS RN THAT PT'S BP INCREASES TO THE 160'S-170'S WHEN SHE WAKES UP AND IS AGITATED OR ANXIOUS BUT THEN GOES DOWN TO THE 130'S-140'S WHILE SLEEPING. NO SWELLING OR EDEMA NOTED. PT IS C/O OF CHEST PAIN WITH INSPRIATION AND ANY TOUCHING OF HER CHEST, PT HAS A VERY LARGE HEMATOMA NOTED (PICS IN THE CHART.) FROM FREQUENT FALLS AT HOME PER THE PT. PT WAS ON 2L NC AT 100%, THIS WAS REMOVED AND PT'S O2 SATS ARE CURRENTLY >92%. L/S CLEAR IN THE UPPER LOBES DIM IN THE LOWER LOBES. BT PRESENT AND HYPOACTIVE,ABD HAS SOME DISTENTION AND IS VERY TENDER TO PALP. PT IS ALSO C/O OF 6/10 ABD PAIN, PT NOT MEDICATED FOR PAIN D/T THE FACT SHE FALLS BACK ASLEEP QUICKLY. PT'S K+ WAS 2.9, MAG 1.[address] RAMOS NOTIFIED. PT'S BAE IS PATENT AND DRAINING DARK YELLOW URINE WITH SMALL CLOTS/RED SEDIMENT NOTED. CALL LIGHT IN REACH, SWB RESTRAINTS IN PLACE D/T HER PULLING ON HER BAE AND IV LINES. WILL CONTINUE TO MONITOR.
[2020-07-09 15:59] LABS: Potassium, Blood 3.4 mmol/L (3.5-5.5)
[2020-07-09 16:00] LABS: Phosphorus, Blood 4.7 mg/dL (2.5-4.9)
--- NOTE | 2020-07-09 18:57 | NUR ---
SHIFT SUMMARY... NO ACUTE NEGATIVE CHANGES NOTED THIS SHIFT. PT'S BP CONTINUES TO BE LABILE. PT IS ON PRECEDEX AT 0.5MCG/KG/HR WITH CWIAS 6-9. PT HAS BEEN MEDICATED FOR PAIN SEVERAL TIMES THIS SHIFT PER EMAR. PT'S BAE IS PATENT AND DRAINING YELLOW URINE TO GRAVITY. PT HAS NOT HAD A BM THIS SHIFT. PT IS ABLE TO STATE HER NAME/ THAT SHE IS IN [facility] AND [place] OR. PT'S S.O. CAME TO VISIT THIS AFTERNOON PT DID NOT BECOME AGITATED OR UPSET WHILE HE WAS HERE, HOWEVER SHE WAS FARILY SLEEPY D/T THE PRECEDEX GTT.PT CONTINUES TO BE ON RA WITH O2 SATS >90%. ORAL CARE HAS BEEN DONE Q4 AND PRN. CALL LIGHT IN REACH WILL CONTINUE TO MONITOR UNTIL REPORT IS GIVEN TO ONCOMING RN.
--- NOTE | 2020-07-09 20:00 | NUR ---
ASSUMED CARE OF PT AT 1915. REPORT RECEIVED AT BEDSIDE. PT PRESENTS IN BED. ALERT AND IS ABLE TO STATE SHE IS IN [place] AT THE HOSPITAL WITH SOME PROMTING. PRECEDEX DRIP AT 0.7 MCG'S PER KG/HOUR. PT CONTINUES WITH S/S ALCOHOL WITHDRAWALS. SEE CIWA SCORING FLOWSHEET FOR DETAILS. WILL MEDICATE APPROPRIATE FOR DT'S. WILL REVIEW CHART AND PLAN OF CARE FOR THIS PT.
[2020-07-10 04:19] LABS: Hematocrit 29.9 % (33.0-51.0); Hemoglobin 9.9 g/dL (11.5-16.0); Mean Corpuscular HGB 34.1 pg (26.0-34.0); Mean Corpuscular HGB Conc 33.1 g/dL (31.5-36.5); Mean Corpuscular Volume 103 fL (80-100); Mean Platelet Volume 9.6 fL (9.1-12.4); Platelet Count 111 K/mm3 (150-400); RDW Coefficient Variation 13.3 % (11.7-14.2); RDW Standard Deviation 50.8 fL (35.1-46.3)
[2020-07-10 04:36] LABS: Anion Gap 6 mmol/L (6-16); Blood Urea Nitrogen 2 mg/dL (8-24); Bun/Creatinine Ratio 3.5 (12.0-20.0); CO2, Blood 20 mmol/L (21-32); Calcium, Blood 7.3 mg/dL (8.5-10.1); Chloride, Blood 109 mmol/L (98-108); Creatinine, Blood 0.57 mg/dL (0.40-1.00); Glomerular Filtration Rate >60 (60-); Glucose, Blood 100 mg/dL (70-99); Potassium, Blood 3.1 mmol/L (3.5-5.5); Sodium, Blood 135 mmol/L (136-145)
--- NOTE | 2020-07-10 06:45 | NUR ---
PT HAS BEEN MEDICATED WITH ATIVAN AND FENTANYL NEEDED THIS SHIFT. CIWA SCORES HAVE BEEN IMPROVING. HAS BEEN SOMEWHAT MORE CLEAR THIS NIGHT VERSUS PREVIOUS SHIFTS. PT'S POTASSIUM LEVEL CALLED TO DR HEAD. ORDER RECEIVED. WILL CONTINUE TO MONITOR PT, AND WILL REPORT OFF TO ONCOMING RN.
--- NOTE | 2020-07-10 07:30 | NUR ---
PT AWAKENS TO SOUNDS, CRIES OUT FOR TUMMY PAIN. PRECEDEX @ 0.7MCG/KG/HR, NS @ 125ML/HR, POTASSIUM @ 10MEQ/HR TO GHANSHYAM PG, PANTOPROZOLE @ 10ML/HR TO THE LEFT UPPER ARM. WRISTS IN SOFT RESTRAINTS SHE FORGETS WHERE SHE IS AND PULLS AT LINES/CORDS/TUBES. BAE TO GRAVITY DRAINAGE. HR 70'S, BP 160'S/80-90'S.
--- NOTE | 2020-07-10 08:30 | NUR ---
FRANCK CRYING OUT, SHE SAYS, "I DON'T WANT TO THROW UP", MEDICATED WITH PHENERGAN.
--- NOTE | 2020-07-10 09:30 | NUR ---
FRANCK APPROPRIATE RIGHT NOW, ANSWERING QUESTIONS, DENIES ANY HALLUCINATIONS, AUDIO/VISUAL. LETS ME GIVE HER A PARTIAL BATH, BOOST HER IN THE BED. SHE CONTINUES TO SAY HER BELLY HURTS, ASKING FOR SODA CRACKERS, WRIST RESTRAINTS OFF FOR A TIME WHILE BEING APPROPRIATE. HER WHEEZE HAS BECOME AUDIBLE, SEEMS LABORED, QUESTIONED IF SHE WOULD LIKE RELAXING MEDICINE, SHE AGREED. ALSO ASKED FOR R/T TO DO BREATHING TREATMENT. SHE DIDN'T LIKE THE MASK, SHE STARTED PULLING AT IT, REMINDED TO NOT PULL AT THINGS. CONTINUES TO SAY BELLY HURTS.
--- NOTE | 2020-07-10 10:23 | NUR ---
I MEDICATED FRANCK ABOUT 25 MINUTES AGO WITH FENTANYL PER APR FOR HER C/O PAIN. SHE IS CURRENTLY SLEEPING, BREATHING EASY, HEART RATE STABLE,
--- NOTE | 2020-07-10 11:25 | NUR ---
FRANCK WAS UNSETTLED, SHE HAD ASKED FOR THE TV ON, BUT IT SEEMED TO ONLY INCREASE HER AGITATION. THE TV IS TURNED OFF AND SHE HAS BEEN ABLE TO SETTLE DOWN NICELY.
--- NOTE | 2020-07-10 13:19 | NUR ---
FRANCK CONTINUES TO CLEAR HER MENTAL FOG, SHE IS TOLERATING THE TITRATION OF THE PRECEDEX DOWN. WE ARE NOW AT 0.3MG/KG/HR. SHE FELT REALLY NAUSEATED, ALMOST GAGGING, MEDICATED WITH ONDANSETRON PER APR. NOW RESTING.
--- NOTE | 2020-07-10 16:05 | NUR ---
BOAZ, PT'S S/O WAS JUST HERE VISITING, HE WAS ABLE TO HAVE SOME CONVERSATION WITH FRANCK. IT ENCOURAGED HIM AND HE REMARKED HOW WELL SHE IS DOING AND THAT SHE IS DEFINITELY BETTER THAN YESTERDAY. SHE IS NOW RESTING, CONTINUES WITH RESTRAINTS OFF AT THIS TIME.
--- NOTE | 2020-07-10 20:00 | NUR ---
ASSUMED CARE OF PT AT 1915. REPORT RECEIVED AT BEDSIDE. PT PRESENT IN BED. PRECEDEX AT 0.2 MCG'S/KG/HOUR. PT HAS BEEN NOTED TO BE OBSERVED REMOVING HER BLOOD PRESSURE CUFF, AND AT ONE TIME WAS PICKING AT POWER GLIDE DRESSING. PT REMINDED NOT TO DO THIS. IS ABLE TO HOLD CONVERSATION. HAVE NOTED MENTATION HAS IMPROVED SOME FROM PREVIOUS NIGHT. HAVE MEDICATE PT WITH 25 MCG FENTANYL FOR COMPLAINT OF ABDOMINAL PAIN, AND 2 MG LORAZEPAM. GOOD RESULTS NOTED. HAVE INCREASED PRECEDEX DRIP TO .04 MCG'S. WILL TITRATE DOWN ABLE. WILL REVIEW CHART AND PLAN OF CARE FOR THIS PT.
--- NOTE | 2020-07-10 22:03 | NUR ---
REPORT GIVEN TO ZANA TAYLOR.
[2020-07-11 05:14] LABS: BASOPHILS ABSOLUTE AUTO 0.02 K/mm3 (0.00-0.23); BASOPHILS PERCENT AUTO 0 % (0-2); EOSINOPHILS ABSOLUTE AUTO 0.11 K/mm3 (0.00-0.68); EOSINOPHILS PERCENT AUTO 2 % (0-6); Hematocrit 29.4 % (33.0-51.0); IMMATURE GRAN ABSOLUTE AUTO 0.02 K/mm3 (0.00-0.10); IMMATURE GRAN PERCENT AUTO 0 % (0-1); LYMPHOCYTES ABSOLUTE AUTO 0.69 K/mm3 (0.84-5.20); LYMPHOCYTES PERCENT AUTO 10 % (21-46); MONOCYTES ABSOLUTE AUTO 0.62 K/mm3 (0.16-1.47); MONOCYTES PERCENT AUTO 9 % (4-13); Mean Corpuscular HGB 34.8 pg (26.0-34.0); Mean Corpuscular Volume 102 fL (80-100); Mean Platelet Volume 9.6 fL (9.1-12.4); NEUTROPHILS ABSOLUTE AUTO 5.28 K/mm3 (1.96-9.15); NEUTROPHILS PERCENT AUTO 78 % (41-73); Platelet Count 145 K/mm3 (150-400); RDW Coefficient Variation 13.7 % (11.7-14.2); RDW Standard Deviation 51.8 fL (35.1-46.3); Red Blood Cell Count 2.87 M/mm3 (3.80-5.20); White Blood Cell Count 6.74 K/mm3 (4.00-11.30)
[2020-07-11 05:27] LABS: Anion Gap 7 mmol/L (6-16); Blood Urea Nitrogen 3 mg/dL (8-24); Bun/Creatinine Ratio 4.9 (12.0-20.0); CO2, Blood 21 mmol/L (21-32); Calcium, Blood 7.7 mg/dL (8.5-10.1); Chloride, Blood 111 mmol/L (98-108); Creatinine, Blood 0.62 mg/dL (0.40-1.00); Glomerular Filtration Rate >60 (60-); Glucose, Blood 95 mg/dL (70-99); Potassium, Blood 3.5 mmol/L (3.5-5.5); Sodium, Blood 139 mmol/L (136-145)
--- NOTE | 2020-07-11 07:15 | NUR ---
PT NOTED TO HAVE HEART RATE IN 150'S. SINUS TACHYCARDIA. PT WAS RESTLESS. GAVE ADDITIONAL 25 MCG'S FENTANYL. 500 ML NORMAL SALINE BOLUS, AND DOSE OF 2 MG ATIVAN. THIS DOES BRING HEART RATE LESS THAN 150. PT NOTED TO BE VERY WARM TO TOUGH. 102.2. SUBSEQUENT TEMP NOTED AT 103.[address] HEAD AND ORDERS HAVE BEEN RECEIVED. AFTER 5 MG METOPROLOL GIVEN HEART RATE DECREASES TO 100-110. BLOOD PRESSURES TO WNL. BLOOD CULTURES TO BE DRAWN. THIS CARE DONE IN ASSISTANCE TO ZANA TAYLOR.
--- NOTE | 2020-07-11 07:28 | NUR ---
END OF SHIFT SUMAMRY: PATIENT A/O TO SELF/PLACE AND SOMETIMES TIME. PATIENT HAS NOT PULLED AT LINES/TUBES AND HAS ONLY TAKEN BP CUFF OFF A COUPLE TIMES. PATIENT IS VERY REDIRECTABLE AND COOPERATIVE. NSR ON MONITOR OVERNIGHT AND BP WAS STABLE BUT HIGH IN 150S MOST OF EVENING. THIS MORNING, I HAD TROUBLE GETTING A BP READING ON HER FOR A LONG PERIOD OF TIME AFTER ATTEMTPING BOTH ARMS AND LEGS. A MANUAL BP WAS OBTAINED AND READING SBP IN 190S. AT SAME TIME, PATIENT GOT AGITATED AND WAS GIVEN 25 OF FENTANYL AND 2MG ATIVAN FOR CONTINUED BELLY PAIN. PATIENT STATED THE PAIN HASN'T GOTTEN WORSE AND HAS BEEN THE SAME SINCE ADMISSION. PATIENT HR SLOWLY BEGAN TO CLIMB FROM 120-150S AND THE HIGHEST AT 155. HOSPITALIST WAS CALLED FOR BP AND HR. 5MG METOPROLOL WAS GIVEN X1 AND RESPONDED WELL. AN ADDITIONAL DOSE OF 25 FENTANYL WAS GIVEN FOR PAIN/ANXIETY WELL ANOTHER 2MG OF ATIVAN AT THE TIME DUE A NO ANSWER FROM HOSPITALIST. . PATIENT HAD TROUBLE GETTINGS WORDS OUT AT THE SAME TIME DURING THIS ALL. SHE COULD NOT GET HER FULL NAME OUT SO ASSESSED NEURO STATUS FOR ANY STROKE S/S. PATIENT OKAY AND NO NO SIGNS OF STROKE/PE. PATIENT NOW BACK TO HER BASELINE VITALS BUT STILL COMPLAINING OF PAIN. PATIENT TEMP HAS CLIMBED AND IS 102. CULTURES ORDERED WELL A SUPPOSTORY TYLENOL
--- NOTE | 2020-07-11 07:44 | NUR ---
[facility] RECEVIED REPORT FROM ZANA MILLER. PT IS LYING IN BED IN A SEMI- POSITION WITH ARMS AROUND ABDOMEN. SHE IS ALERT AND ORIENTED TO SELF, PLACE, FAMILY, AND IS ANSWERING SOME QUESTIONS WITH ONE-TWO WORD REPLIES. C/O OF PAIN IN HER ABD, 9/10, UNABLE TO DESCRIBE IT, OR ELLABORATE; AND C/O OF BEING COLD - DESPITE TEMPERATURE AT 100.2. PER NOC REPORT TEMP HAD BEEN HIGH 103F; TEMP HAS COME DOWN CONSIDERABLY, THE RECTAL TYLENOL IS BEING HELD FOR THE MOMENT, TO SEE HOW SHE TRENDS - WILL FOLLOW UP WITH. SHE DENIES NAUSEA. BLOOD CULTURES WERE SENT AROUND 15 MINUTES AGO. CURRENT GTTPs: PRECEDEX 0.4 MCG/KG/HR, NS 125 ML/HR AND PROTONIX 10 ML/HR. CIWA IS INSIGNIFICANT AT THIS POINT, NO AGITATION, HALLUCINATIONS, ETC.. (SEE CIWA SCORE IN INTERVENTIONS). BED LOW AND LOCKED. CALL LIGHT WITHIN REACH.
--- NOTE | 2020-07-11 11:35 | NUR ---
UPDATE PT RECEIVED 1 MG OF IV DILAUDID FOR 9/10 PAIN, AND PT FELL ASLEEP SHORTLY AFTER. SHE HAS MAINTAINED A RR OF 10-20 DEPENDING ON IF WOKEN UP. WHILE ASLEEP PT OCCASSIONALLY DE-SATs INTO THE 86-90% RANGE, 2L NC PLACED ON PT AND SHE RECOVERED QUICKLY, SPO2 94%+. PT HAS BEEN OFF PRECEDEX GTTP. VSS. BED LOW AND LOCKED. CALL LIGHT WITHIN REACH.
--- NOTE | 2020-07-11 13:15 | NUR ---
UPDATE PT IS SLEEPY, AND NOT SEEMING TO WANT TO RESPOND VERBALLY TO QUESTIONS/COMMANDS, BUT IS FOLLOWING DIRECTIONS APPROPRIATELY AND HAS BEEN AWAKE SITTING UP, WHILE INTERMITTENTLY FALLING ASLEEP. PLAN IS TO DO BEDSIDE SWALLOW EVAL WHEN PT MORE AWAKE SO SHE CAN START EATING AND TAKING MEDS PO. CIWA IS < 8. PT NODDED HEAD "YES" WHEN ASKED "ARE YOU FEELING BETTER?". BED LOW AND LOCKED.
--- NOTE | 2020-07-11 18:12 | NUR ---
UPDATE- PT BECAME TACHYCARDIC (130-150s) , HYPERTENSIVE (SBP 190s) AND TACHYPNEIC (24-28). PT NOT SPEAKING MUCH, BUT CAN NOD AND SHAKE HEAD TO SIMPLE QUESTIONS. PT HAS HAD GREYISH SKIN TO BEGIN WITH BUT WAS MOTTLED IN HER LEGS AND CHEST. CAP REFIL < 3s X 4 EXTREMITIES, WARM TO TOUCH SKIN, TEMP 99.0-100.2, AND PT HAS HAD ADEQUATE URINE OUTPUT. PT CONDITION SIMILAR TO WHAT OCCURRED EARLY AM JUST PRIOR TO SHIFT PER NOC RN REPORT. DUE TO DETERIORATING CONDTION DR. LANIER AND DR. RAMOS ORDERED: ABX, 500cc BOLUS, 5 MG LOPRESSOR IV, AND A STAT CT. PT JUST CAME BACK FROM CT SCAN WITH NO COMPLICATIONS, BUT ALSO NO CHANGE IN VITALS. 5 MG OF LOPRESSOR IS BEING GIVE NOW (WILL MONITOR HR). BED LOW AND LOCKED.
--- NOTE | 2020-07-11 18:51 | NUR ---
UPDATE-CODE PT STARTED HOLDING HER BREATH, AND GRUNTING - NOT ADEQUATELY VENTILATING AT ALL. RESPIRATORY CODE CALLED, AND PT WAS INTUBATED. PT REMAINED HYPERTENSIVE AND TACHYCARDIC, PROPOFOL AND PRECEDEX STARTED. ESA CONSULTED. REPORTED OFF TO ZANA VASQUEZ.
--- NOTE | 2020-07-11 19:00 | NUR ---
REPORT RECEIVED AT BEDSIDE- PT JUST INTUBATED FOR RESPIRATORY CODE. ON VENT A/C V/C RATE 18/ TV 350 / PEEP 5 / 30%. GTTS- PROPOFOL @ 25, PRECEDEX @ 0.4. PT UNRESPONSIVE. MD AT BEDSIDE. BAE IN PLACE- YELLOW OUTPUT DRAINING. NG IN PLACE- PLACED TO LIS- LIGHT ALVARADO OUTPUT. CONTINUE ASSESSMENTS AND CARE.
[2020-07-11 19:04] LABS: BASOPHILS ABSOLUTE AUTO 0.01 K/mm3 (0.00-0.23); BASOPHILS PERCENT AUTO 0 % (0-2); Hematocrit 31.4 % (33.0-51.0); Hemoglobin 10.9 g/dL (11.5-16.0); Mean Corpuscular HGB 34.7 pg (26.0-34.0); Mean Corpuscular HGB Conc 34.7 g/dL (31.5-36.5); Mean Corpuscular Volume 100 fL (80-100); Mean Platelet Volume 9.3 fL (9.1-12.4); Platelet Count 148 K/mm3 (150-400); RDW Coefficient Variation 13.9 % (11.7-14.2); Red Blood Cell Count 3.14 M/mm3 (3.80-5.20); White Blood Cell Count 2.43 K/mm3 (4.00-11.30)
[2020-07-11 19:21] LABS: Alanine Aminotransfer (ALT/SGP 28 U/L (12-78); Albumin, Blood 2.6 g/dL (3.4-5.0); Albumin/Globulin Ratio 0.7 (0.8-1.8); Alk Phos 113 U/L (50-136); Anion Gap 9 mmol/L (6-16); Aspartate Aminotrans (AST/SGOT 26 U/L (12-37); Bilirubin, Total 0.8 mg/dL (0.1-1.0); Blood Urea Nitrogen 3 mg/dL (8-24); Bun/Creatinine Ratio 5.4 (12.0-20.0); CO2, Blood 20 mmol/L (21-32); Calcium, Blood 7.7 mg/dL (8.5-10.1); Chloride, Blood 110 mmol/L (98-108); Creatinine, Blood 0.56 mg/dL (0.40-1.00); Globulin, Blood 3.6 g/dL (2.2-4.0); Glomerular Filtration Rate >60 (60-); Glucose, Blood 134 mg/dL (70-99); Magnesium, Blood 1.3 mg/dL (1.6-2.4); Potassium, Blood 2.9 mmol/L (3.5-5.5); Sodium, Blood 139 mmol/L (136-145); Total Protein, Blood 6.2 g/dL (6.4-8.2)
--- NOTE | 2020-07-11 19:50 | NUR ---
MD AT BEDSIDE- PT UNRESPONSIVE, NO COUGH NO GAG-REMAINS ON VENT. PRECEDEX STOPPED NOW. DECREASED PROPOFOL GTT- PER MD ORDER TO ASSESS PT RESPONSE.
[2020-07-11 20:07] LABS: PCO2 Arterial 31.1 mmHg (35-45); PO2 Arterial 68.1 mmHg (80-100)
[2020-07-11 20:07] LABS: EOSINOPHILS ABSOLUTE AUTO 0.01 K/mm3 (0.00-0.68); EOSINOPHILS PERCENT AUTO 0 % (0-6); IMMATURE GRAN PERCENT AUTO 0 % (0-1); LYMPHOCYTES ABSOLUTE AUTO 0.12 K/mm3 (0.84-5.20); LYMPHOCYTES PERCENT AUTO 5 % (21-46); MONOCYTES ABSOLUTE AUTO 0.01 K/mm3 (0.16-1.47); MONOCYTES PERCENT AUTO 0 % (4-13); NEUTROPHILS ABSOLUTE AUTO 2.28 K/mm3 (1.96-9.15); NEUTROPHILS PERCENT AUTO 94 % (41-73)
--- NOTE | 2020-07-11 20:40 | NUR ---
ASSESS PT WITH COUGH AND GAG WITH SXN: MOD AMTS ALVARADO /WHITE SECREATION AND LRG AMTS CLEAR SECREATION FORM ORAL WITH GAG. PROPOFOL CONTINUED AT 15 MCG/KG/MIN. PRECEDEX REMIANS OFF. REPLACING ELECTROLYTES PER ORDERES.
--- NOTE | 2020-07-11 21:01 | NUR ---
ME NOTOFIED LOW BP. ORDERED 500ML NS BOLUS.
[2020-07-11 21:06] LABS: Source, Urine Catheter
[2020-07-11 21:10] LABS: Appearance, Urine Cloudy (Clear); Bilirubin, Urine Neg (Neg); Blood, Urine 4+ (Neg); Color, Urine Yellow (P-Yellow); Glucose Qualitative, Urine Neg (Neg); Ketones, Urine Neg (Neg); Leukocyte Esterase, Urine 3+ (Neg); Nitrite, Urine Neg (Neg); Protein, Urine 3+ (Neg); Specific Gravity, Urine 1.005 (1.003-1.022); Urobilinogen, Urine 2+ (Normal)
[2020-07-11 21:21] LABS: White Blood Cells, Urine TNTC /hpf (0-5)
[2020-07-11 21:22] LABS: Bacteria Many /hpf; Mucus Light (0-Heavy); Squamous Epithelial Cells Not Seen /hpf (Few)
[2020-07-11 22:00] LABS: SARS-Cov-2 (COVID-19) PCR, MMC NEGATIVE (NEGATIVE)
--- NOTE | 2020-07-11 22:15 | NUR ---
DR. BONILLA AT BEDSIDE PLACING CENTRAL LINE.
--- NOTE | 2020-07-11 23:35 | NUR ---
ASSESS PT COUGHING, SETTING OFF VENT ALARMS, PEAK PRESSURS ALARMING, PT HEAD OFF BED, MOVING AROUND. INCREASE SEDATION. CONTINE TO ASSESS.
--- NOTE | 2020-07-12 00:03 | NUR ---
ASSESS PT WAKES, OPENS EYES TO VOICE, DOES NOT FOLLOW COMMANDS BUT DOES ERICKSON. HAS A COUGH AND GAG. BS: CLEAR BILAT UPPER LOBES, DECREASED BILTA BASES. SXN: LRG ANDS SECREATIONS FROM ORAL AIRWAY/CLEAR THICK. SXN: MOD AMTS FROM ET-TUBE, ALVARADO/WHITE/THIN. FULL BED CHANGE DONE. NO BATH ANS WAITING TO GO TO CT SCAN AT THIS TIME DUE TO UNSTABLE BP'S. HEDIS NURSE AWARE. CONTINUE ASSESSMENT AND DRIPS AJUSTED AND CHARTED ON FLOWSHEET.
--- NOTE | 2020-07-12 00:33 | NUR ---
MD NOTIFIED BY SERVICE LINE BUS CLEANER, PT HAS BEEN DIFFICULT TO GET BP PRESSURES ON, ATTEMPT SEVERAL LOCATIONS, IF LOWERING SEDATION, PT WAKES AND IS AGGITATED, ERICKSON, DOES NOT FOLLOW DIRECTION. DR. BONILLA TO BEDSIDE FOR A-LINE PLACEMENT.
--- NOTE | 2020-07-12 01:01 | NUR ---
MD NOTIFIED DR. BONILLA AT BEDSIDE PLACING A-LINE FOR ACCURATE BP'S. LEVO STARTED PER MD ORDERS.
--- NOTE | 2020-07-12 01:30 | NUR ---
A-LINE PLACEMENT COMPLETED
[2020-07-12 03:42] LABS: BASOPHILS ABSOLUTE AUTO 0.05 K/mm3 (0.00-0.23); BASOPHILS PERCENT AUTO 0 % (0-2); EOSINOPHILS ABSOLUTE AUTO 0.01 K/mm3 (0.00-0.68); EOSINOPHILS PERCENT AUTO 0 % (0-6); Hematocrit 27.6 % (33.0-51.0); Hemoglobin 9.3 g/dL (11.5-16.0); IMMATURE GRAN ABSOLUTE AUTO 0.39 K/mm3 (0.00-0.10); IMMATURE GRAN PERCENT AUTO 2 % (0-1); LYMPHOCYTES ABSOLUTE AUTO 1.22 K/mm3 (0.84-5.20); LYMPHOCYTES PERCENT AUTO 7 % (21-46); MONOCYTES ABSOLUTE AUTO 1.82 K/mm3 (0.16-1.47); MONOCYTES PERCENT AUTO 10 % (4-13); Mean Corpuscular HGB 34.6 pg (26.0-34.0); Mean Corpuscular HGB Conc 33.7 g/dL (31.5-36.5); Mean Corpuscular Volume 103 fL (80-100); NEUTROPHILS ABSOLUTE AUTO 15.14 K/mm3 (1.96-9.15); NEUTROPHILS PERCENT AUTO 81 % (41-73); Platelet Count 152 K/mm3 (150-400); RDW Coefficient Variation 14.4 % (11.7-14.2); RDW Standard Deviation 53.7 fL (35.1-46.3); Red Blood Cell Count 2.69 M/mm3 (3.80-5.20); White Blood Cell Count 18.63 K/mm3 (4.00-11.30)
[2020-07-12 04:00] LABS: Alanine Aminotransfer (ALT/SGP 34 U/L (12-78); Albumin, Blood 1.9 g/dL (3.4-5.0); Albumin/Globulin Ratio 0.7 (0.8-1.8); Alk Phos 103 U/L (50-136); Anion Gap 8 mmol/L (6-16); Aspartate Aminotrans (AST/SGOT 54 U/L (12-37); BAND PERCENT MAN 14 % (0-8); BASOPHILS PERCENT MAN 0 % (0-2); Blood Urea Nitrogen 4 mg/dL (8-24); Bun/Creatinine Ratio 6.6 (12.0-20.0); CO2, Blood 17 mmol/L (21-32); Calcium, Blood 6.9 mg/dL (8.5-10.1); Chloride, Blood 115 mmol/L (98-108); EOSINOPHILS PERCENT MAN 0 % (0-6); Globulin, Blood 2.8 g/dL (2.2-4.0); Glomerular Filtration Rate >60 (60-); Glucose, Blood 139 mg/dL (70-99); LYMPHOCYTES ABSOLUTE MAN 0.93 K/mm3 (0.84-5.20); LYMPHOCYTES PERCENT MAN 5 % (21-46); METAMYELOCYTE ABSOLUTE MAN 0.18 K/mm3 (0.00-0.00); METAMYELOCYTE PERCENT MAN 1 % (0-0); MONOCYTES ABSOLUTE MAN 0.55 K/mm3 (0.16-1.47); MONOCYTES PERCENT MAN 3 % (4-13); Magnesium, Blood 1.9 mg/dL (1.6-2.4); NEUTROPHILS ABSOLUTE MAN 16.95 K/mm3 (1.96-9.15); Potassium, Blood 3.8 mmol/L (3.5-5.5); SEG NEUTROPHILS PERCENT MAN 77 % (41-73); Sodium, Blood 140 mmol/L (136-145); TOTAL CELLS COUNTED 100; Total Protein, Blood 4.7 g/dL (6.4-8.2)
--- NOTE | 2020-07-12 04:53 | NUR ---
PT TO CT ON VENT NO ISSUES CT DONE
--- NOTE | 2020-07-12 06:09 | NUR ---
END OF SHIFT NOTE OVERNIGHT PT ON VENT, NO VENT CHANGES, BS REMAIN CLEAR EQUAL BILAT, DECREASED BASES. SXN: LRG AMTS ORAL SECREATIONS AND MOD AMTS FROM ET-TUBE. PT HAS A COUGH AND GAG, ERICKSON-NOT TO COMMAND, WAKES, OPEN EYES TO VOICE WITH LIGHT SEDATION, BUT REMAINS ON PROPOFOL WITH PRN FENT PUSHES. OG TO LIS, SMALL AMT OF LIGHT BROWN OUTPUT, ABD SLIGHTLY DISTENDED WITH NO CHANGE THIS SHIFT, BT REMAINS HYPO TO NO BT ALL QUADS. NO BM THIS SHIFT. BAE IN PLACE WITH DARK YELLOW OUTPUT. HEAD CT DONE-SEE RESULTS.GTTS: FRANCES WEANED OFF, PRECEDEX OFF. CONTINUE NS @ 125ML/HR, LEVOPHED @ 10 MCG/MIN AND PROPOFOL @ 15MCG/KG/MIN. VITALS NOTED IN FLOWSHEET. CONTINUE CARE & ASSESSMENTS TILL ONGOING SHIFT REPORT OFF.
--- NOTE | 2020-07-12 06:21 | NUR ---
ATTEMPT TO WEAN PROPOFOL FROM 20 TO 15, PT WAKES, OPEN EYES, STARTS COUGHING, LIFTS HEAD, DOES NOT FOLLOW COMMANDS, COUTINUES TO COUGH, ERICKSON, INCREASED RR 35, RETURN PROPOFOL TO 20 FOR COMFORT & SAFETY.
--- NOTE | 2020-07-12 06:43 | NUR ---
DR. HEAD STOP BY PT BEDSIDE, ASSESS A-LINE. A-LINE IS POSITIONAL.
--- NOTE | 2020-07-12 08:15 | NUR ---
ASSESSMENT- PT SEDATED WTIH PROPOFOL GTT-AWAKENS TO NAME, OPENS EYES. ORALLY INTUBATED, TUBE SECURE. TOLERATING VENT SETTINGS. LUNGS CLEAR. APICAL REGULAR, SBP STABLE VIA RIGHT FEMORAL ARTERIAL LINE. RIGHT BKA, POPLITEAL PULSE INTACT. RIJ CENTRAL LINE DI WITH NS AT 125 CC/HR. ABDOMEN SOFT WITH ONLY FEW BOWEL SOUNDS. OGT WITH SCANT YELLOW DRAINAGE. UO VIA BAE. RIGHT AND LEFT UPPER ARMS WITH POWER GLIDES DI. REPOSITIONED.
--- NOTE | 2020-07-12 09:46 | NUR ---
UPDATE- BATH BEING DONE, REPOSITIONED. BP IMPROVED. LEVOPHED OFF. DR. DSOUZA HERE-UPDATED. DR. RAMOS UPDATED
--- NOTE | 2020-07-12 12:01 | NUR ---
DR. DSOUZA HERE-UDPATED. LOVENOX STARTED, SCDS ON LEFT LEG. RIGHT FEMORAL ARTERIAL LINE DI, POSITIONAL. DECREASING PROPOFOL.
--- NOTE | 2020-07-12 12:51 | NUR ---
ATTEMPT TO DECREASE PROPOFOL TO 15 MCG/KG/MIN, COUGHING FREQUENTLY, RESP RATE 30'S TACHYPNEIC. INCREASED BACK TO 25 THEN DOWN TO 20 MCG/KG/MIN WITH IMPROVEMENT. BP STABLE. LEVOPHED OFF
--- NOTE | 2020-07-12 14:45 | NUR ---
REMAINS OFF LEVOPHED. RESTLESS, PULLING AT LINES. REPOSITIONED. RX FOR PAIN WITH IMPROVEMENT. ABLE TO RESPOND TO NAME, ERICKSON SPONTANEOUSLY.
--- NOTE | 2020-07-12 18:00 | NUR ---
PT ABLE TO OPEN EYES TO NAME. RESTLESS, INCREASED RESP RATE, RX WITH FENTANYL WITH IMPROVEMENT. TOLERATING VENT. SBP 130'S VIA ARTERIAL LINE. SCANT STOOL-LINEN CHANGED. RIJ CENTRAL, R FEMORAL DELIA AND POWER GLIDES X 2 INTACT. UO ADEQUATE VIA BAE. BILATERAL WRIST RESTRAINTS FOR SAFETY, DOES REACH FOR TUBES, EXTUBATION RISK.
--- NOTE | 2020-07-12 19:32 | NUR ---
CARE ASSUMED PT AWAKE, ERICKSON, NOT FOLLOWING COMMANDS, OPENS EYES SPONT. ON VENT A/C V/C 18/350/30%/5. LRG AMTS ORAL SECREATIONS SXN. BS: COURSE UPPER AND EQUAL. POSITIVE COUGH & GAG. GTTS: PROPOFOL @ 30 MCG/KG/MIN, NS KVO. TF VITAL HIGH PROTEIN RUNNING @ 25ML/HR WITH 30 ML Q4 FLUSH. RESIDUALS 20ML. BT HYPOACTIVE. VITALS STABLE AT TIHS TIME-SEE FLOWSHEET. CONTINUE ASSESSMENT AND CARE.
--- NOTE | 2020-07-12 20:26 | NUR ---
SEDATION PT IS ST 100-110, INCREASED AGGITATION, MOVING AROUND, COUGHING, ALARMING VENT. INCREASED SEDATION, REPOSITION PT. CONTINUE TO ASSESS.
--- NOTE | 2020-07-12 23:47 | NUR ---
ASSESS PT GETS SHAKY ALL OVER-JOURNALISM PROFESSOR TO BEDSIDE-DISCUSSED IF SEIZURE ACTIVITY OR PAIN CAUSING ST, SHAKES, INCREASED A-LINE PRESSURES. POSITIVE OPENING EYES, GRIMICING, TENSE MUSCLES. FENT PUSH GIVEN PER APR. SHAKING STOPPED. HR ST. PT APPEARS MORE RELAXED. BS: COURSE BILAT UPPER LOBES, DECREASED BASES. SCANT SECREATIONS WITH GOOD STRONG COUGH. MOD AMTS OF ORAL SECREATIONS CONTINUE. WHEN SXN ET-TUBE, UNABLE TO PASS CATH FULLY, ? ET-TUBE PLACEMENT, RT NOTIFIED. CXR -TUBE CURRENTLY 25 AT TEETH. CONTINUE ASSESSMENTS AND CARE.
--- NOTE | 2020-07-13 00:48 | NUR ---
ASSESS PT WITH SHAKES-INCREASED RR30-40, VENT ALARMING. REPOSITION PT, SXN-0 SECREATIONS-POSITIVE COUGHING. SXN ORAL FOR SMALL AMT CLEAR SECREATIONS. PT CONTINUES TO SHAKE-SMALL SHIVER LIKE-TEMP 98.7. PT SKIN WARMDRY. A-LINE BP IS INCREASED AND PT ST ON MONITOR. INCREASED PROPOFOL TO 50-REINSURANCE ANALYST AWARE. RR IMPROVED-18. PT APEARS COMFORTABLE, HR 103, BP STABLE. CONTINUE TO ASSESS.
--- NOTE | 2020-07-13 01:14 | NUR ---
CALL PLACED TO DR. HEAD ABOUT INCREASED NEED FOR SEDATION AND PT TREMMORS/SHAKES.
--- NOTE | 2020-07-13 02:01 | NUR ---
FOLLOW UP-MD ORDER ATIVAN FOR TREMORS, GIVEN-CURRENTLY POST ATIVAN-0 TREMORS AT THIS TIME.
[2020-07-13 03:37] LABS: Anion Gap 7 mmol/L (6-16); Blood Urea Nitrogen 6 mg/dL (8-24); Bun/Creatinine Ratio 9.1 (12.0-20.0); CO2, Blood 21 mmol/L (21-32); Calcium, Blood 7.2 mg/dL (8.5-10.1); Chloride, Blood 117 mmol/L (98-108); Creatinine, Blood 0.66 mg/dL (0.40-1.00); Glomerular Filtration Rate >60 (60-); Glucose, Blood 125 mg/dL (70-99); Magnesium, Blood 1.6 mg/dL (1.6-2.4); Phosphorus, Blood 2.2 mg/dL (2.5-4.9); Potassium, Blood 2.7 mmol/L (3.5-5.5); Sodium, Blood 145 mmol/L (136-145)
--- NOTE | 2020-07-13 03:58 | NUR ---
NOTIFIED AM LABS: LOW- K, PHOS, MAG- SEE LABS. DR. HEAD NOTIFIED- ORDERS PLACED.
--- NOTE | 2020-07-13 06:15 | NUR ---
END OF SHIFT PT REMIANS ON VENT, NO CHANGES OVERNIGHT. PROPOFOL @ 50 MCG/KG/MIN. PT GIVEN ATIVAN ONCE FOR TREMORS PER MD ORDER, TREMORS IMPROVED. VITALS NOTED IN FLOWSHHET. CONTINUE ASSESSMENT AND CARE TILL OFF GOING SHIFT CHANGE.
--- NOTE | 2020-07-13 09:57 | NUR ---
AM NOTE... ASSUMED CARE OF PT AT 0700. PT IS INTUBATED AND SEDATED WITH PROPOFOL RUNNING AT 50MCG/KG/MIN. VENT SETTINGS AC/VC: 18/350/5/30% WITH O2 SATS >92%. L/S COARSE IN THE UPPER LOBES CLEAR/DIM IN THE LOWER LOBES. RR 18 EVEN AND UNLABORED. DECREASED ORAL AND TRACHEAL SECRETIONS NOTED FROM NOC SHIFT RN REPORT. ONLY A SMALL AMOUNT OF ORAL AND TRACHEAL SECRETIONS SUCTIONED FOR THIS RN THIS AM. BT PRESENT AND HYPOACTIVE ON ASSESSMENT, ABD HAS MODERATE DISTENTION AND IS SLIGHTLY FIRM TO PALP. PT INTUBATED AND SEDATED UNABLE TO ASSESS FOR PAIN DURING PALPATION. PT HAS DEPENDENT EDEMA NOTED TO BUE. PT IS IN BILATERAL SOFT WRIST RESTRAINTS. PT IS IN NSR/ST ART RAYN SHOWS STABLE BP WITH SBPs 110'S-130'S. ARTLINE HAS MODERATE AMOUNT OF OLD BLOOD NOTED ON THE DRESSING, ARTLINE IS SHOWING DAMPENED WAVE FORM, ARTLINE IS POSTIONAL IN REGARDS TO A GOOD WAVE FORM. CHARGE NURSE NOTIFIED, DR. DSOUZA NOTIFIED ARTLINE TO BE REMOVED. PT'S RIGHT IJ DRESSING IS C/D/I, NO SWELLING BLEEDING OR HEMATOMA NOTED. PT'S BAE PATENT AND DRAINING TO GRAVITY. AT 0930 DR DSOUZA AT THE BEDSIDE, PT'S PROPOFOL DECREASED FROM 50MCG TO 35 MCG AND PT WAS PLACED ON SPONTANEOUS AT 10/5 WITH O2 SATS >92%. PLAN IS TO SEE IF PT CAN BE EXTUBATED TODAY. WILL CONTINUE TO MONITOR.
--- NOTE | 2020-07-13 10:50 | NUR ---
CARE ASSUMED OF PT AT 1030. REPORT TAKEN FROM RAMYA SPANN. UPDATE GIVEN BY DR DSOUZA WELL. NEW ORDERS PLACED PER DR DSOUZA. WILL SLOWLY LIGHTEN SEDATION. PT TOLERATING WEAN W PS 11/30. PT MAY BE EXTUBATED LATER TODAY.
--- NOTE | 2020-07-13 11:03 | NUR ---
PT SEDATED ON PROPOFOL AT 35MCG, DECREASED TO 30MCG. PT GRIMACES W CARE/PAIN, DOES NOT OPEN EYES OR FOLLOW COMMANDS, WILL CONT TO DECREASE PROP DOWN TOLERATED. LUNGS CLEAR, DIM TO BASES. BP STABLE. ART LINE TO BE DC'D PER DR DSOUZA. PT NO LONGER REQUIRES PRESSORS.
--- NOTE | 2020-07-13 18:32 | NUR ---
SHIFT SUMMARY.... NO ACUTE NEGATIVE CHANGES NOTED THIS SHIFT. PT WAS ON PRESSURE SUPPORT FOR MOST OF THE SHIFT UNTIL PT HAD TO BE GIVEN FENTANYL FOR ART LINE REMOVAL AND HER RESPIRATORY RATE DECREASED DOWN TO [address] DSOUZA TO THE ROOM AND PT WAS PLACED BACK ON TO AC/VC AT18/350/5/30%. ART LINE WAS REMOVED WNL, NO SWELLING BLEEDING OR HEMATOMA NOTED. PT'S VS HAVE BEEN STABLE T/O SHIFT. PT'S TUBE FEED HAS BEEN TURNED UP TO GOAL SETTINGS OF 40MLS/HR AND 30MLS FLUSHES OF H2O Q4 HRS. PT DID NOT HAVE A BM THIS SHIFT. PT HAS KPHOS RUNNING PER ORDERS, DR DSOUZA WANTS LABS DRAWN 2 HOURS AFTER THE END OF THIS BAG (SEE NURSE NOTIFY). PT'S BAE IS PATENT AND DRAINING CLEAR YELLOW URINE TO GRAVITY. WILL CONTINUE TO MONITOR UNTIL REPORT IS GIVEN TO ONCOMING RN.
--- NOTE | 2020-07-13 19:15 | NUR ---
CARE ASSUMED PT ON VENT, PST A-LINE REMOVED TODAY. SITE CDI. GTT- PROPOFOL INFUSING @ 35 MCK/KG/MIN. NS @ KVO. TF @ 40. RISIDUALS =0. POSITIVE AIR-BOLUS CHECKED FOR OG PLACEMENT. BS: COURSE AIRATION BILAT, EQUAL. SXN: SCANT SECREATIONS, POSITIVE STRONG COUGH. SXN: MOD ORAL SECREATIONS WITH POSITIVE GAG. PT IN ST 105 ON MONITOR, STRONG PULSES, BP STABLE ON LEFT FA, SATS 100%.POC: REMAINS VENTED AND SEDATED OVERNIGHT, WITH MINIMAL SEDATION NEEDED FOR POSSIABLE EXTUBATION IN AM. CONTINUE ASSESSMENT AND CARE.
--- NOTE | 2020-07-14 01:58 | NUR ---
ASSESS NO CHANGES AT THIS TIME. FOLLOW UP LABS SENT NOW FOR K, MAG, PHOS. CONTIUNE ASSESSMENTS AND CARE.
[2020-07-14 02:09] LABS: BASOPHILS ABSOLUTE AUTO 0.02 K/mm3 (0.00-0.23); BASOPHILS PERCENT AUTO 0 % (0-2); EOSINOPHILS ABSOLUTE AUTO 0.09 K/mm3 (0.00-0.68); EOSINOPHILS PERCENT AUTO 1 % (0-6); Hematocrit 26.3 % (33.0-51.0); Hemoglobin 9.1 g/dL (11.5-16.0); IMMATURE GRAN ABSOLUTE AUTO 0.08 K/mm3 (0.00-0.10); IMMATURE GRAN PERCENT AUTO 1 % (0-1); LYMPHOCYTES ABSOLUTE AUTO 1.28 K/mm3 (0.84-5.20); LYMPHOCYTES PERCENT AUTO 15 % (21-46); MONOCYTES PERCENT AUTO 8 % (4-13); Mean Corpuscular HGB 34.5 pg (26.0-34.0); Mean Corpuscular HGB Conc 34.6 g/dL (31.5-36.5); Mean Corpuscular Volume 100 fL (80-100); Mean Platelet Volume 10.1 fL (9.1-12.4); NEUTROPHILS PERCENT AUTO 75 % (41-73); Platelet Count 224 K/mm3 (150-400); RDW Coefficient Variation 14.5 % (11.7-14.2); RDW Standard Deviation 53.1 fL (35.1-46.3); Red Blood Cell Count 2.64 M/mm3 (3.80-5.20); White Blood Cell Count 8.77 K/mm3 (4.00-11.30)
[2020-07-14 02:25] LABS: Anion Gap 7 mmol/L (6-16); Blood Urea Nitrogen 3 mg/dL (8-24); Bun/Creatinine Ratio 5.4 (12.0-20.0); CO2, Blood 28 mmol/L (21-32); Calcium, Blood 7.3 mg/dL (8.5-10.1); Chloride, Blood 108 mmol/L (98-108); Creatinine, Blood 0.56 mg/dL (0.40-1.00); Glomerular Filtration Rate >60 (60-); Glucose, Blood 148 mg/dL (70-99); Magnesium, Blood 1.4 mg/dL (1.6-2.4); Phosphorus, Blood 4.2 mg/dL (2.5-4.9); Potassium, Blood 2.9 mmol/L (3.5-5.5); Sodium, Blood 143 mmol/L (136-145)
--- NOTE | 2020-07-14 06:45 | NUR ---
NO CHANGES OVER NIGHT-REMAINS ON VENT, PROPOFOL, BAE, TF. ELECTROLYTE PROTOCOL IN PLACE AND REPLACING MAG AND K NOW. RECHECK LABS 4 HRS POST INFUSION PER PROTOCOL. REPORT OFF TO DAY SHIFT RN.
[2020-07-14 11:29] LABS: Anion Gap 2 mmol/L (6-16); Blood Urea Nitrogen 4 mg/dL (8-24); Bun/Creatinine Ratio 7.2 (12.0-20.0); CO2, Blood 27 mmol/L (21-32); Calcium, Blood 7.7 mg/dL (8.5-10.1); Chloride, Blood 112 mmol/L (98-108); Creatinine, Blood 0.55 mg/dL (0.40-1.00); Glomerular Filtration Rate >60 (60-); Glucose, Blood 143 mg/dL (70-99); Sodium, Blood 141 mmol/L (136-145)
--- NOTE | 2020-07-14 11:30 | NUR ---
AM NOTE.... ASSUMED CARE OF PT AT 0700. PT IS INTUBATED AND SEDATED ON THE VENT AT AC: 18/350/5/30% WITH O2 SATS >90%. L/S CLEAR T/O DIM IN THE BASES. THERE IS A NOTED INCREASE IN ORAL AND TRACHEAL SECRETIONS FROM YESTERDAY. PT IS ON PROPFOL AT 20MCG, PT IS RESPONDING TO PAIN AND TRYING TO OPEN HER EYES. PROPOFOL WAS DECREASED DOWN TO 10MCG TO ASSESS THE PT'S MENTAL STATUS. PT'S EYEBROWS SCRUNCH TOGETHER AND PT ATTEMPTS TO DRAW AWAY FROM THE PAINFUL STIMULI. PUPILS ARE 2MM EQUAL, SLUGGISH BUT REACTIVE. BT PRESENT BUT VERY HYPOACTIVE, ABD IS SOFT AND PT DOES NOT DISPLAY ANY PAINFUL INDICATORS DURING PALPATION. PT'S EDEMA HAS DECREASED FROM YESTERDAY 2+ TO 1+/DEPENDENT. PT IS IN NSR/SINUS TACH, BP STABLE. PT'S BAE IS PATENT AND DRAINING TO GRAVITY. AT 0930 DR. DSOUZA AT THE BEDSIDE FOR ASSESSMENT. PROPOFOL IS AT 10MCG, PT IS ABLE TO OPEN HER EYES AND MOVE ALL EXREMITIES IN RESPONSE TO PAIN. PT WAS ABLE TO NOD HER HEAD APPROPRIATELY TO IF SHE WAS IN PAIN, AND ANSWER YES/NO TO WHERE HER PAIN WAS AT, PT C/O OF PAIN TO HER ABD. PT WAS PLACED ON SPONTAINIOUS WITH PRESSURE SUPPORT OF 10/5. PT DID WELL WITH THIS SETTING KEEPING O2 SATS>90%. WILL CONTINUE TO MONITOR.
[2020-07-14 11:35] LABS: Potassium, Blood 5.3 mmol/L (3.5-5.5)
[2020-07-14 17:20] LABS: Base Excess Venous 3.4 mmol/L; Bicarbonate Venous 27.1 mmol/L (24.0-30.0); PO2 Venous 54.6 mmHg (38-42); pH Blood Venous 7.44 (7.34-7.37)
--- NOTE | 2020-07-14 18:53 | NUR ---
SHIFT SUMMARY... PT HAS BEEN ON SPONTAINOUS PRESSURE SUPPORT OF 01/30 WITH PT'S O2 SATS>90%. PT HAS HAD APROX 7 EPISODES OF APNEA T/O THE SHIFT, PT WILL TAKE A BREATH IF GIVEN LOUD VERBAL AND PHYSICAL STIMULI. PT HAS BEEN OFF OF PROPOFOL SINCE 929, PT IS ABLE TO MOVE ALL EXTREMITIES, SHE IS ABLE TO NOD OR SHAKE HER HEAD APPROPRIATELY TO QUESTIONS BUT WILL STILL NOT FOLLOW OR TRACK WITH HER EYES. PT HAS HAD INCREASED ORAL AND TRACHEAL SECRETIONS COMPARED TO YESTERDAY. PT HAD A MED LOOSE STOOL THIS SHIFT. BAE IS PATENT AND DRAINING TO GRAVITY. TUBE FEED RATE WAS CHANGED. CALL LIGHT IN REACH WILL CONTINUE TO MONITOR UNTIL REPORT IS GIVEN TO ONCOMING RN.
--- NOTE | 2020-07-14 19:45 | NUR ---
ASSUMED CARE. BEDSIDE REPORT RECEIVED. PT RESTING QUIETLY IN BED ON VENTILATOR. PT ALERT, ABLE TO NOD YES OR NO TO QUESTIONS. PT NODDED YES TO SOB QUESTION, RT CHANGED VENT TO AC MODE. VENT AC 18/350/5/30%. PT GRIMACING WHEN CHANGING POSITION OF HEAD, NODDED YES TO QUESTION ABOUT PAIN. FENTANYL GIVEN FOR PAIN, 50 MCG, PRECEDEX STARTED FOR COMFORT/SEDATION 0.4 MCG/KG/MIN. PATIENT HAS MULTIPLE BRUISES ON CHEST/TORSO/LEGS, SEE CHART PHOTOS. VITAL SIGNS STABLE, NO OTHER ACUTE NEEDS NOTED AT THIS TIME. SEE SHIFT ASSESSMENT.
--- NOTE | 2020-07-14 21:55 | NUR ---
CALL TO MD CALL TO DR DSOUZA REGARDING RESTARTING LEVOPHED DUE TO HYPOTENSION. PRECEDEX DOWN TO 0.2 MCQ/KG/MIN DUE TO HYPOTENSION.
[2020-07-15 03:54] LABS: BASOPHILS ABSOLUTE AUTO 0.04 K/mm3 (0.00-0.23); BASOPHILS PERCENT AUTO 0 % (0-2); EOSINOPHILS ABSOLUTE AUTO 0.13 K/mm3 (0.00-0.68); EOSINOPHILS PERCENT AUTO 1 % (0-6); Hematocrit 25.6 % (33.0-51.0); Hemoglobin 8.3 g/dL (11.5-16.0); IMMATURE GRAN ABSOLUTE AUTO 0.05 K/mm3 (0.00-0.10); IMMATURE GRAN PERCENT AUTO 1 % (0-1); LYMPHOCYTES ABSOLUTE AUTO 1.55 K/mm3 (0.84-5.20); LYMPHOCYTES PERCENT AUTO 17 % (21-46); MONOCYTES ABSOLUTE AUTO 0.94 K/mm3 (0.16-1.47); MONOCYTES PERCENT AUTO 10 % (4-13); Mean Corpuscular HGB Conc 32.4 g/dL (31.5-36.5); NEUTROPHILS ABSOLUTE AUTO 6.45 K/mm3 (1.96-9.15); NEUTROPHILS PERCENT AUTO 71 % (41-73); Platelet Count 269 K/mm3 (150-400); RDW Coefficient Variation 14.9 % (11.7-14.2); RDW Standard Deviation 57.2 fL (35.1-46.3); Red Blood Cell Count 2.44 M/mm3 (3.80-5.20); White Blood Cell Count 9.16 K/mm3 (4.00-11.30)
[2020-07-15 03:58] LABS: Mean Corpuscular Volume 105 fL (80-100)
[2020-07-15 04:09] LABS: Anion Gap 2 mmol/L (6-16); Blood Urea Nitrogen 5 mg/dL (8-24); Bun/Creatinine Ratio 8.9 (12.0-20.0); CO2, Blood 28 mmol/L (21-32); Calcium, Blood 7.9 mg/dL (8.5-10.1); Chloride, Blood 111 mmol/L (98-108); Creatinine, Blood 0.56 mg/dL (0.40-1.00); Glomerular Filtration Rate >60 (60-); Glucose, Blood 148 mg/dL (70-99); Magnesium, Blood 2.1 mg/dL (1.6-2.4); Phosphorus, Blood 2.9 mg/dL (2.5-4.9); Potassium, Blood 4.5 mmol/L (3.5-5.5); Sodium, Blood 141 mmol/L (136-145)
--- NOTE | 2020-07-15 05:52 | NUR ---
SHIFT SUMMARY. PT RESTED QUIETLY THROUGHOUT SHIFT. ABLE TO NOD YES AND NO TO QUESTIONS. PT CONTINUES ON VENTILATOR, SETTINGS 18/350/5/30%. PRECEDEX RUNNING AT 0.4 MCG/KG/MIN, LEVOPHED AT 4 MCG/MIN, NS AT 10 ML/HR. TUBE FEED INCREASED TO GOAL RATE AT 30 ML/HR, MINIMAL RESIDUALS THROUGHOUT SHIFT. PT GIVEN THREE PRN DOSES OF FENTANYL, 50 MCG EACH, FOR PAIN. BAE CATHETER REMAINS IN PLACE, DRAINING CLEAR, YELLOW URINE. BP DECREASED AFTER SEDATION STARTED, STABLE SINCE LEVOPHED BEGAN. VITALS OTHERWISE STABLE. WILL CONTINUE TO MONITOR AND REPORT OFF TO DAYSHIFT NURSE.
--- NOTE | 2020-07-15 08:02 | NUR ---
ASSUMED CARE RECEIVED REPORT FROM JOCE AND STUDENT RN. PT IS LYING BED, SEDATED (RASS-1) AND INUBATED ON VENT, SETTINGS: AC/VC BUT RT SWITCHED TO SPONTANEOUS MODE 12/5, 30% FIO2. PRECEDEX INFUSING AT 0.4 MCG/KG/HR, AND LEVOPHED AT 4 MCG/MIN. VSS, MAP > 65, SINUS RHYTHM RATE 90s, SPO2 96%, RR 15. TF IS VHP INFUSING AT GOAL 30 ML/HR VIA OG TUBE. BAE PATENT AND DRAINING YELLOW URINE. SCDs IN PLACE. SWB RESTRAINTS SECURED TO PT AND BED.
--- NOTE | 2020-07-15 10:56 | NUR ---
UPDATE PT EXTUBATED AT 1035, TOLERATING 2L NC WELL, SPO2 94%+. PT COUGHING ON COMMAND, AND ON HER OWN, COUGH IS FAIRLY WEAK, BUT GETTING STRONGER. SHE IS ALERT AND ORIENTED X 3, ASKING APPROPRIATE QUESTIONS. TRACKING WELL. VSS. LEVOPHED AND PRECEDEX WERE TURNED OFF. DR. RAMOS IS ORDERING PT AND OT. BEDSIDE SWALLOW WILL BE DONE AFTER PT WORKS ON COUGHING HER SECRETIONS OUT WELL ON HER OWN. WILL CONTINUE TO MONITOR.
--- NOTE | 2020-07-15 18:44 | NUR ---
UPDATE PT IS NOT MOTIVATED TO DO ICENTIVE SPIROMETER OR FLUTTER VALVE, BUT DOES USE THEM IF ENCOURAGED (NEEDS ASSISTANCE). COUGH IS GETTING STRONGER, BUT STILL WEAK; NOT COUGHING ANYTHING UP. PT HAD A BEDSIDE SWALLOW EVAL, BUT BECAUSE OF HER WEAK COUGH - SHE DID NOT PASS. SPEECH THERAPY WAS CONSULTED. PHYS AND OCCUPATIONAL THERAPY ALSO CONSULTED. PT IS ALERT AND ORIENTED, ANSWERING QUESTIONS APPROPRIATELY, BUT IS WHISPERING, NOT SPEAKING MUCH, AND IT IS DIFFICULT TO ASSESS HOW MUCH SHE IS COMPREHENDING. AT END OF SHIFT PT WAS TRYING TO GET OUT OF BED AND REALLY DIDN'T HAVE AN EXPLANATION FOR WHY. UPON REASSESSMENT, SHE WAS ORIENTED TO SELF SURROUNDING/PLACE, , AND SOMEWHAT OF THE SITUATION. ASKING TO MAKE A PHONE CALL TO HER SIGNIFICANT OTHER. BED LOW AND LOCKED. CALL LIGHT WITHIN REACH. PT REMAINS ON 2L NC WITH SPO2 IN HIGH 90%s. BAE PATENT AND DRAINING YELLOW CLEAR URINE. NO BM TODAY. BOAZ VISITED BRIEFLY DURING VISITATION HOURS AND WAS UPDATED BY DR. DSOUZA AND THIS RN.
[2020-07-16 03:43] LABS: BASOPHILS PERCENT AUTO 1 % (0-2); EOSINOPHILS ABSOLUTE AUTO 0.17 K/mm3 (0.00-0.68); EOSINOPHILS PERCENT AUTO 2 % (0-6); Hemoglobin 8.4 g/dL (11.5-16.0); IMMATURE GRAN ABSOLUTE AUTO 0.06 K/mm3 (0.00-0.10); IMMATURE GRAN PERCENT AUTO 1 % (0-1); LYMPHOCYTES ABSOLUTE AUTO 1.53 K/mm3 (0.84-5.20); LYMPHOCYTES PERCENT AUTO 19 % (21-46); MONOCYTES ABSOLUTE AUTO 0.87 K/mm3 (0.16-1.47); MONOCYTES PERCENT AUTO 11 % (4-13); Mean Corpuscular HGB Conc 32.3 g/dL (31.5-36.5); Mean Corpuscular Volume 105 fL (80-100); Mean Platelet Volume 10.4 fL (9.1-12.4); NEUTROPHILS ABSOLUTE AUTO 5.56 K/mm3 (1.96-9.15); NEUTROPHILS PERCENT AUTO 67 % (41-73); Platelet Count 308 K/mm3 (150-400); RDW Coefficient Variation 14.4 % (11.7-14.2); RDW Standard Deviation 55.3 fL (35.1-46.3); Red Blood Cell Count 2.47 M/mm3 (3.80-5.20); White Blood Cell Count 8.29 K/mm3 (4.00-11.30)
[2020-07-16 04:00] LABS: Anion Gap 4 mmol/L (6-16); Blood Urea Nitrogen 6 mg/dL (8-24); Bun/Creatinine Ratio 11.2 (12.0-20.0); CO2, Blood 30 mmol/L (21-32); Calcium, Blood 8.6 mg/dL (8.5-10.1); Chloride, Blood 105 mmol/L (98-108); Creatinine, Blood 0.53 mg/dL (0.40-1.00); Glomerular Filtration Rate >60 (60-); Glucose, Blood 92 mg/dL (70-99); Potassium, Blood 3.3 mmol/L (3.5-5.5); Sodium, Blood 139 mmol/L (136-145)
--- NOTE | 2020-07-16 05:33 | NUR ---
SHIFT SUMMARY PATIENT ALERT BUT FORGETS LIMITATIONS. PATIENT IS SLIGHTLY HYPERTENSIVE AT TIMES, HEARTRATE RANGES FROM 90'S-110'S. PATIENT HAS WAVERING MENTATION AT TIMES. BAE INTACT AND DRAINING WELL TO GRAVITY. PATIENT IS INCONTINENT WITH WATERY STOOL. SPO2 SATURATION IN MID 90'S ON 2L VIA NC. PATIENT CALLS OUT "NURSE" INSTEAD OF USING CALL LIGHT. PATIENT DID REPORT "I DID NOT SLEEP AT ALL TONIGHT" BUT PT NOTED TO SLEEP PERIODICALLTY. STAFF ENCOURAGING IS AND FLUTTER VALVE USE, PT COOPERATIVE WITH THIS. NO ACUTE CHANGES OVER NIGHT. WILL CONTINUE TO MONITOR UNTIL END OF SHIFT.
--- NOTE | 2020-07-16 06:56 | NUR ---
STUDENT RN THIS RN HAS REVIEWED STUDENT RN'S NOTES, ASSESMENT, CHARTING AND AGREE WITH ALL CHARTED.
--- NOTE | 2020-07-16 15:57 | NUR ---
SHIFT SUMMARY NOTE: ASSUMED CARE OF PATIENT AT 0715, ADMITTING DX WAS ACUTE PANCREATITIS, CURRENTLY ON 2L OF O2 ON NC, DOES NOT USE THE CALL LIGHT WHEN APPROPRIATE, INSTEAD YELLS FOR HELP. TELEMETRY HAS SHOWN SINUS RYTHMS WITH HR IN THE 90'S AND OCCASSIONALLY LOW 100'S. PATIENT IS NOW ABLE TO TRANSFER TO THE BED SIDE COMMODE, HAS BEEN PLACED MEDICAL STATUS. RORO STILL HAS A BAE IN PLACE, TELEMTRY, O2 VIA NC. PATIENT WAS PREVIOUSLY NPO AND IS NOW PUREED DIET. Q6 GLUCOSE CHECKS. HAS VENTRAL LINE IN THE RIJ, PATIENT HAS BEEN MAKING MULTIPLE BM'S (3) SINCE ASSUMING CARE OF PATIENT. THEY HAVE BEEN WATERY AND LOOSE, BUT PATIENT HAS BEEN ABLE TO MAKE IT TO THE BEDSIDE COMMODE BEFORE AND LEAKING PRESENT. OF THE
--- NOTE | 2020-07-16 17:33 | NUR ---
review of pt with hospitalist pt had good day with visitor will review polst with her later.
--- NOTE | 2020-07-16 17:46 | NUR ---
PT ADMISSION STATUS CHANGED TO MEDICAL, ROOM ASSIGNMENT GIVEN. REPORT HAS BEEN GIVEN TO ZANA AN. PT TO BE TRANSFERED TO MEDICAL ROOM UPON COMPLETION OF DINNER.
--- NOTE | 2020-07-16 19:19 | NUR ---
SHIFT SUMMARY PT TRANSFERED FROM ICU THIS EVENING. PT IS CONFUSED BUT PLESANT. ORIENTED PT TO ROOM, EXPLAINED CALL LIGHT AND GAVE HER A WARM BLANKET. PT COMFORTABLE AND CURENTLY WATCHING TV. SHIFT REPORT GIVEN TO NIGHT NURSE.
--- NOTE | 2020-07-17 04:34 | NUR ---
SHIFT SUMMARY ASSUMED CARE OF PT AT 1900. PT IS A/OX2. PT WOULD TRY TO SIT ON EDGE OF BED T/O THE NIGHT, PT STATES" FOR NO REASON", BED ALARM ON. HEART SOUNDS REGULAR, LUNG SOUNDS CLEAR, PT HAS WET COUGH BUT NO SPUTUM. PT WAS ABLE TO VOID ABOUT 800CC AFTER BAE PULLED AT 2230 LAST EVENING. PT HAD LARGE BM. PT WAS A 2P FWW TO BS. PT DRANK WATER T/O THE NIGHT. PT HAS VARIES BRUSING T/O BODY. CALL LIGHT IN REACH, BED IN LOWEST POSITON.
[2020-07-17 05:18] LABS: BASOPHILS ABSOLUTE AUTO 0.08 K/mm3 (0.00-0.23); BASOPHILS PERCENT AUTO 1 % (0-2); EOSINOPHILS ABSOLUTE AUTO 0.18 K/mm3 (0.00-0.68); EOSINOPHILS PERCENT AUTO 3 % (0-6); Hematocrit 24.9 % (33.0-51.0); IMMATURE GRAN ABSOLUTE AUTO 0.07 K/mm3 (0.00-0.10); IMMATURE GRAN PERCENT AUTO 1 % (0-1); LYMPHOCYTES ABSOLUTE AUTO 1.41 K/mm3 (0.84-5.20); LYMPHOCYTES PERCENT AUTO 24 % (21-46); MONOCYTES ABSOLUTE AUTO 0.69 K/mm3 (0.16-1.47); MONOCYTES PERCENT AUTO 12 % (4-13); Mean Corpuscular HGB 33.5 pg (26.0-34.0); Mean Corpuscular HGB Conc 32.1 g/dL (31.5-36.5); Mean Corpuscular Volume 104 fL (80-100); Mean Platelet Volume 10.6 fL (9.1-12.4); NEUTROPHILS ABSOLUTE AUTO 3.47 K/mm3 (1.96-9.15); NEUTROPHILS PERCENT AUTO 59 % (41-73); Platelet Count 333 K/mm3 (150-400); RDW Coefficient Variation 13.9 % (11.7-14.2); RDW Standard Deviation 52.9 fL (35.1-46.3); Red Blood Cell Count 2.39 M/mm3 (3.80-5.20)
[2020-07-17 05:31] LABS: Anion Gap 5 mmol/L (6-16); Blood Urea Nitrogen 5 mg/dL (8-24); Bun/Creatinine Ratio 8.9 (12.0-20.0); CO2, Blood 29 mmol/L (21-32); Calcium, Blood 8.4 mg/dL (8.5-10.1); Chloride, Blood 103 mmol/L (98-108); Creatinine, Blood 0.56 mg/dL (0.40-1.00); Glomerular Filtration Rate >60 (60-); Glucose, Blood 96 mg/dL (70-99); Magnesium, Blood 1.7 mg/dL (1.6-2.4); Potassium, Blood 3.5 mmol/L (3.5-5.5); Sodium, Blood 137 mmol/L (136-145)
--- NOTE | 2020-07-17 16:34 | NUR ---
SHIFT SUMMARY PATIENT DENIES PAIN, NAUSEA, AND SHORTNESS OF BREATH. PATIENT UP ONE ASSIST STAND PIVOT TO BSC. PATIENT PLEASANT AND COOPERATIVE WITH CARE. PATIENT ORIENTED BUT FORGETFUL AND EMOTIONAL AT TIMES. PATIENT DECLINED SPEECH REASSEMENT TODAY, REMAINS ON PUREE DIET. POOR APPETITE.
--- NOTE | 2020-07-17 18:27 | NUR ---
PATIENT PULLED CENTRAL LINE PATIENT PULLED CENTRAL LINE BY ACCIDENT. CATHETER INTACT. PRESSURE HELD AT SITE WITH STERILE GAUZE FOR 5 MINUTES. NO BLEEDING NOTED. PATIENT SUPINE FOR 30 MINUTES. TEGADERM APPLIED TO SITE. PATIENT DENIES DIFFICULTY BREATHING, COUGH, OR CHEST PAIN.
--- NOTE | 2020-07-18 04:27 | NUR ---
SHIFT SUMMARY ASSUMED CARE OF PT AT 1900. PT IS A/OX3 WITH TIMES OF CONFUSION. HEART SOUNDS REGULAR, TELE SHOWS SINUS. LUNG SOUNDS HAVE CRACKLES T/O, RT NOTED THAT PT SATURATIONS WERE LOW IN THE 80% AND PUT PT ON 3L NC BUT ALSO STATED THAT HE FINGERS WERE COLD AND NOT GETTING A GOOD READING. PT IS A 1P MIN ASSIST TO BSC. PT WAS CONTINENT T/O THE NIGHT. PT CENTRAL LINE AREA IS FREE OF REDNESS AND SWELLING. PT COMPLAINED OF NOT BEING ABLE TO SLEEP WELL LAST NIGHT AND ASKED FOR HER SEROQUEL. HOME MED REC HOWS THAT PT TAKES 400MG AT NIGHT. NIGHTSHIFT DOC THOUGHT SINCE NOT GOTTEN MED SINCE ADMISSION TO START ON A LOWER DOSE, 50MG, AND HAVE THE DAYSHIFT DOCTORS REEVALUATE THE MED REC. CALL LIGHT IN REACH, BED IN LOWEST POSITION.
[2020-07-18 05:48] LABS: Anion Gap 5 mmol/L (6-16); Blood Urea Nitrogen 6 mg/dL (8-24); Bun/Creatinine Ratio 10.8 (12.0-20.0); CO2, Blood 28 mmol/L (21-32); Calcium, Blood 8.7 mg/dL (8.5-10.1); Chloride, Blood 104 mmol/L (98-108); Creatinine, Blood 0.55 mg/dL (0.40-1.00); Glomerular Filtration Rate >60 (60-); Glucose, Blood 99 mg/dL (70-99); Potassium, Blood 3.6 mmol/L (3.5-5.5); Sodium, Blood 137 mmol/L (136-145)
--- NOTE | 2020-07-18 17:20 | NUR ---
SHIFT SUMMARY PT SLEPT ON & OFF TODAY. UP TO BSC W/ 1 ASSIST. BED ALARM ON FOR SAFETY, BUT PT USES CALL LIGHT APPROP. EATING, DRINKNG, VOIDING & HAVING STOOLS. DIASTOLIC BP CONTINUES TO BE ELEVATED DESPITE CHANGE IN MEDS.
--- NOTE | 2020-07-19 04:23 | NUR ---
SHIFT SUMMARY ASSUMED CARE OF PT AT 1900. PT IS A/OX4. HEART SOUNDS REGULAR, LUNG SOUNDS HAVE CRACKLES IN THE BASES, PT DID NOT NEED OXYGEN THIS EVENING. PT WAS A 1P ASSIST TO BSC. PT WAS FINALLY ABLE TO GET SOME SLEEP THIS EVENING WITH HER SEROQUEL. CALL LIGHT IN REACH, BED IN LOWEST POSTION.
[2020-07-19] MEDS ORDERED: METO25 PO (08:39)
[2020-07-19] MEDS ORDERED: CEFU500T30 PO (08:40)
[2020-07-19] MEDS ORDERED: PANT40 PO (08:41)
--- NOTE | 2020-07-20 04:23 | NUR ---
SHIFT SUMMARY ASSUMED CARE OF PT AT 1900. PT IS A/OX4. HEART SOUNDS REGULAR, LUNG SOUNDS HAVE CRACKLES AT THE BASES. PT WAS CONTIENT TO THE BSC WITH 1P MINIMAL ASSIST. PT WAS ABLE TO SLEEP BETTER TONIGHT. CALL LIGHT IN REACH, BED IN LOWEST POSITON.
[2020-07-20] MEDS ORDERED: Prinivil10 MG PO (09:42)
[2020-07-20] MEDS ORDERED: CEPH500 PO (09:42)
--- NOTE | 2020-07-20 17:04 | NUR ---
DISCHARGED HOME WITH ALL PERSONAL BELONGINGS IN PATIENT POSSESSION. TEACHBACK METHOD EFFECTIVE AND ALL QUESTIONS ANSWERED.
--- NOTE | 2020-07-20 18:02 | NUR ---
Spiritual care note: Madipatricio was pleasant and talkative. She told me she plans to quit drinking and smoking. "I want to live. I need to take better care of my body." Her only concern is going home to her partner of 33 years who still drinks and smokes. "He's going to have to quit too. He told me he'll try." Tavia asked for prayer and also provided gentle senior counsel to good effect. she was being d/c shortly.
== END 2020-07-20 17:01 | disposition home health service (06) | DRG 896 ==
LOC: ER 19:27 → ERHOLD 19:28 → ICUW 19:28 → MEDS 07-16 18:16 → ENPENDDIS 07-19 12:01 → MEDS 07-20 17:01
PROVIDERS: Emergency Medicine; Family Medicine; Internal Medicine; Internal Medicine Critical Care Medicine; Internal Medicine Pulmonary Disease; Nurse Practitioner Acute Care; Physician Assistant; Student in an Organized Health Care Education/Training Program; ADMIT Family Medicine
PROC: 0BH18EZ Insertion of Endotracheal Airway into Trachea, Via Natural or Artificial Opening Endoscopic (ICD-10-PCS; principal; 2020-07-11)
PROC: 5A1945Z Respiratory Ventilation, 24-96 Consecutive Hours (ICD-10-PCS; 2020-07-11)
PROC: 02HV33Z Insertion of Infusion Device into Superior Vena Cava, Percutaneous Approach (ICD-10-PCS; 2020-07-12)
PROC: 04HY32Z Insertion of Monitoring Device into Lower Artery, Percutaneous Approach (ICD-10-PCS; 2020-07-12)
PROC: 4A133B1 Monitoring of Arterial Pressure, Peripheral, Percutaneous Approach (ICD-10-PCS; 2020-07-12)
PROC: 4A133J1 Monitoring of Arterial Pulse, Peripheral, Percutaneous Approach (ICD-10-PCS; 2020-07-12)
PROC: 3E033XZ Introduction of Vasopressor into Peripheral Vein, Percutaneous Approach (ICD-10-PCS; 2020-07-12)
DX: F10.231 Alcohol dependence with withdrawal delirium (principal); G92 Toxic encephalopathy; J96.01 Acute respiratory failure with hypoxia; K85.20 Alcohol induced acute pancreatitis without necrosis or infection; J15.5 Pneumonia due to Escherichia coli; J69.0 Pneumonitis due to inhalation of food and vomit; N12 Tubulo-interstitial nephritis, not specified as acute or chronic; J44.0 Chronic obstructive pulmonary disease with (acute) lower respiratory infection; N39.0 Urinary tract infection, site not specified; E87.1 Hypo-osmolality and hyponatremia; R78.81 Bacteremia; R57.9 Shock, unspecified; F10.121 Alcohol abuse with intoxication delirium; F17.210 Nicotine dependence, cigarettes, uncomplicated; I10 Essential (primary) hypertension; I16.0 Hypertensive urgency; E87.6 Hypokalemia; E11.9 Type 2 diabetes mellitus without complications; Z88.0 Allergy status to penicillin; Z88.5 Allergy status to narcotic agent; Z88.8 Allergy status to other drugs, medicaments and biological substances; Z88.6 Allergy status to analgesic agent; F32.9 Major depressive disorder, single episode, unspecified; Z86.73 Personal history of transient ischemic attack (TIA), and cerebral infarction without residual deficits; I27.20 Pulmonary hypertension, unspecified; F31.9 Bipolar disorder, unspecified; Z90.721 Acquired absence of ovaries, unilateral; Z90.710 Acquired absence of both cervix and uterus; Z98.51 Tubal ligation status; Z91.040 Latex allergy status; Z79.899 Other long term (current) drug therapy; E83.42 Hypomagnesemia; E83.39 Other disorders of phosphorus metabolism; T42.4X5A Adverse effect of benzodiazepines, initial encounter; Z89.511 Acquired absence of right leg below knee
CPT/HCPCS: 31500; 36415; 36556; 36600; 36620; 51702; 70450; 71045; 71260; 72125; 74160; 74177; 80048; 80053; 81001; 82550; 82803; 82947; 83605; 83690; 83735; 84100; 84132; 84484; 85025; 85027; 87040; 87070; 87077; 87086; 87186; 87205; 92526; 92610; 93005; 93010; 94002; 94003; 94640; 94667; 94760; 96374; 96375; 96376; 97110; 97116; 97162; 97166; 97530; 97535; 99285-25; A9270; C1751; C9113; J0360; J0696; J0713; J1170; J1650; J1815; J1940; J2060; J2310; J2370; J2405; J2550; J2704; J3010; J3411; J3475; J3480; J7030; J7040; J7042; J7060; J7120; Q9967; U0004

== ENCOUNTER 2020-10-05 09:47 | Observation (INO) | payer OTHER ==
[~2020-10-05] VITALS: Ht 160 cm; Wt 54.4 kg
[~2020-10-05 09:47] MED LIST changes: +CEFU500T30 PO; +CEPH500 PO; +METO25 PO; +PANT40 PO; +Prinivil10 MG PO
[2020-10-05 12:51] LABS: BASOPHILS ABSOLUTE AUTO 0.05 K/mm3 (0.00-0.23); BASOPHILS PERCENT AUTO 1 % (0-2); EOSINOPHILS ABSOLUTE AUTO 0.24 K/mm3 (0.00-0.68); EOSINOPHILS PERCENT AUTO 5 % (0-6); Hematocrit 38.3 % (33.0-51.0); Hemoglobin 12.4 g/dL (11.5-16.0); IMMATURE GRAN ABSOLUTE AUTO 0.02 K/mm3 (0.00-0.10); IMMATURE GRAN PERCENT AUTO 0 % (0-1); LYMPHOCYTES ABSOLUTE AUTO 1.37 K/mm3 (0.84-5.20); LYMPHOCYTES PERCENT AUTO 26 % (21-46); MONOCYTES ABSOLUTE AUTO 0.25 K/mm3 (0.16-1.47); MONOCYTES PERCENT AUTO 5 % (4-13); Mean Corpuscular HGB 32.5 pg (26.0-34.0); Mean Corpuscular HGB Conc 32.4 g/dL (31.5-36.5); Mean Corpuscular Volume 101 fL (80-100); Mean Platelet Volume 8.7 fL (9.1-12.4); NEUTROPHILS ABSOLUTE AUTO 3.38 K/mm3 (1.96-9.15); NEUTROPHILS PERCENT AUTO 64 % (41-73); Platelet Count 191 K/mm3 (150-400); RDW Coefficient Variation 15.5 % (11.7-14.2); RDW Standard Deviation 57.5 fL (35.1-46.3); Red Blood Cell Count 3.81 M/mm3 (3.80-5.20); White Blood Cell Count 5.31 K/mm3 (4.00-11.30)
[2020-10-05 13:24] LABS: Alanine Aminotransfer (ALT/SGP 26 U/L (12-78); Albumin, Blood 3.5 g/dL (3.4-5.0); Albumin/Globulin Ratio 0.9 (0.8-1.8); Alk Phos 124 U/L (50-136); Anion Gap 11 mmol/L (6-16); Aspartate Aminotrans (AST/SGOT 35 U/L (12-37); Bilirubin, Total 0.2 mg/dL (0.1-1.0); Blood Urea Nitrogen 5 mg/dL (8-24); CO2, Blood 20 mmol/L (21-32); Calcium, Blood 8.8 mg/dL (8.5-10.1); Chloride, Blood 104 mmol/L (98-108); Creatinine, Blood 0.55 mg/dL (0.40-1.00); Globulin, Blood 4.1 g/dL (2.2-4.0); Glomerular Filtration Rate >60 (60-); Glucose, Blood 91 mg/dL (70-99); Sodium, Blood 135 mmol/L (136-145); Total Protein, Blood 7.6 g/dL (6.4-8.2)
[2020-10-05 14:40] LABS: SARS-Cov-2 (COVID-19) PCR, MMC NEGATIVE (NEGATIVE)
[2020-10-06 04:22] LABS: BASOPHILS ABSOLUTE AUTO 0.05 K/mm3 (0.00-0.23); BASOPHILS PERCENT AUTO 1 % (0-2); EOSINOPHILS ABSOLUTE AUTO 0.16 K/mm3 (0.00-0.68); EOSINOPHILS PERCENT AUTO 3 % (0-6); Hematocrit 34.6 % (33.0-51.0); Hemoglobin 11.2 g/dL (11.5-16.0); IMMATURE GRAN ABSOLUTE AUTO 0.02 K/mm3 (0.00-0.10); IMMATURE GRAN PERCENT AUTO 0 % (0-1); LYMPHOCYTES ABSOLUTE AUTO 0.98 K/mm3 (0.84-5.20); LYMPHOCYTES PERCENT AUTO 19 % (21-46); MONOCYTES ABSOLUTE AUTO 0.35 K/mm3 (0.16-1.47); MONOCYTES PERCENT AUTO 7 % (4-13); Mean Corpuscular HGB 32.7 pg (26.0-34.0); Mean Corpuscular HGB Conc 32.4 g/dL (31.5-36.5); Mean Corpuscular Volume 101 fL (80-100); Mean Platelet Volume 8.9 fL (9.1-12.4); NEUTROPHILS ABSOLUTE AUTO 3.53 K/mm3 (1.96-9.15); NEUTROPHILS PERCENT AUTO 69 % (41-73); Platelet Count 167 K/mm3 (150-400); RDW Coefficient Variation 15.5 % (11.7-14.2); RDW Standard Deviation 57.1 fL (35.1-46.3); Red Blood Cell Count 3.43 M/mm3 (3.80-5.20); White Blood Cell Count 5.09 K/mm3 (4.00-11.30)
[2020-10-06 04:49] LABS: Anion Gap 4 mmol/L (6-16); Blood Urea Nitrogen 13 mg/dL (8-24); Bun/Creatinine Ratio 23.1 (12.0-20.0); CO2, Blood 23 mmol/L (21-32); Calcium, Blood 8.7 mg/dL (8.5-10.1); Chloride, Blood 109 mmol/L (98-108); Creatinine, Blood 0.56 mg/dL (0.40-1.00); Glomerular Filtration Rate >60 (60-); Glucose, Blood 111 mg/dL (70-99); Magnesium, Blood 1.9 mg/dL (1.6-2.4); Potassium, Blood 4.5 mmol/L (3.5-5.5); Sodium, Blood 136 mmol/L (136-145)
[2020-10-06] MEDS ORDERED: Norco 5-325 Ta1 EACH PO (12:54)
[2020-10-06] MEDS ORDERED: SENN187 PO (12:55)
== END 2020-10-06 16:26 | disposition home or self-care (01) ==
LOC: ER 09:47 → SURS 13:15
PROVIDERS: Emergency Medicine; Nurse Practitioner Acute Care; ADMIT Internal Medicine
DX: S72.001A Fracture of unspecified part of neck of right femur, initial encounter for closed fracture (principal); J44.9 Chronic obstructive pulmonary disease, unspecified; I10 Essential (primary) hypertension; E11.9 Type 2 diabetes mellitus without complications; F10.21 Alcohol dependence, in remission; F31.9 Bipolar disorder, unspecified; F17.210 Nicotine dependence, cigarettes, uncomplicated; E78.5 Hyperlipidemia, unspecified; K21.9 Gastro-esophageal reflux disease without esophagitis; W01.0XXA Fall on same level from slipping, tripping and stumbling without subsequent striking against object, initial encounter; Z90.49 Acquired absence of other specified parts of digestive tract; Z89.511 Acquired absence of right leg below knee; Z86.73 Personal history of transient ischemic attack (TIA), and cerebral infarction without residual deficits; Z20.822 Contact with and (suspected) exposure to COVID-19; Z79.84 Long term (current) use of oral hypoglycemic drugs
CPT/HCPCS: 36415; 73502; 80048; 80053; 83735; 85025; 90471; 91303; 97110; 97162; 97165; 97530; 97535; 99284-25; A9270; G0378; J3010; J7030; U0004

== ENCOUNTER → 2021-01-24 | Outpatient (CLI) | payer OTHER ==
[2021-01-24 15:45] LABS: CHOL/HDL RATIO 3.3; Cholesterol 207 mg/dL (50-200); HDL Cholesterol 62 mg/dL (>39); LDL/HDL RATIO 1.8; Low Density Lipoprotein Chol 109 mg/dL (0-110); Triglycerides 178 mg/dL (30-160); Troponin I <0.015 ng/mL (0.000-0.040); Very Low Density Lipoprot Chol 35 mg/dL (6-32)
== END | disposition home or self-care (01) ==
LOC: LAB SHORT 12:53 → LAB 12:53
PROVIDERS: Nurse Practitioner
DX: E78.00 Pure hypercholesterolemia, unspecified (principal); R07.9 Chest pain, unspecified; R73.03 Prediabetes
CPT/HCPCS: 80061; 83036; 84484

== ENCOUNTER → 2021-04-04 | Outpatient (CLI) | payer OTHER ==
[~2021-04-04] MED LIST changes: +IBUP400 PO
== END | disposition home or self-care (01) ==
LOC: LAB SHORT 12:35
DX: R30.9 Painful micturition, unspecified (principal)
CPT/HCPCS: 87077; 87086; 87186

== ENCOUNTER 2021-04-06 17:55 | Inpatient (IN) | payer OTHER ==
[~2021-04-06] VITALS: Ht 165.1 cm; Wt 37.1 kg
[2021-04-06 18:38] LABS: Hematocrit 40.8 % (33.0-51.0); Hemoglobin 14.1 g/dL (11.5-16.0); Mean Corpuscular HGB 33.4 pg (26.0-34.0); Mean Corpuscular HGB Conc 34.6 g/dL (31.5-36.5); Mean Corpuscular Volume 97 fL (80-100); Mean Platelet Volume 9.6 fL (9.1-12.4); Platelet Count 185 K/mm3 (150-400); RDW Coefficient Variation 13.8 % (11.7-14.2); RDW Standard Deviation 49.5 fL (35.1-46.3); Red Blood Cell Count 4.22 M/mm3 (3.80-5.20); White Blood Cell Count 5.87 K/mm3 (4.00-11.30)
[2021-04-06 18:53] LABS: Alanine Aminotransfer (ALT/SGP 318 U/L (12-78); Albumin, Blood 3.3 g/dL (3.4-5.0); Albumin/Globulin Ratio 0.7 (0.8-1.8); Alk Phos 274 U/L (50-136); Anion Gap 12 mmol/L (6-16); Aspartate Aminotrans (AST/SGOT 669 U/L (12-37); Bilirubin, Total 1.2 mg/dL (0.1-1.0); Blood Urea Nitrogen 19 mg/dL (8-24); Bun/Creatinine Ratio 20.7 (12.0-20.0); CO2, Blood 19 mmol/L (21-32); Calcium, Blood 9.2 mg/dL (8.5-10.1); Chloride, Blood 98 mmol/L (98-108); Creatinine, Blood 0.92 mg/dL (0.40-1.00); Free Thyroxine 1.18 ng/dL (0.70-1.60); Globulin, Blood 4.7 g/dL (2.2-4.0); Glomerular Filtration Rate >60 (60-); Glucose, Blood 201 mg/dL (70-99); Potassium, Blood 4.4 mmol/L (3.5-5.5); Sodium, Blood 129 mmol/L (136-145)
[2021-04-06 20:03] LABS: BAND PERCENT MAN 58 % (0-8); BASOPHILS PERCENT MAN 0 % (0-2); EOSINOPHILS PERCENT MAN 0 % (0-6); LYMPHOCYTES ABSOLUTE MAN 0.11 K/mm3 (0.84-5.20); LYMPHOCYTES PERCENT MAN 2 % (21-46); METAMYELOCYTE ABSOLUTE MAN 0.17 K/mm3 (0.00-0.00); METAMYELOCYTE PERCENT MAN 3 % (0-0); MONOCYTES ABSOLUTE MAN 0.11 K/mm3 (0.16-1.47); MONOCYTES PERCENT MAN 2 % (4-13); MYELOCYTE ABSOLUTE MAN 0.05 K/mm3 (0.00-0.00); MYELOCYTE PERCENT MAN 1 % (0-0); SEG NEUTROPHILS PERCENT MAN 34 % (41-73); TOTAL CELLS COUNTED 100
[2021-04-07 02:15] LABS: Source, Urine Clean Catch
[2021-04-07 02:35] LABS: Appearance, Urine Hazy (Clear); Bilirubin, Urine Neg (Neg); Blood, Urine 4+ (Neg); Color, Urine Yellow (P-Yellow); Glucose Qualitative, Urine Neg (Neg); Ketones, Urine Neg (Neg); Leukocyte Esterase, Urine 3+ (Neg); Nitrite, Urine Pos (Neg); Protein, Urine 3+ (Neg); Specific Gravity, Urine 1.005 (1.003-1.022); Urobilinogen, Urine NORM (Normal); pH, Urine 6.5 (5.0-8.0)
[2021-04-07 03:00] LABS: U Amphetamine Screen Not Detected; U Barbituate Screen Not Detected; U Benzodiazapine Screen Not Detected; U Buprenorphine Screen Not Detected; U Cannabinoids Screen Not Detected; U Cocaine Screen Not Detected; U Methadone Screen Not Detected; U Methamphetamine Screen Not Detected; U Opiates Screen Not Detected; U Oxycodone Screen Not Detected; U Phencyclidine Screen Not Detected; U Propoxyphene Screen Not Detected
[2021-04-07 03:03] LABS: White Blood Cells, Urine 50-100 /hpf (0-5)
[2021-04-07 03:04] LABS: Bacteria Mod /hpf; Squamous Epithelial Cells Few /hpf (Few)
--- NOTE | 2021-04-07 05:06 | NUR ---
REPORT RECEIVED FROM MANFRED IN ER. PATIENT TO ICU 8 AT 2227. PATIENT A/O X4. DILTIAZEM DRIP INFUSING AT 10MG/HR. HR IN 130S AT TIME OF ICU ADMISSION WITH A STABLE BP ON 2LNC. PATIENT ANXIOUS BUT COOPERATIVE. MAINLY C/O PAIN IN LOWER ABDOMEN THAT SHE SAID STARTED THIS MORNING AND LASTED ALL DAY. ORDERS RECEIVED FROM DR. HEAD FOR LABS, BAE CATHETER, AND BLOOD CX. CRITICAL LACTIC ACID AT 7.7. LIMITED IV ACCESS. POWERGLIDE WAS PLACED TO R UPPER ARM. PATIENT HAD OBVIOUS URINARY RETENTION UPON OBSERVING AND PALPATING. 50 FENTANYL GIVEN FOR ABD PAIN AND SEEMS TO HAVE PROVIDED SOME RELIEF
[2021-04-07 05:12] LABS: Hematocrit 31.3 % (33.0-51.0); Hemoglobin 10.3 g/dL (11.5-16.0); Mean Corpuscular HGB Conc 32.9 g/dL (31.5-36.5); Mean Platelet Volume 9.9 fL (9.1-12.4); Platelet Count 76 K/mm3 (150-400); RDW Coefficient Variation 13.9 % (11.7-14.2); RDW Standard Deviation 53.5 fL (35.1-46.3); Red Blood Cell Count 3.03 M/mm3 (3.80-5.20); White Blood Cell Count 18.82 K/mm3 (4.00-11.30)
--- NOTE | 2021-04-07 05:19 | NUR ---
DILTIAZEM DRIP ON STANDBY AT 7575
[2021-04-07 05:25] LABS: Mean Corpuscular Volume 103 fL (80-100)
[2021-04-07 05:51] LABS: BAND PERCENT MAN 40 % (0-8); BASOPHILS PERCENT MAN 0 % (0-2); EOSINOPHILS PERCENT MAN 0 % (0-6); LYMPHOCYTES ABSOLUTE MAN 0.56 K/mm3 (0.84-5.20); LYMPHOCYTES PERCENT MAN 3 % (21-46); METAMYELOCYTE ABSOLUTE MAN 0.37 K/mm3 (0.00-0.00); METAMYELOCYTE PERCENT MAN 2 % (0-0); MONOCYTES ABSOLUTE MAN 0.56 K/mm3 (0.16-1.47); MONOCYTES PERCENT MAN 3 % (4-13); MYELOCYTE ABSOLUTE MAN 0.37 K/mm3 (0.00-0.00); MYELOCYTE PERCENT MAN 2 % (0-0); NEUTROPHILS ABSOLUTE MAN 16.93 K/mm3 (1.96-9.15); SEG NEUTROPHILS PERCENT MAN 50 % (41-73); TOTAL CELLS COUNTED 100
[2021-04-07 06:02] LABS: Albumin/Globulin Ratio 0.7 (0.8-1.8); Bilirubin, Total 0.8 mg/dL (0.1-1.0); Bun/Creatinine Ratio 17.2 (12.0-20.0); Calcium, Blood 7.3 mg/dL (8.5-10.1); Creatinine, Blood 1.28 mg/dL (0.40-1.00); Potassium, Blood 2.9 mmol/L (3.5-5.5)
--- NOTE | 2021-04-07 07:32 | NUR ---
SHIFT SUMMARY: PATIENT HAS BECOME MORE LETHARGIC THROUGHOUT THE SHIFT. SBP HAS BEEN LOW IS NOW IN 70S, MEANWHILE MAP IS RIGHT AT 65 MOST OF THE TIME. 500NS BOLUS INFUSING WITH SOME IMPOVEMENT. RIGHT AROUND SHIFT CHANGE, MAP IN 50S. CHARGE-HAKAN PLACED ORDERS PER DAY MD FOR LR BOLUS WELL LEVOPHED IN CASE WE NEED IT. ELECTROLYTE REPLACEMENT ORDERED WELL AN ORDER FOR DR. MACHADO TO BE NOTIFIED TODAY. LIVER ENZYMES VERY ELEVATED AND HER ABD PAIN HAS BEEN CONSISTENT. NO BM SINCE ADMISSION. GI SAMPLE NOT OBTAINED. UA AND TOX SCREEN PENDING. BOYFRIEND-ARDEN HAS BEEN UPDATED
--- NOTE | 2021-04-07 09:21 | NUR ---
ASSUMPTION OF CARE RECEIVED REPORT FROM BRANDON SPANN AT 0730, ASSUMED CARE OF PATIENT. PATIENT LAYING ON SIDE IN BED, RESP STATUS STABLE ON RA, SATS ABOVE 95%. EASILY AWOKE AND ORIENTED. STATING PAIN IN RIGHT SIDE OF ABD, MORE PAINFUL WITH PALPATION. PATIENT CURRENTLY SINUS TACH LOW 100'S, HYPOTENSIVE WITH FLUID BOLUS INFUSING AND LEVOPHED STARTED CHARTED. PHYSICIAN DYER AWARE OF PATIENT'S CONDITION. ADDITIONAL ORDERS FOR LR BOLUS RECIEVED AND PICC LINE BEING PLACED FOR INCREASED LEVOPHED NEEDS. GI CONSULT COMPLETED, NO BM SINCE ADMISSION. WILL CONTINUE TO MONITOR AND TREAT PRESCRIBED.
--- NOTE | 2021-04-07 10:37 | NUR ---
PATIENT RECIEVED PICC LINE FROM [phone]. VASCULAR ACCESS ON RIGHT SIDE OF ARM, UNABLE TO GET BLOOD PRESSURE DURING THIS TIME
--- NOTE | 2021-04-07 12:15 | NUR ---
TRANSFER OF CARE REPORT TO TEE RN AT THIS TIME TO ASSUME CARE OF PATIENT.
--- NOTE | 2021-04-07 12:36 | NUR ---
ASSSUMED CARE REPORT RECEIVED FROM ZANA WETZEL. PT RESTING IN BED, DROWSY, BUT WAKES UP WHEN SPOKEN TO. ORIENTED TO PLACE, MONTH AND YEAR. LUNGS ARE CLEAR, RA. SINUS TACH WITH RATE IN THE 100S. ON LEVOPHED FOR BP SUPPORT, CURRENTLY AT 12 MCG/MIN. EXTREMITIES MOTTLED UP TO PT'S THIGHS, PULSES PRESENT IN WRISTS AND FEET. BAE WITH 150ML OF URINE OUTPUT, DARK SPENCER, CLOUDY. ABDOMEN TENDER TO SOFT PALPATION, BOWEL TONES ACTIVE.
--- NOTE | 2021-04-07 16:36 | NUR ---
PATIENT APPEARS CALM AFTER RECENT ATIVAN ADMINISTRATION
--- NOTE | 2021-04-07 17:11 | NUR ---
SHIFT SUMMARY PATIENT HYPOTENSIVE WITH MAP IN LOW 60s. LACTATED RINGER IV BOLUS AND NS GIVEN. PICC LINE PLACED IN LEFT UPPER ARM. LEVOPHED STARTED, CURRENTLY RUNNING AT 10 MCG/MINUTE. BLOOD PRESSURE HAS BEEN IN 80s-90s WITH MAP OF 60-70. PATIENT COMPLAINED OF ABDOMINAL PAIN. 50 MCG OF FENTANYL GIVEN TO HELP WITH PAIN. TOTAL URINE OUTPUT IS 310 ML. AROUND 1600 PATIENT COMPLAINED OF NAUSEA AND BEGAN TO DRY HEAVE. 4 MG OF ZOFRAN WAS ADMINISTERED. PATIENT WAS ANXIOUS AND HAD VISIBLE TREMORS. CIWA ASSESSMENT WAS COMPLETED WITH A SCORE OF 21. 2 MG OF ATIVAN GIVEN. UPON REASSESSMENT PATIENT APPEARED CALM AND MORE RELAXED. PATIENT REPORTED HAVING DIFFICULTY BREATHING AND REQUESTED A BREATHING TREATMENT.
--- NOTE | 2021-04-07 18:07 | NUR ---
SHIFT SUMMARY PT HAS BEEN RESTING IN BED THROUGHOUT THE DAY. SHE REMAINS ORIENTED TO PERSON, PLACE, DATE AND TIME, BUT SLEEPS UNLESS SPOKEN TOO. THIS AFTERNOON SHE BECAME NAUSEOUS, SHAKING, TACHY UP TO 130S AND ACTUALLY BECAME HYPERTENSIVE. AT THAT TIME PT SCORED 21 ON CIWAA SO ATIVAN GIVEN AND PT RELAXED, TREMORS STOPPED. ZOFRAN GIVEN FOR NAUSEA. PT'S BP DROPPED AGAIN AND LEVOPHED ADJUSTED. PT AT THAT TIME ALSO REQUESTED A BRATHING TX. PT STATED SHE USES ALBUTEROL AT HOME. DR. DYER NOTIFIED AND RECEIVED ORDER FOR ALBUTEROL NEBS, THEN RT NOTIFIED AND GAVE TREATMENT. PT CONTINUES TO HAVE ABDOMINAL PAIN, MEDICATED ONCE TODAY FOR IT. DR. DYER GAVE ORDERS TO CONTINUE IV FLUIDS THROUGH THE NIGHT, SEE MAR.
--- NOTE | 2021-04-07 19:40 | NUR ---
ASSUMED CARE OF PATIENT, SHE MOANING IN BED, WHEN ASKED ABOUT PAIN SHE STATED HER HEAD WAS HURTING. SHE MOANS WHEN HER ABDOMEN IS TOUCHED, ANSWERS THAT SHE IS IN [place] AND [place], THAT SHE FEELS LIKE SHE IS TREMBLING. MEDICATED FOR PAIN WITH FENTANYL. RESPIRATORY RATE IN THE 30'S, DIMINISHED T/O. ABDOMEN HYPOACTIVE, LEFT FOOT WITH GOOD PULSES, NO EDEMA, RIGHT THIGH MOTTLED APPEARING, BAE WITH DARK YELLOW RETURN. LR @ 75ML/HR, LEVO @ 10MCG/MIN.
--- NOTE | 2021-04-07 21:07 | NUR ---
PT CIWA SCORE OF 16, MEDICATED WITH ATIVAN. BLOOD PRESSURE REMAINS LABILE, NOR EPI @ 15MCG/MIN. ANXIOUS, NAUSEATED.
--- NOTE | 2021-04-07 22:24 | NUR ---
verified with Tavia that she is able to take Tylenol and that she is not allergic.
[2021-04-08 04:50] LABS: Hematocrit 28.5 % (33.0-51.0); Hemoglobin 9.3 g/dL (11.5-16.0); Mean Corpuscular HGB 33.5 pg (26.0-34.0); Mean Corpuscular HGB Conc 32.6 g/dL (31.5-36.5); Mean Corpuscular Volume 103 fL (80-100); Platelet Count 55 K/mm3 (150-400); RDW Coefficient Variation 14.1 % (11.7-14.2); RDW Standard Deviation 53.6 fL (35.1-46.3); Red Blood Cell Count 2.78 M/mm3 (3.80-5.20)
[2021-04-08 05:00] LABS: International Normalized Ratio 3.56; Prothrombin Time Results 34.4 Sec (9.7-11.5)
[2021-04-08 05:06] LABS: Bun/Creatinine Ratio 20.8 (12.0-20.0); Calcium, Blood 7.3 mg/dL (8.5-10.1); Creatinine, Blood 1.25 mg/dL (0.40-1.00); Potassium, Blood 4.5 mmol/L (3.5-5.5)
[2021-04-08 05:14] LABS: BAND PERCENT MAN 23 % (0-8); BASOPHILS ABSOLUTE MAN 0.24 K/mm3 (0.00-0.23); BASOPHILS PERCENT MAN 1 % (0-2); EOSINOPHILS ABSOLUTE MAN 0.24 K/mm3 (0.00-0.68); EOSINOPHILS PERCENT MAN 1 % (0-6); LYMPHOCYTES ABSOLUTE MAN 0.73 K/mm3 (0.84-5.20); LYMPHOCYTES PERCENT MAN 3 % (21-46); METAMYELOCYTE ABSOLUTE MAN 0.24 K/mm3 (0.00-0.00); METAMYELOCYTE PERCENT MAN 1 % (0-0); MONOCYTES ABSOLUTE MAN 0.73 K/mm3 (0.16-1.47); MONOCYTES PERCENT MAN 3 % (4-13); MYELOCYTE ABSOLUTE MAN 0.24 K/mm3 (0.00-0.00); MYELOCYTE PERCENT MAN 1 % (0-0); NEUTROPHILS ABSOLUTE MAN 21.96 K/mm3 (1.96-9.15); SEG NEUTROPHILS PERCENT MAN 67 % (41-73); TOTAL CELLS COUNTED 100
--- NOTE | 2021-04-08 08:00 | NUR ---
UPDATE: ABX CHANGE DR CUELLAR @ MED STUDENT@ BEDSIDE FOR AM ROUNDS. PT DROWSY, PAINFUL, DIFFICULTY PARTICIPATING IN ASSESSMENTS BUT IS ABLE TO FOLLOW SOME COMMANDS. PER DR Quiñones, PLAN TO CHANGE ABX TO VANCO & MERREM D/T PT INC WBC, FEVER, & PERSISTENT HYPOTENSION. WILL CONTINUE TO FOLLOW & REPORT APPROPRIATE.
--- NOTE | 2021-04-08 09:05 | NUR ---
UPDATE: HOSPITALIST ROUNDING. DR JACK @ BEDSIDE FOR AM ROUNDS, UPDATED ON PT's INC O2 DEMANDS & HYPOTENSION. AWAITING NEW ORDERS. PT CONTINUES TO REST W/ EYES CLOSED, AWAKES TO VERB STIM, BUT VERY DROWSY, UNABLE TO PARTICIPATE IN ASSESSMENTS. ABD US COMPLETE.
--- NOTE | 2021-04-08 10:50 | NUR ---
UPDATE: AGITATION/COARSE LS PT BECOMING MORE RESTLESS, UNABLE TO LAY FLAT OR RECLINED; HR 120s; LS COARSE W/ NONPRODUCTIVE COUGH & EXP WHEEZING. RT CALLED FOR BREATHING Tx, NO CHANGES. DR CUELLAR CALLED & UPDATED, DISCUSSED CONCERNS FOR PT's I&O's SHOWING +5L FLUID BALANCE. NO NEW ORDERS GIVEN @ THIS TIME.
[2021-04-08 12:48] LABS: Albumin/Globulin Ratio 0.7 (0.8-1.8); Bilirubin, Direct 1.1 mg/dL (0.0-0.3); Bilirubin, Indirect 0.4 mg/dL (0.1-0.7); Bilirubin, Total 1.5 mg/dL (0.1-1.0); Globulin, Blood 2.9 g/dL (2.2-4.0); Total Protein, Blood 4.9 g/dL (6.4-8.2)
--- NOTE | 2021-04-08 17:21 | NUR ---
UPDATE: PT CONTINUES TO BE TACHYCARDIC @ 137bpm, BP IMPROVED W/ LEVOPHED NOW 3mcg/min, TEMP 101.4, PT IS AGITATED & W/ LABORED RR & EXP WHEEZING. PT MEDICATED W/ PRN ATIVAN, FENTANYL, & PHENERGAN & PT APPEARS TO BE LESS AGITATED BUT OTHERWISE UNCHANGED. DR CUELLAR CALLED & UPDATED BY CORPORATE TRAVEL COORDINATOR. DISCUSSED TYLENOL FOR FEVER & CONCERN FOR INCREASING HR & AMS. NO NEW ORDERS GIVEN, DR Quiñones TO COME EVAL THE PT SHORTLY.
--- NOTE | 2021-04-08 18:15 | NUR ---
SHIFT SUMMARY: PT EVALUATED BY DR Quiñones, ORDERS PLACED FOR CO TYLENOL IF PT UNABLE TO TOLERATE FEVER. AT THIS TIME PT APPEARS COMFORTABLE, RESTING IN BED W/ EYES CLOSED. RR EVEN & UNLABORED. TEMP NOW 100.4. HR DEC TO 120s, & LEVO @ 1mcg/min. PT MUCH LESS AGITATED. AWAKES TO VERB STIM & IS ABLE TO FOLLOW SOME COMMANDS. CIWA REMAINS HIGH @ 18. PT NOW RESPONDING TO UNSEEN VISUAL STIM, LOOKING AROUND THE ROOM & EASILY DISTRACTED. MEDICATED PER EMAR W/ GOOD RESULTS. SEE PREVIOUS NOTATION FOR PT PROGRESSION.
--- NOTE | 2021-04-08 20:00 | NUR ---
ASSUMED CARE OF FRANCK, SHE IS MORE LETHARGIC TODAY, MOVING ALL OVER THE BED, O2 VIA NC @ 2L. WORK OF BREATHING INCREASED AND WHEEZING SCATTERED T/O. SHE HAS LEVO @ 1MCG INFUSING AND ACETYLCYTINE @ 64ML/HR, BAE TO GRAVITY DRAINAGE. ADMITS TO PAIN, ADMITS TO KNOWING WHERE SHE IS. CANNOT IDENTIFY PAIN, DOES NOT ANSWER QUESTIONS.
--- NOTE | 2021-04-08 21:50 | NUR ---
CARE REPORT GIVEN TO ZANA PATE. NO CHANGES IN PATIENT SINCE ASSESSMENT.
--- NOTE | 2021-04-09 00:03 | NUR ---
ASSUMED PT CARE FROM ZANA MURILLO AT 2150 PT RESTING IN BED. RESTLESS AND REPOSITIONS SELF FREQUENTLY. ORIENTED TO PERSON, PLACE, AND TIME. PT HAS BEEN TREATED FOR ALCOHOL WITHDRAWALS PER REPORT. PT HAS BEEN SLEEPING SINCE ASSUMPTION OF CARE; THEREFORE, CIWA HAS NOT YET BEEN PERFORMED. LUNG SOUNDS ARE COARSE T/O ALL LOBES. CURRENTLY ON CPAP AT THIS TIME WITH 4L BLEED IN. PT HAS BEEN SINUS TACHYCARDIA WITH HR 100-110'S. LEVOPHED AT 1MCG/MIN WITH SBP'S 70-80'S. LR AT 75ML/HR. AND ACETADOTE AT 64ML/HR. PICC TO LEFT UPPER ARM. MIDLINE TO RIGHT UPPER ARM. TEMP BAE IS PATENT AND DRAINING DARK, HAZY COLORED URINE TO GRAVITY. ELEVATED TEMP HAS RESOLVED; PT IS NOW 98 FAHRENHEIT.
[2021-04-09 04:06] LABS: Hematocrit 24.9 % (33.0-51.0); Hemoglobin 8.2 g/dL (11.5-16.0); Mean Corpuscular HGB 33.5 pg (26.0-34.0); Mean Corpuscular HGB Conc 32.9 g/dL (31.5-36.5); Mean Corpuscular Volume 102 fL (80-100); RDW Coefficient Variation 14.3 % (11.7-14.2); RDW Standard Deviation 52.8 fL (35.1-46.3); Red Blood Cell Count 2.45 M/mm3 (3.80-5.20); White Blood Cell Count 9.99 K/mm3 (4.00-11.30)
[2021-04-09 04:12] LABS: Platelet Count 34 K/mm3 (150-400)
[2021-04-09 04:23] LABS: International Normalized Ratio 1.9; Prothrombin Time Results 19.1 Sec (9.7-11.5)
[2021-04-09 04:43] LABS: Alanine Aminotransfer (ALT/SGP 3295 U/L (12-78); Albumin, Blood 1.9 g/dL (3.4-5.0); Albumin/Globulin Ratio 0.7 (0.8-1.8); Alk Phos 186 U/L (50-136); Anion Gap 6 mmol/L (6-16); Aspartate Aminotrans (AST/SGOT 3709 U/L (12-37); Bilirubin, Direct 1.2 mg/dL (0.0-0.3); Bilirubin, Indirect 0.3 mg/dL (0.1-0.7); Bilirubin, Total 1.5 mg/dL (0.1-1.0); Blood Urea Nitrogen 20 mg/dL (8-24); Bun/Creatinine Ratio 23.9 (12.0-20.0); CO2, Blood 24 mmol/L (21-32); Chloride, Blood 107 mmol/L (98-108); Creatinine, Blood 0.84 mg/dL (0.40-1.00); Globulin, Blood 2.7 g/dL (2.2-4.0); Glomerular Filtration Rate >60 (60-); Glucose, Blood 122 mg/dL (70-99); Potassium, Blood 3.6 mmol/L (3.5-5.5); Sodium, Blood 137 mmol/L (136-145); Total Protein, Blood 4.6 g/dL (6.4-8.2)
--- NOTE | 2021-04-09 04:49 | NUR ---
END OF SHIFT SUMMARY PT SLEPT MOST OF SHIFT; ABLE TO REPOSITION SELF IN BED. WOULD WAKE AND ASK FOR ORAL SPONGES EVERY ONCE IN A WHILE. CIWA OF 9 NOTED IN WHICH PT WAS MEDICATED WITH 2MG OF ATIVAN. PT REMAINED AFEBRILE WITH TEMP CURRENTLY 98.3. LEVOPHED TITRATED OFF THIS SHIFT WITH STABLE BP'S; SEE FLOWSHEET. PT TOLERATED CPAP FOR A SHORT WHILE; BACK TO 2L OF OXYGEN VIA NC WITH OXYGEN SATURATIONS 99%. PT REMAINS SINUS TACHYCARDIC WITH HR 110'S. LR REMAINS INFUSING AT 75MLS/HR AND ACETADOTE AT 64ML/HR. BAE IS PATENT AND DRAINING DARK, HAZY COLORED URINE TO GRAVITY. WILL CONTINUE TO MONITOR UNTIL REPORT IS HANDED OFF TO ONCOMING RN.
[2021-04-09 04:55] LABS: BAND PERCENT MAN 10 % (0-8); BASOPHILS PERCENT MAN 0 % (0-2); EOSINOPHILS ABSOLUTE MAN 0.49 K/mm3 (0.00-0.68); EOSINOPHILS PERCENT MAN 5 % (0-6); LYMPHOCYTES ABSOLUTE MAN 0.29 K/mm3 (0.84-5.20); LYMPHOCYTES PERCENT MAN 3 % (21-46); MONOCYTES ABSOLUTE MAN 0.39 K/mm3 (0.16-1.47); MONOCYTES PERCENT MAN 4 % (4-13); NEUTROPHILS ABSOLUTE MAN 8.79 K/mm3 (1.96-9.15); SEG NEUTROPHILS PERCENT MAN 78 % (41-73); TOTAL CELLS COUNTED 100
[2021-04-09 08:11] LABS: HBSAG SCREEN Negative (Negative); HEP A AB, IGM Negative (Negative); HEP B CORE AB, IGM Negative (Negative); HEP C VIRUS AB <0.1 (0.0-0.9)
[2021-04-09 08:54] LABS: Vancomycin, Trough 6.2 ug/mL (5.0-10.0)
--- NOTE | 2021-04-09 11:50 | NUR ---
REASSESSMENT PT HAS BEEN RESTING IN BED THROUGHOUT THE MORNING. SHE REPOSITIONS HERSELF FREQUENTLY, TURNING ONTO HER SIDES INDEPENDENTLY. SHE IS ALERT BUT SLOW IN HER RESPONSES AND SOMETIMES FALLS BACK ASLEEP OR LOSES FOCUS DURING A CONVERSATION. SHE IS ORIENTED TO PERSON, PLACE, MONTH AND YEAR. PO INTAKE WAS ATTEMPTED VIA TEASPOON AND PT TOLERATED IT WELL BUT HAS TO BE REMINDED TO TAKE SMALL SIPS. PO PILLS GIVEN IN APPLESAUCE AND PT DID OK WITH SMALL PILLS, BUT STRUGGLED WITH THE LACTOBACILLUS AT THE END SO FURTHER PO INTAKE HELD UNTIL PT IS MORE ALERT. VOCAL QUALITY WAS STILL CLEAR AFTER PILLS. CIWAA 12 THIS MORNING. MEDICATED PER APR. LUNGS HAVE EXPIRATORY WHEEZES, ON 2L/NC WITH SPO2 IN THE MID 90S. MOIST SOUNDING STRONG COUGH. HR SLOWED DOWN FROM 120S TO THE 80S AFTER MORNING MEDS, WHICH INCLUDED METOPROLOL. MAP HAS STAYED ABOVE 65MMHG. ABD GLASSWARE MAKER TO PALPATION BUT SEEMS LESS SENSITIVE THEN WHEN THIS NURSE CARED FOR PT ON SUNDAY PT TOLERATES MORE PRESSURE THAN SUNDAY. DARK YELLOW URINE IN THE BAE. GAVE PT'S BF ARDEN AND UPDATED BY TC.
--- NOTE | 2021-04-09 16:03 | NUR ---
SHIFT SUMMARY PT HAS BEEN RESTING IN BED THROUGHOUT THE SHIFT. SHE REMAINS DROWSY, WAKES TO VOICE BUT REQUIRES STIMULATION TO STAY AWAKE AND CONTINUE CONVERSATIONS. RESPONSES ARE SLOW. CIWAA SCORE AROUND 11 AND 12 TODAY, MEDICATED TWICE FOR WITHDRAWALS PER [facility]. LUNGS HAVE EXPIRATORY WHEEZES, ONE PRN BREATHING TX GIVEN THIS AM. REMAINS ON 2L/NC WITH SPO2 97%. SR WITH RATE IN THE 80S AND 90S FOR MOST OF THE SHIFT. BP HAS REMAINED STABLE OFF OF LEVOPHED. BAE WITH DARK YELLOW URINE, SMALL AMT OF SEDIMENT IN TUBING. UPDATED PT'S BF ARDEN, AGAIN THIS AFTERNOON. CONTINUING TO MONITOR.
--- NOTE | 2021-04-09 18:28 | NUR ---
SPOKE WITH DR. SOUSA AND HE GAVE INSTRUCTIONS TO CONTINUE N-ACETYLCYSTINE UNTIL LIVER ENZYMES ARE LESS THAN 1000. ALSO RECEIVED OK TO SWITCH HSV-1 TEST TO A BLOOD DRAW AND NOT A SWAB.
--- NOTE | 2021-04-09 23:32 | NUR ---
ASSUMED PT CARE AT 1900 PT RESTING IN BED; AROUSABLE TO VERBAL STIMULI. MOANING AND GROANING. ALERT AND ORIENTED X3. CIWA OF 6. PT VERY DROWSY AND ANSWERS SIMPLE YES/NO OR ONE WORDED QUESTIONS. PT ON 2.5L OF OXYGEN WITH SATURATIONS >90%. PT HAS VERY COARSE/WHEEZY LUNG SOUNDS WITH A WEAK, BUT PRODUCTIVE COUGH WHICH CLEARS LUNGS SOUNDS BRIEFLY. PT PLACED ON CPAP 10-20 CM H20 RAMP UP WITH 3LPM BLEED IN. PT REMAINS IN SINUS RHYTHM WITH RATE 90'S; BP'S STABLE WITH LEVOPHED OFF; SEE FLOWSHEET. ABDOMEN IS MODERATELY DISTENDED AND TENDER; PT NOTED TO GUARD DURING PALPATION; HYPOACTIVE BOWEL TONES. TEMP BAE; DARK SPENCER COLORED URINE WITH TEMP CURRENTLY ELEVATED AT 100.2. ORAL CARES PERFORMED; PT HAS VERY DRY AND CRACKED LIPS; MOISTURIZER APPLIED. PT HAS LR INFUSING AT 75ML/HR, NAC AT 64 ML/HR, AND NS TKO. PICC TO LEFT UPPER ARM. MIDLINE TO RIGHT UPPER ARM. SEE SHIFT SUMMARY FOR FURTHER DETAILS.
--- NOTE | 2021-04-10 | NUR ---
REASSESSMENT PT SLEEPING THROUGH ASSESSMENT. CPAP REMAINS IN PLACE AND MORE TOLERATED TONIGHT THAN LAST. LUNG SOUNDS ARE CLEAR/DIMINISHED T/O. CONTINUES TO MOAN AND GROAN. WHEN ASKED WHY SHE IS MOANING AND GROANING SHE IS UNABLE TO PROVIDE A RESPONSE. VERY DROWSY AND MORE DIFFICULT TO STIMULATE IN ORDER TO GET PATIENT TO INTERACT AND RESPOND. HAVE NOT MEDICATED FOR WITHDRAWALS THIS SHIFT D/T CIWA SCORE OF 6 AT START OF SHIFT AND PT REMAINING ASLEEP WITH NO FURTHER INDICATION THAT SHE HAS REQUIRED MEDICATED FOR WITHDRAWALS. ABDOMEN REMAINS TENDER AND GUARDED BY PATIENT; HOWEVER, SHE SOON FALLS BACK TO SLEEP WITHOUT FURTHER INDICATION OF BEING IN PAIN.
[2021-04-10 03:56] LABS: Hematocrit 26.9 % (33.0-51.0); Hemoglobin 8.9 g/dL (11.5-16.0); Mean Corpuscular HGB 33.1 pg (26.0-34.0); Mean Corpuscular HGB Conc 33.1 g/dL (31.5-36.5); Mean Corpuscular Volume 100 fL (80-100); Mean Platelet Volume 10.3 fL (9.1-12.4); RDW Coefficient Variation 14.1 % (11.7-14.2); Red Blood Cell Count 2.69 M/mm3 (3.80-5.20); White Blood Cell Count 8.06 K/mm3 (4.00-11.30)
[2021-04-10 04:04] LABS: Platelet Count 36 K/mm3 (150-400)
[2021-04-10 04:18] LABS: Alanine Aminotransfer (ALT/SGP 2262 U/L (12-78); Albumin, Blood 1.8 g/dL (3.4-5.0); Albumin/Globulin Ratio 0.6 (0.8-1.8); Alk Phos 153 U/L (50-136); Anion Gap 5 mmol/L (6-16); Aspartate Aminotrans (AST/SGOT 915 U/L (12-37); Bilirubin, Total 2.2 mg/dL (0.1-1.0); Blood Urea Nitrogen 15 mg/dL (8-24); Bun/Creatinine Ratio 21.6 (12.0-20.0); CO2, Blood 25 mmol/L (21-32); Calcium, Blood 7.8 mg/dL (8.5-10.1); Chloride, Blood 110 mmol/L (98-108); Glomerular Filtration Rate >60 (60-); Glucose, Blood 121 mg/dL (70-99); Sodium, Blood 140 mmol/L (136-145); Total Protein, Blood 4.8 g/dL (6.4-8.2)
--- NOTE | 2021-04-10 05:31 | NUR ---
DR. HORTON CALL MADE IN REGARDS TO MY CONCERN REGARDING DECREASED MENTATION AND RESPONSIVENESS T/O NIGHT DESPITE NO ADMINISTRATION OF MEDICATIONS FOR WITHDRAWALS. NEW ORDERS FOR A VBG.
[2021-04-10 05:41] LABS: Base Excess Venous -0.4 mmol/L; Bicarbonate Venous 23.6 mmol/L (24.0-30.0); PCO2 Venous 43.2 mmHg (38-42); PO2 Venous 39.3 mmHg (38-42); pH Blood Venous 7.37 (7.34-7.37)
--- NOTE | 2021-04-10 05:49 | NUR ---
REASSESSMENT/END OF SHIFT SUMMARY VBG RESULTS WERE WITHIN NORMAL RANGES. PT ABLE TO OPEN EYES AND MOAN/GROAN; HOWEVER, SHE ISN'T ABLE TO FORM WORDS OR SENTENCES. STILL ABLE TO FOLLOW VERY SIMPLE COMMANDS. SAYS YES TO PAIN, BUT NOT ABLE TO POINT OR SAY WHERE; DUE TO MENTAL STATUS WILL HOLD OFF ON MEDICATING FOR PAIN AT THIS TIME. UNABLE TO PERFORM ACCURATE CIWA SCORES AT THIS TIME D/T SOMNOLENCE; WILL CONTINUE HOLDING AND NOT MEDICATING WITH ATIVAN. PT REMAINS WITH CPAP IN PLACE WITH 2L BLEEDING IN. PT IS IN SINUS TACHYCARDIA WITH RATE 100-120'S. BP'S ARE ELEVATED WITH SYSTOLIC 150'S. TEMP 100.7; BLANKETS REMOVED. BAE CATHETER IS PATENT AND DRAINING DARK, SPENCER COLORED URINE TO GRAVITY. LR INFUSING AT 75ML/HR AND N-ACETYLCYSTEINE AT 64ML/HR. WILL CONTINUE TO MONITOR UNTIL REPORT IS HANDED OFF TO ONCOMING RN.
[2021-04-10 10:08] LABS: International Normalized Ratio 1.44; Prothrombin Time Results 14.8 Sec (9.7-11.5)
--- NOTE | 2021-04-10 12:00 | NUR ---
REASSESSMENT PT HAS BEEN RESTING IN BED THROUGHOUT THE MORNING. SHE STILL APPEARS MORE LETHARGIC THAN YESTERDAY, BUT IS ABLE TO SAY SHE IS IN [place]. HOWEVER, PT IS UNAWARE OF HER SURROUNDINGS, SAYING YES WHEN ASKED IF SHE WAS IN A LIBRARY. UNABLE TO SAY THE MONTH AND YEAR, WHICH SHE WAS ABLE TO STATE YESTERDAY. LUNGS WERE CLEAR WHILE SHE WAS ON THE CPAP, BUT AFTER BEING OFF FOR A COUPLE HOURS THEY HAVE BECOME WHEEZY AGAIN. VERY MOIST COUGH. WHEN CPAP REMOVED THIS MORNING, WOUND NOTED ON THE BRIDGE OF HER NOSE, PICTURE TAKEN AND PLACED IN CHART. SINUS TACH WITH RATE IN LOW 100S, HYPERTENSIVE WITH SBP IN 150S AND DBP AROUND 100. CHANGE IN MENTATION DISCUSSED WITH DR. LANIER ON ROUNDS, NO CHANGE IN CARE AT THIS TIME. DR. LANIER GAVE OK FOR PT TO BE PCU STATUS. CONTINUING TO MONITOR.
[2021-04-10 12:08] LABS: HIV AB/P24 AG SCREEN Non Reactive (Non Reactive)
--- NOTE | 2021-04-10 18:13 | NUR ---
SHIFT SUMMARY PT CONTINUED TO BE LETHARGIC THROUGHOUT THE SHIFT. SHE OPENS HER EYES TO VOICE, WITH LOTS OF PRODDING SHE WILL GIVE A 1 WORD, MUMBLED ANSWER TO QUESTIONS. LUNGS ARE COARSE, SPO2 99% ON 1L/NC, BUT DROPS INTO THE 80S WHEN ON RA. SR, SBP IN THE 150S. ABD GEOSPATIAL ENGINEER. BAE DRAINING YELLOW URINE. CONTINUING TO MONITOR.
--- NOTE | 2021-04-10 19:38 | NUR ---
ASSUMED PT CARE AT 1900 PT LYING IN BED. OPENS EYES TO VERBAL STIMULI. ATTEMPTS TO ANSWER QUESTIONS, BUT SPEECH IS MUMBLED AND GARBLED. PT REMAINS VERY LETHARGIC AND DROWSY. CURRENTLY ON 1L OF OXYGEN VIA NC WITH OXYGEN SATURATIONS 100%. LUNG SOUNDS ARE VERY COARSE/RHONCHI NOTED T/O. VERY WEAK, BUT SOMEWHAT PRODUCTIVE COUGH. ORAL CARES PERFORMED PT HAS CASTS NOTED TO UPPER PALATE, WELL VERY DRY LIPS; MOISTURIZER APPLIED. SINUS TACHYCARDIA WITH RATE 112. BP'S ELEVATED WITH SBP 150'S. ABDOMEN REMAINS FIRM AND TENDER TO PALPATION; PT MOANS/GROANS WHEN PALPATED. TEMP BAE IS PATENT AND DRAINING CLEAR, SPENCER COLORED URINE; TEMP 99.5. PICC TO LEFT UPPER ARM WITH LR INFUSING AT 75ML/HR, NAC AT 64MLS/HR, AND NS TKO. MIDLINE TO RIGHT UPPER ARM. PT REMAINS MOTTLED TO BILATERAL KNEES. LE'S ARE COOL TO THE TOUCH. UNABLE TO PERFORM CIWA'S AT THIS TIME D/T MENTATION. SEE SHIFT SUMMARY FOR FURTHER DETAILS.
[2021-04-11 03:54] LABS: Hematocrit 28.2 % (33.0-51.0); Hemoglobin 9.6 g/dL (11.5-16.0); Mean Corpuscular HGB 33.2 pg (26.0-34.0); Mean Corpuscular Volume 98 fL (80-100); RDW Standard Deviation 50.6 fL (35.1-46.3); Red Blood Cell Count 2.89 M/mm3 (3.80-5.20); White Blood Cell Count 11.48 K/mm3 (4.00-11.30)
[2021-04-11 04:00] LABS: Platelet Count 46 K/mm3 (150-400)
[2021-04-11 04:25] LABS: Alanine Aminotransfer (ALT/SGP 1395 U/L (12-78); Albumin, Blood 1.7 g/dL (3.4-5.0); Albumin/Globulin Ratio 0.6 (0.8-1.8); Alk Phos 151 U/L (50-136); Anion Gap 6 mmol/L (6-16); Aspartate Aminotrans (AST/SGOT 165 U/L (12-37); Bilirubin, Total 2.8 mg/dL (0.1-1.0); Blood Urea Nitrogen 11 mg/dL (8-24); Bun/Creatinine Ratio 18.3 (12.0-20.0); CO2, Blood 27 mmol/L (21-32); Chloride, Blood 110 mmol/L (98-108); Globulin, Blood 2.9 g/dL (2.2-4.0); Glomerular Filtration Rate >60 (60-); Glucose, Blood 127 mg/dL (70-99); Potassium, Blood 3.1 mmol/L (3.5-5.5); Sodium, Blood 143 mmol/L (136-145); Total Protein, Blood 4.6 g/dL (6.4-8.2)
[2021-04-11 04:47] LABS: BAND PERCENT MAN 3 % (0-8); BASOPHILS PERCENT MAN 0 % (0-2); EOSINOPHILS ABSOLUTE MAN 0.11 K/mm3 (0.00-0.68); EOSINOPHILS PERCENT MAN 1 % (0-6); LYMPHOCYTES ABSOLUTE MAN 0.57 K/mm3 (0.84-5.20); LYMPHOCYTES PERCENT MAN 5 % (21-46); MONOCYTES ABSOLUTE MAN 0.68 K/mm3 (0.16-1.47); MONOCYTES PERCENT MAN 6 % (4-13); SEG NEUTROPHILS PERCENT MAN 85 % (41-73); TOTAL CELLS COUNTED 100
--- NOTE | 2021-04-11 04:55 | NUR ---
END OF SHIFT SUMMARY PT REMAINS LETHARGIC AND NOT ABLE TO FORM WORDS. CONTINUES TO MOAN AND GROAN. MOVES EXTREMITIES, BUT REQUIRED ASSISTANCE WITH REPOSITIONING T/O SHIFT. TMAX THIS SHIFT WAS 100.2. PT REMAINS ON 1L OF OXYGEN VIA NC. DID NOT PLACE ON CPAP LAST NIGHT D/T PRESSURE SORE TO BRIDGE OF NOSE; HOWEVER, PT MAINTAINED OXYGEN SATURATIONS WITH NO APNEIC PERIODS. COUGH REMAINS WEAK. LUNG SOUNDS REMAIN COARSE WITH RHONCHI NOTED T/O. PT HAS BEEN SINUS TACHYCARDIA WITH RATE 100-120'S. TEMP BAE IS PATENT AND DRAINING DARK, SPENCER COLORED URINE TO GRAVITY WITH SEDIMENT NOTED. NAC CONTINUES INFUSING AT 64ML/HR AND LR AT 75ML/HR VIA PICC TO LEFT UPPER ARM. WILL CONTINUE TO MONITOR UNTIL REPORT IS HANDED OFF TO ONCOMING RN.
--- NOTE | 2021-04-11 07:00 | NUR ---
ASSUMPTION OF CARE HANDOFF REPORT RECEIVED FROM NOC RN, PT WAS ASLEEP AND NOT EASILY ROUSED. PT OPENED EYES FOR A MOMENT AND THEN FELL BACK ASLEEP. PT DID NOT RESPOND TO ANY QUESTIONS THAT WERE ASKED.
[2021-04-11 09:19] LABS: International Normalized Ratio 1.48; Prothrombin Time Results 15.1 Sec (9.7-11.5)
--- NOTE | 2021-04-11 13:00 | NUR ---
HAND OFF REPORT GIVEN TO LYNDSAY SPANN IN PCU. ALL BELONGINGS WERE TRANSPORTED WITH PT. PT CONDITION UNCHANGED. PT OPENED EYES AND MOANED DURING BED TRANSFER.
[2021-04-11 17:09] LABS: CMV QUANT DNA PCR (PLASMA) Negative (Negative)
--- NOTE | 2021-04-11 17:19 | NUR ---
SHIFT SUMMARY ASSUMED CARE OF PT AT APPROXIMATELY 1300. PT RESPONDING TO PAINFUL STIMULI BY MOANING OR NODDING HER HEAD YES OR NO. VS STABLE. O2 SATS REMAIN ABOVE 90% ON RA. BP STABLE. HR NSR. ORAL CARE PROVIDED TO PATIENT UPON ARRIVAL AND CAST REMOVED FROM ROOF OF MOUTH. DOBHOFF IN PLACE AND TUBE FEEDING STARTED AT 1400. LR INFUSING PER ORDERS. NAC INFUSING PER ORDERS. PLAN TO STOP NAC ONCE ALT IS BELOW [address] SOUSA. BAE PATENT AND DRAINING. WILL CONTINUE TO MONITOR AND REPORT TO ONCOMING RN
[2021-04-12 04:27] LABS: Anion Gap 6 mmol/L (6-16); Blood Urea Nitrogen 10 mg/dL (8-24); Bun/Creatinine Ratio 17.6 (12.0-20.0); CO2, Blood 26 mmol/L (21-32); Calcium, Blood 7.7 mg/dL (8.5-10.1); Chloride, Blood 111 mmol/L (98-108); Creatinine, Blood 0.57 mg/dL (0.40-1.00); Glomerular Filtration Rate >60 (60-); Glucose, Blood 147 mg/dL (70-99); Phosphorus, Blood 1.7 mg/dL (2.5-4.9); Potassium, Blood 3.1 mmol/L (3.5-5.5); Sodium, Blood 143 mmol/L (136-145)
--- NOTE | 2021-04-12 05:12 | NUR ---
CALLED DR HORTON REGARDING MAG OF 1.1, ORDERS ENTERED. PAIN, LIDOCAINE PATCH ORDER.
--- NOTE | 2021-04-12 06:00 | NUR ---
SHIFT ASSESSMENT PT HAS BEEN LETHARGIC T/O THE NIGHT. SHE HAS ONLY NODDED WHEN ASKED IF PAINFUL. HANDS ARE 3+ PITTING EDEMA THIS MORNING AND HAVE BEEN ELEVATED. MAG WAS 1.1 AND ORDERS WERE OBTAINED. PT HAD GRIMICING AND GROANING WITH REPOSITIONING AM ORDER FOR PAIN PATCH WAS ORDERED. BAE CATHETER IN PLACE AND DRAINING TO GRAVITY. NO BM THIS SHIFT. SUCTIONED OFTEN TO TO PRODUCTIVE COUGHING. CALL LIGHT AND BED ALARM IN PLACE.
[2021-04-12 09:23] LABS: BASOPHILS ABSOLUTE AUTO 0.05 K/mm3 (0.00-0.23); BASOPHILS PERCENT AUTO 1 % (0-2); EOSINOPHILS ABSOLUTE AUTO 0.18 K/mm3 (0.00-0.68); EOSINOPHILS PERCENT AUTO 2 % (0-6); Mean Corpuscular HGB Conc 33.3 g/dL (31.5-36.5); Mean Corpuscular Volume 99 fL (80-100); Mean Platelet Volume 11.1 fL (9.1-12.4); Platelet Count 71 K/mm3 (150-400); RDW Coefficient Variation 14.8 % (11.7-14.2); RDW Standard Deviation 53.6 fL (35.1-46.3); Red Blood Cell Count 2.73 M/mm3 (3.80-5.20); White Blood Cell Count 10.73 K/mm3 (4.00-11.30)
[2021-04-12 09:24] LABS: IMMATURE GRAN ABSOLUTE AUTO 0.12 K/mm3 (0.00-0.10); IMMATURE GRAN PERCENT AUTO 1 % (0-1); LYMPHOCYTES ABSOLUTE AUTO 1.09 K/mm3 (0.84-5.20); LYMPHOCYTES PERCENT AUTO 10 % (21-46); MONOCYTES ABSOLUTE AUTO 1.06 K/mm3 (0.16-1.47); MONOCYTES PERCENT AUTO 10 % (4-13); NEUTROPHILS ABSOLUTE AUTO 8.23 K/mm3 (1.96-9.15); NEUTROPHILS PERCENT AUTO 77 % (41-73)
[2021-04-12 09:40] LABS: Albumin, Blood 1.6 g/dL (3.4-5.0); Albumin/Globulin Ratio 0.6 (0.8-1.8); Bilirubin, Direct 1.3 mg/dL (0.0-0.3); Bilirubin, Indirect 0.5 mg/dL (0.1-0.7); Bilirubin, Total 1.8 mg/dL (0.1-1.0); Globulin, Blood 2.8 g/dL (2.2-4.0); Total Protein, Blood 4.4 g/dL (6.4-8.2)
--- NOTE | 2021-04-12 13:21 | NUR ---
UPDATE PER MAKE UP EDITOR, CONTINUE TUBE FEEDING AT 20ML/H AND REEVALUATE RATE AFTER AM LABS TOMORROW.
--- NOTE | 2021-04-12 16:13 | NUR ---
SHIFT SUMMARY PT MENTATION REMAINS UNCHANGED FROM PREVIOUS SHIFT. O2 SATS REMAIN ABOVE 90% ON RA. BP STABLE. HR NSR TO SINUS TACH WITH PAC. PT SHOWS NO SIGNS OR SYMPTOMS OF PAIN THIS SHIFT. BAE PATENT AND DRAINING. LR INFUSING PER ORDERS. TUBE FEEDING AT 20ML/HR. NO BM THIS SHIFT. PT REPOSITIONED Q2H. ORAL CARE PROVIDED Q2H. WILL CONTINUE TO MONITOR AND REPORT TO ONCOMING RN.
--- NOTE | 2021-04-12 20:57 | NUR ---
UPDATE RECIEVED CALL FROM DR. HERNANDEZ'S OFFICE REGARDING PT. PT'S BF ARDEN CALLED OFFICE AND STATED HE WANTED DR. HERNANDEZ ON THE PT'S CASE. THE PATIENT FINANCIAL SERVICES MANAGER AT DR. HERNANDEZ'S OFFICE STATED ARDEN WAS VERY ANXIOUS AND TEARFUL DURING CONVERSATION. THIS RN INFORMED PATIENT FINANCIAL SERVICES MANAGER THAT AN UPDATE WILL BE MADE AFTER PT ROUNDS. ATTEMPTED TO CALL ARDEN AT THIS TIME. NO ANSWER.
--- NOTE | 2021-04-12 22:11 | NUR ---
UPDATE PT'S SPOUSE ARDEN CALLED. ARDEN WOULD LIKE DR. HERNANDEZ CONSULTED D/T A MISSED APT FROM PT PRIOR TO HOSPITAL ADMITTANCE. PT MISSED APT PERTAINING TO POSSIBLE INFECTION OF BONE PER ARDEN. WILL INFORM DAYSHIFT RN.
[2021-04-12 23:47] LABS: Source, Urine Foley catheter
[2021-04-13] LABS: Bilirubin, Urine Neg (Neg); Blood, Urine 2+ (Neg); Glucose Qualitative, Urine Neg (Neg); Ketones, Urine Neg (Neg); Leukocyte Esterase, Urine Neg (Neg); Nitrite, Urine Neg (Neg); Protein, Urine 1+ (Neg); Specific Gravity, Urine 1.005 (1.003-1.022); Urobilinogen, Urine NORM (Normal)
[2021-04-13 00:15] LABS: Appearance, Urine Clear (Clear); Color, Urine Yellow (P-Yellow); White Blood Cells, Urine 0-2 /hpf (0-5)
[2021-04-13 00:16] LABS: Bacteria Rare /hpf; Squamous Epithelial Cells Not Seen /hpf (Few)
[2021-04-13 07:10] LABS: HEPATITIS C QUANTITATION HCV Not Detected IU/mL (.)
[2021-04-13 07:13] LABS: Hematocrit 25.7 % (33.0-51.0); Hemoglobin 8.5 g/dL (11.5-16.0); Mean Corpuscular HGB 33.1 pg (26.0-34.0); Mean Corpuscular HGB Conc 33.1 g/dL (31.5-36.5); Mean Corpuscular Volume 100 fL (80-100); Mean Platelet Volume 11.4 fL (9.1-12.4); Platelet Count 95 K/mm3 (150-400); RDW Coefficient Variation 15.4 % (11.7-14.2); RDW Standard Deviation 55.7 fL (35.1-46.3); Red Blood Cell Count 2.57 M/mm3 (3.80-5.20); White Blood Cell Count 10.47 K/mm3 (4.00-11.30)
[2021-04-13 07:25] LABS: Alanine Aminotransfer (ALT/SGP 522 U/L (12-78); Albumin, Blood 1.7 g/dL (3.4-5.0); Albumin/Globulin Ratio 0.6 (0.8-1.8); Alk Phos 126 U/L (50-136); Anion Gap 5 mmol/L (6-16); Aspartate Aminotrans (AST/SGOT 46 U/L (12-37); Bilirubin, Total 1.7 mg/dL (0.1-1.0); Blood Urea Nitrogen 10 mg/dL (8-24); Bun/Creatinine Ratio 17.1 (12.0-20.0); CO2, Blood 28 mmol/L (21-32); Calcium, Blood 7.6 mg/dL (8.5-10.1); Chloride, Blood 111 mmol/L (98-108); Creatinine, Blood 0.59 mg/dL (0.40-1.00); Glomerular Filtration Rate >60 (60-); Glucose, Blood 128 mg/dL (70-99); Potassium, Blood 3.4 mmol/L (3.5-5.5); Sodium, Blood 144 mmol/L (136-145); Total Protein, Blood 4.7 g/dL (6.4-8.2)
[2021-04-13 08:27] LABS: BAND PERCENT MAN 1 % (0-8); BASOPHILS PERCENT MAN 0 % (0-2); EOSINOPHILS PERCENT MAN 2 % (0-6); LYMPHOCYTES % ATYPICAL MANUAL 2 % (0-0); LYMPHOCYTES ABSOLUTE MAN 1.15 K/mm3 (0.84-5.20); LYMPHOCYTES PERCENT MAN 9 % (21-46); MONOCYTES ABSOLUTE MAN 0.94 K/mm3 (0.16-1.47); MONOCYTES PERCENT MAN 9 % (4-13); NEUTROPHILS ABSOLUTE MAN 8.16 K/mm3 (1.96-9.15); SEG NEUTROPHILS PERCENT MAN 77 % (41-73); TOTAL CELLS COUNTED 100
--- NOTE | 2021-04-13 09:56 | NUR ---
AM NOTE: PATIENT ABLE TO STATE NAME AND THIS AM. SPEECH SLURRED AND HARD TO UNDERSTAND. PERRLA WITH SLUGGISH PUPILS. NOT FOLLOWING COMMANDS. VERY WEAK, WHEN TRYING TO MOVE IN BED. OCCASIONAL MOANING. LUNGS SOUNDING COARSE AND DIM IN BASES. ON ROOM AIR TO 1L NEEDED. OCCASIONAL MOIST SOUNDING COUGH. ORAL CARE AND SUCTIONING NEEDED. TELE SHOWING SINUS RHYTHM WITH HR 80'S. BP STABLE. CLUBBED FINGERS. BAE CATH IN PLACE DRAINING CLEAR/YELLOW URINE. ATTENDS ON. SKIN FRAGILE WITH MOTTELING TO LEGS. RIGHT BKA WNL. LR RUNNING AT 75 ML/HR. ANTIBIOTICS INFUSED THIS AM. DOBHOFF IN PLACE WITH TUBE FEED RUNNING AT 20ML/HR. DOBHOFF MARKED AT 64, SECUREMENT TAPE CHANGED THIS AM. SKIN ON BRIDGE OF NOSE BREAKDOWN. DR. STUART AND DR. Quiñones IN THIS AM. DISCUSSED FAMILIES CONCERNS WITH RIGHT BKA AND "POSSIBLE INFECTION" WHEN SEEING DR. GEORGES OUTPATIENT. LUMBAR PUNCTURE DISCONTINUED AT THIS TIME, CONFIRMED WITH DR. STUART AND DR. Quiñones. PATIENT SLEEPING ON AND OFF. WILL CONTINUE TO MONITOR.
--- NOTE | 2021-04-13 10:25 | NUR ---
UPDATE: SPOKE WITH PATIENTS BOYFRIEND BOAZ TO PROVIDE UPDATE. VERY TEARFUL ON PHONE AND CONCERED. ALSO SPOKE WITH BROTHER FAISAL [phone], TO PROVIDE UPDATE. FAISAL VOICED CONCERNS WITH PATIENTS HOME SITUATION AND IS WORRIED SHE IS NOT TAKING CARE OF HERSELF AT HOME, STATED "SHE KEEPS FALLING AND FELL 3 WEEKS AGO AND HIT HER HEAD". ALSO STATED CONCERNS WITH "ONGOING INECTIONS FROM PREVIOUS SURGERIES".
[2021-04-13 11:52] LABS: Magnesium, Blood 1.5 mg/dL (1.6-2.4); Phosphorus, Blood 3.1 mg/dL (2.5-4.9)
[2021-04-13 18:18] LABS: RBC Count, CSF 14 /mm3 (0-0); WBC Count, CSF 1 /mm3 (0-5)
[2021-04-13 18:19] LABS: Appearance, CSF Clear (Clear); Color, CSF No Color (No Color)
[2021-04-13 18:32] LABS: Glucose, CSF 67 mg/dL (40-70)
--- NOTE | 2021-04-13 18:35 | NUR ---
SHIFT SUMMARY: PATIENT REMAINS CONFUSED. ABLE TO STATE HER NAME, AND ANSWERING SOME QUESTIONS. ABLE TO TELL ME SHE IS IN PAIN AND WHERE. CALLING OUT AT TIMES FOR "NURSE". Q2 TURNING AND NEEDED. PATIENT REACHING DOWN TO RIGHT BKA AT TIMES MOANING. TYLENOL GIVEN PER DR. Quiñones FOR PAIN AND TEMP. TEMP MAX THIS SHIFT 100.1. ON ROOM AIR - 1L NEEDED. TELE REMAINS UNCHANGED. VITAL SIGNS STABLE. DOBHOFF REMAINS IN PLACE, FLUSHING WELL. TUBE FEED RUNNING AT 40ML/HR PER MULTIMEDIA DESIGNER ORDERS. 2 LIQUID STOOLS THIS SHIFT. ATTENDS IN PLACE. BAE CATH DRAINING TO GRAVITY. EEG, CT AND LUMBAR PUNCTURE DONE THIS SHIFT. TRADE EMBALMER UPDATED PER BROTHER CE CONCERNS, SEE PREVIOUS NOTE. PATIENT SLEEPING AT THIS TIME. LR INFUSING AT 75 ML/HR. MAG AND POTASSIUM REPLACED THIS SHIFT. Q4 ORAL CARE AND NEEDED. PRN SUCTIONING. WILL CONTINUE TO MONITOR AND REPORT OFF.
[2021-04-13 18:57] LABS: RBC Count, CSF 21 /mm3 (0-0); WBC Count, CSF 0 /mm3 (0-5)
[2021-04-13 18:58] LABS: Appearance, CSF Clear (Clear); Color, CSF No Color (No Color); Escherichia Coli K1 Not Detected (NOT DETECT); Haemophilus Influenza Not Detected (NOT DETECT); Listeria Monocytogenes Not Detected (NOT DETECT); Neisseria Meningitidis Not Detected (NOT DETECT); Streptococcus Agalactiae Not Detected (NOT DETECT); Streptococcus Pneumoniae Not Detected (NOT DETECT)
[2021-04-13 18:59] LABS: Cryptococcus Neoformans/Gattii Not Detected (NOT DETECT); Enterovirus Not Detected (NOT DETECT); Herpes Simplex Virus 1 Not Detected (NOT DETECT); Herpes Simplex Virus 2 Not Detected (NOT DETECT); Human Herpesvirus 6 Not Detected (NOT DETECT); Human Parechovirus Not Detected (NOT DETECT); Varicella Zoster Virus Not Detected (NOT DETECT)
--- NOTE | 2021-04-13 21:39 | NUR ---
UPDATE PT PULLED DOBHOFF OUT AT BEGINNING OF SHIFT. DOBHOFF PLACED BY OWNER ORAL SURGEON AND THIS RN. STAT X RAY DONE TO CONFIRM PLACEMENT. PHYSICIAN APPROVED PLACEMENT. ORDERS FOR SOFT BILATERAL WRIST RESTRAINTS ORDERED PER PHYSICIAN TO PROTECT LINES AND FOR PT SAFETY. BED ALARM IN PLACE. PT VERBALLY STATED THIS RN COULD UPDATE BROTHER FAISAL WHO CALLED THIS SHIFT. RADEN UPDATED. BROTHER FAISAL IS CONCERNED FOR PT'S SAFETY AT HOME AND IS REQUESTING A CHIEF PASSENGER SHIP STEWARD/STEWARDESS CONSULT. WILL INFORM DAYSHIFT RN. WILL CONT TO MONITOR.
--- NOTE | 2021-04-14 00:29 | NUR ---
UPDATE/PT PULLED DOBHOFF OUT SECOND TIME PHYSICIAN NOTIFIED. PT DID NOT FULLY PULL OUT DOBHOFF, UNABLE TO ADVANCE TUBE BACK TO ORIGINAL LENGTH D/T NO GUIDE WIRE. STAT X RAY ORDERED. PHYSICIAN CONFIRMED PLACEMENT AND OK'D DOBHOFF FOR MEDS/FEEDING.
--- NOTE | 2021-04-14 02:12 | NUR ---
UPDATE/PT HAVING SEVERE PAIN PT CRYING STATING "THIS IS WORST PAIN OF HER LIFE" ATTEMPTED TO REPOSITION PT. PT STATES PAIN IS "EVERYWHERE" PT CONT TO CRY AND YELL IN PAIN. PHYSICIAN NOTIFIED. ORDERS PROVIDED. SEE EMAR. PT MEDICATED AND NOW SLEEPING.
[2021-04-14 04:43] LABS: Magnesium, Blood 1.7 mg/dL (1.6-2.4)
--- NOTE | 2021-04-14 05:34 | NUR ---
SHIFT SUMMARY PT ALERT TO SELF AND FAMILY. PT CRYING T/O SHIFT COMPLAINING OF SEVERE PAIN "ALL OVER" PHYSICIAN NOTIFIED. ORDERS PROVIDED, SEE EHR. PT PULLED OUT DOBHOFF TWICE DURING SHIFT. PT CURRENLTY IN SOFT BILAT WRIST RESTRAINTS. REPOSITIONED Q 2 HRS. ORAL CARE PROVIDED Q 2 HRS. HR STABLE. BP STABLE. OXYGEN SATURATION MAINTAINED ABOVE 95% ON 1 L VIA NC. ONCE CONFIRMED PLACEMENT OF DOBHOFF BY XRAY/PHYSICIAN , TF RUNNING AT 40 ML/HR. WILL CONT TO MONITOR UNTIL REPORT GIVEN TO BURAK SPANN.
[2021-04-14 05:46] LABS: Alanine Aminotransfer (ALT/SGP 401 U/L (12-78); Albumin, Blood 1.9 g/dL (3.4-5.0); Albumin/Globulin Ratio 0.6 (0.8-1.8); Alk Phos 119 U/L (50-136); Anion Gap 5 mmol/L (6-16); Aspartate Aminotrans (AST/SGOT 38 U/L (12-37); Bilirubin, Total 1.3 mg/dL (0.1-1.0); Blood Urea Nitrogen 8 mg/dL (8-24); Bun/Creatinine Ratio 14.7 (12.0-20.0); CO2, Blood 30 mmol/L (21-32); Calcium, Blood 7.4 mg/dL (8.5-10.1); Chloride, Blood 109 mmol/L (98-108); Creatinine, Blood 0.55 mg/dL (0.40-1.00); Globulin, Blood 3.2 g/dL (2.2-4.0); Glomerular Filtration Rate >60 (60-); Glucose, Blood 138 mg/dL (70-99); Potassium, Blood 3.4 mmol/L (3.5-5.5); Sodium, Blood 144 mmol/L (136-145); Total Protein, Blood 5.1 g/dL (6.4-8.2)
[2021-04-14 06:39] LABS: Hematocrit 25.1 % (33.0-51.0); Hemoglobin 8.2 g/dL (11.5-16.0); Mean Corpuscular HGB 33.3 pg (26.0-34.0); Mean Corpuscular HGB Conc 32.7 g/dL (31.5-36.5); Mean Corpuscular Volume 102 fL (80-100); Mean Platelet Volume 11.8 fL (9.1-12.4); Platelet Count 118 K/mm3 (150-400); RDW Coefficient Variation 15.4 % (11.7-14.2); RDW Standard Deviation 56.7 fL (35.1-46.3); Red Blood Cell Count 2.46 M/mm3 (3.80-5.20); White Blood Cell Count 8.83 K/mm3 (4.00-11.30)
[2021-04-14 07:05] LABS: BASOPHILS PERCENT MAN 0 % (0-2); EOSINOPHILS PERCENT MAN 0 % (0-6); LYMPHOCYTES ABSOLUTE MAN 1.05 K/mm3 (0.84-5.20); LYMPHOCYTES PERCENT MAN 12 % (21-46); MONOCYTES ABSOLUTE MAN 0.61 K/mm3 (0.16-1.47); MONOCYTES PERCENT MAN 7 % (4-13); NEUTROPHILS ABSOLUTE MAN 7.15 K/mm3 (1.96-9.15); SEG NEUTROPHILS PERCENT MAN 81 % (41-73); TOTAL CELLS COUNTED 100
--- NOTE | 2021-04-14 14:31 | NUR ---
Patient is lying in bed and resting. She easily awakens to the sound of her name but doesn't open her eyes completely and mumbles when she talks. She is able to tell me that she is doing "so so." She also says, "Sure" when asked if a prayer would be menaingful to her now. I gladly provide prayer and then some gentle encouragement. Patient responds well and ask if I would "please come back." To which I agree. I will continue to remain available to patient and family.
--- NOTE | 2021-04-14 17:12 | NUR ---
Pt remains A&Ox2- self and place, requires frequent reorientation and continually pulling at lines/tubing. VSS. C/o R hip pain- Lidocaine patch applied. Afebrile. FC maintained with AUO. No BM. Tube feeding and water flushes increased- pt tolerating well. Effexor dose adjusted to match home med rec. K replaced. Neurontin to be started tonight. PICC d/c'd, PG remains in place. Frequent rounds to ensure pt safety. Pt repositioned q 2hrs and pressure points offloaded to prevent pressure ulcers. Pt in no apparent distress at this time. Will continue to monitor until transfer of care to oncoming RN.
--- NOTE | 2021-04-14 17:20 | NUR ---
Referred by the PCU charge nurse. Pt. is in bed and experiencing visceral pain. Pt. welcomes my visit. Because of her discomfort, pt. was not communicative. She nodded when I asked if she would find pastoral prayer helpful. Pt. affirmed with a nod. Prayed with pt. Nursing staff came to administer medications.
--- NOTE | 2021-04-15 05:13 | NUR ---
UPDATE PT'S SPOUSE ARDEN UPDATED.
[2021-04-15 05:21] LABS: BASOPHILS ABSOLUTE AUTO 0.05 K/mm3 (0.00-0.23); BASOPHILS PERCENT AUTO 1 % (0-2); EOSINOPHILS ABSOLUTE AUTO 0.13 K/mm3 (0.00-0.68); EOSINOPHILS PERCENT AUTO 2 % (0-6); Hematocrit 25.9 % (33.0-51.0); Hemoglobin 8.1 g/dL (11.5-16.0); IMMATURE GRAN ABSOLUTE AUTO 0.03 K/mm3 (0.00-0.10); IMMATURE GRAN PERCENT AUTO 0 % (0-1); LYMPHOCYTES ABSOLUTE AUTO 1.35 K/mm3 (0.84-5.20); LYMPHOCYTES PERCENT AUTO 17 % (21-46); MONOCYTES ABSOLUTE AUTO 0.63 K/mm3 (0.16-1.47); MONOCYTES PERCENT AUTO 8 % (4-13); Mean Corpuscular HGB 32.1 pg (26.0-34.0); Mean Corpuscular HGB Conc 31.3 g/dL (31.5-36.5); Mean Corpuscular Volume 103 fL (80-100); Mean Platelet Volume 11.7 fL (9.1-12.4); NEUTROPHILS PERCENT AUTO 73 % (41-73); Platelet Count 122 K/mm3 (150-400); RDW Coefficient Variation 15.8 % (11.7-14.2); RDW Standard Deviation 58.4 fL (35.1-46.3); Red Blood Cell Count 2.52 M/mm3 (3.80-5.20); White Blood Cell Count 8.09 K/mm3 (4.00-11.30)
--- NOTE | 2021-04-15 05:30 | NUR ---
Assessment completed. VS STABLE , PT LETHARGIC, ALERT AND ORIENTED TO SELF. DOBHOFF TUBE IN PLACE WITH TUBE FEED AT 55CC/HR TOLERATING WELL. PT HAD ONE BOWEL MOVEMENT, BAE WITH TEMPERATURE PROBE DRAINING ADEQUATE CLEAR YELLOW URINE. FREQUENT ORAL CARE DONE. BILATERAL UPPER EXTREMITIES RESTRAINST IN PLACE ASSESSMENTS DONE. IV SITE INTACT , IV ABX GIVEN PER EMAR. CALL LIGHT WITHIN REACH , SIDE RAIL UP X 2.
[2021-04-15 05:33] LABS: Alanine Aminotransfer (ALT/SGP 276 U/L (12-78); Albumin, Blood 1.8 g/dL (3.4-5.0); Albumin/Globulin Ratio 0.5 (0.8-1.8); Alk Phos 110 U/L (50-136); Anion Gap 3 mmol/L (6-16); Aspartate Aminotrans (AST/SGOT 28 U/L (12-37); Bilirubin, Total 0.8 mg/dL (0.1-1.0); Blood Urea Nitrogen 9 mg/dL (8-24); Bun/Creatinine Ratio 18.1 (12.0-20.0); CO2, Blood 35 mmol/L (21-32); Calcium, Blood 7.6 mg/dL (8.5-10.1); Chloride, Blood 106 mmol/L (98-108); Globulin, Blood 3.6 g/dL (2.2-4.0); Glomerular Filtration Rate >60 (60-); Glucose, Blood 108 mg/dL (70-99); Magnesium, Blood 1.9 mg/dL (1.6-2.4); Phosphorus, Blood 3.3 mg/dL (2.5-4.9); Potassium, Blood 3.6 mmol/L (3.5-5.5); Sodium, Blood 144 mmol/L (136-145); Total Protein, Blood 5.4 g/dL (6.4-8.2)
--- NOTE | 2021-04-15 17:07 | NUR ---
Pt remains A&Ox1-2- self/place, requires frequent reorientation. VSS. Afebrile. No c/o pain. FC maintained with AUO. Incontinent of stool x1. Tolerating current TF rate and flushes. S/O and brother updated regarding POC. Frequent rounds to ensure pt safety. Pt repositioned q2hrs and pressure points offloaded to prevent pressure ulcers. Pt in no apparent distress at this time. Will continue to monitor until transfer of care to oncoming RN.
[2021-04-16 04:09] LABS: BASOPHILS ABSOLUTE AUTO 0.03 K/mm3 (0.00-0.23); BASOPHILS PERCENT AUTO 0 % (0-2); EOSINOPHILS ABSOLUTE AUTO 0.11 K/mm3 (0.00-0.68); EOSINOPHILS PERCENT AUTO 2 % (0-6); Hematocrit 24.2 % (33.0-51.0); Hemoglobin 7.9 g/dL (11.5-16.0); IMMATURE GRAN ABSOLUTE AUTO 0.03 K/mm3 (0.00-0.10); IMMATURE GRAN PERCENT AUTO 0 % (0-1); LYMPHOCYTES ABSOLUTE AUTO 1.43 K/mm3 (0.84-5.20); LYMPHOCYTES PERCENT AUTO 19 % (21-46); MONOCYTES ABSOLUTE AUTO 0.69 K/mm3 (0.16-1.47); MONOCYTES PERCENT AUTO 9 % (4-13); Mean Corpuscular HGB 33.3 pg (26.0-34.0); Mean Corpuscular HGB Conc 32.6 g/dL (31.5-36.5); Mean Corpuscular Volume 102 fL (80-100); Mean Platelet Volume 12.2 fL (9.1-12.4); NEUTROPHILS ABSOLUTE AUTO 5.14 K/mm3 (1.96-9.15); NEUTROPHILS PERCENT AUTO 69 % (41-73); Platelet Count 172 K/mm3 (150-400); RDW Standard Deviation 59.6 fL (35.1-46.3); Red Blood Cell Count 2.37 M/mm3 (3.80-5.20); White Blood Cell Count 7.43 K/mm3 (4.00-11.30)
[2021-04-16 04:29] LABS: Alanine Aminotransfer (ALT/SGP 193 U/L (12-78); Albumin, Blood 1.6 g/dL (3.4-5.0); Albumin/Globulin Ratio 0.4 (0.8-1.8); Alk Phos 95 U/L (50-136); Anion Gap 0 mmol/L (6-16); Aspartate Aminotrans (AST/SGOT 47 U/L (12-37); Bilirubin, Total 0.9 mg/dL (0.1-1.0); Blood Urea Nitrogen 11 mg/dL (8-24); Bun/Creatinine Ratio 21.3 (12.0-20.0); CO2, Blood 36 mmol/L (21-32); Calcium, Blood 7.6 mg/dL (8.5-10.1); Chloride, Blood 105 mmol/L (98-108); Creatinine, Blood 0.52 mg/dL (0.40-1.00); Globulin, Blood 3.8 g/dL (2.2-4.0); Glomerular Filtration Rate >60 (60-); Glucose, Blood 112 mg/dL (70-99); Magnesium, Blood 1.8 mg/dL (1.6-2.4); Phosphorus, Blood 3.4 mg/dL (2.5-4.9); Potassium, Blood 4.3 mmol/L (3.5-5.5); Sodium, Blood 141 mmol/L (136-145); Total Protein, Blood 5.4 g/dL (6.4-8.2)
--- NOTE | 2021-04-16 05:20 | NUR ---
ENTRY PROCESSOR SUMMARY ALERTAND ORIENTED X2. vITAL SIGNS STABLE AT THIS TIME AT BEGINING OF SHIFT PT ON 1L OXYGEN WEAN DOWN TO ROOM AIR SATS 90'S. DOBHOFF TUBE IN PLACE WITH CONTINOUS TUBE FEED, TOLERATING. BAE WITH CLEAR YELLOW URINE. Q2 ORAL CARE/REPOSITIOING. WILL CONTINUE TO MONITOR.
--- NOTE | 2021-04-16 06:27 | NUR ---
PT DESATs ON ROOM AIR , ON 1L O2 VIA NASAL CANULA
--- NOTE | 2021-04-16 18:25 | NUR ---
Pt A&Ox2-3, less confused and able to follow commands appropriately. VSS. No c/o pain. Jvmf=135.1, cooling meausres utilized. FC maintained with AUO. No BM. Tolerating current TF settings. Pending speech evaluation. S/o and brother both updated on current POC. Frequent rounds to ensure pt safety. Pt repositioned q2hrs and pressure points offloaded to prevent pressure ulcers. Pt in no apparent distress at this time. Will continue to monitor until transfer of care to oncoming RN.
--- NOTE | 2021-04-16 22:56 | NUR ---
pt off restrainst for 2 hours prior to shift change per report from day nurse. pt calm and coperative at this time , restraints discontinued.
--- NOTE | 2021-04-17 07:19 | NUR ---
PT off restraints 2 hours before shift, patient calme and coperative with care, restraints order discontinued. NPO tube feed through dobhoff tube pending speech evaluation. patient had no morning labs order page hospitalist no response. day shift nurse aware. on 1L O2 sats high 90"s. pt report pain, medicated per eMAR. call light within reach, bed alarm on and side rail up x3.
[2021-04-17 08:10] LABS: HBV IU/ML HBV DNA not detected IU/mL (.)
--- NOTE | 2021-04-17 09:18 | NUR ---
ASSUMED CARE OF PATIENT AT APPROX 0700. PT APPEARS TO BE SLEEPING, RESPONDING TO VERBAL STIMULI, AT TIMES PT FALLS ASLEEP QUICKLY. SPEECH GARBLED, HARD TO UNDERSTAND, ORIENTED TO PLACE AND PERSON. PT REPORTS EPIGASTRIC PAIN/NAUSEA, UNABLE TO ANSWER FURTHER QUESTIONS PT FELL BACK ASLEEP. PT DENIES CHEST PAIN/PRESSURE, SOB, DIZZINESS AND NUMB/TINGLING. NO TELE, BP STABLE. LS COARSE IN UPPER LOBES, DIM IS BASES, SPO2 >90% ON 1L O2 VIA NC AT REST, TITRATED TO 3L WITH ACTIVITY. BT HYPOACTIVE x4 QUAD, REPORTS EPIGASTRIC PAIN AND SOFT, BUT TENDERNESS TO ABD. DOBHOFF IN PLACE, TUBE FEEDING AT 55 ML/HR WITH 100ML FLUSH Q4. VSS. NO OTHER ACUTE CHANGES NOTED. WILL CONTINUE TO MONITOR UNTIL REPORT GIVEN TO ONCOMING RN.
--- NOTE | 2021-04-17 14:37 | NUR ---
ATTEMPTED BEDSIDE SWALLOW EVAL, PT RESPONDS TO VERBAL STIMULI, QUICKLY FALLS BACK ASLEEP. PT HAS WEAK COUGH. ORAL CARE COMPLETED. NOTIFIED DR DYER. WILL CONTINUE TO MONITOR.
--- NOTE | 2021-04-17 15:45 | NUR ---
TRANSFER OF CARE. PT REPORTING HEADACHE THIS AFTERNOON, MEDICATED WITH TYLENOL. NO OTHER S/SX OF DISTRESS NOTED. PT CONTINUES TO RESPOND TO VERBAL STIMULI, QUICKLY FALLING BACK TO SLEEP, ORIENTED TO PERSON, PLACE AND TIME. PT DESATURATED WITH ACTIVITY, TITRATED FROM 1-3L O2 VIA NC. OTHER VSS. NO OTHER ACUTE CHANGES NOTED. REPORT GIVEN TO RN ASSUMING CARE OF PATIEINT, PT TRANSFERED TO ROOM 305.
--- NOTE | 2021-04-17 18:26 | NUR ---
SHIFT SUMMARY PATIENT RESTING IN BED. TRANSFERRED FROM PCU THIS AFTERNOON. A&O 2-3. PATIENT VERY DROWSY AND WILL FALL ASLEEP MID CONVERSATION. PT WORKED WITH PATIENT. TOLERATED WELL BUT REPORTED THAT SHE IS HAVING INCREASED WEAKNESS IN LEFT ARM. ON 1L NC INTERNET MERCHANT HIGH 90S. WEAK COUGH. RIGHT BKA AND RIGHT FEMORAL NECK FRACTURE. COMPLAINS OF HEADACHE PAIN. PREVIOUSLY MEDICATED FOR HEADACHE IN PCU. DUBOFF FEEDING RUNNING AT 40ML/HR AND FLUSH 135ML/HOUR.PLAN FOR SWALLOW EVALUATION TOMORROW. BAE PRESENT AND ATTMEPTING BLADDER TRAINING. BED IN LOW POSITION WITH BED ALARM ON. WILL CONTINUE TO MONITOR.
[2021-04-18 06:09] LABS: BASOPHILS ABSOLUTE AUTO 0.03 K/mm3 (0.00-0.23); BASOPHILS PERCENT AUTO 0 % (0-2); EOSINOPHILS ABSOLUTE AUTO 0.11 K/mm3 (0.00-0.68); EOSINOPHILS PERCENT AUTO 1 % (0-6); Hematocrit 23.2 % (33.0-51.0); Hemoglobin 7.2 g/dL (11.5-16.0); IMMATURE GRAN ABSOLUTE AUTO 0.02 K/mm3 (0.00-0.10); IMMATURE GRAN PERCENT AUTO 0 % (0-1); LYMPHOCYTES ABSOLUTE AUTO 1.01 K/mm3 (0.84-5.20); LYMPHOCYTES PERCENT AUTO 13 % (21-46); MONOCYTES ABSOLUTE AUTO 0.75 K/mm3 (0.16-1.47); MONOCYTES PERCENT AUTO 10 % (4-13); Mean Corpuscular HGB 32.7 pg (26.0-34.0); Mean Corpuscular Volume 106 fL (80-100); Mean Platelet Volume 11.3 fL (9.1-12.4); NEUTROPHILS PERCENT AUTO 75 % (41-73); Platelet Count 191 K/mm3 (150-400); RDW Coefficient Variation 15.9 % (11.7-14.2); RDW Standard Deviation 60.9 fL (35.1-46.3); White Blood Cell Count 7.82 K/mm3 (4.00-11.30)
[2021-04-18 06:17] LABS: Alanine Aminotransfer (ALT/SGP 118 U/L (12-78); Albumin, Blood 1.8 g/dL (3.4-5.0); Albumin/Globulin Ratio 0.4 (0.8-1.8); Alk Phos 85 U/L (50-136); Anion Gap 1 mmol/L (6-16); Aspartate Aminotrans (AST/SGOT 18 U/L (12-37); Bilirubin, Total 0.6 mg/dL (0.1-1.0); Blood Urea Nitrogen 12 mg/dL (8-24); Bun/Creatinine Ratio 21.1 (12.0-20.0); CO2, Blood 38 mmol/L (21-32); Calcium, Blood 8.1 mg/dL (8.5-10.1); Chloride, Blood 99 mmol/L (98-108); Creatinine, Blood 0.57 mg/dL (0.40-1.00); Globulin, Blood 4.4 g/dL (2.2-4.0); Glomerular Filtration Rate >60 (60-); Glucose, Blood 119 mg/dL (70-99); Potassium, Blood 3.9 mmol/L (3.5-5.5); Sodium, Blood 138 mmol/L (136-145); Total Protein, Blood 6.2 g/dL (6.4-8.2)
--- NOTE | 2021-04-18 06:27 | NUR ---
SHIFT SUMMARY: PATIENT MORE ALERT AND INTERACTIVE THEN REPORTED BY DAY RN. PATIENT STATES SHE IS FEELING BETTER. PASSED BEDSIDE NURSING SWALLOW EVAL AND TOOK PILLS ONE AT A TIME WITH WATER AND COACHING. BLADDER TRAINING IN PROGRESS, STARTED THE SHIFT WITH NO URGE TO URINATE WHEN CLAMPED. THIS MORNING SHE HAD A SATURATED BREIF AND STATED SHE HAD TO PEE SO SHE DID. EDUCATED PATIENT ON BLADDER TRAINING AND ADVISED ON POSSIBILTY OF CATHETER BEING REMOVED TODAY. REMAINS ON 1L O2. LCTA WITH STRONG COUGH. DOPHOFF RUNNING AT GOAL OF 55/HR. NO COMPLAINTS OF PAIN. L ARM WEAKNESS AND RBKA.
--- NOTE | 2021-04-18 11:50 | NUR ---
RN AM NOTE WAS ALERT AND ORIENTATED THIS MORNING, BUT IS TIRED AND SLEEPY SINCE ABOUT 11AM. SHE HAD CLEAR SPEACH THIS MORNING AND WAS ABLE TO TALK TO ME CLEARLY ABOUT HER CARE AND HER MEDICATIONS. LUNG SOUNDS DIMINISHED THROUGHOUT, MOIST COUGH AND SHE SAID SHE'S EXPECTORATING YELLOW SPUTUM. ABDOMINAL BREATHER, C/O ABDOMINAL 8/10 PAIN THIS MORNING, RESOLVED TO 0/10 AFTER TYLENOL SUPPOSITORY. SHE PULLED HER DOBHOFF FROM 55CM TO 33CM THIS MORNING, TUBE FEED PUT ON HOLD. LELAND, CHARGE NURSE CHECKED THAT THERE WAS NO COIL IN HER MOUTH AND REPOSITIONED IT, BUT IT WAS REMOVED AT 11HRS BY RN WITH ORDER TO DC. SWALLOW EVAL DONE BY THERAPIST THIS MORNING AND PT TOLERATED PO WHOLE MEDS WITH APPLE SAUCE. BAE CATHETER REMOVED AT 1100HRS BY RN. NOTE - RED SKIN RAS ON NOSE FROM DOBHOFF SECUREMENT TAPE. ALSO, TYLENOL IS NOTED IN ALLERGIES IN CHART; I CALLED AND TALKED WITH SAM IN PHARMACY WHO SAID SHE HAS HAD IT PREVIOUSLY WITHOUT REACTION AND THAT HE WOULD REMOVE IT AN ALLERGY. PT SAID SHE IS NOT ALLERGIC TO TYLENOL.
--- NOTE | 2021-04-18 15:35 | NUR ---
RN AFTERNOON UPDATE BAE CATHETER REMOVED AT 1100. PT C/O LOWER ABD/PUBIC AREA PAIN BEFORE AND AFTER BAE REMOVAL. DR DYER TO BEDSIDE TO SEE PT, DISCUSSED ABD/PUBIC PAIN. UA ORDERED, TRY FOR CLEAN CATCH IF POSS, STRAIGHT CATH IF NOT. PT INCONT URINE IN DIAPER, UNABLE TO GET CLEAN CATCH. TRANSFERED [place] [facility] [place] AND [place], DIDN'T VOID. TWO EPISODES OF DIARRHOEA - GIVEN IMMODIUM ORAL MED WITH APPLE SAUCE. PT GOT UP WITH PT TO BSC FIRST TIME AND PT REPORTED PT HAD SOB AND PALOR ON EXERTION, RESOLVED ON REST.
[2021-04-18 16:17] LABS: Source, Urine Clean Catch
[2021-04-18 16:21] LABS: Appearance, Urine Hazy (Clear); Bilirubin, Urine Neg (Neg); Blood, Urine Neg (Neg); Color, Urine Yellow (P-Yellow); Glucose Qualitative, Urine Neg (Neg); Ketones, Urine Neg (Neg); Leukocyte Esterase, Urine 1+ (Neg); Nitrite, Urine Neg (Neg); Protein, Urine Neg (Neg); Urobilinogen, Urine NORM (Normal)
[2021-04-18 16:57] LABS: Bacteria Mod /hpf; Mucus Light (0-Heavy); Squamous Epithelial Cells Mod /hpf (Few)
[2021-04-18 16:58] LABS: Amorphous Light (0-Heavy)
--- NOTE | 2021-04-18 18:28 | NUR ---
MS. KENDRICK IS ORIENTATED X3. SHE HAS BEEN WIDE AWAKE AT TIMES TODAY AND VERY SLEEPY AT OTHER TIMES. SHE SAID SHE DIDN'T SLEEP WELL LAST NIGHT. CLEAR SPEACH WHEN WIDE AWAKE AND SLOW MORE DIFFICULT TO UNDERSTAND SPEACH WHEN SHE'S SLEEPY. BAE CATHETER WAS DCD AT 1100HRS. SINCE THEN SHE HAS HAD ONE EPISODE OF URINARY CONTINENCE AND SEVERAL EPISODES OF INCONTINENCE OF URINE. SHE HAS ALSO HAD 2 DIARRHOEA EPISODES, BUT NONE SINCE IMMODIUM. UA SENT AFTER C/O LOWER ABD/PUBIC PAIN TO . DOBHOFF REMOVED. TUBE FEEDING STOPPED AT 0830. SHE HAD A SWALLOW EVAL. SITTING UPRIGHT AND ASSISTED WITH MEALS, BUT SHE ISN'T TAKING MUCH SHE HAS NO APPETITE. I ENCOURAGED HER TO EAT DESPITE THIS TO GET STRONG AND SHE DID EAT MORE TO COMPLY, BUT OVERALL LESS THAN 50% OF MEAL TRAY AT SUPPER TIME. 2 PERSON ASSIST TO TRANSFERE TO [facility] [place] WITH GAIT BELT ON. PT HAS URINARY/STOOL URGENCY AND WILL TRY TO GET UP ALONE. REMINDED EACH TIME TO USE CALL LIGHT, THAT WE ARE CHECKING ON HER REGULARLY AND WANT TO KEEP HER SAFE. CALL LIGHT IN REACH, BED LOW, BED ALARM ON, SIDE RAILS UP X 3 AND REGULAR ROUNDING. SHE DOES DROP HER O2 SATS INTO THE 80S ON EXERTION, BUT RECOVERS WITHIN 1-2 MINS. REMAINES ON 2.5L N/C WHICH SHE HAS BEEN ON SINCE AM REPORT. INCREASED BRIEFLY WHEN SATS DROP TO THE 80S.
--- NOTE | 2021-04-19 05:35 | NUR ---
SHIFT SUMMARY AOX2-SELF, PLACE. UNAWARE DATE & FORGETFUL OF SITUATION. IMPULSIVE @TIMES. SLOW TO RESPOND. BP ELEVATED @HS, 186/99, INFORMED DR SOTO & SHE ORDERED 25MG PO METOPROLOL. SBP HAS BEEN UNDER 100 SINCE, WILL INFORM ONCOMING NURSE. REST OF VSS. REPORTED 6/10 HEADACHE & MID ABD PAIN UNDER UMBILICUS, MEDICATED 1X c TYLENOL & NO FURTHER DISCOMFORT REPORTED. DENIES N/V. REPORTS DYSPNEA c ACTIVITY. HAS OCC NONPRODUCTIVE CONGESTED COUGH. LS DIM. SPO2 >90% ON 3L, SATS DROP c MIN ACTIVITY & ABLE RECOOP ONCE PT RESTING AGAIN. INCONT/CONT & CHANGED PRN. 2 ASSIST c GB & FWW TO BSC. CALL LIGHT & BED ALARM IN PLACE. WCTM.
--- NOTE | 2021-04-19 18:26 | NUR ---
PATIENT A/OX2-3, FORGETFUL AT TIMES. R BKA, PATIENT ABLE TO TRANSFER WITH FWW, GB AND 1 ASSIST. VSS, ON 3LO2 TO MAINTAIN SATS. DIET CHANGED TODAY TO MS WITH THIN LIQUIDS, PATIENT TOLERATING WELL. CONTINENT/INCONTIENT OF URINE, WEARING ATTENDS. FALL PRECAUTIONS IN PLACE, PATIENT CAN BE IMPULSIVE AT TIMES. COOPERATIVE WITH CARE.
--- NOTE | 2021-04-20 04:07 | NUR ---
SHIFT SUMMARY NO ACUTE CHANGES TO REPORT THIS SHIFT, PT HAS RESTED MOST OF THE NIGHT. PT IS IMPULSIVE AND DOES NOT CALL FOR ASSISTANCE WHEN NEEDING TO USE THE BSC. BED ALARM IN PLACE FOR SAFETY. PT DENIES PAIN THIS SHIFT. ASSESSMENT UNCHANGED. BED IN LOWEST POSITION, CALL LIGHT WITHIN REACH.
[2021-04-20 08:27] LABS: Hematocrit 22.4 % (33.0-51.0); Hemoglobin 7.1 g/dL (11.5-16.0)
--- NOTE | 2021-04-20 12:22 | NUR ---
AM NOTE MS KENDRICK IS A&OX3, BUT FORGETS CONVERSATIONS, FORGETS TO PRESS THE CALL LIGHT DESPITE EDUCATION AND DEMONSTRATIONS. FREQUENT ROOM CHECKS SHE WILL CALL OUT AND THEN ATTEMT TO GET OUT OF BED. BED ALARM ON, CALL LIGHT IN REACH. BED LOW. BP MEDS ADJUSTED FOR HTN. URINE HAS STRONG ODOR. TRYING TO WEAN DOWN OXYGEN NC SHE'S NOT ON OXYGEN AT HOME. ON 3L AT BEGINNING OF SHIFT, REDUCED TO 2 BUT SAT INTO THE 80S. WILL CONTINUE TO ATTEMPT TO WEAN.
--- NOTE | 2021-04-20 15:26 | NUR ---
SPOKE TO PT BROTHER- HE STATED THE PT GETS A RASH IF SHE EATS CITRUS OR TOMATOES, PLACED THOSE IN PT DISLIKES IN HER DIET ORDER.
--- NOTE | 2021-04-20 18:05 | NUR ---
SHIFT NOTE MS KENDRICK IS A&OX4, FREQUENTLY FORGETFUL. CALLS OUT RATHER THAN USING CALL LIGHT WHEN SHE NEEDS ASSISTANCE. UP TO [facility] WITH ASSISTANCE AND GAIT BELT, BUT SHE SEEMS TO BE GETTING STRONGER AND ABLE TO HELP ME MORE WITH HER TRANSFER THAN 04/18/21. S/B JARRED THERAPIST AND DIET INCREASED. SHE CONTINUES TO NEED ENCOURAGEMENT TO EAT, BUT HAS BEEN DRINKING THROUGHOUT THE DAY. BED LOW, SIDE RAILS UP X 3, CALL LIGHT IN REACH, GAIT BELT ON WHEN TRANSFERED, BED ALARM ON.
[2021-04-21 04:43] LABS: BASOPHILS ABSOLUTE AUTO 0.06 K/mm3 (0.00-0.23); BASOPHILS PERCENT AUTO 1 % (0-2); EOSINOPHILS ABSOLUTE AUTO 0.11 K/mm3 (0.00-0.68); EOSINOPHILS PERCENT AUTO 2 % (0-6); Hematocrit 22.6 % (33.0-51.0); Hemoglobin 7.1 g/dL (11.5-16.0); IMMATURE GRAN ABSOLUTE AUTO 0.03 K/mm3 (0.00-0.10); IMMATURE GRAN PERCENT AUTO 1 % (0-1); LYMPHOCYTES ABSOLUTE AUTO 1.54 K/mm3 (0.84-5.20); LYMPHOCYTES PERCENT AUTO 25 % (21-46); MONOCYTES ABSOLUTE AUTO 0.69 K/mm3 (0.16-1.47); MONOCYTES PERCENT AUTO 11 % (4-13); Mean Corpuscular HGB Conc 31.4 g/dL (31.5-36.5); Mean Corpuscular Volume 105 fL (80-100); Mean Platelet Volume 10.5 fL (9.1-12.4); NEUTROPHILS ABSOLUTE AUTO 3.71 K/mm3 (1.96-9.15); NEUTROPHILS PERCENT AUTO 60 % (41-73); Platelet Count 285 K/mm3 (150-400); RDW Coefficient Variation 16.1 % (11.7-14.2); RDW Standard Deviation 60.8 fL (35.1-46.3); Red Blood Cell Count 2.15 M/mm3 (3.80-5.20); White Blood Cell Count 6.14 K/mm3 (4.00-11.30)
[2021-04-21 05:04] LABS: Alanine Aminotransfer (ALT/SGP 57 U/L (12-78); Albumin, Blood 1.9 g/dL (3.4-5.0); Albumin/Globulin Ratio 0.4 (0.8-1.8); Alk Phos 83 U/L (50-136); Anion Gap 2 mmol/L (6-16); Aspartate Aminotrans (AST/SGOT 16 U/L (12-37); Bilirubin, Total 0.6 mg/dL (0.1-1.0); Blood Urea Nitrogen 9 mg/dL (8-24); Bun/Creatinine Ratio 13.6 (12.0-20.0); CO2, Blood 37 mmol/L (21-32); Calcium, Blood 8.6 mg/dL (8.5-10.1); Chloride, Blood 101 mmol/L (98-108); Creatinine, Blood 0.66 mg/dL (0.40-1.00); Globulin, Blood 4.5 g/dL (2.2-4.0); Glomerular Filtration Rate >60 (60-); Glucose, Blood 96 mg/dL (70-99); Potassium, Blood 3.5 mmol/L (3.5-5.5); Sodium, Blood 140 mmol/L (136-145); Total Protein, Blood 6.4 g/dL (6.4-8.2)
--- NOTE | 2021-04-21 06:17 | NUR ---
SHIFT SUMMARY PATIENT ALERT AND ORIENTED X3. HAD NO COMPLAINTS OF PAIN OR SHORTNESS OF BREATH. NO ACUTE ISSUES NOTED OVERNIGHT. BED IN LOWEST POSITION WITH WHEELS LOCKED AND ALARM ON. CALL LIGHT WITHIN REACH. REPORT GIVEN TO ONCOMING RN.
--- NOTE | 2021-04-21 09:13 | NUR ---
RN AM NOTE MS KENDRICK IS A&OX4. FORGETFUL AT TIMES. GETTING STRONGER GETTING UP TO BEDSIDE COMMODE. TOLERATING MORE BREAKFAST THIS MORNING. ONE EPISODE OF DIARHOEA, WILL GIVE IMMODIUM. BED LOW, CALL LIGHT IN REACH. BED ALARM ON, GAIT BELT USED WHEN UP.
--- NOTE | 2021-04-21 15:34 | NUR ---
PT SEEN BY RT TODAY WHO DISCONTINUED CONTINUOUS PULSE OX AND TOLD US NOT TO WEAN HER OXYGEN DOWN FROM 3LNC. MD WHO CAME TO THE BEDSIDE TO SEE MS MIREILLE AWARE OF NOT WEANING O2, AND DISCUSSED WITH PT PLAN TO DISCHARGE HOME TOMORROW WITH HOME CARE, AND OXYGEN NEED ASSESSMENT. SHE IS STRONGER TRANSFERING [place] [facility] [place] ABLE TO DO IT HERSELF WITH STAND BY ASSIST. SHE ATE MUCH BETTER TODAY - 80% OF BREAKFAST AND ALL OF ENSURE AND 50% OF LUNCH. BED LOW, CALL LIGHT IN REACH. BED ALARM ON FOR SAFETY.
--- NOTE | 2021-04-21 19:37 | NUR ---
SHIFT NOTE MS KENDRICK IS NOTICABLY STRONGER TODAY. UP TO BEDSIDE COMMODE WITH STANDBY ASSIST. EATING MORE OF HER MEAL TRAYS (50-80%). CLEAR IN HER COMMUNICATIONS WITH ME. A&OX4. DENIED PAIN TODAY. DIARHHOEA X 1 EPISODE, TREATED WITH IMMODIUM. BED LOW, CALL LIGHT IN REACH AND MS KENDRICK USED IT TO CALL TODAY. OUT OF BED WITH ASSIST ONLY, NOT ALONE, BUT DOING A LOT MORE TO PARTICIPATE IN HER CARE.
[2021-04-22 04:49] LABS: BASOPHILS ABSOLUTE AUTO 0.07 K/mm3 (0.00-0.23); BASOPHILS PERCENT AUTO 1 % (0-2); EOSINOPHILS PERCENT AUTO 2 % (0-6); Hematocrit 22.9 % (33.0-51.0); IMMATURE GRAN ABSOLUTE AUTO 0.02 K/mm3 (0.00-0.10); IMMATURE GRAN PERCENT AUTO 0 % (0-1); LYMPHOCYTES ABSOLUTE AUTO 1.74 K/mm3 (0.84-5.20); LYMPHOCYTES PERCENT AUTO 26 % (21-46); MONOCYTES ABSOLUTE AUTO 0.75 K/mm3 (0.16-1.47); MONOCYTES PERCENT AUTO 11 % (4-13); Mean Corpuscular HGB 32.4 pg (26.0-34.0); Mean Corpuscular HGB Conc 30.6 g/dL (31.5-36.5); Mean Corpuscular Volume 106 fL (80-100); Mean Platelet Volume 10.3 fL (9.1-12.4); NEUTROPHILS ABSOLUTE AUTO 4.04 K/mm3 (1.96-9.15); NEUTROPHILS PERCENT AUTO 60 % (41-73); Platelet Count 322 K/mm3 (150-400); RDW Coefficient Variation 16.1 % (11.7-14.2); RDW Standard Deviation 61.9 fL (35.1-46.3); Red Blood Cell Count 2.16 M/mm3 (3.80-5.20); White Blood Cell Count 6.72 K/mm3 (4.00-11.30)
[2021-04-22 05:08] LABS: Anion Gap 4 mmol/L (6-16); Blood Urea Nitrogen 8 mg/dL (8-24); Bun/Creatinine Ratio 11.8 (12.0-20.0); CO2, Blood 34 mmol/L (21-32); Calcium, Blood 8.7 mg/dL (8.5-10.1); Chloride, Blood 101 mmol/L (98-108); Creatinine, Blood 0.68 mg/dL (0.40-1.00); Glomerular Filtration Rate >60 (60-); Glucose, Blood 97 mg/dL (70-99); Potassium, Blood 3.4 mmol/L (3.5-5.5); Sodium, Blood 139 mmol/L (136-145)
--- NOTE | 2021-04-22 05:59 | NUR ---
SHIFT SUMMARY PT CONFUSED AT TIMES BUT EASILY REORIENTED. BP OBSERVED TRENDING UP AND DR. LEVI MADE AWARE AND ORDER RECEIVED FOR ORAL LOPRESSOR 25MG X1 AND HAS GOOD EFFECT.NO ACUTE DISTRESS THIS SHIFT.
[2021-04-22] MEDS ORDERED: LISI20 PO (13:53)
[2021-04-22] MEDS ORDERED: METO25ER PO (13:54)
[2021-04-22] MEDS ORDERED: QUET100 PO (13:55)
[2021-04-22] MEDS ORDERED: EFFEXOR XR150 MG PO (13:59)
[2021-04-22] MEDS ORDERED: ALBU2.5V5 INH (14:25)
[2021-04-22] MEDS ORDERED: PAIN RELIEF1 EACH TOP (14:55)
[2021-04-22] MEDS ORDERED: FERSU300 PO (14:55)
[2021-04-22] MEDS ORDERED: CREON DR 12,001 EACH PO (14:55)
[2021-04-22] MEDS ORDERED: LOPE2C PO (14:56)
--- NOTE | 2021-04-22 15:46 | NUR ---
PT DC'ED @ THIS TIME. PT PROVIDED W/ WRITTEN AND VERBAL DC DIRECTION. PT VERBALIZED UNDERSTANDING. A&OX4 @ TIME OF DC. TRANSPORT PROVIDED BY [facility]. PT TRANSPORTED OUT VIA , HEADED HOME W/ HOME HEALTH, O2 IN PLACE. POWERGLIDE DC'ED. MEDS FAXED TO [facility] [place].
--- NOTE | 2021-04-22 16:34 | NUR ---
Received referral from nurse medicare sales executive (Tesha Tenorio) on 04/21/2021. Patient is to discharge 04/22/2021 with orders for home health and elected [facility]. Met with patient to further discuss the above. Patient is agreeable to the above. Discussed homebound status definition with patient. Patient verbalized understanding. Discussed what home health is vs what it is not (in home caregivers/housekeeping). Patient verbalized understanding. Discussed the next steps in the process of an initial assessment to determine frequency of visits. Again patient verbalized understanding. Offered a chance for patient to ask questions regarding the above of which there were none. Gathered all supporting documentation for referral (face sheet, face to face, med list, H&P, and most recent PT assessment) and sent to [facility] for review. No further interventions required. Guerline Bartholomew Referral Liaison
== END 2021-04-22 15:44 | disposition home health service (06) | DRG 871 ==
LOC: ER 17:55 → ICUE 22:22 → MEDS 22:22 → ICUW 22:22 → ICUE 22:26 → PCU 04-11 13:14 → MEDS 04-17 15:30 → ENPENDDIS 04-22 12:24 → MEDS 04-22 15:44
PROVIDERS: Emergency Medicine; Family Medicine; Internal Medicine; Pharmacist; Student in an Organized Health Care Education/Training Program; Urology; ADMIT Internal Medicine
PROC: HZ2ZZZZ Detoxification Services for Substance Abuse Treatment (ICD-10-PCS; principal; 2021-04-06)
PROC: 009U3ZX Drainage of Spinal Canal, Percutaneous Approach, Diagnostic (ICD-10-PCS; 2021-04-06)
PROC: 3E03329 Introduction of Other Anti-infective into Peripheral Vein, Percutaneous Approach (ICD-10-PCS; 2021-04-06)
PROC: 02HV33Z Insertion of Infusion Device into Superior Vena Cava, Percutaneous Approach (ICD-10-PCS; 2021-04-06)
PROC: 3E033XZ Introduction of Vasopressor into Peripheral Vein, Percutaneous Approach (ICD-10-PCS; 2021-04-11)
DX: A41.9 Sepsis, unspecified organism (principal); S72.001A Fracture of unspecified part of neck of right femur, initial encounter for closed fracture; R65.21 Severe sepsis with septic shock; K72.00 Acute and subacute hepatic failure without coma; G92.8 Other toxic encephalopathy; G04.81 Other encephalitis and encephalomyelitis; I47.1 Supraventricular tachycardia; N10 Acute pyelonephritis; N17.9 Acute kidney failure, unspecified; K86.1 Other chronic pancreatitis; E11.9 Type 2 diabetes mellitus without complications; J44.9 Chronic obstructive pulmonary disease, unspecified; Z53.29 Procedure and treatment not carried out because of patient's decision for other reasons; I10 Essential (primary) hypertension; M10.9 Gout, unspecified; E78.00 Pure hypercholesterolemia, unspecified; E87.6 Hypokalemia; B00.9 Herpesviral infection, unspecified; D69.6 Thrombocytopenia, unspecified; F43.10 Post-traumatic stress disorder, unspecified; F10.20 Alcohol dependence, uncomplicated; F17.210 Nicotine dependence, cigarettes, uncomplicated; F32.A Depression, unspecified; Z86.73 Personal history of transient ischemic attack (TIA), and cerebral infarction without residual deficits; Z89.511 Acquired absence of right leg below knee; Z90.710 Acquired absence of both cervix and uterus; Z98.890 Other specified postprocedural states; Z88.0 Allergy status to penicillin; Z88.5 Allergy status to narcotic agent; Z88.6 Allergy status to analgesic agent; Z91.040 Latex allergy status; Z79.84 Long term (current) use of oral hypoglycemic drugs; Z79.899 Other long term (current) drug therapy; W18.39XA Other fall on same level, initial encounter
CPT/HCPCS: 36415; 36569; 51702; 62270; 70450; 71045; 71046; 74176; 76705; 80048; 80053; 80074; 80076; 80202; 81001; 82103; 82140; 82390; 82607; 82728; 82746; 82803; 82945; 82947; 83540; 83550; 83605; 83735; 83880; 84100; 84157; 84439; 84443; 84484; 85014; 85018; 85025; 85027; 85610; 86038; 86695; 86696; 87040; 87070; 87086; 87205; 87252; 87254; 87389; 87483; 87497; 87517; 87522; 87529; 87798; 89051; 92526; 92610; 93005; 93010; 94640; 94660; 94760; 94761; 94762; 95819; 96365; 96366; 96368; 96375; 96376; 97110; 97162; 97166; 97530; 97535; 99285-25; A9270; C1751; G0480; J0132; J0133; J0153; J0696; J1644; J1650; J1956; J2060; J2185; J2405; J2550; J3010; J3370; J3411; J3475; J3480; J7030; J7040; J7042; J7050; J7060; J7070; J7120

== ENCOUNTER 2021-06-01 06:08 | Observation (INO) | payer OTHER ==
[~2021-06-01] VITALS: Ht 160 cm; Wt 44.5 kg
[~2021-06-01 06:08] MED LIST changes: +ALBU2.5V5 INH; +CREON DR 12,001 EACH PO; +EFFEXOR XR150 MG PO; +FERSU300 PO; +LOPE2C PO; +PAIN RELIEF1 EACH TOP
[2021-06-01 07:38] LABS: BASOPHILS ABSOLUTE AUTO 0.09 K/mm3 (0.00-0.23); BASOPHILS PERCENT AUTO 2 % (0-2); EOSINOPHILS ABSOLUTE AUTO 0.15 K/mm3 (0.00-0.68); EOSINOPHILS PERCENT AUTO 3 % (0-6); Hematocrit 36.9 % (33.0-51.0); Hemoglobin 11.5 g/dL (11.5-16.0); IMMATURE GRAN ABSOLUTE AUTO 0.03 K/mm3 (0.00-0.10); IMMATURE GRAN PERCENT AUTO 1 % (0-1); LYMPHOCYTES ABSOLUTE AUTO 1.78 K/mm3 (0.84-5.20); LYMPHOCYTES PERCENT AUTO 30 % (21-46); MONOCYTES ABSOLUTE AUTO 0.34 K/mm3 (0.16-1.47); MONOCYTES PERCENT AUTO 6 % (4-13); Mean Corpuscular HGB 31.9 pg (26.0-34.0); Mean Corpuscular HGB Conc 31.2 g/dL (31.5-36.5); Mean Corpuscular Volume 103 fL (80-100); Mean Platelet Volume 8.8 fL (9.1-12.4); NEUTROPHILS ABSOLUTE AUTO 3.61 K/mm3 (1.96-9.15); NEUTROPHILS PERCENT AUTO 60 % (41-73); Platelet Count 338 K/mm3 (150-400); RDW Coefficient Variation 13.8 % (11.7-14.2); RDW Standard Deviation 52.9 fL (35.1-46.3)
[2021-06-01 08:27] LABS: Anion Gap 7 mmol/L (6-16); Blood Urea Nitrogen 6 mg/dL (8-24); Bun/Creatinine Ratio 9.3 (12.0-20.0); CO2, Blood 19 mmol/L (21-32); Calcium, Blood 8.2 mg/dL (8.5-10.1); Chloride, Blood 107 mmol/L (98-108); Creatinine, Blood 0.64 mg/dL (0.40-1.00); Ethanol (Alcohol), Blood, Med 290 mg/dL; Glomerular Filtration Rate >60 (60-); Glucose, Blood 114 mg/dL (70-99); Potassium, Blood 4.2 mmol/L (3.5-5.5); Sodium, Blood 133 mmol/L (136-145)
[2021-06-01] MEDS ORDERED: TRAZ100 PO (11:44)
[2021-06-01] MEDS ORDERED: 1/2 NS 250ml250 ML (11:44)
--- NOTE | 2021-06-01 11:48 | NUR ---
PT ARRIVED TO THE MEDICAL FLOOR FROM THE ER VIA AMEENA ROJAS, PLEASANT AND COOPERATIVE. PT HAS A ASPEN COLLAR ON AND SECURE. PT ORIENTED TO THE CALL SYSTEM. PT MEDICATED FOR PAIN. CALL LIGHT IN REACH, WILL CONTINUE TO MONITOR AND ASSESS FOR CHANGES
--- NOTE | 2021-06-01 15:59 | NUR ---
Upon receiving a referral for spiritual care, I visit pt. Pt is lying in bed and alert. Pt immediately tells me about her medical issues and the alcoholism that led to the medical issues. Pt is tearful at times as she talks about how depressed, addicted and fearful she is. She admits to wanting to quit drinking, but her live-in boyfriend refuses to quit and so she has little hope of success. We talk about some options including a live-in alcohol program, kicking her boy friend out and leaning on the few resources she has to move her life forward. Pt agian voices little hope of change even. We talk about her Lutheran beliefs and her the drive that she has to overcome in each day as it comes. I encourage self-care, reinforce helpful attitudes and provide therapeutic listening, gentle admitting counselor and prayer. Patient eventually responds well and shows signs of increased hope and a resolve. I will continue to remain available to pt and family.
--- NOTE | 2021-06-01 18:36 | NUR ---
PT IS A/OX3, PLEASANT AND COOPERATIVE, THE PT HAS A RIGHT BKA. THE PT HAS A ASPEN COLLAR ON AND HAS BEEN COMPLIANT WITH WEARTING IT. PY IS ABLE TO CHANGE POSITIONS IN BED. PT MEDICATED FOR PAIN T/O THE DAY. PT APPEARS TO BE BREATHING AND SWALLOWING WELL SO FAR THIS SHIFT. CALL LIGHT IN REACH. WILL CONTINUE TO MONITOR AND ASSESS FOR CHANGES
--- NOTE | 2021-06-02 01:44 | NUR ---
PHYSICIAN COMMUNICATION CONTACTED ONCALL PHYSICIAN, DR HEAD, TO NOTIFY HIM THAT THE PATIENT WAS EXPERIENCING 9/10 NECK PAIN FOR WHICH NORCO WAS INEFFECTIVE. DR HEAD ORDERED FENTANYL 25-50 MIGROGRAMS IV EVERY FOUR HOURS NEEDED.
--- NOTE | 2021-06-02 06:13 | NUR ---
SHIFT SUMMARY PATIENT ALERT AND ORIENTED. MEDICATED PER EMAR FOR PAIN. NO COMPLAINTS OF SHORTNESS OF BREATH. NO ACUTE ISSUES NOTED OVERNIGHT. CALL LIGHT WITHIN REACH. REPORT GIVEN TO ONCOMING RN.
--- NOTE | 2021-06-02 07:41 | NUR ---
ASSUMED CARE OF PT- PT ALERT IN BED C/O 11/05 PAIN, MEDICATED WITH IV FENTANYL SHE IS PREPARING TO GO FOR IMAGING WILL MEDICATE WITH ORAL PAIN MEDICATION AFTER PT RETURNS FROM IMAGING.
--- NOTE | 2021-06-02 16:28 | NUR ---
Patietn is lying in bed and alert. I provide prayer. Patient voices much appreciation. I will continue to remain available.
--- NOTE | 2021-06-02 17:53 | NUR ---
CALLED DR MOYER- PT C/O PAIN THIS EVENING AND STATED THAT IT JUST COMES AND HURTS FOR A WHILE AND SOMETIMES IT JUST GOES AWAY. CALLED DR MOYER PT HAS HAD ALL PRN PAIN MEDICATION AVAILABLE AT THIS TIME. RECIEVED A NEW ORDER FOR CYCLOBENZAPRINE TID PRN.
--- NOTE | 2021-06-02 19:29 | NUR ---
SHIFT SUMMARY- PT ALERT AND ORIENTED. PAIN MANAGEMENT HAS BEEN AN ISSUE FOR HER TODAY, RECIEVED AN ORDER FOR FLEXERIL GAVE THAT JUST PRIOR TO SHIFT CHANGE. PT CALLS APPROPRIATELY AND HAS BEEN USING THE BEDPAN FOR VOIDS. PT PAIN SEEMS TO BE FAIRLY WELL MANAGED AT THE TIME OF SHIFT CHANGE. PT DOES C/O TINGLING IN BUE SINCE HER BREAK, IS AWARE. PT LAYING IN BED, CALL LIGHT IN REACH NO S&S OF DISTRESS NOTED AT THE TIME OF SHIFT CHANGE.
--- NOTE | 2021-06-03 04:08 | NUR ---
SHIFT SUMMARY PATIENT HAD NO ACUTE CHANGES OBSERVED. BEDREST USING BEDPAN. PIV REMAINS INTACT. REPORTED NECK PAIN AND OXYCODONE AND IV FENTANYL 50 MCG ALTERNATED FOR PAIN MANAGEMENT. VSS/AFEBRILE. DENIES SOB AND N/V. CALLS APPROPRIATELY. RIGHT BKA. CALL LIGHT IN REACH. BED IN LOWEST POSITION. WILL CONTINUE TO MONITOR UNTIL DAY SHIFT NURSE ASSUMES CARE.
[2021-06-03] MEDS ORDERED: CYCL10 PO (12:08)
[2021-06-03] MEDS ORDERED: Colace100 MG PO (12:09)
--- NOTE | 2021-06-03 16:08 | NUR ---
DISCHARGE NOTE THE PATIENT WAS DISCHARGED AT 1600 THIS SHIFT VIA WHEELCHAIR VIA AMBULANCE. THE PATIENT VERBALIZED UNDERSTANDING OF DISCHARGE INSTRUCTIONS REGARDING MEDICATIONS AND FURTHER FOLLOW UP CARE. THE PATIENT'S IV WAS DC'D. VSS. NOTHING FURTHER TO REPORT.
== END 2021-06-03 16:05 | disposition home or self-care (01) ==
LOC: ER 06:08 → MEDS 06:09 → ENPENDDIS 06-03 11:08 → MEDS 06-03 16:05
PROVIDERS: Emergency Medicine; ADMIT Hospitalist
DX: S12.112A Nondisplaced Type II dens fracture, initial encounter for closed fracture (principal); S01.312A Laceration without foreign body of left ear, initial encounter; F10.229 Alcohol dependence with intoxication, unspecified; K86.0 Alcohol-induced chronic pancreatitis; W10.9XXA Fall (on) (from) unspecified stairs and steps, initial encounter; I10 Essential (primary) hypertension; J44.9 Chronic obstructive pulmonary disease, unspecified; E11.9 Type 2 diabetes mellitus without complications; E78.5 Hyperlipidemia, unspecified; F31.9 Bipolar disorder, unspecified; F17.210 Nicotine dependence, cigarettes, uncomplicated; Z89.511 Acquired absence of right leg below knee; Z98.1 Arthrodesis status; Z79.4 Long term (current) use of insulin; Z86.73 Personal history of transient ischemic attack (TIA), and cerebral infarction without residual deficits
CPT/HCPCS: 12011; 36415; 70450; 72040; 72125; 80048; 82550; 82947; 83735; 85025; 93005; 93010; 94760; 94762; 96374; 96375; 96376; 99285-25; A9270; G0480; J1650; J3010; J3411; J3475; J7042; L0160

== ENCOUNTER 2021-07-02 14:10 | Emergency (ER) | payer OTHER ==
[~2021-07-02] VITALS: Ht 160 cm; Wt 54.4 kg
[~2021-07-02 14:10] MED LIST changes: +1/2 NS 250ml250 ML; +TRAZ100 PO
[2021-07-02] MEDS ORDERED: Norco 5-325 Ta1 EACH PO (14:45)
[2021-07-02] MEDS ORDERED: LIDO700A20 TOP (14:45)
[2021-07-02] MEDS ORDERED: CYCL10 PO (14:45)
== END 2021-07-02 17:55 | disposition home or self-care (01) ==
LOC: ER 14:10
DX: M62.830 Muscle spasm of back (principal); E11.9 Type 2 diabetes mellitus without complications; J44.9 Chronic obstructive pulmonary disease, unspecified; I10 Essential (primary) hypertension; F31.9 Bipolar disorder, unspecified; F17.210 Nicotine dependence, cigarettes, uncomplicated; Z88.0 Allergy status to penicillin; Z88.5 Allergy status to narcotic agent; Z88.6 Allergy status to analgesic agent; Z91.040 Latex allergy status; Z79.84 Long term (current) use of oral hypoglycemic drugs; Z79.899 Other long term (current) drug therapy
CPT/HCPCS: A9270; J1885

== ENCOUNTER 2021-08-07 16:55 | Emergency (ER) | payer OTHER ==
[~2021-08-07] VITALS: Ht 160 cm; Wt 49.9 kg
[~2021-08-07 16:55] MED LIST changes: +LIDO700A20 TOP
[2021-08-07] MEDS ORDERED: VICODIN HP 10-1 EAC1 PO (21:52)
== END 2021-08-07 22:00 | disposition home or self-care (01) ==
LOC: ER 16:55
DX: S12.110A Anterior displaced Type II dens fracture, initial encounter for closed fracture (principal); W19.XXXA Unspecified fall, initial encounter; I10 Essential (primary) hypertension; J44.9 Chronic obstructive pulmonary disease, unspecified; E11.9 Type 2 diabetes mellitus without complications; F17.210 Nicotine dependence, cigarettes, uncomplicated; Z88.5 Allergy status to narcotic agent; Z88.0 Allergy status to penicillin; Z88.6 Allergy status to analgesic agent; Z91.040 Latex allergy status; Z79.899 Other long term (current) drug therapy; Z79.84 Long term (current) use of oral hypoglycemic drugs
CPT/HCPCS: 72125; A9270

== ENCOUNTER 2021-10-09 15:10 | Emergency (ER) | payer OTHER ==
[~2021-10-09] VITALS: Ht 160 cm; Wt 45.4 kg
[~2021-10-09 15:10] MED LIST changes: +HYDACE10B PO; +VICODIN HP 10-1 EAC1 PO
[2021-10-09 16:27] LABS: BASOPHILS ABSOLUTE AUTO 0.03 K/mm3 (0.00-0.23); BASOPHILS PERCENT AUTO 1 % (0-2); EOSINOPHILS ABSOLUTE AUTO 0.08 K/mm3 (0.00-0.68); EOSINOPHILS PERCENT AUTO 2 % (0-6); Hemoglobin 11.1 g/dL (11.5-16.0); IMMATURE GRAN ABSOLUTE AUTO 0.02 K/mm3 (0.00-0.10); IMMATURE GRAN PERCENT AUTO 0 % (0-1); LYMPHOCYTES ABSOLUTE AUTO 1.22 K/mm3 (0.84-5.20); LYMPHOCYTES PERCENT AUTO 25 % (21-46); MONOCYTES ABSOLUTE AUTO 0.41 K/mm3 (0.16-1.47); MONOCYTES PERCENT AUTO 8 % (4-13); Mean Corpuscular HGB Conc 32.6 g/dL (31.5-36.5); Mean Corpuscular Volume 107 fL (80-100); Mean Platelet Volume 8.9 fL (9.1-12.4); NEUTROPHILS ABSOLUTE AUTO 3.19 K/mm3 (1.96-9.15); NEUTROPHILS PERCENT AUTO 65 % (41-73); Platelet Count 142 K/mm3 (150-400); RDW Coefficient Variation 14.3 % (11.7-14.2); RDW Standard Deviation 56.1 fL (35.1-46.3); Red Blood Cell Count 3.17 M/mm3 (3.80-5.20); White Blood Cell Count 4.95 K/mm3 (4.00-11.30)
[2021-10-09 16:33] LABS: Base Excess Venous -6.8 mmol/L; Bicarbonate Venous 19.1 mmol/L (24.0-30.0); PCO2 Venous 38.9 mmHg (38-42); pH Blood Venous 7.31 (7.34-7.37)
[2021-10-09 16:42] LABS: Bun/Creatinine Ratio 13.4 (12.0-20.0); Calcium, Blood 8.4 mg/dL (8.5-10.1); Creatinine, Blood 0.82 mg/dL (0.40-1.00); Magnesium, Blood 1.7 mg/dL (1.6-2.4); Potassium, Blood 4.2 mmol/L (3.5-5.5)
[2021-10-09 16:52] LABS: Influenza A, PCR NEGATIVE (NEGATIVE); Influenza B, PCR NEGATIVE (NEGATIVE); Resp Syncytial Virus, PCR NEGATIVE (NEGATIVE); SARS-Cov-2 (COVID-19) PCR, MMC NEGATIVE (NEGATIVE)
[2021-10-09] MEDS ORDERED: B-1100 M1 PO (17:07)
[2021-10-09] MEDS ORDERED: FOLI1 PO (17:07)
== END 2021-10-09 18:10 | disposition home or self-care (01) ==
LOC: ER 15:10
PROVIDERS: Student in an Organized Health Care Education/Training Program
DX: E86.0 Dehydration (principal); I95.89 Other hypotension; E87.2 Acidosis; J44.9 Chronic obstructive pulmonary disease, unspecified; D53.9 Nutritional anemia, unspecified; Z72.89 Other problems related to lifestyle; E11.9 Type 2 diabetes mellitus without complications; I10 Essential (primary) hypertension; E78.5 Hyperlipidemia, unspecified; Z86.73 Personal history of transient ischemic attack (TIA), and cerebral infarction without residual deficits; F17.210 Nicotine dependence, cigarettes, uncomplicated; Z79.899 Other long term (current) drug therapy; Z79.84 Long term (current) use of oral hypoglycemic drugs; Z88.5 Allergy status to narcotic agent; Z88.0 Allergy status to penicillin; Z88.6 Allergy status to analgesic agent; Z91.040 Latex allergy status; Z20.822 Contact with and (suspected) exposure to COVID-19
CPT/HCPCS: 0241U; 71045; 80048; 82803; 83605; 83735; 85025; 93005; 93010; 94640; 94664; A9270; J7030

== ENCOUNTER 2021-10-11 23:57 | Emergency (ER) | payer OTHER ==
[~2021-10-11] VITALS: Ht 160 cm; Wt 45.4 kg
[~2021-10-11 23:57] MED LIST changes: +B-1100 M1 PO
[2021-10-12 00:26] LABS: BASOPHILS ABSOLUTE AUTO 0.07 K/mm3 (0.00-0.23); BASOPHILS PERCENT AUTO 1 % (0-2); EOSINOPHILS ABSOLUTE AUTO 0.25 K/mm3 (0.00-0.68); EOSINOPHILS PERCENT AUTO 4 % (0-6); Hematocrit 36.9 % (33.0-51.0); Hemoglobin 12.5 g/dL (11.5-16.0); IMMATURE GRAN ABSOLUTE AUTO 0.02 K/mm3 (0.00-0.10); IMMATURE GRAN PERCENT AUTO 0 % (0-1); LYMPHOCYTES ABSOLUTE AUTO 2.57 K/mm3 (0.84-5.20); LYMPHOCYTES PERCENT AUTO 45 % (21-46); MONOCYTES ABSOLUTE AUTO 0.49 K/mm3 (0.16-1.47); MONOCYTES PERCENT AUTO 9 % (4-13); Mean Corpuscular HGB 35.5 pg (26.0-34.0); Mean Corpuscular HGB Conc 33.9 g/dL (31.5-36.5); Mean Corpuscular Volume 105 fL (80-100); NEUTROPHILS ABSOLUTE AUTO 2.29 K/mm3 (1.96-9.15); NEUTROPHILS PERCENT AUTO 40 % (41-73); Platelet Count 162 K/mm3 (150-400); RDW Standard Deviation 58.2 fL (35.1-46.3); Red Blood Cell Count 3.52 M/mm3 (3.80-5.20); White Blood Cell Count 5.69 K/mm3 (4.00-11.30)
[2021-10-12 00:38] LABS: Albumin, Blood 3.6 g/dL (3.4-5.0); Albumin/Globulin Ratio 0.8 (0.8-1.8); Bilirubin, Direct 0.1 mg/dL (0.0-0.3); Bilirubin, Indirect 0.2 mg/dL (0.1-0.7); Bilirubin, Total 0.3 mg/dL (0.1-1.0); Bun/Creatinine Ratio 25.5 (12.0-20.0); Calcium, Blood 8.9 mg/dL (8.5-10.1); Creatinine, Blood 0.47 mg/dL (0.40-1.00); Globulin, Blood 4.3 g/dL (2.2-4.0); Magnesium, Blood 2.3 mg/dL (1.6-2.4); Potassium, Blood 4.7 mmol/L (3.5-5.5); Total Protein, Blood 7.9 g/dL (6.4-8.2)
[2021-10-12 01:16] LABS: Influenza A, PCR NEGATIVE (NEGATIVE); Influenza B, PCR NEGATIVE (NEGATIVE); Resp Syncytial Virus, PCR NEGATIVE (NEGATIVE); SARS-Cov-2 (COVID-19) PCR, MMC NEGATIVE (NEGATIVE)
[2021-10-12 01:52] LABS: Source, Urine Straight Cath
[2021-10-12 02:09] LABS: Bilirubin, Urine Neg (Neg); Blood, Urine Neg (Neg); Glucose Qualitative, Urine Neg (Neg); Ketones, Urine Neg (Neg); Leukocyte Esterase, Urine Neg (Neg); Nitrite, Urine Neg (Neg); Protein, Urine Neg (Neg); Urobilinogen, Urine NORM (Normal)
[2021-10-12 02:13] LABS: Appearance, Urine Clear (Clear); Color, Urine Yellow (P-Yellow)
[2021-10-12] MEDS ORDERED: ONDA4ODT MM (03:19)
== END 2021-10-12 04:32 | disposition home or self-care (01) ==
LOC: ER 23:57
PROVIDERS: Student in an Organized Health Care Education/Training Program
DX: M54.50 Low back pain, unspecified (principal); R10.31 Right lower quadrant pain; I10 Essential (primary) hypertension; R11.0 Nausea; R50.9 Fever, unspecified; R30.0 Dysuria; E11.9 Type 2 diabetes mellitus without complications; J44.9 Chronic obstructive pulmonary disease, unspecified; Z86.73 Personal history of transient ischemic attack (TIA), and cerebral infarction without residual deficits; F17.210 Nicotine dependence, cigarettes, uncomplicated; Z79.899 Other long term (current) drug therapy; Z79.84 Long term (current) use of oral hypoglycemic drugs; Z88.5 Allergy status to narcotic agent; Z88.0 Allergy status to penicillin; Z88.6 Allergy status to analgesic agent; Z91.040 Latex allergy status; Z20.822 Contact with and (suspected) exposure to COVID-19
CPT/HCPCS: 0241U; 74177; 80048; 80076; 81003; 83690; 83735; 85025; 96374; 96375; 99284-25; J1885; J2405; J7030; Q9967

== ENCOUNTER 2021-12-31 04:00 | Emergency (ER) | payer OTHER ==
[~2021-12-31] VITALS: Ht 165.1 cm; Wt 61.2 kg
[2021-12-31 04:24] LABS: BASOPHILS ABSOLUTE AUTO 0.04 K/mm3 (0.00-0.23); BASOPHILS PERCENT AUTO 1 % (0-2); EOSINOPHILS ABSOLUTE AUTO 0.08 K/mm3 (0.00-0.68); EOSINOPHILS PERCENT AUTO 1 % (0-6); Hematocrit 37.1 % (33.0-51.0); Hemoglobin 12.2 g/dL (11.5-16.0); IMMATURE GRAN ABSOLUTE AUTO 0.03 K/mm3 (0.00-0.10); IMMATURE GRAN PERCENT AUTO 0 % (0-1); LYMPHOCYTES ABSOLUTE AUTO 0.91 K/mm3 (0.84-5.20); LYMPHOCYTES PERCENT AUTO 13 % (21-46); MONOCYTES ABSOLUTE AUTO 0.53 K/mm3 (0.16-1.47); MONOCYTES PERCENT AUTO 7 % (4-13); Mean Corpuscular HGB 34.5 pg (26.0-34.0); Mean Corpuscular HGB Conc 32.9 g/dL (31.5-36.5); Mean Corpuscular Volume 105 fL (80-100); Mean Platelet Volume 9.6 fL (9.1-12.4); NEUTROPHILS ABSOLUTE AUTO 5.59 K/mm3 (1.96-9.15); NEUTROPHILS PERCENT AUTO 78 % (41-73); Platelet Count 236 K/mm3 (150-400); RDW Standard Deviation 50.3 fL (35.1-46.3); Red Blood Cell Count 3.54 M/mm3 (3.80-5.20); White Blood Cell Count 7.18 K/mm3 (4.00-11.30)
[2021-12-31 04:44] LABS: Ethanol (Alcohol), Blood, Med <3 mg/dL
[2021-12-31 04:45] LABS: Alanine Aminotransfer (ALT/SGP 21 U/L (12-78); Albumin, Blood 3.2 g/dL (3.4-5.0); Albumin/Globulin Ratio 0.8 (0.8-1.8); Alk Phos 103 U/L (50-136); Anion Gap 9 mmol/L (6-16); Aspartate Aminotrans (AST/SGOT 23 U/L (12-37); Bilirubin, Total 0.2 mg/dL (0.1-1.0); Blood Urea Nitrogen 18 mg/dL (8-24); Bun/Creatinine Ratio 14.5 (12.0-20.0); CO2, Blood 21 mmol/L (21-32); Calcium, Blood 8.9 mg/dL (8.5-10.1); Chloride, Blood 103 mmol/L (98-108); Creatinine, Blood 1.24 mg/dL (0.40-1.00); Globulin, Blood 3.9 g/dL (2.2-4.0); Glomerular Filtration Rate 49 (60-); Glucose, Blood 180 mg/dL (70-99); Potassium, Blood 3.7 mmol/L (3.5-5.5); Sodium, Blood 133 mmol/L (136-145); Total Protein, Blood 7.1 g/dL (6.4-8.2)
[2021-12-31 05:12] LABS: Source, Urine Clean Catch
[2021-12-31 05:22] LABS: Bilirubin, Urine Neg (Neg); Blood, Urine Neg (Neg); Glucose Qualitative, Urine Neg (Neg); Ketones, Urine Neg (Neg); Leukocyte Esterase, Urine Neg (Neg); Nitrite, Urine Neg (Neg); Protein, Urine Neg (Neg); Specific Gravity, Urine 1.015 (1.003-1.022); Urobilinogen, Urine NORM (Normal)
[2021-12-31 05:33] LABS: Color, Urine Yellow (P-Yellow)
[2021-12-31 05:34] LABS: Amorphous Mod (0-Heavy); Appearance, Urine Hazy (Clear); Bacteria Rare /hpf; Red Blood Cells, Urine Not Seen /hpf (0-2); Squamous Epithelial Cells Few /hpf (Few); White Blood Cells, Urine 0-2 /hpf (0-5)
[2021-12-31 05:39] LABS: U Amphetamine Screen DETECTED; U Barbituate Screen Not Detected; U Benzodiazapine Screen DETECTED; U Buprenorphine Screen Not Detected; U Cannabinoids Screen DETECTED; U Cocaine Screen Not Detected; U Methadone Screen Not Detected; U Methamphetamine Screen DETECTED; U Opiates Screen DETECTED; U Oxycodone Screen Not Detected; U Phencyclidine Screen Not Detected; U Propoxyphene Screen Not Detected
== END 2021-12-31 09:37 | disposition home or self-care (01) ==
LOC: ER 04:00
PROVIDERS: Emergency Medicine
DX: F19.10 Other psychoactive substance abuse, uncomplicated (principal); E11.9 Type 2 diabetes mellitus without complications; J44.9 Chronic obstructive pulmonary disease, unspecified; I10 Essential (primary) hypertension; E78.5 Hyperlipidemia, unspecified; F17.210 Nicotine dependence, cigarettes, uncomplicated; Z86.73 Personal history of transient ischemic attack (TIA), and cerebral infarction without residual deficits; Z88.0 Allergy status to penicillin; Z91.040 Latex allergy status; Z88.6 Allergy status to analgesic agent; Z88.5 Allergy status to narcotic agent; Z79.899 Other long term (current) drug therapy; Z79.84 Long term (current) use of oral hypoglycemic drugs
CPT/HCPCS: 70450; 80053; 81001; 85025; 93005; 93010; G0480; J2310

== ENCOUNTER → 2022-05-26 | Outpatient (CLI) | payer OTHER ==
[2022-05-26 18:28] LABS: BASOPHILS ABSOLUTE AUTO 0.05 K/mm3 (0.00-0.23); BASOPHILS PERCENT AUTO 1 % (0-2); EOSINOPHILS ABSOLUTE AUTO 0.24 K/mm3 (0.00-0.68); EOSINOPHILS PERCENT AUTO 4 % (0-6); Hemoglobin 15.3 g/dL (11.5-16.0); IMMATURE GRAN ABSOLUTE AUTO 0.02 K/mm3 (0.00-0.10); IMMATURE GRAN PERCENT AUTO 0 % (0-1); LYMPHOCYTES ABSOLUTE AUTO 2.01 K/mm3 (0.84-5.20); LYMPHOCYTES PERCENT AUTO 33 % (21-46); MONOCYTES ABSOLUTE AUTO 0.34 K/mm3 (0.16-1.47); MONOCYTES PERCENT AUTO 6 % (4-13); Mean Corpuscular HGB 32.3 pg (26.0-34.0); Mean Corpuscular HGB Conc 32.6 g/dL (31.5-36.5); Mean Corpuscular Volume 99 fL (80-100); Mean Platelet Volume 9.7 fL (9.1-12.4); NEUTROPHILS PERCENT AUTO 57 % (41-73); Platelet Count 286 K/mm3 (150-400); RDW Coefficient Variation 13.7 % (11.7-14.2); RDW Standard Deviation 50.7 fL (35.1-46.3); Red Blood Cell Count 4.73 M/mm3 (3.80-5.20); White Blood Cell Count 6.16 K/mm3 (4.00-11.30)
[2022-05-26 18:50] LABS: Alanine Aminotransfer (ALT/SGP 20 U/L (12-78); Albumin, Blood 4.1 g/dL (3.4-5.0); Albumin/Globulin Ratio 0.9 (0.8-1.8); Alk Phos 144 U/L (50-136); Anion Gap 7 mmol/L (6-16); Aspartate Aminotrans (AST/SGOT 10 U/L (12-37); Bilirubin, Total 0.2 mg/dL (0.1-1.0); Blood Urea Nitrogen 24 mg/dL (8-24); CO2, Blood 25 mmol/L (21-32); Calcium, Blood 9.3 mg/dL (8.5-10.1); Chloride, Blood 102 mmol/L (98-108); Cholesterol 250 mg/dL (50-200); Globulin, Blood 4.4 g/dL (2.2-4.0); Glucose, Blood 88 mg/dL (70-99); HDL Cholesterol 63 mg/dL (>39); LDL/HDL RATIO 1.9; Low Density Lipoprotein Chol 117 mg/dL (0-110); Potassium, Blood 4.1 mmol/L (3.5-5.5); Sodium, Blood 134 mmol/L (136-145); Total Protein, Blood 8.5 g/dL (6.4-8.2); Triglycerides 348 mg/dL (30-160); Very Low Density Lipoprot Chol 69 mg/dL (6-32)
[2022-05-26 19:14] LABS: Bun/Creatinine Ratio 28.8 (12.0-20.0); Creatinine, Blood 0.83 mg/dL (0.40-1.00); Glomerular Filtration Rate 79 (60-)
[2022-05-26 21:44] LABS: Microalb/Creat Ratio UR, Rand Unable to Calculate mg/g (0.000-30.000); Microalbumin, Random Urine <5.000 mg/L (0.000-20.000)
== END ==
LOC: LAB SHORT 16:35
PROVIDERS: Family Medicine
DX: I10 Essential (primary) hypertension (principal); G25.81 Restless legs syndrome
CPT/HCPCS: 80053; 80061; 82043; 82570; 84443; 85025

== ENCOUNTER 2023-11-18 13:06 | Emergency (ER) | payer MEDICARE, OTHER ==
[~2023-11-18] VITALS: Ht 160 cm; Wt 49.4 kg
[~2023-11-18 13:06] MED LIST changes: +ANORO ELLIPTA1 EACH INH; +B-1100 M2 PO; +BUSP10 PO
[2023-11-18] MEDS ORDERED: Pantoprazole Sodium 40 MG Injection IV ONE (13:25)
[2023-11-18] MEDS ORDERED: Ondansetron HCl 2 MG / ML 2ML Vial IV ONE (13:25)
[2023-11-18] MEDS ORDERED: FentaNYL Citrate 50 MCG/ML 2 ML Injection IV ONE (14:00)
[2023-11-18] MEDS ORDERED: OMEP20ER PO (14:10)
[2023-11-18 14:28] LABS: BASOPHILS ABSOLUTE AUTO 0.09 K/mm3 (0.00-0.23); BASOPHILS PERCENT AUTO 1 % (0-2); EOSINOPHILS ABSOLUTE AUTO 0.27 K/mm3 (0.00-0.68); EOSINOPHILS PERCENT AUTO 4 % (0-6); Hematocrit 39.4 % (33.0-51.0); Hemoglobin 13.3 g/dL (11.5-16.0); IMMATURE GRAN ABSOLUTE AUTO 0.04 K/mm3 (0.00-0.10); IMMATURE GRAN PERCENT AUTO 1 % (0-1); LYMPHOCYTES ABSOLUTE AUTO 1.79 K/mm3 (0.84-5.20); LYMPHOCYTES PERCENT AUTO 25 % (21-46); MONOCYTES ABSOLUTE AUTO 0.49 K/mm3 (0.16-1.47); MONOCYTES PERCENT AUTO 7 % (4-13); Mean Corpuscular HGB 33.3 pg (26.0-34.0); Mean Corpuscular HGB Conc 33.8 g/dL (31.5-36.5); Mean Corpuscular Volume 99 fL (80-100); Mean Platelet Volume 9.2 fL (9.1-12.4); NEUTROPHILS ABSOLUTE AUTO 4.45 K/mm3 (1.96-9.15); NEUTROPHILS PERCENT AUTO 62 % (41-73); Platelet Count 318 K/mm3 (150-400); RDW Coefficient Variation 13.2 % (11.7-14.2); RDW Standard Deviation 47.8 fL (35.1-46.3); Red Blood Cell Count 3.99 M/mm3 (3.80-5.20); White Blood Cell Count 7.13 K/mm3 (4.00-11.30)
[2023-11-18 14:42] LABS: Albumin, Blood 3.3 g/dL (3.4-5.0); Albumin/Globulin Ratio 0.9 (0.8-1.8); Bilirubin, Total 0.2 mg/dL (0.1-1.0); Bun/Creatinine Ratio 25.7 (12.0-20.0); Calcium, Blood 8.8 mg/dL (8.5-10.1); Creatinine, Blood 0.82 mg/dL (0.40-1.00); Globulin, Blood 3.7 g/dL (2.2-4.0); Potassium, Blood 4.4 mmol/L (3.5-5.5)
[2023-11-18 15:30] VITALS: BP 191/114
== END 2023-11-18 15:39 | disposition home or self-care (01) ==
LOC: ER 13:06
PROVIDERS: Emergency Medicine
DX: T54.91XA Toxic effect of unspecified corrosive substance, accidental (unintentional), initial encounter (principal); R10.13 Epigastric pain; J44.9 Chronic obstructive pulmonary disease, unspecified; E78.5 Hyperlipidemia, unspecified; I10 Essential (primary) hypertension; E11.9 Type 2 diabetes mellitus without complications; M19.90 Unspecified osteoarthritis, unspecified site; F17.210 Nicotine dependence, cigarettes, uncomplicated; Z86.73 Personal history of transient ischemic attack (TIA), and cerebral infarction without residual deficits; Z79.899 Other long term (current) drug therapy; Z88.0 Allergy status to penicillin; Z91.040 Latex allergy status; Z88.5 Allergy status to narcotic agent; Z88.6 Allergy status to analgesic agent
CPT/HCPCS: 74018; 80053; 83690; 85025; 96374; 96375; 99284-25; J2405; J2470; J3010

== ENCOUNTER → 2024-11-24 | Outpatient (CLI) | payer MEDICARE, OTHER ==
[2024-11-24 19:37] LABS: BASOPHILS ABSOLUTE AUTO 0.07 K/mm3 (0.00-0.23); BASOPHILS PERCENT AUTO 1 % (0-2); EOSINOPHILS ABSOLUTE AUTO 0.21 K/mm3 (0.00-0.68); EOSINOPHILS PERCENT AUTO 4 % (0-6); Hematocrit 40.4 % (33.0-51.0); Hemoglobin 13.3 g/dL (11.5-16.0); IMMATURE GRAN ABSOLUTE AUTO 0.03 K/mm3 (0.00-0.10); IMMATURE GRAN PERCENT AUTO 1 % (0-1); LYMPHOCYTES ABSOLUTE AUTO 1.72 K/mm3 (0.84-5.20); LYMPHOCYTES PERCENT AUTO 28 % (21-46); MONOCYTES ABSOLUTE AUTO 0.54 K/mm3 (0.16-1.47); MONOCYTES PERCENT AUTO 9 % (4-13); Mean Corpuscular HGB Conc 32.9 g/dL (31.5-36.5); Mean Corpuscular Volume 101 fL (80-100); NEUTROPHILS ABSOLUTE AUTO 3.51 K/mm3 (1.96-9.15); NEUTROPHILS PERCENT AUTO 58 % (41-73); NRBC ABSOLUTE 0.00 K/mm3 (0.00-0.02); NRBC Auto 0.0 /100 WBC (0.0-0.2); Platelet Count 365 K/mm3 (150-400); RDW Coefficient Variation 13.5 % (11.7-14.2); RDW Standard Deviation 49.7 fL (35.1-46.3)
[2024-11-24 20:17] LABS: Alanine Aminotransfer (ALT/SGP 21.0 U/L (12-78); Albumin, Blood 3.6 g/dL (3.4-5.0); Albumin/Globulin Ratio 1.0 (0.8-1.8); Anion Gap 6.0 mmol/L (3-11); Aspartate Aminotrans (AST/SGOT 13.0 U/L (12-37); Bilirubin, Total 0.1 mg/dL (0.1-1.0); Blood Urea Nitrogen 14.0 mg/dL (8-24); CO2, Blood 31.0 mmol/L (21-32); Calcium, Blood 9.0 mg/dL (8.5-10.1); Chloride, Blood 101.0 mmol/L (98-108); Creatinine, Blood 0.69 mg/dL (0.40-1.00); Globulin, Blood 3.7 g/dL (2.2-4.0); Glucose, Blood 88.0 mg/dL (70-99); Potassium, Blood 5.0 mmol/L (3.5-5.5); Sodium, Blood 133.0 mmol/L (136-145); Thyroid Stimulating Hormone 2.13 uIU/mL (0.360-4.800); Total Protein, Blood 7.3 g/dL (6.4-8.2)
== END ==
LOC: LAB 18:34 → LAB SHORT 18:34
DX: E78.2 Mixed hyperlipidemia (principal); I10 Essential (primary) hypertension; J44.9 Chronic obstructive pulmonary disease, unspecified; R63.4 Abnormal weight loss
CPT/HCPCS: 80053; 84443; 85025